=== PATIENT | male | born 1940 | race Caucasian/White ===

== ENCOUNTER → 2019-03-04 09:35 | Outpatient (CLI) | payer MEDICARE, BC, SELFPAY ==
[2018-11-12 09:45] VITALS: BMI 22.7
[2019-03-04 12:59] LABS: PSA,Total- Diagnostic 4.04 ng/mL (0.0-4.0)
== END ==
PROVIDERS: PCP Family Medicine
DX: R97.20 Elevated prostate specific antigen [PSA] (principal)
CPT/HCPCS: 36415; 84153

== ENCOUNTER → 2019-05-07 09:57 | Outpatient (CLI) | payer MEDICARE, BC, SELFPAY ==
[2018-11-12 09:45] VITALS: BMI 22.7
[2019-05-07 12:34] LABS: Hematocrit 51.1 % (40-54); Hemoglobin 17.1 g/dL (13.0-16.5); Mean Corp Hgb Conc 33.5 g/dL (32-36); Mean Corpuscular Hgb 32.6 pg (27.0-32.0); Mean Corpuscular Volume 97.3 fL (80-94); Mean Platelet Vol. 10.7 fl (6.2-12.0); Platelet Count 172 K/mm3 (150-450); RBC Distribution Width CV 12.4 % (11.6-14.6); RBC Distribution Width SD 44.3 fl (35.1-43.9); Red Blood Count 5.25 M/mm3 (4.6-6.2); White Blood Count 6.4 K/mm3 (4.4-11.0)
[2019-05-07 12:49] LABS: ALB/GLOB Ratio 1.2 RATIO (0.9-2.4); AST(SGOT) 16 U/L (15-37); Alanine Aminotransfer ALT/SGPT 25 U/L (16-61); Albumin, Serum 3.9 g/dL (3.2-5.0); Alkaline Phosphatase 69 U/L (45-117); Anion Gap 5 (5-15); BUN 18 mg/dL (7-18); BUN/Creat Ratio 19.6 RATIO (10-20); Chloride 105 mmol/L (98-107); Cholesterol 132 mg/dL (200); Creatinine, Serum 0.92 mg/dL (0.70-1.30); EST Glomerular Filtration Rate 85 mL/min (>60); Est Glom Filt Rate - Afr Amer 103 mL/min (>60); Globulin 3.2 g/dL (2.2-4.2); Glucose 103 mg/dL (74-106); High Density Lipoprotein 56 mg/dL; Potassium 4.6 mmol/L (3.5-5.1); Protein, Total 7.1 g/dL (6.4-8.2); Sodium Level 139 mmol/L (136-145); Thyroid Stim Hormone (TSH) 1.25 uIU/mL (0.358-3.74); Triglycerides 90 mg/dL; Very Low Density Lipoprotein 18 mg/dL (5-40)
== END ==
PROVIDERS: PCP Family Medicine; Visit Provider Nurse Practitioner Family
DX: E78.5 Hyperlipidemia, unspecified (principal); I25.10 Atherosclerotic heart disease of native coronary artery without angina pectoris
CPT/HCPCS: 36415; 80053; 80061; 84443; 85027

== ENCOUNTER → 2019-05-25 10:40 | Outpatient (CLI) | payer MEDICARE, BC, SELFPAY ==
[2019-05-13 09:57] VITALS: BMI 24.9
--- NOTE | 2019-05-25 10:50 | US_ITS ---
STUDY: RENAL ULTRASOUND - COMPLETE REASON FOR EXAM: Male, 79 years old. Urinary frequency TECHNIQUE: Ultrasound evaluation of the kidneys was performed with real-time and static ash-scale imaging. COMPARISON: None. FINDINGS: Aorta: Visualized portions of abdominal aorta are normal in diameter. IVC: Visualized portions appear patent. Right kidney: Measures 10.4 cm. Normal contour. Renal cortical thickness appears normal. There are 2 simple cysts identified measuring 3.0 and 1.5 cm respectively. No masses, stones, or hydronephrosis identified. Left kidney: Measures 10.7 cm. Normal contour. Renal cortical thickness appears normal. A 1.7 cm simple cyst is identified. No masses, stones, or hydronephrosis identified. Bladder: Partially decompressed and not well evaluated. The prostate is enlarged. US/Kidney and Bladder IMPRESSION: Bilateral renal cysts as above. No evidence for obstructive uropathy or other acute process. Significantly enlarged prostate. Consider follow-up PSA and physical exam as clinically indicated. Decompressed bladder is poorly evaluated. Electronically Signed: Maurice Hartmann, at 12:36 EST Tel , Service support ,
== END ==
PROVIDERS: Family Provider Family Medicine; PCP Family Medicine; Referring Provider Family Medicine; Visit Provider Family Medicine
DX: N40.0 Benign prostatic hyperplasia without lower urinary tract symptoms (principal)
CPT/HCPCS: 76770

== ENCOUNTER → 2019-06-02 09:27 | Outpatient (CLI) | payer MEDICARE, BC, SELFPAY ==
[2019-05-13 09:57] VITALS: BMI 24.9
--- NOTE | 2019-06-02 09:28 | US_ITS ---
PROCEDURES: TRANSRECTAL ULTRASOUND GUIDED - PROSTATE REASON FOR EXAM: Male, 79 years old. Elevated PSA levels. TECHNIQUE: Ultrasound evaluation of the prostate was performed with real-time and static barreto-scale imaging. BIOPSY: A needle core biopsy was perform. A consent form was signed, PT-PTT levels checked and a time-out was called. The patient is currently off any anticoagulant therapy. Cleansing enema: Yes COMPARISON: None. FINDINGS: PSA: 4.04 Prostate Volume: 52.7 cm3 There is a 1.3 cm x 1.2 cm by 1.5 cm complex hypoechoic nodule in the right transitional zone. There is also evidence of a 1.6 x 1.5 cm x 1.9 cm slightly echogenic nodule in the left transitional zone. The seminal vesicles appear normal without evidence of nodules or lesions. US/Prostate IMPRESSION: Nodules seen in the transitional zones of both the right and left-sided prostate. Electronically Signed: Umer De Jesus, at 10:40 EST , Service support ,
== END ==
PROVIDERS: Family Provider Family Medicine; PCP Family Medicine; Referring Provider Internal Medicine Critical Care Medicine; Visit Provider Internal Medicine Critical Care Medicine
DX: R35.0 Frequency of micturition (principal)
CPT/HCPCS: 76872

== ENCOUNTER → 2020-03-10 11:01 | Outpatient (CLI) | payer MEDICARE, BC, SELFPAY ==
[2019-11-24 13:44] VITALS: BMI 24.9
[2020-03-10 12:19] LABS: Hematocrit 47.1 % (40-54); Hemoglobin 16.1 g/dL (13.0-16.5); Mean Corp Hgb Conc 34.2 g/dL (32-36); Mean Corpuscular Hgb 32.5 pg (27.0-32.0); Mean Corpuscular Volume 95.2 fL (80-94); Mean Platelet Vol. 9.8 fl (6.2-12.0); Platelet Count 213 K/mm3 (150-450); RBC Distribution Width CV 11.9 % (11.6-14.6); RBC Distribution Width SD 41.3 fl (35.1-43.9); Red Blood Count 4.95 M/mm3 (4.6-6.2); White Blood Count 6.1 K/mm3 (4.4-11.0)
[2020-03-10 12:22] LABS: ALB/GLOB Ratio 1.2 RATIO (0.9-2.4); AST(SGOT) 19 U/L (15-37); Alanine Aminotransfer ALT/SGPT 33 U/L (16-61); Alkaline Phosphatase 73 U/L (45-117); Anion Gap 6 (5-15); BUN 15 mg/dL (7-18); BUN/Creat Ratio 16.7 RATIO (10-20); Chloride 104 mmol/L (98-107); Cholesterol 136 mg/dL (200); EST Glomerular Filtration Rate 87 mL/min (>60); Est Glom Filt Rate - Afr Amer 105 mL/min (>60); Globulin 3.3 g/dL (2.2-4.2); Glucose 98 mg/dL (74-106); High Density Lipoprotein 46 mg/dL; Potassium 4.1 mmol/L (3.5-5.1); Protein, Total 7.3 g/dL (6.4-8.2); Sodium Level 140 mmol/L (136-145); Triglycerides 145 mg/dL; Very Low Density Lipoprotein 29 mg/dL (5-40)
[2020-03-10 13:04] LABS: PSA,Total - Annual Screen 5.04 ng/mL (0.00-4.00)
== END ==
PROVIDERS: PCP Family Medicine; Visit Provider Family Medicine
DX: I25.10 Atherosclerotic heart disease of native coronary artery without angina pectoris (principal); R41.3 Other amnesia; Z87.898 Personal history of other specified conditions; E78.5 Hyperlipidemia, unspecified; Z12.5 Encounter for screening for malignant neoplasm of prostate
CPT/HCPCS: 36415; 80053; 80061; 84153; 85027; G0103

== ENCOUNTER → 2020-03-16 12:27 | Outpatient (CLI) | payer MEDICARE, BC, SELFPAY ==
[2020-03-16 11:42] VITALS: BMI 24.9
--- NOTE | 2020-03-16 12:28 | EKG12_ITS ---
Test Reason : ROUTINE Blood Pressure : / mmHG Vent. Rate : 079 BPM Atrial Rate : 079 BPM P-R Int : 176 ms QRS Dur : 088 ms QT Int : 398 ms P-R-T Axes : 054 023 050 degrees QTc Int : 456 ms Sinus rhythm with marked sinus arrhythmia Otherwise normal ECG Confirmed by ANNIE DUTTON, GALLITO ([id number]), medical transcription editor NICKO RIOS ([id number]) on 03/23/2020 8:34:59 AM Referred By: River Moreno Confirmed By:DANO VALENCIA MD
== END ==
PROVIDERS: PCP Family Medicine; Referring Provider Family Medicine; Visit Provider Family Medicine
DX: I48.91 Unspecified atrial fibrillation (principal)
CPT/HCPCS: 93005

== ENCOUNTER → 2021-01-04 07:58 | Outpatient (CLI) | payer MEDICARE, BC, SELFPAY ==
[2021-01-03 11:20] VITALS: BMI 25.2
[2021-01-04 12:47] LABS: Thyroid Stim Hormone (TSH) 1.09 uIU/mL (0.358-3.74)
== END ==
PROVIDERS: PCP Family Medicine; Referring Provider Family Medicine; Visit Provider Family Medicine
DX: E78.5 Hyperlipidemia, unspecified (principal); N52.9 Male erectile dysfunction, unspecified
CPT/HCPCS: 36415; 84403; 84443

== ENCOUNTER → 2021-02-09 15:36 | Outpatient (CLI) | payer MEDICARE, BC, SELFPAY ==
--- NOTE | 2021-02-09 15:39 | RAD_ITS ---
STUDY: X-RAY CHEST REASON FOR EXAM: Male, 80 years old. Cough TECHNIQUE: Frontal and lateral views COMPARISON: None FINDINGS: Stable sternotomy wires. The lungs are clear and expanded. There is no demonstrated pleural abnormality. Normal size heart. Normal mediastinum and evelin. Normal visualized pulmonary arteries. Normal visualized aortic arch and descending thoracic aorta. There is an old compression of a lower thoracic/upper lumbar vertebral segment with vertebroplasty. Normal visualized ribs, clavicles, and shoulders. There is no demonstrated abnormality of the visualized soft tissue structures of the upper abdomen. RAD/Chest PA and Lateral IMPRESSION: No acute pulmonary pathology of the chest. Electronically Signed: Adan Price DO at 16:08 EDT Tel [phone], Service support ,
== END ==
PROVIDERS: PCP Family Medicine; Referring Provider Nurse Practitioner Family; Visit Provider Nurse Practitioner Family
DX: R05 Cough (principal)
CPT/HCPCS: 71046

== ENCOUNTER → 2021-05-09 11:17 | Outpatient (CLI) | payer MEDICARE, BC, SELFPAY ==
[2021-05-09 12:34] LABS: Absolute Lymphocyte Count 0.74 X10^3/uL (0.83-4.51); Absolute Neutrophil Count 3.9 X10^3/uL (2.0-7.7); Basophil# 0.06 X10^3/uL; Eosinophil# 0.53 X10^3/uL; Eosinophils% 9.1 % (0-5); Hemoglobin 16.2 g/dL (13.0-16.5); Lymphocyte # 0.74 X10^3/ul (0.83-4.51); Lymphocyte % 12.7 % (19-41); Mean Corp Hgb Conc 34.5 g/dL (32-36); Mean Corpuscular Hgb 33.4 pg (27.0-32.0); Mean Corpuscular Volume 96.9 fL (80-94); Mean Platelet Vol. 10.1 fl (6.2-12.0); Monocyte# 0.54 X10^3/uL; Monocyte% 9.3 % (0-10); NRBC Flagged by Analyzer 0 % (0-5); Neutrophil # 3.92 X10^3/uL (2.7-7.7); Neutrophil % 67.4 % (47-70); Platelet Count 190 K/mm3 (150-450); RBC Distribution Width CV 11.9 % (11.6-14.6); RBC Distribution Width SD 42.9 fl (35.1-43.9); Red Blood Count 4.85 M/mm3 (4.6-6.2); White Blood Count 5.8 K/mm3 (4.4-11.0)
[2021-05-09 12:50] LABS: ALB/GLOB Ratio 1.1 RATIO (0.9-2.4); AST(SGOT) 20 U/L (15-37); Alanine Aminotransfer ALT/SGPT 29 U/L (16-61); Albumin, Serum 3.8 g/dL (3.2-5.0); Alkaline Phosphatase 67 U/L (45-117); Anion Gap 4 (5-15); BUN 25 mg/dL (7-18); BUN/Creat Ratio 26.8 RATIO (10-20); Calcium,Total 9.3 mg/dL (8.5-10.1); Chloride 107 mmol/L (98-107); Cholesterol 112 mg/dL (200); Creatinine, Serum 0.93 mg/dL (0.70-1.30); EST Glomerular Filtration Rate 83 mL/min (>60); Est Glom Filt Rate - Afr Amer 100 mL/min (>60); Globulin 3.4 g/dL (2.2-4.2); Glucose 123 mg/dL (74-106); High Density Lipoprotein 47 mg/dL; Potassium 4.1 mmol/L (3.5-5.1); Protein, Total 7.2 g/dL (6.4-8.2); Sodium Level 139 mmol/L (136-145); Triglycerides 110 mg/dL; Very Low Density Lipoprotein 22 mg/dL (5-40)
== END ==
PROVIDERS: PCP Family Medicine; Referring Provider Family Medicine; Visit Provider Family Medicine
DX: I51.9 Heart disease, unspecified (principal); E78.5 Hyperlipidemia, unspecified; J30.2 Other seasonal allergic rhinitis
CPT/HCPCS: 36415; 80053; 80061; 85025

== ENCOUNTER → 2021-05-29 13:37 | Outpatient (CLI) | payer MEDICARE, BC, SELFPAY | PROVIDERS: PCP Family Medicine; Referring Provider Physician Assistant Surgical; Visit Provider Physician Assistant Surgical | DX: Z11.52 Encounter for screening for COVID-19 (principal) | CPT/HCPCS: 87635; U0005; U0003 ==

== ENCOUNTER 2021-07-18 11:27 | Outpatient (CLI) | payer MEDICARE, BC, SELFPAY ==
--- NOTE | 2021-07-18 11:31 | RAD_ITS ---
EXAM: XR CHEST, 2 VIEWS : 1940 CLINICAL INDICATION: cough TECHNIQUE: Frontal and lateral views of the chest. This report was created using [employer] report generation technology. COMPARISON: 02/09/2021 FINDINGS: LUNGS AND PLEURAL SPACES: Unremarkable. No consolidation or edema. No pneumothorax. No effusion. HEART: Unremarkable. Cardiac silhouette not enlarged. MEDIASTINUM: Central airways and mediastinal contour are unremarkable. BONES/JOINTS: Unremarkable. SOFT TISSUES: Unremarkable. RAD/Chest PA and Lateral IMPRESSION: No radiographic evidence of acute cardiopulmonary disease. at 1733 Reported and signed by: Gab Chaudhari MD Electronically Signed: Gab Chaudhari MD at 17:32 EST ,
== END 2021-07-18 23:59 | disposition short-term general hospital (02) ==
LOC: RAD 11:30
PROVIDERS: PCP Family Medicine; Referring Provider Family Medicine; Visit Provider Family Medicine
DX: J40 Bronchitis, not specified as acute or chronic (principal)
CPT/HCPCS: 71046

== ENCOUNTER 2021-09-17 14:28 | Outpatient (CLI) | payer MEDICARE, BC, SELFPAY ==
--- NOTE | 2021-09-17 14:31 | CT_ITS ---
STUDY: CT MAXILLOFACIAL SINUSES REASON FOR EXAM: Male, 81 years old. Sinusitis RADIATION DOSAGE (If Supplied By Facility): CTDIvol = ( 33.06 ) mGy, DLP = ( 800.79 ) mGycm TECHNIQUE: The patient was scanned in a multi detector CT scanner. High resolution axial imaging was performed without the administration of intravenous contrast material. Sagittal and coronal images were reconstructed. Individualized dose optimization techniques were used for this CT. COMPARISON: None. FINDINGS: FRONTAL SINUSES: Normal aeration, without mucosal inflammatory disease. ETHMOIDAL SINUSES: Normal aeration, without mucosal inflammatory disease. MAXILLARY SINUSES: Normal aeration, without mucosal inflammatory disease. SPHENOIDAL SINUSES: Small mucous retention cyst of the right sphenoid sinus. Otherwise normal aeration bilaterally, without mucosal inflammatory disease. MASTOID AIR CELLS: Normal bilaterally. INNER EAR AND OSSICLES: Normal bilaterally. There is patency of the bilateral maxillary infundibuli with normal uncinate processes, ethmoid bullae, and hiatus semilunaris. Normal bilateral middle turbinates. Normal bilateral inferior turbinates. Normal midline nasal septum. There is patency of the bilateral nasal airways. The visualized osseous structures are normal. The visualized bilateral orbital contents are normal. CT/Sinus/Facial Bone IMPRESSION: 1. Small mucous retention cyst of the right sphenoid sinus. The remaining sinuses are clear. Electronically Signed: Ruben Barton MD at 10:39 EDT ,
== END 2021-09-17 23:59 | disposition home or self-care (01) ==
LOC: CT 14:29
PROVIDERS: PCP Family Medicine; Referring Provider Otolaryngology; Visit Provider Otolaryngology
DX: J32.8 Other chronic sinusitis (principal)
CPT/HCPCS: 70486

== ENCOUNTER → 2022-01-22 | Outpatient (CLI) | payer MEDICARE, BC, SELFPAY ==
[2022-01-22 15:18] LABS: Absolute Lymphocyte Count 1.03 X10^3/uL (0.83-4.51); Absolute Neutrophil Count 4.7 X10^3/uL (2.0-7.7); Basophil# 0.07 X10^3/uL; Eosinophil# 0.62 X10^3/uL; Eosinophils% 8.5 % (0-5); Hematocrit 46.7 % (40-54); Hemoglobin 16.4 g/dL (13.0-16.5); Lymphocyte # 1.03 X10^3/ul (0.83-4.51); Lymphocyte % 14.1 % (19-41); Mean Corp Hgb Conc 35.1 g/dL (32-36); Mean Corpuscular Hgb 34.2 pg (27.0-32.0); Mean Corpuscular Volume 97.5 fL (80-94); Mean Platelet Vol. 9.9 fl (6.2-12.0); Monocyte# 0.88 X10^3/uL; NRBC Flagged by Analyzer 0 % (0-5); Neutrophil # 4.68 X10^3/uL (2.7-7.7); Platelet Count 180 K/mm3 (150-450); RBC Distribution Width CV 12.1 % (11.6-14.6); RBC Distribution Width SD 43.8 fl (35.1-43.9); Red Blood Count 4.79 M/mm3 (4.6-6.2); White Blood Count 7.3 K/mm3 (4.4-11.0)
[2022-01-22 15:52] LABS: Anion Gap 2 (5-15); BUN 22 mg/dL (7-18); BUN/Creat Ratio 21.8 RATIO (10-20); Calcium,Total 9.1 mg/dL (8.5-10.1); Chloride 106 mmol/L (98-107); Creatinine, Serum 1.01 mg/dL (0.70-1.30); EST Glomerular Filtration Rate 75 mL/min (>60); Est Glom Filt Rate - Afr Amer 91 mL/min (>60); Glucose 98 mg/dL (74-106); Potassium 4.6 mmol/L (3.5-5.1); Sodium Level 138 mmol/L (136-145); Thyroid Stim Hormone (TSH) 1.01 uIU/mL (0.358-3.74)
== END | disposition home or self-care (01) ==
LOC: BIMLAB 13:28
PROVIDERS: PCP Family Medicine; Visit Provider Nurse Practitioner Family
DX: R53.83 Other fatigue (principal); J30.2 Other seasonal allergic rhinitis; R41.3 Other amnesia
CPT/HCPCS: 36415; 80048; 84443; 85025

== ENCOUNTER → 2022-03-25 | Outpatient (CLI) | payer MEDICARE, BC, SELFPAY ==
--- NOTE | 2022-03-25 12:57 | ECHOD_ITS ---
Reason For Study: Dyspnea/SOB Procedure This was a 2D Doppler, Color Flow transthoracic echocardiogram. Exam performed in department. Left Ventricle Normal LV size. Left ventricular systolic function is normal. The estimated ejection fraction is 60 %. Stage 1 diastolic dysfunction. No regional wall motion abnormalities noted. Right Ventricle Normal RV size. Normal systolic function. Atria Normal left atrium. Normal right atrium. Mitral Valve There is mild mitral annular calcification. Tricuspid Valve Normal tricuspid valve. Aortic Valve Trisinus/trileaflet aortic valve. Mild focal aortic valve calcification. Pulmonic Valve Normal pulmonic valve. Great Vessels Normal aortic root. The pulmonary artery is normal size. Normal inferior vena cava. Pericardium/Pleural No pericardial effusion. MMode/2D Measurements & Calculations LVIDd: 4.4 cm IVSd: 0.95 cm Ao root diam: 3.4 cm LVIDs: 2.9 cm LVPWd: 1.2 cm LA dimension: 4.4 cm RVDd: 3.4 cm FS: 33.9 % LAV(MOD-bp): 30.9 ml LA A4 area: 15.1 cm2 RA A4 area: 13.0 cm2 LAV(MOD-bp) Indexed: 16.7 ml/m2 LAV(MOD-sp2): 27.7 ml LAV(MOD-sp4): 33.7 ml Time Measurements MV dec time: 0.31 sec Doppler Measurements & Calculations MV E max john paul: 54.2 cm/sec Lat Peak E' John Paul: 8.9 cm/sec Med Peak E' John Paul: 6.5 cm/sec MV A max john paul: 94.9 cm/sec E/E' lat: 6.1 E/E' med: 8.4 MV E/A: 0.57 MV V2 max: 111.6 cm/sec MV P1/2t max john paul: 54.8 cm/sec Ao V2 max: 176.8 cm/sec MV max P.0 mmHg MV P1/2t: 167.4 msec Ao max P.5 mmHg MV V2 mean: 43.5 cm/sec MV dec slope: 96.0 cm/sec2 MV mean P.97 mmHg MVA(P1/2t): 1.3 cm2 MV V2 VTI: 30.2 cm LV V1 max: 75.6 cm/sec PA V2 max: 115.6 cm/sec PI end-d john paul: 119.4 cm/sec LV V1 max P.3 mmHg ECHO/Echo Complete Interpretation Summary Normal LV size. Left ventricular systolic function is normal. The estimated ejection fraction is 60 %. Stage 1 diastolic dysfunction. There is mild mitral annular calcification. Ordering Physician: River Moreno Referring Physician: River Moreno Performed By: Jonas Krueger RCS
== END | disposition home or self-care (01) ==
LOC: CVS 12:57
PROVIDERS: PCP Family Medicine; Referring Provider Family Medicine; Visit Provider Family Medicine
DX: I25.810 Atherosclerosis of coronary artery bypass graft(s) without angina pectoris (principal)
CPT/HCPCS: 93306

== ENCOUNTER 2022-07-20 20:53 | Emergency (ER) | payer MEDICARE, BC, SELFPAY ==
[2022-07-20 20:55] VITALS: BP 153/97; PULSE 101; RESP 18; TEMP 36.2; O2SAT 92; BMI 21.2
--- NOTE | 2022-07-20 21:06 | EKG12_ITS ---
Test Reason : CP Blood Pressure : / mmHG Vent. Rate : 089 BPM Atrial Rate : 089 BPM P-R Int : 180 ms QRS Dur : 090 ms QT Int : 330 ms P-R-T Axes : 041 -29 044 degrees QTc Int : 401 ms Normal sinus rhythm Possible Left atrial enlargement Borderline ECG When compared with ECG of 16-MAR-2020 12:37, QRS axis Shifted left QT has shortened Confirmed by ANNIE DUTTON, GALLITO ([id number]), supervising editor news reel SHERLEY AHUMADA ([id number]) on 07/29/2022 12:57:07 PM Referred By: A[place]IN Confirmed By:DANO VALENCIA MD
--- NOTE | 2022-07-20 21:09 | ED.VIS.BACK ---
HPI History of Present Illness Chief Complaint: Back Narrative Narrative: 82-year-old male here for back pain, chest pain, dental pain. Notes a fall out of bed either Friday or Friday night. This is approximately 5 to 6 days prior to arrival. The patient states he has been having intermittent right-sided chest pain and back pain. Notes diffuse weakness all over. Patient has history of dementia per family provide a lot of history otherwise. They state he just moved into a new memory care unit. States since he got a smaller bed he may have fallen earlier in the week. They deny any personal family history of connective tissue disorder such as [place]-Danlos or Marfan syndrome. Denies focal weakness, lateralizing weakness. Patient's baseline mental status is alert and oriented x2. He denies any vomiting. Denies any diarrhea. Denies any recent surgery, travel, unilateral leg swelling, he denies any history of PE or DVT. [facility] Medical History Arthritis Cataracts, both eyes Chronic bronchitis Heart disease Seasonal allergies Home Medications aspirin 81 mg tablet,delayed release 81 mg PO QDAY 01/06/18 [History Last Taken Unknown] fexofenadine 60 mg-pseudoephedrine ER 120 mg tablet,ext.release,12 hr (Mona-D 12 Hour) 1 tab PO Q12H PRN allergies 11/24/19 [History Last Taken Unknown] omeprazole 40 mg capsule,delayed release 40 mg PO QDAY #90 caps 01/05/21 [Rx Last Taken Unknown] rosuvastatin 20 mg tablet (Crestor) 20 mg PO QDAY #90 tabs 03/29/21 [Rx Last Taken Unknown] montelukast 10 mg tablet (Singulair) 10 mg PO DAILY #90 tabs 08/13/21 [Rx Last Taken Unknown] acetaminophen 325 mg capsule (Tylenol) 325 mg PO Q6H PRN pain #120 caps 07/20/22 [Rx Last Taken Unknown] dextromethorphan-guaifenesin 30 mg-600 mg tablet extended [id number] hr (Mucinex DM) 1 tab PO Q12H 07/20/22 [History Last Taken Unknown] famciclovir 500 mg tablet 500 mg PO BID 07/20/22 [History Last Taken Unknown] ibuprofen 200 mg tablet 200 mg PO Q6H PRN pain 14 days #56 tabs 07/20/22 [Rx Last Taken Unknown] Allergy/AdvReac Type Severity Reaction Status Date / Time No Known Allergies Allergy Verified 06/18/22 12:56 Family History Mother Arthritis Father Arthritis Heart disease Kidney disease Parkinson disease Daughter Heart disease Brother Heart disease Surgical History history of triple bypass surgery Social History Smoking Status: Never smoker alcohol intake: never substance use type: does not use what type of physical activity do you participate in: walking and bicycling ROS ROS ED ROS Narrative Constitutional: Denies fever HEENT: Denies sore throat Neck: Denies neck pain Cardiovascular: Endorses chest pain Respiratory: Denies shortness of breath GI: Denies nausea vomiting or abdominal pain : Denies changes in urinary habits Musculoskeletal: Endorses back pain Neurologic: Denies numbness weakness or loss of sensation Skin denies rash EXAM Physical Exam Narrative Exam Narrative: Nursing triage notes reviewed, Vital signs reviewed Primary Survey Airway: Intact Breathing: Bilateral breath sounds Circulation: Palpable bilateral femorals, Palpable bilateral radial, Palpable bilateral DP and Palpable bilateral PT Disability / Spine precautions GCS Score: Eye Openin Verbal Response: 5 Motor Response: 6 Secondary Survey Constitutional: Please see MDM Head: Atraumatic, Midface stable, NO jaw malocclusion, No Cephalohematoma, and No Lacerations noted Eye: Pupils equal round and reactive to light, Extraocular muscles intact and No periorbital ecchymosis or stepoff, no evidence of entrapment ENT: Oropharynx clear, no lacerations, no hemotympanum, no raccoon eyes or núñez sign Cervical spine / Neck: No cervical spine bony tenderness, crepitance, or stepoff deformity Trachea midline Lungs: Clear to auscultation, No asymmetric rise and No crepitus, no flail chest Cardiac: Regular rate and rhythm and No murmurs Abdomen: Soft, Nontender and No rebound Pelvis: Pelvis stable to compression : No evidence of genital injury Back: No midline bony tenderness to thoracic/lumbar/sacral spines Neuro: Alert and oriented x3, neuro exam at baseline, cranial nerves II through XII are intact. No pain with extraocular muscle movement. There is negative test of skew. Normal speech. 5 of 5 strength in upper and lower extremities in flexion extension. Intact sensation to light touch in upper and lower extremity dermatomes. No truncal or extremity ataxia. No dysdiadochokinesia. Normal gait. 2+ reflexes. No meningeal signs. Negative Babinski. NIH of 0 Extremities: NO gross Deformities Psych: Normal affect Nursing triage notes reviewed, Vital signs reviewed Const Vital Signs: 07/20/22 20:55 07/20/22 20:55 Temperature 97.1 F L 97.1 F L Temperature Source Temporal Temporal Pulse Rate 101 H 101 H Respiratory Rate 18 18 Blood Pressure 153/97 H 153/97 H Blood Pressure Mean 115 115 Pulse Ox 92 92 Oxygen Delivery Method Room Air Room Air MDM MDM MDM Narrative Medical decision making narrative: Chief Complaint: Chest pain, back pain, dental pain External records reviewed: Echocardiogram from March 2022 shows an ejection fraction of 60%, stage I diastolic dysfunction I considered: ACS, PE, pneumonia, pneumothorax, cervical spine, thoracic spine, lumbar spine fracture dislocation. I also considered musculoskeletal etiology, space-occupying lesion of the spine, aortic pathology. EKG with no evidence of STEMI. Troponin negative. Low gestalt for PE, low risk score. No evidence of bony abnormality to the spine, denies, Lumbar spine or acute intracranial pathology. No pulsatile abdominal masses, pulse deficits suggest aortic pathology. No obvious emergent life-threatening etiology identified. UA without infection. No PNA on CXR. No leukocytosis to suggest infection. IMaging negative for acute traumatic injuries. Factors affecting care: Care complicated by history of hyperlipidemia, CAD status post CABG, atherosclerosis, chronic bronchitis Social determinants of health: Elderly, memory care patient Shared decision making: I will have a discussion with the patient and or visitors regarding risk/benefits of further testing or admission. They will be made aware of of the risk/benefits inherent in this decision they will be given the opportunity to voice understanding. Consults: none Lab Data Attestation: I reviewed the patient's lab results. Lab results narrative: CBC without evidence of leukocytosis, tachycardia anemia or thrombocytopenia BMP without evidence of significant electrolyte abnormalities, anion gap to suggest endorgan hypoperfusion, TOAN Troponin negative for evidence of myocardial schema UA without evidence of urinary tract infection Labs: Laboratory Results - last 24 hr 07/20/22 07/20/22 07/20/22 21:45 21:45 22:15 WBC 9.6 RBC 4.87 Hgb 16.2 Hct 47.6 MCV 97.7 H MCH 33.3 H MCHC 34.0 RDW Std Deviation 42.5 RDW Coeff of Solitario 11.8 Plt Count 213 MPV 9.9 Immature Gran % (Auto) 0.800 Neut % (Auto) 74.8 H Lymph % (Auto) 6.9 L [place] % (Auto) 14.6 H Eos % (Auto) 2.4 Baso % (Auto) 0.5 Absolute Neuts (auto) 7.2 Absolute Lymphs (auto) 0.66 L Nucleated RBC % 0 Sodium 138 Potassium 4.2 Chloride 105 Carbon Dioxide 25.0 Anion Gap 8 BUN 19 H Creatinine 0.88 Estim Creat Clear Calc 59.13 Est GFR (MDRD) Af Amer 108 Est GFR (MDRD) Non-Af 89 BUN/Creatinine Ratio 21.7 H Glucose 116 H Calcium 9.0 Troponin I High Sens 6 Urine Color Yellow Urine Clarity Clear Urine pH 6.0 Ur Specific Weir 1.015 Urine Protein 15 H Urine Glucose (UA) Normal Urine Ketones 5 H Urine Occult Blood 25 H Urine Nitrite Negative Urine Bilirubin Negative Urine Urobilinogen 1 H Ur Leukocyte Esterase 25 H Urine RBC 0 SEEN Urine WBC 0 SEEN Ur Squamous Epith Cells 0 SEEN Urine Bacteria 0 SEEN Urine Mucus 0 SEEN Radiography Diagnostic Testing: Clinical Impression(s) from Imaging Studies Brain CT 07/20/22 21:36 IMPRESSION: Atrophy. No evidence of acute hemorrhage infarct or edema. Electronically Signed: Dinorah Reynolds MD at 22:32 EST Reading Location ID and State: [facility] / [place] Tel , Service support , Cervical Spine CT 07/20/22 21:36 IMPRESSION: Degenerative change of the cervical spine no visualized acute fracture. Electronically Signed: Dinorah Reynolds MD at 22:46 EST , Lumbar Spine CT 07/20/22 21:36 IMPRESSION: Degenerative change, no visualized fracture. Prior laminectomy L5-S1. Prostate enlargement measuring up to 4.2 x 6.4 cm. Distended bladder Diverticulosis no visualized diverticulitis. Stones in the left kidney no hydronephrosis. As seen on that the thoracic spine CT there are bilateral benign-appearing renal cysts. Electronically Signed: Dinorah Reynolds MD at 22:54 EST , Thoracic Spine CT 07/20/22 21:36 IMPRESSION: Degenerative change at the cervical and thoracic spine without visualized acute loss of height or alignment. Prior Kyphoplasty compression injury at L1. Incidental visualization of dense calcification of the coronary arteries. Especially the left anterior descending. Electronically Signed: Dinorah Reynolds MD at 22:50 EST , Chest X-Ray 07/20/22 22:05 IMPRESSION: Status post sternotomy. No demonstrated acute cardiopulmonary process. The lung bases are mostly obscured. Electronically Signed: Dinorah Reynolds MD at 22:33 EST , Treatment and Re-Evaluation Narrative: Trauma exam without new traumatic injuries patient is appropriate discharge back to memory unit. Discharge Plan Triage Chief Complaint: Back ED Provider: Hiren Shelton Dx/Rx/DC Orders Clinical Impression: Back pain, Chest pain, Dementia Instructions: ED Chest Pain, Uncertain Cause Prescriptions: New acetaminophen [Tylenol] 325 mg capsule 325 mg PO Q6H PRN (Reason: pain) Qty: 120 0RF ibuprofen 200 mg tablet 200 mg PO Q6H PRN (Reason: pain) 14 Days Qty: 56 0RF No Action aspirin 81 mg tablet,delayed release (DR/EC) 81 mg PO QDAY fexofenadine-pseudoephedrine [Mona-D 12 Hour] 60-120 mg tablet extended release 12 hr 1 tab PO Q12H PRN (Reason: allergies) famciclovir 500 mg tablet 500 mg PO BID Mucinex DM 30-600 mg Tablet Extended Release 12 Hr 1 tab PO Q12H omeprazole 40 mg capsule,delayed release(DR/EC) 40 mg PO QDAY Qty: 90 3RF rosuvastatin [Crestor] 20 mg tablet 20 mg PO QDAY Qty: 90 3RF montelukast [Singulair] 10 mg tablet 10 mg PO DAILY Qty: 90 2RF Primary Care Provider: Bertha Arndt Referrals: River Moreno DO [Med Staff - Retarder Operator] - Disposition Disposition: Home, Self Care
--- NOTE | 2022-07-20 21:36 | CT_ITS ---
STUDY: CT CERVICAL SPINE WITHOUT CONTRAST REASON FOR EXAM: Male, 82 years old. Fall, neck pain RADIATION DOSAGE (If Supplied By Facility): CTDIvol = ( 23.49 ) mGy, DLP = ( 520.73 ) mGycm TECHNIQUE: High resolution transaxial imaging was performed without contrast material. Sagittal and coronal images were reconstructed. Individualized dose optimization techniques were used for this CT. COMPARISON: None FINDINGS: Normal craniovertebral junction. There are degenerative changes of the anterior atlantoaxial articulation. Normal odontoid process. Normal cervical lordosis. Normal vertebral bodies and posterior osseous elements. C2-3: Normal endplates. Normal disc height and morphology. Normal central canal and intervertebral neuroforamina. C3-4: There is facet arthropathy. There is mild neural foramina narrowing or significant central stenosis. There is dense calcification of the bilateral carotid bulbs. C4-5: There is disc space narrowing facet arthropathy mild neural foramina narrowing no significant central stenosis. C5-6: There is disc space narrowing facet arthropathy minimal neural foramina narrowing no significant central stenosis. C6-7: There is disc space narrowing. There is mild neural foramina narrowing no significant central stenosis. C7-T1: Normal endplates. Normal disc height and morphology. Normal central canal and intervertebral neuroforamina. Normal visualized soft tissue structures. CT/Spine Cervical without Contras IMPRESSION: Degenerative change of the cervical spine no visualized acute fracture. Electronically Signed: Dinorah Reynolds MD at 22:46 EST Reading Location ID and State: [facility] / [place] Tel , Service support ,
--- NOTE | 2022-07-20 21:36 | CT_ITS ---
STUDY: CT THORACIC SPINE WITHOUT CONTRAST REASON FOR EXAM: Male, 82 years old. Fall, back pain RADIATION DOSAGE (If Supplied By Facility): CTDIvol = ( 32.57 ) mGy, DLP = ( 1548.64 ) mGycm TECHNIQUE: The patient was scanned in a multi detector CT scanner. High resolution imaging was performed. Images were obtained from C7 to L1. Sagittal and coronal images were reconstructed. Individualized dose optimization techniques were used for this CT. COMPARISON: None. FINDINGS: There is mild multilevel endplate spondylosis of the cervical spine. Multilevel facet arthropathy within the cervical spine. There is visualize calcification of the carotid arteries. Normal kyphosis of the thoracic spine. There is no substantial scoliosis. There is mild multilevel endplate spondylosis of the thoracic spine. There is multilevel mild disc space narrowing. There is no apparent acute loss of height or alignment. There is a visualized compression injury at the level of L1 with kyphoplasty material. There are punctate stones within the left kidney without visualized hydronephrosis. There is a partially visualized this right kidney measuring 2.9 x 2.5 cm. There is an exophytic cyst left kidney measuring 2.3 x 1.5 cm. T9 there is slight loss of height which appears to be associated with a Schmorl''s node or chronic findings. There is visualized mild cardiomegaly. There is dense calcification in the left anterior descending coronary artery. CT/Spine Thoracic without Contras IMPRESSION: Degenerative change at the cervical and thoracic spine without visualized acute loss of height or alignment. Prior Kyphoplasty compression injury at L1. Incidental visualization of dense calcification of the coronary arteries. Especially the left anterior descending. Electronically Signed: Dinorah Reynolds MD at 22:50 EST ,
--- NOTE | 2022-07-20 21:36 | CT_ITS ---
STUDY: CT LUMBAR SPINE WITHOUT CONTRAST REASON FOR EXAM: Male, 82 years old. Fall, back pain RADIATION DOSAGE (If Supplied By Facility): CTDIvol = ( 17.83 ) mGy, DLP = ( 602.86 ) mGycm TECHNIQUE: The patient was scanned in a multi detector CT scanner. High resolution transaxial imaging was performed. Images were obtained from to . Sagittal and coronal images were reconstructed. Individualized dose optimization techniques were used for this CT. COMPARISON: None FINDINGS: Normal lumbar lordosis. There is no substantial scoliosis. Chronic appearing 50% loss of height at the level of L1 with kyphoplasty material. L1-2: Normal endplates. Normal disc height and morphology. Normal bilateral facet joints. Normal central canal and bilateral lateral recesses. Normal bilateral intervertebral neural foramina. L2-3: There is facet arthropathy with minimal right neural foramina narrowing no significant central stenosis L3-4: There is facet arthropathy with mild neural foramina narrowing no significant central stenosis. L4-5: There is a broad disc bulge mild neural foramina narrowing mild central stenosis facet arthropathy. L5-S1: There is a broad left lateral disc bulge with moderate left neural foramina narrowing no significant central stenosis. There has been a laminectomy. The prostate is enlarged. The bladder is distended. There is diverticulosis without diverticulitis. There is partial visualization of cysts seen in the bilateral kidneys also described on the dedicated thoracic spine performed the same day. There is a small cluster of stones within the left kidney measuring 4.3 and 2.[address]/Spine Lumbar without Contrast IMPRESSION: Degenerative change, no visualized fracture. Prior laminectomy L5-S1. Prostate enlargement measuring up to 4.2 x 6.4 cm. Distended bladder Diverticulosis no visualized diverticulitis. Stones in the left kidney no hydronephrosis. As seen on that the thoracic spine CT there are bilateral benign-appearing renal cysts. Electronically Signed: Dinorah Reynolds MD at 22:54 EST ,
--- NOTE | 2022-07-20 21:36 | CT_ITS ---
STUDY: CT BRAIN WITHOUT CONTRAST REASON FOR EXAM: Male, 82 years old. Fall, dementia RADIATION DOSAGE (If Supplied By Facility): CTDIvol = ( 44.99 ) mGy, DLP = ( 846.73 ) mGycm TECHNIQUE: Transaxial CT imaging of the brain was performed without administration of intravenous contrast material. Individualized dose optimization techniques were used for this CT. COMPARISON: No relevant priors. FINDINGS: Normal soft tissue structures. Normal calvarium. There is calcification of the right greater than left vertebral arteries. There is calcification of the cavernous carotid arteries. There is moderate cerebral atrophy with widening of the extra-axial spaces and ventricular dilatation. There are areas of decreased attenuation within the white matter tracts of the supratentorial brain, consistent with microvascular disease changes. Normal basal ganglia and thalami. Normal brainstem. There is mild cerebellar atrophy. There is no intracranial hemorrhage. There are no findings of an acute ischemic infarction. Small mucosal retention cyst within the right side sphenoid. CT/Brain/Head without Contrast IMPRESSION: Atrophy. No evidence of acute hemorrhage infarct or edema. Electronically Signed: Dinorah Reynolds MD at 22:32 EST Reading Location ID and State: [facility] / [place] Tel , Service support ,
[2022-07-20 22:03] LABS: Absolute Lymphocyte Count 0.66 X10^3/uL (0.83-4.51); Absolute Neutrophil Count 7.2 X10^3/uL (2.0-7.7); Basophil# 0.05 X10^3/uL; Basophil% 0.5 % (0-1); Eosinophil# 0.23 X10^3/uL; Eosinophils% 2.4 % (0-5); Hematocrit 47.6 % (40-54); Hemoglobin 16.2 g/dL (13.0-16.5); Lymphocyte # 0.66 X10^3/ul (0.83-4.51); Lymphocyte % 6.9 % (19-41); Mean Corpuscular Hgb 33.3 pg (27.0-32.0); Mean Corpuscular Volume 97.7 fL (80-94); Mean Platelet Vol. 9.9 fl (6.2-12.0); Monocyte% 14.6 % (0-10); NRBC Flagged by Analyzer 0 % (0-5); Neutrophil # 7.17 X10^3/uL (2.7-7.7); Neutrophil % 74.8 % (47-70); Platelet Count 213 K/mm3 (150-450); RBC Distribution Width CV 11.8 % (11.6-14.6); RBC Distribution Width SD 42.5 fl (35.1-43.9); Red Blood Count 4.87 M/mm3 (4.6-6.2); White Blood Count 9.6 K/mm3 (4.4-11.0)
--- NOTE | 2022-07-20 22:05 | RAD_ITS ---
STUDY: X-RAY CHEST REASON FOR EXAM: Male, 82 years old. Chest pain TECHNIQUE: Single AP portable view of the chest. COMPARISON: January 15, 2022 chest x-ray FINDINGS: The lungs are hypoinflated compared to prior study. There is no demonstrated pleural abnormality. Sternal cerclage wires are present from a prior sternotomy. Normal mediastinum and evelin. Normal visualized pulmonary arteries. Normal visualized aortic arch and descending thoracic aorta. Normal visualized thoracic spine. Normal visualized ribs, clavicles, and shoulders. There is no demonstrated abnormality of the visualized soft tissue structures of the upper abdomen. RAD/Chest 1 View (Portable) IMPRESSION: Status post sternotomy. No demonstrated acute cardiopulmonary process. The lung bases are mostly obscured. Electronically Signed: Dinorah Reynolds MD at 22:33 [facility] ,
[2022-07-20 22:20] LABS: Anion Gap 8 (5-15); BUN 19 mg/dL (7-18); BUN/Creat Ratio 21.7 RATIO (10-20); Chloride 105 mmol/L (98-107); Creatinine, Serum 0.88 mg/dL (0.70-1.30); EST Glomerular Filtration Rate 89 mL/min (>60); Est Glom Filt Rate - Afr Amer 108 mL/min (>60); Estimated Creatinine Clearance 59.13 ml/min; Glucose 116 mg/dL (74-106); Potassium 4.2 mmol/L (3.5-5.1); Sodium Level 138 mmol/L (136-145); Troponin-I HS (w/2H Reflex) 6 pg/mL (3.0-78.0)
[2022-07-20 22:24] LABS: Bacteria 0 SEEN /hpf (None Seen); Mucous, Urine 0 SEEN /hpf (<or=2+); Red Blood Cells-Urine 0 SEEN /hpf (0-5); Squamous Epithelial Cells - UA 0 SEEN /hpf (0-5); White Blood Cells 0 SEEN /hpf (0-5)
[2022-07-20 22:25] LABS: Color, Urine Yellow (Yellow); Glucose, Dipstick Normal (Normal); Ketone-Dipstick 5 mg/dl (Negative); Leukocyte Esterase-Dipstick 25 /ul (Negative); Nitrite-Dipstick Negative (Negative); Occult Blood-Urine 25 /ul (Negative); Protein-Dipstick 15 mg/dl (Negative); Specific Gravity, Urine 1.015 (1.002-1.030); Urine Bilirubin Dipstick Negative (Negative); Urine Clarity Clear (Clear); Urine Urobilinogen 1 mg/dl (Normal)
[2022-07-20 23:00] VITALS: BP 135/83; PULSE 78; RESP 20; O2SAT 98
[2022-07-20 23:52] LABS: Reflex Troponin-HS? (from REC) Y
== END 2022-07-20 23:45 | disposition home or self-care (01) ==
PROVIDERS: Emergency Provider Emergency Medicine; PCP Family Medicine; Visit Provider Emergency Medicine
DX: M54.9 Dorsalgia, unspecified (principal); F03.90 Unspecified dementia, unspecified severity, without behavioral disturbance, psychotic disturbance, mood disturbance, and anxiety; J42 Unspecified chronic bronchitis; K08.89 Other specified disorders of teeth and supporting structures; E78.5 Hyperlipidemia, unspecified; I25.10 Atherosclerotic heart disease of native coronary artery without angina pectoris; Z95.1 Presence of aortocoronary bypass graft; R07.9 Chest pain, unspecified
CPT/HCPCS: 70450; 71045; 72125; 72128; 72131; 80048; 81001; 84484; 85025; 93005; 99284; A4216

== ENCOUNTER → 2022-07-25 | Outpatient (REF) | payer MEDICARE, BC, SELFPAY ==
[2022-07-25 10:00] LABS: AST(SGOT) 51 U/L (15-37); Alanine Aminotransfer ALT/SGPT 46 U/L (16-61); Cholesterol 108 mg/dL (200); High Density Lipoprotein 48 mg/dL; Triglycerides 65 mg/dL; Very Low Density Lipoprotein 13 mg/dL (5-40)
== END ==
LOC: OLS.BROOKB 06:20
PROVIDERS: PCP Family Medicine; Visit Provider Family Medicine
DX: I25.10 Atherosclerotic heart disease of native coronary artery without angina pectoris (principal)
CPT/HCPCS: 36415; 80061; 84450; 84460

== ENCOUNTER → 2022-09-05 | Outpatient (REF) | payer MEDICARE, BC, SELFPAY ==
[2022-09-05 08:32] LABS: Hematocrit 44.3 % (40-54); Hemoglobin 14.6 g/dL (13.0-16.5); Mean Corpuscular Hgb 33.2 pg (27.0-32.0); Mean Corpuscular Volume 100.7 fL (80-94); Mean Platelet Vol. 9.9 fl (6.2-12.0); Platelet Count 193 K/mm3 (150-450); RBC Distribution Width SD 48.1 fl (35.1-43.9); White Blood Count 5.4 K/mm3 (4.4-11.0)
[2022-09-05 08:52] LABS: Vitamin B12 276 pg/mL (211-911)
[2022-09-05 09:08] LABS: AST(SGOT) 23 U/L (15-37); Alanine Aminotransfer ALT/SGPT 36 U/L (16-61); Albumin, Serum 3.3 g/dL (3.2-5.0); Alkaline Phosphatase 78 U/L (45-117); Anion Gap 8 (5-15); BUN 26 mg/dL (7-18); Calcium,Total 9.1 mg/dL (8.5-10.1); Chloride 105 mmol/L (98-107); Cholesterol 113 mg/dL (200); Creatinine, Serum 1.04 mg/dL (0.70-1.30); EST Glomerular Filtration Rate 73 mL/min (>60); Est Glom Filt Rate - Afr Amer 88 mL/min (>60); Globulin 3.2 g/dL (2.2-4.2); Glucose 100 mg/dL (74-106); High Density Lipoprotein 43 mg/dL; Potassium 4.4 mmol/L (3.5-5.1); Protein, Total 6.5 g/dL (6.4-8.2); Sodium Level 139 mmol/L (136-145); Thyroid Stim Hormone (TSH) 1.28 uIU/mL (0.358-3.74); Triglycerides 155 mg/dL; Very Low Density Lipoprotein 31 mg/dL (5-40)
== END ==
LOC: OLS.DANBUR 05:00
PROVIDERS: PCP Family Medicine; Visit Provider Family Medicine
DX: I25.10 Atherosclerotic heart disease of native coronary artery without angina pectoris (principal); E55.9 Vitamin D deficiency, unspecified; G30.9 Alzheimer's disease, unspecified
CPT/HCPCS: 36415; 80053; 80061; 82306; 82607; 82746; 84443; 85027

== ENCOUNTER → 2023-02-27 | Outpatient (REF) | payer MEDICARE, BC, SELFPAY ==
[2023-02-27 09:29] LABS: Cholesterol 117 mg/dL (200); High Density Lipoprotein 48 mg/dL; Triglycerides 97 mg/dL; Very Low Density Lipoprotein 19 mg/dL (5-40)
== END ==
LOC: OLS.DANBUR 04:00
PROVIDERS: PCP Family Medicine
DX: I25.10 Atherosclerotic heart disease of native coronary artery without angina pectoris (principal)
CPT/HCPCS: 36415; 80061

== ENCOUNTER → 2023-04-11 | Outpatient (REF) | payer MEDICARE, BC, SELFPAY ==
[2023-04-11 08:45] LABS: Cholesterol 121 mg/dL (200); High Density Lipoprotein 48 mg/dL; Triglycerides 84 mg/dL; Very Low Density Lipoprotein 17 mg/dL (5-40)
== END ==
LOC: OLS.DANBUR 05:00
PROVIDERS: PCP Family Medicine
DX: G30.9 Alzheimer's disease, unspecified (principal); Z79.899 Other long term (current) drug therapy
CPT/HCPCS: 36415; 80061

== ENCOUNTER 2023-04-27 18:16 | Emergency (ER) | payer MEDICARE, BC, SELFPAY ==
[2023-04-27 18:17] VITALS: BP 119/76; PULSE 72; RESP 18; TEMP 35.9; O2SAT 96; BMI 25.2
--- NOTE | 2023-04-27 18:29 | EKG12_ITS ---
Test Reason : DYSRHYTHMIA Blood Pressure : / mmHG Vent. Rate : 049 BPM Atrial Rate : 049 BPM P-R Int : 200 ms QRS Dur : 086 ms QT Int : 476 ms P-R-T Axes : 042 000 054 degrees QTc Int : 429 ms Sinus bradycardia Otherwise normal ECG Confirmed by ANNIE DUTTON, GALLITO ([id number]), field map editor KIERSTEN ACEVES ([id number]) on 05/05/2023 8:43:10 AM Referred By: Confirmed By:DANO VALENCIA MD
--- NOTE | 2023-04-27 18:30 | EDS_ITS ---
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 Patient family states that started around 3 PM today. Patient states the pain is much worse with walking, palpation. He denies any nausea or vomiting. Patient denies any chest pain or shortness of breath. Patient denies any fever or chills. Denies any history of abdominal surgeries. PFSH <KARSON Gordon - Last Filed: 04/27/23 21:12> [facility] Medical History Arthritis Cataracts, both eyes Chronic bronchitis Heart disease Seasonal allergies Home Medications aspirin 81 mg tablet,delayed release 81 mg PO QDAY 01/06/18 [History Last Taken Unknown] omeprazole 40 mg capsule,delayed release 40 mg PO QDAY #90 caps 01/05/21 [Rx Last Taken Unknown] rosuvastatin 20 mg tablet (Crestor) 20 mg PO QDAY #90 tabs 03/29/21 [Rx Last Taken Unknown] acetaminophen 325 mg capsule (Tylenol) 325 mg PO Q6H PRN pain #120 caps 07/20/22 [Rx Last Taken Unknown] dextromethorphan-guaifenesin 30 mg-600 mg tablet extended [id number] hr (Mucinex DM) 1 tab PO Q12H 07/20/22 [History Last Taken Unknown] famciclovir 500 mg tablet 500 mg PO BID 07/20/22 [History Last Taken Unknown] celecoxib 200 mg capsule 200 mg PO Q24H 04/27/23 [History Last Taken Unknown] cholecalciferol (vitamin D3) 125 mcg (5,000 unit) tablet (Vitamin D3) 125 mcg PO DAILY 04/27/23 [History Last Taken Unknown] escitalopram oxalate 5 mg tablet (Lexapro) 5 mg PO DAILY 04/27/23 [History Last Taken Unknown] fexofenadine 180 mg tablet (Mona Allergy) 180 mg PO DAILY 04/27/23 [History Last Taken Unknown] hydroxyzine pamoate 25 mg capsule 25 mg PO Q8H PRN anxiety 04/27/23 [History Last Taken Unknown] ibuprofen 200 mg tablet 200 mg PO Q4H PRN pain 04/27/23 [History Last Taken Unknown] quetiapine 50 mg tablet 50 mg PO QHS 04/27/23 [History Last Taken Unknown] Allergy/AdvReac Type Severity Reaction Status Date / Time No Known Allergies Allergy Verified 04/27/23 18:17 Family History Mother Arthritis Father Arthritis Heart disease Kidney disease Parkinson disease Daughter Heart disease Brother Heart disease Surgical History history of triple bypass surgery Social History Smoking Status: Never smoker alcohol intake: never substance use type: does not use what type of physical activity do you participate in: walking and bicycling ROS <KARSON Gordon - Last Filed: 04/27/23 21:12> ROS ED ROS Narrative Constitutional: Negative for fever, chills, weight loss, weakness Eyes: Negative for vision loss, vision change, double vision ENT: Negative for any sore throat, ear pain, congestion Cardiovascular: Negative for any chest pain, tightness, palpitations Respiratory: Negative for any cough, sputum production, hemoptysis, dyspnea, dyspnea on exertion, orthopnea Gastrointestinal: Negative for any nausea, vomiting, diarrhea, constipation, blood in stool, blood in vomit. Positive for upper abdominal pain, negative for any peritoneal signs. Active bowel sounds. : Negative for any urinary frequency, dysuria, retention, blood in urine Muscle skeletal: Negative for any myalgias, arthralgias, neck pain, back pain Neurological: Negative for any headache, syncope, numbness or tingling, dizziness Skin: Negative for any rashes, lumps, itching, abrasions, lacerations Psychiatric: Negative for any depression, anxiety, stress, suicidal ideation, homicidal ideation Hematologic: Negative for any easy bruising, excessive bruising, easy bleeding Allergies: Negative for any eczema, hives, rash EXAM <KARSON Gordon - Last Filed: 04/27/23 21:12> Physical Exam Narrative Exam Narrative: Vital signs reviewed. HEET: Head normocephalic atraumatic, TMs clear bilaterally. Posterior pharynx is clear, moist mucous membranes. Nares clear bilaterally. Neck: Supple with no lymphadenopathy or tenderness. No signs of meningismus. Cardiac: Regular rate and rhythm no murmurs gallops or rubs, equal peripheral pulses bilaterally. Respiratory: Lungs clear to auscultation bilaterally. No chest tenderness. Abdomen: Soft, nondistended. No abdominal bruit or pulsatile masses. No hepatosplenomegaly. Positive for tenderness to the upper abdomen Extremities: No peripheral edema, no signs of gross trauma or deformity. Active full range of motion of all extremities. Neuro: Cranial nerves II through XII intact, no focal neurological deficits. Skin: Clean dry and intact with no rash, purpura, petechiae, vesicles or pustules. Backs/flank: No CVA tenderness, no midline spinal tenderness, no deformity. Psych: Normal mood and affect. No SI, HI or acute psychosis. Const Vital Signs: 04/27/23 18:17 04/27/23 20:29 Temperature 96.6 F L Temperature Source Temporal Pulse Rate 72 60 Respiratory Rate 18 19 H Blood Pressure 119/76 126/57 H Blood Pressure Mean 90 80 Pulse Ox 96 97 Oxygen Delivery Method Room Air <Dr. Emelina Justice DO - Last Filed: 04/30/23 08:40> Physical Exam Const Vital Signs: 04/27/23 18:17 04/27/23 20:29 Temperature 96.6 F L Temperature Source Temporal Pulse Rate 72 60 Respiratory Rate 18 19 H Blood Pressure 119/76 126/57 H Blood Pressure Mean 90 80 Pulse Ox 96 97 Oxygen Delivery Method Room Air [facility] <KARSON Gordon - Last Filed: 04/27/23 21:12> [facility] Lab Data Labs: Laboratory Results - last 24 hr 04/27/23 04/27/23 04/27/23 18:45 18:48 19:45 WBC 8.4 RBC 4.65 Hgb 15.7 Hct 47.0 MCV 101.1 H MCH 33.8 H MCHC 33.4 RDW Std Deviation 44.3 H RDW Coeff of Solitario 11.9 Plt Count 168 MPV 9.6 Immature Gran % (Auto) 0.600 Neut % (Auto) 70.3 H Lymph % (Auto) 14.4 L [place] % (Auto) 8.9 Eos % (Auto) 5.1 H Baso % (Auto) 0.7 Absolute Neuts (auto) 5.9 Absolute Lymphs (auto) 1.21 Nucleated RBC % 0 Sodium 140 Potassium 3.9 Chloride 103 Carbon Dioxide 29.0 Anion Gap 8 BUN 21 H Creatinine 1.09 Estim Creat Clear Calc 51.42 Est GFR (MDRD) Af Amer 83 Est GFR (MDRD) Non-Af 69 BUN/Creatinine Ratio 19.3 Glucose 143 H Lactic Acid 2.1 H* Calcium 9.7 Total Bilirubin 0.90 AST 17 ALT 29 Alkaline Phosphatase 65 Troponin I High Sens 5 Total Protein 7.3 Albumin 4.0 Globulin 3.3 Albumin/Globulin Ratio 1.2 Lipase 70 Urine Color Yellow Urine Clarity Sl. Cloudy Urine pH 7.0 Ur Specific [place] 1.010 Urine Protein 15 H Urine Glucose (UA) Normal Urine Ketones 5 H Urine Occult Blood Negative Urine Nitrite Negative Urine Bilirubin Negative Urine Urobilinogen Normal Ur Leukocyte Esterase 25 H Urine RBC 0 SEEN Urine WBC 0-5 SEEN Ur Squamous Epith Cells 0-5 SEEN Urine Bacteria 0 SEEN Urine Mucus 0 SEEN Radiography Diagnostic Testing: Clinical Impression(s) from Imaging Studies Chest/Abdomen/Pelvis CTA 04/27/23 18:53 IMPRESSION: Normal contrast-enhanced CTA of the chest. Normal contrast-enhanced CTA of the abdomen and pelvis. No active pulmonary disease. Cardiomegaly. 8 mm stone within the bladder near the left ureterovesical junction with mild dilatation of the distal left ureter. Sigmoid diverticulosis without diverticulitis. Electronically Signed: Prem Moreland MD at 20:31 EST , EKG Sinus bradycardia: Attestation: I personally reviewed and interpreted this EKG as follows: Interpretation: Sinus Rhythm Comments: Sinus rhythm with a rate of 49 bpm, PA interval 200 ms, QRS duration 86 ms, no acute ST elevation, no acute infarct noted. Treatment and Re-Evaluation :: Patient is in no obvious distress, patient presents to the emergency department with complaints of upper abdominal pain that started around 3 PM today. Patient does have history of dementia, has difficulty answering specific questions. Per the family, they state that he usually does not complain of pain. Patient's pain is in the right and left upper quadrant. Differential diagnosis has not limited to but possible choledocholithiasis, pancreatitis, gallstone, abdominal aneurysm, GERD. Patient will receive basic laboratory values including liver function test. Patient received a CT scan of the abdomen pelvis with IV contrast. Patient was given IV fluids, Zofran, as well as IV morphine for pain. Nursing staff did come to talk to me, stating that the pain is experiencing now severe sharp pain to his chest, going through to his back into his abdomen. Secondary to this finding, patient was given 4 mg of IV morphine. He also will receive a CTA of the chest abdomen and pelvis this is concerning for a aortic dissection. Patient laboratory values were showed a CBC that was unremarkable, chemistries were unremarkable, lactic acid was slightly elevated 2.[address] scan of the chest abdomen pelvis showed an 8 mm stone within the bladder near the left UVJ with mild dilatation of the distal left ureter. Sigmoid diverticulosis without diverticulitis. On reevaluation, the patient was feeling much better. Patient will be observed in the emergency department for 1 hour, if the patient remains pain-free, patient be able to discharge home. He will follow-up outpatient. At this time, there is no evidence of obstructing uropathy at this time, it seems that it may have passed. Patient is pain-free. There is no evidence of any infected stone, UTI. I spoke with the patient's , daughter, they are agreement. Patient stable for discharge <Dr. Emelina Justice, DO - Last Filed: 04/30/23 08:40> [facility] Lab Data Labs: Laboratory Results - last 24 hr 04/27/23 04/27/23 04/27/23 18:45 18:48 19:45 WBC 8.4 RBC 4.65 Hgb 15.7 Hct 47.0 MCV 101.1 H MCH 33.8 H MCHC 33.4 RDW Std Deviation 44.3 H RDW Coeff of Solitario 11.9 Plt Count 168 MPV 9.6 Immature Gran % (Auto) 0.600 Neut % (Auto) 70.3 H Lymph % (Auto) 14.4 L [place] % (Auto) 8.9 Eos % (Auto) 5.1 H Baso % (Auto) 0.7 Absolute Neuts (auto) 5.9 Absolute Lymphs (auto) 1.21 Nucleated RBC % 0 Sodium 140 Potassium 3.9 Chloride 103 Carbon Dioxide 29.0 Anion Gap 8 BUN 21 H Creatinine 1.09 Estim Creat Clear Calc 51.42 Est GFR (MDRD) Af Amer 83 Est GFR (MDRD) Non-Af 69 BUN/Creatinine Ratio 19.3 Glucose 143 H Lactic Acid 2.1 H* Calcium 9.7 Total Bilirubin 0.90 AST 17 ALT 29 Alkaline Phosphatase 65 Troponin I High Sens 5 Total Protein 7.3 Albumin 4.0 Globulin 3.3 Albumin/Globulin Ratio 1.2 Lipase 70 Urine Color Yellow Urine Clarity Sl. Cloudy Urine pH 7.0 Ur Specific [place] 1.010 Urine Protein 15 H Urine Glucose (UA) Normal Urine Ketones 5 H Urine Occult Blood Negative Urine Nitrite Negative Urine Bilirubin Negative Urine Urobilinogen Normal Ur Leukocyte Esterase 25 H Urine RBC 0 SEEN Urine WBC 0-5 SEEN Ur Squamous Epith Cells 0-5 SEEN Urine Bacteria 0 SEEN Urine Mucus 0 SEEN Radiography Diagnostic Testing: Clinical Impression(s) from Imaging Studies Chest/Abdomen/Pelvis CTA 04/27/23 18:53 IMPRESSION: Normal contrast-enhanced CTA of the chest. Normal contrast-enhanced CTA of the abdomen and pelvis. No active pulmonary disease. Cardiomegaly. 8 mm stone within the bladder near the left ureterovesical junction with mild dilatation of the distal left ureter. Sigmoid diverticulosis without diverticulitis. Electronically Signed: Prem Moreland MD at 20:31 EST , Treatment and Re-Evaluation :: Patient is in no obvious distress, patient presents to the emergency department with complaints of upper abdominal pain that started around 3 PM today. Patient does have history of dementia, has difficulty answering specific questions. Per the family, they state that he usually does not complain of pain. Patient's pain is in the right and left upper quadrant. Differential diagnosis has not li mited to but possible choledocholithiasis, pancreatitis, gallstone, abdominal aneurysm, GERD. Patient will receive basic laboratory values including liver function test. Patient received a CT scan of the abdomen pelvis with IV contrast. Patient was given IV fluids, Zofran, as well as IV morphine for pain. Nursing staff did come to talk to me, stating that the pain is experiencing now severe sharp pain to his chest, going through to his back into his abdomen. Secondary to this finding, patient was given 4 mg of IV morphine. He also will receive a CTA of the chest abdomen and pelvis this is concerning for a aortic dissection. Patient laboratory values were showed a CBC that was unremarkable, chemistries were unremarkable, lactic acid was slightly elevated 2.[address] scan of the chest abdomen pelvis showed an 8 mm stone within the bladder near the left UVJ with mild dilatation of the distal left ureter. Sigmoid diverticulosis without diverticulitis. On reevaluation, the patient was feeling much better. Patient will be observed in the emergency department for 1 hour, if the patient remains pain-free, patient be able to discharge home. He will follow-up outpatient. At this time, there is no evidence of obstructing uropathy at this time, it seems that it may have passed. Patient is pain-free. There is no evidence of any infected stone, UTI. I spoke with the patient's , daughter, they are agreement. Patient stable for discharge I have personally performed a face to face assessment of the patient and have reviewed the JULIETA Note. I performed a substantive portion of the visit including all aspects of the following. My carrera findings include: History is is 89-year-old male presenting initially with abdominal and back pain. History is somewhat limited because he has pretty severe dementia and lives in a memory care unit. Vital signs are normal however he intermittently has severe pain while in the ER and at one point states is now rating to his chest. Concern is that he could be having an acute dissection as physical exam is relatively benign. Differential also includes acute pancreatitis and renal colic. He is given 2 mg IV morphine initially and then 4 mg because of the severe episode of pain. Work-up laboratory otero is relatively unremarkable. Does have some mild hematuria with no signs of secondary infection. No leukocytosis. High-sensitivity troponin is normal at 5. EKG does not show any acute ischemic changes. CT shows an 8 mm stone just past the left UVJ within the bladder and mild dilation of the distal left ureter. I suspect he passed the stone. He is currently asymptomatic. Given his normal kidney function is given a dose of Toradol. Is monitored for additional hour to ensure he has no further colic. I suspect the stone has passed fully into the bladder and he does not need further inpatient pain control. Is given outpatient urology follow-up. Family agreeable this plan of care. Patient discharged home in stable condition. Other additions or changes: [None] Discharge Plan Triage Chief Complaint: Abd Pain ED Midlevel Provider: Jg Brennan ED Provider: Emelina Justice Dx/Rx/DC Orders Clinical Impression: Kidney stone Instructions: ED Kidney Stone w/ Colic Prescriptions: No Action aspirin 81 mg tablet,delayed release (DR/EC) 81 mg PO QDAY famciclovir 500 mg tablet 500 mg PO BID Mucinex DM 30-600 mg Tablet Extended Release 12 Hr 1 tab PO Q12H acetaminophen [Tylenol] 325 mg capsule 325 mg PO Q6H PRN (Reason: pain) Qty: 120 0RF celecoxib 200 mg capsule 200 mg PO Q24H fexofenadine [Mona Allergy] 180 mg tablet 180 mg PO DAILY escitalopram oxalate [Lexapro] 5 mg tablet 5 mg PO DAILY quetiapine 50 mg tablet 50 mg PO QHS hydroxyzine pamoate 25 mg capsule 25 mg PO Q8H PRN (Reason: anxiety) cholecalciferol (vitamin D3) [Vitamin D3] 125 mcg (5,000 unit) tablet 125 mcg PO DAILY ibuprofen 200 mg tablet 200 mg PO Q4H PRN (Reason: pain) omeprazole 40 mg capsule,delayed release(DR/EC) 40 mg PO QDAY Qty: 90 3RF rosuvastatin [Crestor] 20 mg tablet 20 mg PO QDAY Qty: 90 3RF Primary Care Provider: Bertha Arndt Referrals: Bertha Arndt MD [Primary Care Provider] - Hector Rose MD [Med Staff - Active Staff] - Activity Restrictions/Additional Instructions: You had a kidney stone 8 mm on the left side that passed into the bladder. Please follow-up with urology. Return for any worsening pain, fever chills nausea or vomiting. Disposition Disposition: Home, Self Care Discharge Date/Time: 04/27/23 22:01
[2023-04-27] MEDS: Ondansetron 4 MG/2 ML Vial IV (18:46)
[2023-04-27] MEDS: Morphine 2 MG/ML Syringe IV (18:46)
[2023-04-27] MEDS: 0.9% Normal Saline (1000mL) 1,000 ML 1000 ML IV (18:48)
[2023-04-27 18:53] LABS: Absolute Lymphocyte Count 1.21 X10^3/uL (0.83-4.51); Absolute Neutrophil Count 5.9 X10^3/uL (2.0-7.7); Basophil# 0.06 X10^3/uL; Basophil% 0.7 % (0-1); Eosinophil# 0.43 X10^3/uL; Eosinophils% 5.1 % (0-5); Hemoglobin 15.7 g/dL (13.0-16.5); Lymphocyte # 1.21 X10^3/ul (0.83-4.51); Lymphocyte % 14.4 % (19-41); Mean Corp Hgb Conc 33.4 g/dL (32-36); Mean Corpuscular Hgb 33.8 pg (27.0-32.0); Mean Corpuscular Volume 101.1 fL (80-94); Mean Platelet Vol. 9.6 fl (6.2-12.0); Monocyte# 0.75 X10^3/uL; Monocyte% 8.9 % (0-10); NRBC Flagged by Analyzer 0 % (0-5); Neutrophil # 5.91 X10^3/uL (2.7-7.7); Neutrophil % 70.3 % (47-70); Platelet Count 168 K/mm3 (150-450); RBC Distribution Width CV 11.9 % (11.6-14.6); RBC Distribution Width SD 44.3 fl (35.1-43.9); Red Blood Count 4.65 M/mm3 (4.6-6.2); White Blood Count 8.4 K/mm3 (4.4-11.0)
--- NOTE | 2023-04-27 18:53 | CT_ITS ---
INDICATION: Abdomen pain EXAMINATION: CTA CHEST, ABDOMEN AND PELVIS WITH CONTRAST - TECHNIQUE: A CTA of the chest, abdomen, and pelvis is obtained with sagittal and coronal reconstructed MIP views. Three-dimensional surface rendered sequence of the thoracic and abdominal aorta was obtained. A radiation dose optimization technique was used for this scan. mL of [id number]. Oral contrast: None. COMPARISON: None. FINDINGS: CT CHEST: THORACIC AORTA: No atheromatous disease, no aneurysmal changes or dissection. Bovine arch. ABDOMINAL AORTA: No aneurysm or dissection. No significant atheromatous disease. The iliac arteries are unremarkable. Status post median sternotomy. LUNGS: The lungs are well-expanded without acute or chronic changes. No effusions or pneumothorax. MEDIASTINUM: The thyroid gland is normal. No mediastinal or hilar adenopathy. HEART: Cardiomegaly.. No pericardial effusion. Calcified plaque in the coronary arteries. CT ABDOMEN AND PELVIS: LIVER: The liver enhances homogeneously. No masses identified. GALLBLADDER: The CBD is normal. Tiny stones in the fundus the gallbladder.. SPLEEN: Normal. PANCREAS: No masses or inflammation. ADRENAL GLANDS: Normal. KIDNEYS AND URETERS: The kidneys both enhance appropriately. There are normal size and shape. No hydronephrosis or nephrolithiasis. 3 cm exophytic cyst in the upper pole of the right kidney. 2 cm exophytic cyst of the midsection left kidney. STOMACH: Normal. SMALL BOWEL: No abnormal distention of the small bowel. MESENTERY: No mesenteric inflammation. No ascites. COLON: Multiple diverticula throughout the sigmoid colon consistent diverticulosis. No wall thickening or stranding of surrounding fat to suggest diverticulitis. The colon otherwise is normal. There is a large fatty ileocecal valve. APPENDIX: The appendix is not visualized. IVC: Normal. RETROPERITONEUM: No retroperitoneal lymphadenopathy. PELVIC STRUCTURES: 8 mm stone near the left ureterovesical junction with mild dilatation of the distal left ureter. Enlarged prostate with a calcification likely consistent with benign prostatic hyperplasia. SOFT TISSUES ABDOMEN: The anterior abdominal wall is normal. SOFT TISSUE CHEST: The extrathoracic soft tissues are normal. BONES: Chronic compression fracture of L1 treated with vertebroplasty. CT/CTA Chst, Abd, Pel W and/or WO IMPRESSION: Normal contrast-enhanced CTA of the chest. Normal contrast-enhanced CTA of the abdomen and pelvis. No active pulmonary disease. Cardiomegaly. 8 mm stone within the bladder near the left ureterovesical junction with mild dilatation of the distal left ureter. Sigmoid diverticulosis without diverticulitis. Electronically Signed: Prem Moreland MD at 20:31 EST ,
--- NOTE | 2023-04-27 19:01 | ED.RN ---
PER DR. DONOHUE VERBAL ORDER, DO NOT WAIT FOR IMG LABS. PT NEEDS CHEST CTA STAT. THIS RN CALLED CT TO LET THEM KNOW.
[2023-04-27] MEDS: Morphine 4 MG/ML Syringe IV (19:04)
[2023-04-27 19:27] LABS: ALB/GLOB Ratio 1.2 RATIO (0.9-2.4); AST(SGOT) 17 U/L (15-37); Alanine Aminotransfer ALT/SGPT 29 U/L (16-61); Alkaline Phosphatase 65 U/L (45-117); Anion Gap 8 (5-15); BUN 21 mg/dL (7-18); BUN/Creat Ratio 19.3 RATIO (10-20); Calcium,Total 9.7 mg/dL (8.5-10.1); Chloride 103 mmol/L (98-107); Creatinine, Serum 1.09 mg/dL (0.70-1.30); EST Glomerular Filtration Rate 69 mL/min (>60); Est Glom Filt Rate - Afr Amer 83 mL/min (>60); Estimated Creatinine Clearance 51.42 ml/min; Globulin 3.3 g/dL (2.2-4.2); Glucose 143 mg/dL (74-106); Lipase 70 U/L (13-75); Potassium 3.9 mmol/L (3.5-5.1); Protein, Total 7.3 g/dL (6.4-8.2); Sodium Level 140 mmol/L (136-145)
[2023-04-27 19:29] LABS: Troponin-I HS 5 pg/mL (3.0-78.0)
[2023-04-27 19:51] LABS: Bacteria 0 SEEN /hpf (None Seen); Mucous, Urine 0 SEEN /hpf (<or=2+); Red Blood Cells-Urine 0 SEEN /hpf (0-5)
[2023-04-27 20:02] LABS: Color, Urine Yellow (Yellow); Glucose, Dipstick Normal (Normal); Ketone-Dipstick 5 mg/dl (Negative); Leukocyte Esterase-Dipstick 25 /ul (Negative); Nitrite-Dipstick Negative (Negative); Occult Blood-Urine Negative /ul (Negative); Protein-Dipstick 15 mg/dl (Negative); Urine Bilirubin Dipstick Negative (Negative); Urine Clarity Sl. Cloudy (Clear); Urine Urobilinogen Normal (Normal)
[2023-04-27 20:08] LABS: Squamous Epithelial Cells - UA 0-5 SEEN /hpf (0-5); White Blood Cells 0-5 SEEN /hpf (0-5)
[2023-04-27 20:29] VITALS: BP 126/57; PULSE 60; RESP 19; O2SAT 97
[2023-04-27] MEDS: Ketorolac 15 MG/ML Vial IM (21:00)
[2023-04-27 22:00] VITALS: BP 124/61
== END 2023-04-27 22:01 | disposition home or self-care (01) ==
PROVIDERS: Nurse Practitioner; Emergency Provider Emergency Medicine; PCP Family Medicine; Visit Provider Emergency Medicine
DX: N20.0 Calculus of kidney (principal); E78.5 Hyperlipidemia, unspecified; Z79.899 Other long term (current) drug therapy
CPT/HCPCS: 71275; 74174; 80053; 81001; 83605; 83690; 84484; 85025; 93005; 96361; 96372; 96374; 96375; 96376; 99284; J7030; Q9967; A4216; J2405

== ENCOUNTER 2023-05-28 06:58 | Observation (INO) | payer MEDICARE, BC, SELFPAY ==
[2023-05-28] VITALS (16 sets, daily range): BP systolic 104–152; BP diastolic 70–98; PULSE 60–105; RESP 15–18; TEMP 36.2–37.3; O2SAT 92–98; BMI 24.9; BMI 26.1
--- NOTE | 2023-05-28 07:10 | CT_ITS ---
STUDY: CT ABDOMEN AND PELVIS WITHOUT CONTRAST REASON FOR EXAM: Male, 83 years old. Flank pain RADIATION DOSAGE (If Supplied By Facility): CTDIvol = ( 9.10 ) mGy, DLP = ( 473.56 ) mGycm TECHNIQUE: Transaxial images were obtained from the dome of the diaphragm to the symphysis pubis without oral contrast, and without intravenous contrast. Sagittal and coronal images were reconstructed. Individualized dose optimization techniques were used for this CT. COMPARISON: 04/27/2023 FINDINGS: The visualized lung bases are unremarkable aside from underlying emphysema. 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 The gallbladder has changed slightly in appearance since a previous study is now slightly more distended with wall thickening and pericholecystic fluid which suggests cholecystitis. There are stable gallstones but there is no biliary dilatation either within the liver or in the common bile duct. Findings are equivocal for cholecystitis, consider surgical consultation and correlation with lab results and physical exam. Normal spleen. Normal pancreas. Normal bilateral adrenal glands. No obstructive uropathy, or suspicious solid renal lesion, there are stable simple bilateral renal cysts. Normal visualized stomach. Normal small intestine. Retained stool throughout the majority of the colon with scattered diverticula but no CT evidence of acute diverticulitis. There is non-visualization of the appendix. Normal abdominal aorta. Normal inferior vena cava. Normal retroperitoneum. Normal urinary bladder. Stable enlargement of the prostate. Normal abdominal wall. There are diffuse degenerative changes of the visualized lumbar spine, and pelvis. Stable compression fracture at L1 which has undergone vertebral plasty. CT/Abdomen/Pelvis without Cont IMPRESSION: No obstructive uropathy, or suspicious solid renal lesion. There are stable nonobstructing stones in stable cysts, no specific follow-up needed. The gallbladder is slightly more distended on current exam than when compared to the previous study of April. Additionally, there is wall thickening and pericholecystic fluid with stable gallstones. No biliary dilatation is noted. Findings nonetheless suggests cholecystitis and surgical consultation is recommended along with correlation with lab results and physical exam Scattered colonic diverticula, no CT evidence of acute diverticulitis Electronically Signed: Jae Phillips MD at 8:37 EST ,
--- NOTE | 2023-05-28 07:11 | EX.ED.DYSGE1 ---
HPI History of Present Illness Chief Complaint: Flank Pain Informant: patient and spouse/S.O. Narrative Narrative: 83-year-old male presenting to the emergency department with abdominal pain. Patient was seen in the emergency room approximately 4 weeks ago and diagnosed with a distal 8 mm ureteral stone which he passed. states that he has been fine until last evening when he began to complain of a mid to right abdominal pain. Is been intermittent in nature. Nothing seems to make it better or worse. In between episodes of pain he states he does not have any symptoms. He denies any nausea vomiting, urinary symptoms, or change in stool. No reported fevers. No new medications since last ED visit. Patient denies any prior abdominal surgeries. No history of colitis or diverticulitis. [facility] Medical History Arthritis Cataracts, both eyes Chronic bronchitis Heart disease Memory deficit Seasonal allergies Home Medications aspirin 81 mg tablet,delayed release 81 mg PO QDAY 01/06/18 [History Last Taken Unknown] omeprazole 40 mg capsule,delayed release 40 mg PO QDAY #90 caps 01/05/21 [Rx Last Taken Unknown] rosuvastatin 20 mg tablet (Crestor) 20 mg PO QDAY #90 tabs 03/29/21 [Rx Last Taken Unknown] acetaminophen 325 mg capsule (Tylenol) 325 mg PO Q6H PRN pain #120 caps 07/20/22 [Rx Last Taken Unknown] dextromethorphan-guaifenesin 30 mg-600 mg tablet extended [id number] hr (Mucinex DM) 1 tab PO Q12H 07/20/22 [History Last Taken Unknown] famciclovir 500 mg tablet 500 mg PO BID 07/20/22 [History Last Taken Unknown] celecoxib 200 mg capsule 200 mg PO Q24H 04/27/23 [History Last Taken Unknown] cholecalciferol (vitamin D3) 125 mcg (5,000 unit) tablet (Vitamin D3) 125 mcg PO DAILY 04/27/23 [History Last Taken Unknown] escitalopram oxalate 5 mg tablet (Lexapro) 5 mg PO DAILY 04/27/23 [History Last Taken Unknown] fexofenadine 180 mg tablet (Mona Allergy) 180 mg PO DAILY 04/27/23 [History Last Taken Unknown] hydroxyzine pamoate 25 mg capsule 25 mg PO Q8H PRN anxiety 04/27/23 [History Last Taken Unknown] ibuprofen 200 mg tablet 200 mg PO Q4H PRN pain 04/27/23 [History Last Taken Unknown] quetiapine 50 mg tablet 50 mg PO QHS 04/27/23 [History Last Taken Unknown] Allergy/AdvReac Type Severity Reaction Status Date / Time No Known Allergies Allergy Verified 05/28/23 06:59 Family History Mother Arthritis Father Arthritis Heart disease Kidney disease Parkinson disease Daughter Heart disease Brother Heart disease Surgical History history of triple bypass surgery Social History Smoking Status: Never smoker alcohol intake: never substance use type: does not use what type of physical activity do you participate in: walking and bicycling ROS ROS ED Constitutional Constitutional ED: Denies chills, fever(s) or weight loss Eyes Eyes: Denies change in vision or diplopia ENT ENT ED: Denies ear pain, rhinorrhea or sore throat Cardiovascular Cardiovascular: Denies chest pain, orthopnea, palpitations or racing heartbeat Respiratory/Chest Respiratory/Chest: Denies cough, dyspnea or orthopnea Gastrointestinal Gastrointestinal: Reports abdominal pain; Denies diarrhea, nausea or vomiting Genitourinary Genitourinary ED: Denies dysuria, hematuria or urinary frequency Musculoskeletal Musculoskeletal: Denies arthralgias or myalgias Integumentary Denies abscess or rash Neurologic Neurologic: Denies headache(s) or weakness Psychiatric Psychiatric: Denies anxiety, depression, suicidal ideation or suicidal thoughts Endocrine Endocrinology: Denies polydipsia, polyphagia or polyuria Allergic/Immunologic Allergic/Immunologic ED: Denies mouth swelling, tongue swelling or urticaria EXAM Physical Exam Const Vital Signs: 05/28/23 06:59 05/28/23 09:00 Temperature 97.1 F L Temperature Source Temporal Pulse Rate 99 Respiratory Rate 15 Blood Pressure 117/90 H 123/76 H Blood Pressure Mean 99 91 Pulse Ox 95 Positive well nourished and well developed General Appearance ED: well developed HEENT Reports normocephalic, head/scalp atraumatic and moist mucous membranes Eyes PERRL and EOMs intact bilaterally Neck no lymphadenopathy, supple and no JVD Resp normal respiratory effort and clear to auscultation bilaterally Cardio regular rate, regular rhythm and no murmurs GI Inspection: Negative for abdominal distention Auscultation: normoactive bowel sounds Palpation: soft and tender RLQ and periumbilical Back/Spine no CVA tenderness and normal ROM Extremity normal to inspection General Extremety ED: Negative for edema General Extremity: Negative for edema Neuro oriented x3 and CN's II-XII intact bilaterally Sensorium / Orientation: alert Motor Exam: strength 5/5 throughout Psych mental status grossly normal Mood & Affect: Negative for depressed or tearful Skin no rashes or lesions noted and no wounds MDM MDM MDM Narrative Medical decision making narrative: White count elevated at 13.3. Direct bilirubin elevated 2.3 and direct bilirubin 0.25. Transaminases and alk phos normal. Lipase normal. Urinalysis shows no overt infection. CT of the abdomen pelvis demonstrates a distended gallbladder with possible wall thickening and pericholecystic fluid. A formal gallbladder ultrasound was ordered.This was a positive Mckinley's with cholelithiasis. No obvious pericholecystic fluid was seen on the ultrasound. Patient was discussed with on-call surgeon Dr. Mcbride. Patient received a dose of Zosyn and plan will be admission. Patient does not wish any pain medication at the current time stating that he is not in pain unless he pushes on his abdomen History & Record Review Discussion w/independent historian: Patient and Family Additional record(s) reviewed:: Prior inpatient record, Prior outpatient record, Prior ED visit and Prior labs Lab Data Attestation: I reviewed the patient's lab results. Labs: Laboratory Results - last 24 hr 05/28/23 05/28/23 07:22 09:37 WBC 13.3 H RBC 4.44 L Hgb 15.1 Hct 44.8 MCV 100.9 H MCH 34.0 H MCHC 33.7 RDW Std Deviation 45.5 H RDW Coeff of Solitario 12.1 Plt Count 151 MPV 10.4 Immature Gran % (Auto) 1.000 H Neut % (Auto) 79.1 H Lymph % (Auto) 4.7 L [place] % (Auto) 11.0 H Eos % (Auto) 3.8 Baso % (Auto) 0.4 Absolute Neuts (auto) 10.6 H Absolute Lymphs (auto) 0.63 L Nucleated RBC % 0 Sodium 133 L Potassium 4.8 Chloride 107 Carbon Dioxide 23.0 Anion Gap 3 L BUN 22 H Creatinine 0.96 Estim Creat Clear Calc 59.33 Est GFR (MDRD) Af Amer 96 Est GFR (MDRD) Non-Af 79 BUN/Creatinine Ratio 22.8 H Glucose 118 H Calcium 8.8 Total Bilirubin 2.30 H Direct Bilirubin 0.25 AST 31 ALT 25 Alkaline Phosphatase 54 Total Protein 6.9 Albumin 3.3 Globulin 3.6 Albumin/Globulin Ratio 0.9 Lipase 32 Urine Color Yellow Urine Clarity Sl. Cloudy Urine pH 6.5 Ur Specific [place] 1.010 Urine Protein Negative Urine Glucose (UA) Normal Urine Ketones Negative Urine Occult Blood Negative Urine Nitrite Negative Urine Bilirubin Negative Urine Urobilinogen 1 H Ur Leukocyte Esterase 25 H Urine RBC 0 SEEN Urine WBC 0-5 SEEN Ur Squamous Epith Cells 0-5 SEEN Urine Bacteria 0 SEEN Urine Mucus 0 SEEN Radiography Diagnostic Testing: Clinical Impression(s) from Imaging Studies Abdomen/Pelvis CT 05/28/23 07:10 IMPRESSION: No obstructive uropathy, or suspicious solid renal lesion. There are stable nonobstructing stones in stable cysts, no specific follow-up needed. The gallbladder is slightly more distended on current exam than when compared to the previous study of April. Additionally, there is wall thickening and pericholecystic fluid with stable gallstones. No biliary dilatation is noted. Findings nonetheless suggests cholecystitis and surgical consultation is recommended along with correlation with lab results and physical exam Scattered colonic diverticula, no CT evidence of acute diverticulitis Electronically Signed: Jae Phillips MD at 8:37 EST Reading Location ID and State: [facility] / [place] , Service support , Gallbladder Ultrasound 05/28/23 07:42 IMPRESSION: The gallbladder is distended with multiple gallstones and echogenic sludge and a positive Mckinley sign. However, there is only borderline gallbladder wall thickening, no pericholecystic fluid, and no biliary dilatation is noted. Findings are suggestive of acute cholecystitis, especially with similar findings noted on the CT scan from earlier today. Surgical consultation recommended Simple right renal cysts, no specific follow-up needed Electronically Signed: Jae Phillips MD at 9:30 EST , EKG Initial EKG: Attestation: I personally reviewed and interpreted this EKG as follows: Comments: Normal sinus rhythm with a ventricular rate of 73 bpm. Management Discussion w/another healthcare provider: Oceanographic Meteorologist (Surgeon) Discharge Plan Dx/Rx/DC Orders Clinical Impression: Abdominal pain, acute, Acute cholecystitis Disposition Disposition: Acute Care Hospital [facility]
[2023-05-28 07:35] LABS: Absolute Lymphocyte Count 0.63 X10^3/uL (0.83-4.51); Absolute Neutrophil Count 10.6 X10^3/uL (2.0-7.7); Basophil# 0.05 X10^3/uL; Basophil% 0.4 % (0-1); Eosinophil# 0.51 X10^3/uL; Eosinophils% 3.8 % (0-5); Hematocrit 44.8 % (40-54); Hemoglobin 15.1 g/dL (13.0-16.5); Lymphocyte # 0.63 X10^3/ul (0.83-4.51); Lymphocyte % 4.7 % (19-41); Mean Corp Hgb Conc 33.7 g/dL (32-36); Mean Corpuscular Volume 100.9 fL (80-94); Mean Platelet Vol. 10.4 fl (6.2-12.0); Monocyte# 1.47 X10^3/uL; NRBC Flagged by Analyzer 0 % (0-5); Neutrophil # 10.55 X10^3/uL (2.7-7.7); Neutrophil % 79.1 % (47-70); Platelet Count 151 K/mm3 (150-450); RBC Distribution Width CV 12.1 % (11.6-14.6); RBC Distribution Width SD 45.5 fl (35.1-43.9); Red Blood Count 4.44 M/mm3 (4.6-6.2); White Blood Count 13.3 K/mm3 (4.4-11.0)
--- NOTE | 2023-05-28 07:42 | US_ITS ---
STUDY: ABDOMINAL ULTRASOUND - RIGHT UPPER QUADRANT REASON FOR VISIT: Male, 83 years old right upper quadrant pain TECHNIQUE: Ultrasound evaluation of the right upper quadrant was performed with real-time and static barreto-scale imaging. TECHNICAL QUALITY: Limited. Examination limited by bowel gas. COMPARISON: CT from earlier today FINDINGS: Liver: The liver measures 15.2 cm. There is normal echogenicity of the liver. The bile ducts are within normal limits. There is hepatic color flow. The direction of portal flow is hepatopetal. There is no demonstrated mass lesion. Gallbladder: Distended gallbladder. The gallbladder wall measures 2.7-3.2 mm. There is a positive sonographic Mckinley''s sign. There is no pericholecystic fluid. There are multiple echogenic structures within the gallbladder, consistent with multiple gallstones, and echogenic sludge. Common Bile Duct (C.B.D.): The common bile duct measures 3.4 mm. Pancreas: Normal size of the head, body and tail of the pancreas. There is normal echogenicity of the pancreas. There is no demonstrated pancreatic mass or cyst. Right Kidney: Normal size of the right kidney. The right kidney measures 10.6 x 5.8 x 6.5 cm. Normal renal cortex. The right cortex measures 2.0 cm. There are simple cysts, largest measures 3.7 cm. There is no right hydronephrosis. US/Gallbladder IMPRESSION: The gallbladder is distended with multiple gallstones and echogenic sludge and a positive Mckinley sign. However, there is only borderline gallbladder wall thickening, no pericholecystic fluid, and no biliary dilatation is noted. Findings are suggestive of acute cholecystitis, especially with similar findings noted on the CT scan from earlier today. Surgical consultation recommended Simple right renal cysts, no specific follow-up needed Electronically Signed: Jae Phillips MD at 9:30 EST ,
[2023-05-28 07:53] LABS: ALB/GLOB Ratio 0.9 RATIO (0.9-2.4); AST(SGOT) 31 U/L (15-37); Alanine Aminotransfer ALT/SGPT 25 U/L (16-61); Albumin, Serum 3.3 g/dL (3.2-5.0); Alkaline Phosphatase 54 U/L (45-117); Anion Gap 3 (5-15); BUN 22 mg/dL (7-18); BUN/Creat Ratio 22.8 RATIO (10-20); Calcium,Total 8.8 mg/dL (8.5-10.1); Chloride 107 mmol/L (98-107); Creatinine, Serum 0.96 mg/dL (0.70-1.30); EST Glomerular Filtration Rate 79 mL/min (>60); Est Glom Filt Rate - Afr Amer 96 mL/min (>60); Estimated Creatinine Clearance 59.33 ml/min; Globulin 3.6 g/dL (2.2-4.2); Glucose 118 mg/dL (74-106); Potassium 4.8 mmol/L (3.5-5.1); Protein, Total 6.9 g/dL (6.4-8.2); Sodium Level 133 mmol/L (136-145)
[2023-05-28 08:10] LABS: Bilirubin, Direct 0.25 mg/dL (0.00-0.30); Lipase 32 U/L (13-75)
[2023-05-28 09:45] LABS: Bacteria 0 SEEN /hpf (None Seen); Mucous, Urine 0 SEEN /hpf (<or=2+); Red Blood Cells-Urine 0 SEEN /hpf (0-5)
[2023-05-28 09:50] LABS: Color, Urine Yellow (Yellow); Glucose, Dipstick Normal (Normal); Ketone-Dipstick Negative (Negative); Leukocyte Esterase-Dipstick 25 /ul (Negative); Nitrite-Dipstick Negative (Negative); Occult Blood-Urine Negative /ul (Negative); Protein-Dipstick Negative (Negative); Urine Bilirubin Dipstick Negative (Negative); Urine Clarity Sl. Cloudy (Clear); Urine Urobilinogen 1 mg/dl (Normal); Urine pH 6.5 (5.0 - 8.0)
[2023-05-28 09:59] LABS: Squamous Epithelial Cells - UA 0-5 SEEN /hpf (0-5); White Blood Cells 0-5 SEEN /hpf (0-5)
[2023-05-28] MEDS: Piperacil/Tazobactam 4.5 GM in 0.9% Normal Saline (100mL MB+) 100 ML IV (10:25)
--- NOTE | 2023-05-28 10:42 | HP.PCM_ITS ---
HPI - General General Date of Admission: 05/28/23 Date of Service: 05/28/23 Chief Complaint: RUQ abdominal pain HPI Narrative JANE VELASCO, is a 83 M who presents with a 1 month history of abdominal pain. Patient resides at [facility] for history of dementia for 1 year. Patient's and daughter are present in the room and provide majority of the history. Patient notes he likes to take walks and is very active at [place]. He notes in the evenings is when he does most of his walking. He states after his walks he would noticed pain in the right upper quadrant. Patient was in the ED at [facility] on 04/27/23 for a renal stone which was passed in the ED. Patient's notes that the patient's abdominal pain has become worse over the last 3 days. Patient is unsure if it relates to food. Per family, the [place] [facility] did not mention that patient is having pain after eating. Patient notes he has had a lack of appetite within the last 3 days. Patient denies any nausea, vomiting. 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 He was following with a resource program teacher at [place]. He has since been discharged and told he no longer needed to follow-up and that he can just follow-up with his primary care unless cardiac intervention is needed. Patient denies previous myocardial infarction, stroke and blood clots. He is on a daily aspirin. He denies pulmonary medical history. He denies previous abdominal surgeries. CT scan of the abdomen/pelvis demonstrated slightly distended gallbladder with pericholecystic fluid and wall thickening. Stable gallstones. RUQ u/s demonstrated: The gallbladder is distended with multiple gallstones and echogenic sludge and a positive Mckinley sign. However, there is only borderline gallbladder wall thickening, no pericholecystic fluid, and no biliary dilatation is noted. Findings are suggestive of acute cholecystitis, especially with similar findings noted on the CT scan from earlier today. Surgical consultation recommended. Patient's lab work demonstrated WBC 13.3. Liver enzymes were noted for a total bilirubin of 2.30. Remaining liver enzymes are within normal range. [facility] Medical History Arthritis Cataracts, both eyes Chronic bronchitis Heart disease Memory deficit Seasonal allergies Home Medications aspirin 81 mg tablet,delayed release 81 mg PO QDAY 01/06/18 [History Last Taken Unknown] omeprazole 40 mg capsule,delayed release 40 mg PO QDAY #90 caps 01/05/21 [Rx Last Taken Unknown] rosuvastatin 20 mg tablet (Crestor) 20 mg PO QDAY #90 tabs 03/29/21 [Rx Last Taken Unknown] acetaminophen 325 mg capsule (Tylenol) 325 mg PO Q6H PRN pain #120 caps 07/20/22 [Rx Last Taken Unknown] dextromethorphan-guaifenesin 30 mg-600 mg tablet extended [id number] hr (Mucinex DM) 1 tab PO Q12H 07/20/22 [History Last Taken Unknown] famciclovir 500 mg tablet 500 mg PO BID 07/20/22 [History Last Taken Unknown] celecoxib 200 mg capsule 200 mg PO Q24H 04/27/23 [History Last Taken Unknown] cholecalciferol (vitamin D3) 125 mcg (5,000 unit) tablet (Vitamin D3) 125 mcg PO DAILY 04/27/23 [History Last Taken Unknown] escitalopram oxalate 5 mg tablet (Lexapro) 5 mg PO DAILY 04/27/23 [History Last Taken Unknown] fexofenadine 180 mg tablet (Mona Allergy) 180 mg PO DAILY 04/27/23 [History Last Taken Unknown] hydroxyzine pamoate 25 mg capsule 25 mg PO Q8H PRN anxiety 04/27/23 [History Last Taken Unknown] ibuprofen 200 mg tablet 200 mg PO Q4H PRN pain 04/27/23 [History Last Taken Unknown] quetiapine 50 mg tablet 50 mg PO QHS 04/27/23 [History Last Taken Unknown] Allergy/AdvReac Type Severity Reaction Status Date / Time No Known Allergies Allergy Verified 05/28/23 06:59 Family History Mother Arthritis Father Arthritis Heart disease Kidney disease Parkinson disease Daughter Heart disease Brother Heart disease Surgical History history of triple bypass surgery Social History Smoking Status: Never smoker alcohol intake: never substance use type: does not use what type of physical activity do you participate in: walking and bicycling ROS Constitutional Constitutional: Reports systems reviewed and no addt'l complaints, except as documented Eyes Eyes: Reports systems reviewed and no addt'l complaints, except as documented ENT HEENT: Reports systems reviewed and no addt'l complaints, except as documented Cardiovascular Cardiovascular: Reports systems reviewed and no addt'l complaints, except as documented Respiratory/Chest Respiratory/Chest: Reports systems reviewed and no addt'l complaints, except as documented Gastrointestinal Gastrointestinal: Reports systems reviewed and no addt'l complaints, except as documented Genitourinary Genitourinary: Reports systems reviewed and no addt'l complaints, except as documented Musculoskeletal Musculoskeletal: Reports systems reviewed and no addt'l complaints, except as documented Integumentary Integumentary: Reports systems reviewed and no addt'l complaints, except as documented Neurologic Neurologic: Reports systems reviewed and no addt'l complaints, except as documented Psychiatric Psychiatric: Reports systems reviewed and no addt'l complaints, except as documented Endocrine Endocrinology: Reports systems reviewed and no addt'l complaints, except as documented Hematologic/Lymphatic Hematologic/Lymphatic: Reports systems reviewed and no addt'l complaints, except as documented Allergic/Immunologic Allergic/Immunologic: Reports systems reviewed and no addt'l complaints, except as documented Vital Signs Vital Signs Vital Signs: 05/28/23 06:59 05/28/23 09:00 Temperature 97.1 F L Temperature Source Temporal Pulse Rate 99 Respiratory Rate 15 Blood Pressure 117/90 H 123/76 H Blood Pressure Mean 99 91 Pulse Ox 95 Weight Weight: 168 lb 10.458 oz Body Mass Index (BMI) 24.9 Physical Exam Const alert, oriented x3 and no apparent distress Constitutional Narrative: Pleasantly confused. Is able to answer questions appropriately, however some questions he looks to his for answers. HEENT normocephalic and head/scalp atraumatic Eyes PERRL and EOMs intact bilaterally Neck full ROM Lymph Lymphatic: no lymphadenopathy noted Chest inspection of chest normal Resp normal respiratory effort and clear to auscultation bilaterally Cardio regular rate and regular rhythm GI GI Narrative: Abdomen- soft, non-distended. Pain note with palpation of the RUQ. Positive Mckinley's sign. Positive bowel sounds. no CVA tenderness Back/Spine no CVA tenderness Extremity normal to inspection Skin no rashes or lesions noted Neuro no focal motor deficits and no sensory deficits noted Psych mental status grossly normal, cooperative and activity/motor behavior normal Thought Process: loose associations Results Lab / Micro Data 05/28/23 07:22 05/28/23 07:22 Labs: Laboratory Results - last 24 hr 05/28/23 07:22: WBC 13.3 H, RBC 4.44 L, Hgb 15.1, Hct 44.8, MCV 100.9 H, MCH 34.0 H, MCHC 33.7, RDW Std Deviation 45.5 H, RDW Coeff of Solitario 12.1, Plt Count 151, MPV 10.4, Immature Gran % (Auto) 1.000 H, Neut % (Auto) 79.1 H, Lymph % (Auto) 4.7 L, [place] % (Auto) 11.0 H, Eos % (Auto) 3.8, Baso % (Auto) 0.4, Absolute Neuts (auto) 10.6 H, Absolute Lymphs (auto) 0.63 L, Nucleated RBC % 0, Sodium 133 L, Potassium 4.8, Chloride 107, Carbon Dioxide 23.0, Anion Gap 3 L, BUN 22 H, Creatinine 0.96, Estim Creat Clear Calc 59.33, Est GFR (MDRD) Af Amer 96, Est GFR (MDRD) Non-Af 79, BUN/Creatinine Ratio 22.8 H, Glucose 118 H, Calcium 8.8, Total Bilirubin 2.30 H, Direct Bilirubin 0.25, AST 31, ALT 25, Alkaline Phosphatase 54, Total Protein 6.9, Albumin 3.3, Globulin 3.6, Albumin/Globulin Ratio 0.9, Lipase 32 05/28/23 09:37: Urine Color Yellow, Urine Clarity Sl. Cloudy, Urine pH 6.5, Ur Specific [place] 1.010, Urine Protein Negative, Urine Glucose (UA) Normal, Urine Ketones Negative, Urine Occult Blood Negative, Urine Nitrite Negative, Urine Bilirubin Negative, Urine Urobilinogen 1 H, Ur Leukocyte Esterase 25 H, Urine RBC 0 SEEN, Urine WBC 0-5 SEEN, Ur Squamous Epith Cells 0-5 SEEN, Urine Bacteria 0 SEEN, Urine Mucus 0 SEEN Imagaing Radiology Impression Abdomen/Pelvis CT 05/28/23 07:10 IMPRESSION: No obstructive uropathy, or suspicious solid renal lesion. There are stable nonobstructing stones in stable cysts, no specific follow-up needed. The gallbladder is slightly more distended on current exam than when compared to the previous study of April. Additionally, there is wall thickening and pericholecystic fluid with stable gallstones. No biliary dilatation is noted. Findings nonetheless suggests cholecystitis and surgical consultation is recommended along with correlation with lab results and physical exam Scattered colonic diverticula, no CT evidence of acute diverticulitis Electronically Signed: Jae Phillips MD at 8:37 EST , Gallbladder Ultrasound 05/28/23 07:42 IMPRESSION: The gallbladder is distended with multiple gallstones and echogenic sludge and a positive Mckinley sign. However, there is only borderline gallbladder wall thickening, no pericholecystic fluid, and no biliary dilatation is noted. Findings are suggestive of acute cholecystitis, especially with similar findings noted on the CT scan from earlier today. Surgical consultation recommended Simple right renal cysts, no specific follow-up needed Electronically Signed: Jae Phillips MD at 9:30 EST , Assessment & Plan Assessment/Plan (1) Acute cholecystitis: PLAN: I am seeing this patient in consultation in conjunction with Dr. Mcbride. Dr. Mcbride will evaluate this patient independently. I have reviewed and discussed patient care and treatment plan with her. Patient has had a 1 month history of abdominal pain, which has become worse over the last 3 days. RUQ u/s along with patient's examination is demonstrating acute cholecystitis. Plan will be for patient to be admitted to a med/surg floor with IV hydration, IV antibiotics and NPO. Dr. Mcbride will plan to perform a laparoscopic cholecystectomy with intraoperative cholangiogram today. Procedure details, risks and benefits have been explained including but not limited to risk of bleeding, risk of injury to the common bile duct which would require transfer. Patient and his family have had the opportunity to ask and have questions answered. Patient verbally understands and agrees with the plan. Patient's last dose of aspirin was yesterday. Thank you for allowing us to participate in this patient's care. Charges/Coding Visit Charges OBSV E&M: 82509 Observ/hosp same date L2
[2023-05-28] MEDS: HYDROmorphone 0.5 MG/0.5 ML SYRINGE IV (11:56)
[2023-05-28] MEDS: Ondansetron 4 MG/2 ML Vial IV (11:56)
--- NOTE | 2023-05-28 13:35 | GALL_PTH ---
PATIENT: JANE VELASCO LOC: MS3 U#:[id number] AGE/SX: 83/M ROOM: [facility]312 RE05/28/[address]: Dr. Christen Mcbride MD : 1940 BED: 1 DIS: 05/29/2023 SPEC #: [id number] RECD: 05/28/23 18:23 STATUS: MARGARITA BACON #: [id number] TYRESE: 05/28/23 13:[address]: Christen Mcbride DEPT: SURGICAL PATHOLOGY RECD BY: Jennifer Romeo ENTERED: 05/29/23 09:11 SP TYPE: JOSUE TIRADO DR: Dr. Bertha Arndt MD Tissues: Gallbladder, NOS Procedures: Surgery Specimen Level III HEADER OPERATION: Laparoscopic cholecystectomy with IOC PRE-OP DIAGNOSIS: Acute cholecystitis TISSUE SUBMITTED: Gallbladder MICROSCOPIC DIAGNOSIS Gallbladder, cholecystectomy: Acute cholecystitis with denudation of mucosa and cholelithiasis. AM:adán 05/30/2023 MICROSCOPIC DESCRIPTION Slides are reviewed. GROSS DESCRIPTION Received is one container labeled with the patient's name and designated gallbladder. The specimen consists of a gallbladder measuring 11.0 cm in length and 5.0 cm in diameter. The serosal surface is focally covered with barreto, purulent exudate. The external surface is pink-mitchell, smooth and glistening for the most part. Focally it is granular, hemorrhagic and contains cautery artifact. The gallbladder contains greenish-yellow focally hemorrhagic bile and multiple brownish-black stones measuring in aggregate 3.5 x 2.5 x 0.5 cm and 0.2 to 0.5 cm in greatest dimension. The mucosa is bile-stained and without any mass lesions. The gallbladder wall measures up to 0.6 cm in thickness. Pharmacist Technician sections from the gallbladder and the cystic duct are submitted in one cassette. / SJ:adán 05/29/2023 TC:2 CPT: 13391
--- NOTE | 2023-05-28 14:02 | CM.ED ---
Social Work SW introduced self and role to patient and family present in the room. Pt's , Sandra, reports patient has been residing at [facility]. confirms the plan is to return to [place] at discharge. SW reviewed advance directives. Pt's reports she is the HCPOA. SW requested documents to be brought in when she is able to be placed in patient's record. reports she can when able but they are at her home in [place]. SW provided emotional support. Pt currently being transported to surgery. Angie Tanner IRRIGATION PUMP INSTALLER, LAYOUT INSPECTOR
[2023-05-28] MEDS: Lactated Ringers 1,000 ML 15 ML IV (14:31)
--- NOTE | 2023-05-28 16:15 | RAD_ITS ---
INDICATION: PAIN EXAMINATION/TECHNIQUE: 1 limited spot intraoperative film is presented for evaluation. 2 cine clips. Total Fluoroscopic Time: 32.6 seconds AND number of Fluoroscopic Images: 3 OR Radiation dosage index: 0.79557 mGym2 COMPARISON: No relevant prior comparison study available FINDINGS: No filling defects are identified. There is no biliary ductal dilatation. There is free passage into the duodenum. RAD/Cholangiogram/ O R,Initial IMPRESSION: Negative intraoperative cholangiogram. Electronically Signed: Wilmar Stearns MD at 18:10 EST ,
[2023-05-28] MEDS: Bupivacaine Mpf 0.5% 30 ML VIAL (17:04)
--- NOTE | 2023-05-28 17:13 | OP.PCM_ITS ---
Report of Operation Date of Procedure: 05/28/23 Pre-Operative Diagnosis: Acute cholecystitis Post-Operative Diagnosis: Same Surgery/Procedure Performed:: Laparoscopic cholecystectomy with cholangiograms Surgeon: Christen Mcbride Anesthesiologist: Paul Ram Special Medications: Zosyn 3.375 g IV every 8 hours for acute cholecystitis Specimen's removed: Gallbladder Estimated Blood Loss (mL): 20 cc Description of Procedure: Indications: this is a 83 year-old male who developed abdominal pain/nausea/vomiting and on workup was found to have cholelithiasis, with a normal common bile duct. Laparoscopic cholecystectomy was elected. Description procedure: The patient was placed on operating table in supine position. A timeout was completed verifying correct patient, procedure, site, position and special equipment prior to beginning procedure. General Anesthesia was induced. The abdomen was prepped and draped in usual sterile fashion. An incision was made in the natural skin line above the umbilicus. The fascia was elevated and incised. The peritoneum was elevated and incised. Entry into the peritoneum was confirmed visually and no bowel was noted in the vicinity of the incision. Morales trocar was placed. The abdomen was insufflated with carbon dioxide to a pressure of 12-15 mmHg. Patient tolerated insufflation well. The laparoscope was then inserted and abdomen inspected. No injuries from initial trocar placement were noted. Additional trochars were then inserted in the following locations 5 mm trocar in the epigastrium and 2 more 5 mm trochars along the right costal margin. The abdomen was inspected no abnormalities were found. The table is placed in reverse Trendelenburg position with the right side up. Gallbladder was noted to be inflamed/distended and tense decompression aspiration needle was used. The dome of the gallbladder was grasped with atraumatic grasper passed through the lateral port and retracted over the dome of the liver. Infundibulum was then grasped with atraumatic grasper through the midclavicular port and retracted to the right lower quadrant. This maneuver exposed Calot's triangle. The peritoneum overlying the gallbladder infundibulum was then incised and cystic duct and artery identified and circumferentially dissected. Flores catheter was used for cholangiograms. The cholangiogram showed good filling of the common bile duct into the duodenum with no filling defects, and starting filling of the right and left bile ducts but contrast did empty quickly into the small bowel. The cystic duct and artery were then doubly clipped and divided close to the gallbladder. The gallbladder then dissected from its peritoneal attachments by elec trocautery. Hemostasis was checked and the gallbladder and contained stones were removed using the endoscopic retrieval bag through the umbilical port. The gallbladder is passed off table as specimen. The gallbladder fossa was irrigated with saline and hemostasis obtained. There is no evidence of bleeding from the gallbladder fossa or cystic artery leakage of bile from the cystic duct stump. Secondary trochars removed under direct vision. No bleeding was noted the trocar sites. The laparoscope was withdrawn and umbilical trocar removed. The abdomen was allowed to collapse. The fascia of the 12 mm trocar was closed with a [id number] 0 Vicryl suture. The skin was closed with sutures of 4-0 Monocryl and Steri-Strips. The patient was extubated. The patient tolerated procedure well and was taken to the postanesthesia care unit in stable condition. Complications none
[2023-05-28] MEDS: 0.9% Normal Saline (1000mL) 1,000 ML 100 ML IV (21:06)
[2023-05-28] MEDS: Piperacil/Tazobactam 3.375 GM in 0.9% Normal Saline (50mL MB+) 50 ML IV (21:48)
[2023-05-28] MEDS: oxyCODONE 5 MG Tablet PO (21:48)
[2023-05-28] MEDS: Acetaminophen 325 MG Tablet 650 MG PO (21:49)
[2023-05-28] MEDS: QUEtiapine 25 MG Tablet 50 MG PO (21:49)
[2023-05-28] MEDS: Atorvastatin Calcium 40 MG Tablet PO (21:49)
[2023-05-28] MEDS: Acyclovir 800 MG Tablet PO (23:40)
[2023-05-29 00:55] VITALS: BP 132/55; PULSE 65; RESP 18; TEMP 37.1; O2SAT 94
[2023-05-29 05:47] VITALS: BP 144/73; PULSE 62; RESP 18; TEMP 36.7; O2SAT 96
[2023-05-29] MEDS: Piperacil/Tazobactam 3.375 GM in 0.9% Normal Saline (50mL MB+) 50 ML IV ×2 (05:54→13:53)
[2023-05-29] MEDS: Acyclovir 800 MG Tablet PO ×2 (05:54→11:33)
[2023-05-29] MEDS: 0.9% Normal Saline (1000mL) 1,000 ML 100 ML IV (06:09)
[2023-05-29] MEDS: Acetaminophen 325 MG Tablet 650 MG PO ×2 (06:10→12:24)
[2023-05-29] MEDS: oxyCODONE 5 MG Tablet PO (06:10)
[2023-05-29 08:03] LABS: Absolute Lymphocyte Count 0.76 X10^3/uL (0.83-4.51); Absolute Neutrophil Count 7.7 X10^3/uL (2.0-7.7); Basophil# 0.03 X10^3/uL; Basophil% 0.3 % (0-1); Eosinophil# 0.28 X10^3/uL; Eosinophils% 2.8 % (0-5); Hematocrit 40.1 % (40-54); Hemoglobin 13.3 g/dL (13.0-16.5); Lymphocyte # 0.76 X10^3/ul (0.83-4.51); Lymphocyte % 7.6 % (19-41); Mean Corp Hgb Conc 33.2 g/dL (32-36); Mean Corpuscular Hgb 33.9 pg (27.0-32.0); Mean Corpuscular Volume 102.3 fL (80-94); Mean Platelet Vol. 9.8 fl (6.2-12.0); Monocyte# 1.11 X10^3/uL; Monocyte% 11.2 % (0-10); NRBC Flagged by Analyzer 0 % (0-5); Neutrophil # 7.73 X10^3/uL (2.7-7.7); Neutrophil % 77.7 % (47-70); Platelet Count 110 K/mm3 (150-450); RBC Distribution Width CV 12.1 % (11.6-14.6); RBC Distribution Width SD 45.6 fl (35.1-43.9); Red Blood Count 3.92 M/mm3 (4.6-6.2)
--- NOTE | 2023-05-29 08:32 | PCM.PN.SRG ---
Subjective Subjective Patient is evaluated resting comfortably in bed. Patient dneies nausea, vomiting, fever. He notes his RQU pain has improved. He states it is not completely gone. Patient was lethargic this morning. he was answering questions appropriately however would not open his eyes. Objective Data Objective Data Vital Signs: Vital Signs Temp Pulse Resp BP Pulse Ox O2 Del Method O2 Flow Rate 98.1 F 62 18 144/73 H 96 Room Air 2 05/29/23 05:47 05/29/23 05:47 05/29/23 05:47 05/29/23 05:47 05/29/23 05:47 05/29/23 05:47 05/28/23 19:30 Oxygen Flow Rate (L/min) 2 Oxygen Delivery Method Room Air Weight: 176 lb 5.917 oz Body Mass Index (BMI) 26.1 Intake & Output: Intake and Output for Last 24 Hours 05/27/23 05/28/23 05/29/23 23:59 23:59 23:59 Intake Total 204.75 / 204.75 955 / 955 Balance 204.75 / 204.75 955 / 955 Lab / Micro Data 05/29/23 07:30 05/28/23 07:22 Labs: Laboratory Results - last 24 hr 05/28/23 09:37: Urine Color Yellow, Urine Clarity Sl. Cloudy, Urine pH 6.5, Ur Specific [place] 1.010, Urine Protein Negative, Urine Glucose (UA) Normal, Urine Ketones Negative, Urine Occult Blood Negative, Urine Nitrite Negative, Urine Bilirubin Negative, Urine Urobilinogen 1 H, Ur Leukocyte Esterase 25 H, Urine RBC 0 SEEN, Urine WBC 0-5 SEEN, Ur Squamous Epith Cells 0-5 SEEN, Urine Bacteria 0 SEEN, Urine Mucus 0 SEEN 05/29/23 07:30: WBC 10.0, RBC 3.92 L, Hgb 13.3, Hct 40.1, MCV 102.3 H, MCH 33.9 H, MCHC 33.2, RDW Std Deviation 45.6 H, RDW Coeff of Solitario 12.1, Plt Count 110 L, MPV 9.8, Immature Gran % (Auto) 0.400, Neut % (Auto) 77.7 H, Lymph % (Auto) 7.6 L, Sublette % (Auto) 11.2 H, Eos % (Auto) 2.8, Baso % (Auto) 0.3, Absolute Neuts (auto) 7.7, Absolute Lymphs (auto) 0.76 L, Nucleated RBC % 0 Radiography Diagnostic Testing: Radiology Impression Abdomen/Pelvis CT 05/28/23 07:10 IMPRESSION: No obstructive uropathy, or suspicious solid renal lesion. There are stable nonobstructing stones in stable cysts, no specific follow-up needed. The gallbladder is slightly more distended on current exam than when compared to the previous study of April. Additionally, there is wall thickening and pericholecystic fluid with stable gallstones. No biliary dilatation is noted. Findings nonetheless suggests cholecystitis and surgical consultation is recommended along with correlation with lab results and physical exam Scattered colonic diverticula, no CT evidence of acute diverticulitis Electronically Signed: Jae Phillips MD at 8:37 EST , Gallbladder Ultrasound 05/28/23 07:42 IMPRESSION: The gallbladder is distended with multiple gallstones and echogenic sludge and a positive Mckinley sign. However, there is only borderline gallbladder wall thickening, no pericholecystic fluid, and no biliary dilatation is noted. Findings are suggestive of acute cholecystitis, especially with similar findings noted on the CT scan from earlier today. Surgical consultation recommended Simple right renal cysts, no specific follow-up needed Electronically Signed: Jae Phillips MD at 9:30 EST , Cholangiogram 05/28/23 16:15 IMPRESSION: Negative intraoperative cholangiogram. Electronically Signed: Wilmar Stearns MD at 18:10 EST , Physical Exam GI GI Narrative: Abdomen- soft, slight tenderness at the incision sites in the RUQ. Incisions c/d/i. No active oozing or bleeding noted. Bowel sounds present. Assessment & Plan Assessment/Plan (1) Acute cholecystitis: PLAN: I am following this patient in conjunction with Dr. Mcbride. I have discussed my findings and treatment plan with her. Patient lethargic this morning possibly due to oxycodone provided for pain. I will not be discharging patient to [facility] with oxycodone. I am recommending that they alternate between Tylenol and ibuprofen for pain as needed. I have communicated these instructions in the discharge instructions. I will contact nursing around lunch time to obtain a progress report prior to placing a discharge order. Charges/Coding Visit Charges Inpatient E&M: 09888 Subs Hosp L1 (post-op; no charge)
[2023-05-29 08:35] VITALS: BP 100/55; PULSE 56; RESP 16; TEMP 36.5; O2SAT 97
[2023-05-29 08:49] LABS: ALB/GLOB Ratio 0.8 RATIO (0.9-2.4); AST(SGOT) 19 U/L (15-37); Alanine Aminotransfer ALT/SGPT 27 U/L (16-61); Albumin, Serum 2.5 g/dL (3.2-5.0); Alkaline Phosphatase 50 U/L (45-117); Anion Gap 4 (5-15); BUN 17 mg/dL (7-18); BUN/Creat Ratio 19.3 RATIO (10-20); Calcium,Total 8.1 mg/dL (8.5-10.1); Chloride 109 mmol/L (98-107); Creatinine, Serum 0.88 mg/dL (0.70-1.30); EST Glomerular Filtration Rate 88 mL/min (>60); Est Glom Filt Rate - Afr Amer 107 mL/min (>60); Estimated Creatinine Clearance 62.61 ml/min; Globulin 3.3 g/dL (2.2-4.2); Glucose 99 mg/dL (74-106); Protein, Total 5.8 g/dL (6.4-8.2); Sodium Level 137 mmol/L (136-145)
[2023-05-29] MEDS: Pantoprazole Sodium 40 MG Tablet PO (10:07)
--- NOTE | 2023-05-29 11:18 | CASEMGMT ---
Social Work Pt is admitted from [facility] memory care unit. VM left at [facility] to confirm pt is able to return when medically ready. Per ED SW, pt's plans for pt to return to [place]. Plan: Return to [facility] Memory Unit. JESUS Hernadez
--- NOTE | 2023-05-29 11:55 | PCM.DC ---
Discharge Instructions Diet Discharge Diet: Light diet - advance as tolerated Activity Discharge Activity: May Shower Lifting Restrictions: No lifting greater than 10 pounds for 2 weeks Dressing / Incision Call your doctor if your incision/area has: Continuous Slow Oozing, Sudden Increased Bleeding, Increased Pain/ Swelling, Increased Redness, Foul Smelling Discharge and Swelling at the incision site Call your doctor if you observe: Fever of 101 or Higher Remove Dressing in: 2 days Cleanse incision/area with: Soap & Water Additional Dressing/Incision Instructions:: Remove steri-strips in 1 week from surgery Follow Up Care Please Follow Up With: Christen Mcbride MD When: Please call to schedule an appointment to follow-up in 2 weeks from surgery Test Results: Test results from this visit will be discussed in further detail at your follow-up appointment, if applicable. Discharge Plan Admission Admit Date/Time: 05/28/23 15:22 Primary Reason for Your Visit: Acute cholecystitis Attending Provider: Christen Mcbride Primary Care Provider: Bertha Arndt Instructions Additional Instructions / Restrictions: Cholecystectomy Diet ? Start light with soups and soft bland foods. You may advance diet as tolerated. Activity ? I encourage walking. You may go up steps, one at a time. ? Do not swim or use hot tubs for 2 weeks. ? For comfort, you may use warm compresses or ice as needed for 15-20 minutes at a time. Lifting ? You may lift up to 10 pounds for the first 2 weeks. You may advance to 20 pounds for the next 2 weeks. Dressings/Incision ? You may shower OVER your plastic dressings ? Do NOT tub bathe for 1 week ? Leave plastic dressings on for 3 days. ? When plastic dressings are removed, you will find steri strips. It is okay to continue showering with them in place, pat them dry. ? You may remove steri-strips after 1 week. We recommend getting them soaking wet for easier removal. Medications ? Anesthesia used during surgery and pain medications may cause constipation. I recommend initiating on the day of surgery a fiber supplement like, Metamucil, Citrucel, FiberCon, Benefiber, or a generic form of these medications. 1 heaping tablespoon in water daily. You may continue to utilize any bowel regimen or oral laxatives that you routinely take. ? As long as you are not intolerant to Tylenol, acetaminophen, ibuprofen, Motrin, Advil, Aleve, or similar medications, I would recommend transitioning to these [id number] medicines as soon as possible instead of continued use of narcotic pain medication. Follow up ? You should call [facility] soon after surgery, at [phone] option 1 to make a follow up appointment for 14 days after your surgery. Discharge Orders/Prescriptions Prescriptions: Continued aspirin 81 mg tablet,delayed release (DR/EC) 81 mg PO QDAY famciclovir 500 mg tablet 500 mg PO BID Mucinex DM 30-600 mg Tablet Extended Release 12 Hr 1 tab PO Q12H acetaminophen [Tylenol] 325 mg capsule 325 mg PO Q6H PRN (Reason: pain) Qty: 120 0RF celecoxib 200 mg capsule 200 mg PO Q24H fexofenadine [Mona Allergy] 180 mg tablet 180 mg PO DAILY escitalopram oxalate [Lexapro] 5 mg tablet 5 mg PO DAILY quetiapine 50 mg tablet 50 mg PO QHS hydroxyzine pamoate 25 mg capsule 25 mg PO Q8H PRN (Reason: anxiety) cholecalciferol (vitamin D3) [Vitamin D3] 125 mcg (5,000 unit) tablet 125 mcg PO DAILY ibuprofen 200 mg tablet 200 mg PO Q4H PRN (Reason: pain) omeprazole 40 mg capsule,delayed release(DR/EC) 40 mg PO QDAY Qty: 90 3RF rosuvastatin [Crestor] 20 mg tablet 20 mg PO QDAY Qty: 90 3RF Referrals / Follow Up: Bertha Arndt MD [Primary Care Provider] - Christen Mcbride MD [Med Staff - Active Staff] - (Follow-up in [address] Mcbride. Please call our office to schedule.) Disposition Disposition (needs filled in before D/C Order can be placed): Long-Term Facility
[2023-05-29 12:00] VITALS: BP 104/57; PULSE 54; RESP 16; TEMP 37; O2SAT 96
--- NOTE | 2023-05-29 12:22 | CASEMGMT ---
Spoke with patients , Sandra, to complete OGLESBY form. OGLESBY form explained to Sandra who voiced understanding and signed form. Original form placed in pt?s chart and copy placed in patients room. Tiny Ortega, Discharge Planning Asst
--- NOTE | 2023-05-29 13:28 | CASEMGMT ---
Social Work RALPH spoke with Zohra from [facility] and they are able to accept pt back today. Physician updated and pt is ready for discharge. RALPH spoke with pt's and updated on discharge. Pt's plans to transport pt back to [facility] and will be here at 4pm. Nursing and [facility] updated. DC orders faxed to [facility]. Disposition: [facility] Memory Unit JESUS Hernadez
--- NOTE | 2023-05-29 14:48 | PHA.DC_ITS ---
Pharmacy [place] Med Reconciliation Pharmacy Service has performed discharge medication reconciliation for this patient upon transfer to [facility]. The patient's discharge medication list was reviewed for discrepancies and discrepancies were resolved. Medications at Discharge Home Medications aspirin 81 mg tablet,delayed release 81 mg PO QDAY 01/06/18 omeprazole 40 mg capsule,delayed release 40 mg PO QDAY #90 caps 01/05/21 rosuvastatin 20 mg tablet (Crestor) 20 mg PO QDAY #90 tabs 03/29/21 acetaminophen 325 mg capsule (Tylenol) 325 mg PO Q6H PRN pain #120 caps 07/20/22 dextromethorphan-guaifenesin 30 mg-600 mg tablet extended hr (Mucinex DM) 1 tab PO Q12H 07/20/22 famciclovir 500 mg tablet 500 mg PO BID 07/20/22 celecoxib 200 mg capsule 200 mg PO Q24H 04/27/23 cholecalciferol (vitamin D3) 125 mcg (5,000 unit) tablet (Vitamin D3) 125 mcg PO DAILY 04/27/23 escitalopram oxalate 5 mg tablet (Lexapro) 5 mg PO DAILY 04/27/23 fexofenadine 180 mg tablet (Mona Allergy) 180 mg PO DAILY 04/27/23 hydroxyzine pamoate 25 mg capsule 25 mg PO Q8H PRN anxiety 04/27/23 ibuprofen 200 mg tablet 200 mg PO Q4H PRN pain 04/27/23 quetiapine 50 mg tablet 50 mg PO QHS 04/27/23
[2023-05-29 15:00] VITALS: BP 104/63; PULSE 58; RESP 16; TEMP 37.2; O2SAT 94
== END 2023-05-29 16:30 | disposition home or self-care (01) ==
LOC: ED 11:11 → SDC 13:51 → ACINP 15:22 → MS3 18:27
PROVIDERS: Physician Assistant; Admitting Provider Surgery; Emergency Provider Emergency Medicine; PCP Family Medicine; Referring Provider Surgery; Visit Provider Surgery
PROC: (CPT 47610; principal; 2023-05-28 13:15)
DX: K80.00 Calculus of gallbladder with acute cholecystitis without obstruction (principal); J42 Unspecified chronic bronchitis; Z79.82 Long term (current) use of aspirin; Z79.899 Other long term (current) drug therapy; E78.5 Hyperlipidemia, unspecified; N40.0 Benign prostatic hyperplasia without lower urinary tract symptoms; M19.90 Unspecified osteoarthritis, unspecified site; I25.10 Atherosclerotic heart disease of native coronary artery without angina pectoris
CPT/HCPCS: 47563; 00790; 36415; 74176; 74300; 76000; 76705; 80053; 81001; 82248; 83690; 85025; 88304; 93005; 96361; 96365; 96366; 96375; 96376; 99221; 99284; J7030; J7120; A4216; G0378; J2405

== ENCOUNTER 2024-12-12 13:03 | Emergency (ER) | payer MEDICARE, BC, SELFPAY ==
[2024-12-12 13:04] VITALS: BP 104/65; PULSE 94; RESP 16; TEMP 36.6; O2SAT 97
--- NOTE | 2024-12-12 13:31 | ED.VIS.FALL ---
HPI HPI - Fall History of Present Illness Chief Complaint: Fall PFSH PFSH Medical History (Updated 12/12/24 @ 15:[address] Hiren Shelton, DO) Cholecystectomy planned Memory deficit Cataracts, both eyes Chronic bronchitis Heart disease Arthritis Seasonal allergies Home Medications ?Medication ?Instructions ?Recorded ?Last Taken ?Type aspirin 81 mg tablet,delayed 81 mg PO QDAY 01/06/18 05/27/23 History release omeprazole 40 mg capsule,delayed 40 mg PO QDAY #90 caps 01/05/21 05/27/23 Rx release rosuvastatin 20 mg tablet (Crestor) 20 mg PO QDAY #90 tabs 03/29/21 05/27/23 Rx acetaminophen 325 mg capsule 325 mg PO Q6H PRN pain #120 caps 07/20/22 Unknown Rx (Tylenol) dextromethorphan-guaifenesin 30 1 tab PO Q12H 07/20/22 Unknown History mg-600 mg tablet extended [id number] hr (Mucinex DM) famciclovir 500 mg tablet 500 mg PO BID 07/20/22 Unknown History celecoxib 200 mg capsule 200 mg PO Q24H 04/27/23 05/27/23 History cholecalciferol (vitamin D3) 125 125 mcg PO DAILY 04/27/23 Unknown History mcg (5,000 unit) tablet (Vitamin D3) fexofenadine 180 mg tablet 180 mg PO DAILY 04/27/23 05/27/23 History (Mona Allergy) hydroxyzine pamoate 25 mg capsule 25 mg PO Q8H PRN anxiety 04/27/23 05/28/23 06:20 History ibuprofen 200 mg tablet 200 mg PO Q4H PRN pain 04/27/23 Unknown History quetiapine 50 mg tablet 50 mg PO QHS 04/27/23 05/27/23 History escitalopram oxalate 10 mg tablet 10 mg PO DAILY 12/12/24 Unknown History loperamide 2 mg tablet 2 mg PO Q6H PRN loose stool 12/12/24 Unknown History (Anti-Diarrheal (loperamide)) magnesium hydroxide 400 mg/5 mL 30 ml PO DAILY PRN constipation 12/12/24 Unknown History oral suspension (Milk of Magnesia) oxycodone 5 mg tablet 5 mg PO Q6H PRN pain 3 days #12 12/12/24 Unknown Rx tabs quetiapine 25 mg tablet 25 mg PO QHS 12/12/24 Unknown History Allergy/AdvReac Type Severity Reaction Status Date / Time No Known Allergies Allergy Verified 12/12/24 13:04 Family History Mother Arthritis Father Arthritis Heart disease Kidney disease Parkinson disease Daughter Heart disease Brother Heart disease Surgical History history of triple bypass surgery Social History Smoking Status: Never smoker alcohol intake: never substance use type: does not use what type of physical activity do you participate in: walking and bicycling EXAM Physical Exam Const Vital Signs: 12/12/24 13:04 12/12/24 13:35 12/12/24 15:00 Temperature 97.8 F 98.2 F Temperature Source Oral Pulse Rate 94 55 L Respiratory Rate 16 12 Blood Pressure 104/65 111/50 L Blood Pressure Mean 78 70 Pulse Ox 97 96 Oxygen Delivery Method Room Air Room Air MDM MDM MDM Narrative Medical decision making narrative: HISTORY OF PRESENT ILLNESS: Chief complaint: Fall 84-year-old male history of memory loss, CAD, large prostate, hyperlipidemia from skilled nursing presents with an unwitnessed fall. Patient is unclear what happened. Denies syncope. Patient notes right posterior rib pain. Denies headache or head trauma. Denies extremity injury, chest pain, shortness of breath or pain in the hips. REVIEW OF SYSTEMS: Pertinent positives: Unwitnessed fall Pertinent negatives: Chest pain, shortness of breath, headache PHYSICAL EXAM: Nursing triage notes reviewed, Vital signs reviewed Primary Survey Airway: Intact Breathing: Bilateral breath sounds Circulation: Palpable bilateral femorals, Palpable bilateral radial, Palpable bilateral DP and Palpable bilateral PT Disability / Spine precautions GCS Score: Eye Openin Verbal Response: 5 Motor Response: 6 Secondary Survey Constitutional: Please see MDM Head: Atraumatic, Midface stable, NO jaw malocclusion, No Cephalohematoma, and No Lacerations noted Eye: Pupils equal round and reactive to light, Extraocular muscles intact and No periorbital ecchymosis or stepoff, no evidence of entrapment ENT: Oropharynx clear, no lacerations, no hemotympanum, no raccoon eyes or núñez sign Cervical spine / Neck: No cervical spine bony tenderness, crepitance, or stepoff deformity Trachea midline Lungs: TTP over right rib margin.. Clear to auscultation, No asymmetric rise and No crepitus, no flail chest Cardiac: Regular rate and rhythm and No murmurs Abdomen: Soft, Nontender and No rebound Pelvis: Pelvis stable to compression : No evidence of genital injury Back: No midline bony tenderness to thoracic/lumbar/sacral spines Neuro: At baseline, intact strength and sensation in bilateral upper and lower extremities. 2+ patellar reflexes bilaterally. Extremities: NO gross Deformities Psych: Normal affect Nursing triage notes reviewed, Vital signs reviewed MEDICAL DECISION MAKING: Chief Complaint: please see HPI External records reviewed: No anticoagulation note Factors affecting care: CAD, dementia Social determinants of health: skilled nursing patient History obtained from others: Consults: none MDM Narrative: Patient was initially hemodynamically stable, afebrile and nontoxic-appearing. Exam with TTP over right posterior rib margin. I considered the following differential diagnosis: Rib fracture, rib contusion, pneumothorax Patient examined no obvious traumatic injury to the head, extremities, abdomen or pelvis. As such I not obtain images. I obtained CT scan of the chest to further determine if the patient was suffering from a life-threatening etiology. ALL IMAGES (IF OBTAINED) HAVE BEEN PERSONALLY REVIEWED AND INTERPRETED BY MYSELF. CT scan of the chest without contrast showed a 10th rib fracture. No pneumothorax. The patient and/or family, caregivers express understanding. The patient and/or family, caregivers agrees with the plan. Shared decision making: I will have a discussion with the patient and or visitors regarding risk/benefits of further testing or admission. They will be made aware of of the risk/benefits inherent in this decision they will be given the opportunity to voice understanding. Total critical care time today provided was at least 0 minutes. This excludes separately billable procedures. Critical care time (if documented) is secondary to the patient having high probability of clinically significant/life threatening deterioration in the patient's condition which required my urgent intervention. Impression: 1. Acute rib pain 2. Acute rib fracture Dispo: Discharge home This note was generated with [employer] dictation software. It may contain incorrect words, spelling, and punctuation that were not noted in review of the chart prior to signing. Radiography Diagnostic Testing: Clinical Impression(s) from Imaging Studies Chest CT 12/12/24 13:44 IMPRESSION: Acute fracture deformity of the posterior right 10th rib. Additional chronic findings as described. Reading Location: [facility] Discharge Plan Triage Chief Complaint: Fall ED Provider: Hiren Shelton Dx/Rx/DC Orders Clinical Impression: Contusion of rib Instructions: ED Rib Fracture Prescriptions: New oxycodone 5 mg tablet 5 mg PO Q6H PRN (Reason: pain) 3 Days Qty: 12 0RF No Action aspirin 81 mg tablet,delayed release (DR/EC) 81 mg PO QDAY famciclovir 500 mg tablet 500 mg PO BID Mucinex DM 30-600 mg Tablet Extended Release 12 Hr 1 tab PO Q12H acetaminophen [Tylenol] 325 mg capsule 325 mg PO Q6H PRN (Reason: pain) Qty: 120 0RF celecoxib 200 mg capsule 200 mg PO Q24H fexofenadine [Mona Allergy] 180 mg tablet 180 mg PO DAILY quetiapine 50 mg tablet 50 mg PO QHS hydroxyzine pamoate 25 mg capsule 25 mg PO Q8H PRN (Reason: anxiety) cholecalciferol (vitamin D3) [Vitamin D3] 125 mcg (5,000 unit) tablet 125 mcg PO DAILY ibuprofen 200 mg tablet 200 mg PO Q4H PRN (Reason: pain) quetiapine 25 mg tablet 25 mg PO QHS escitalopram oxalate 10 mg tablet 10 mg PO DAILY loperamide [Anti-Diarrheal (loperamide)] 2 mg tablet 2 mg PO Q6H PRN (Reason: loose stool) magnesium hydroxide [Milk of Magnesia] 400 mg/5 mL suspension 30 ml PO DAILY PRN (Reason: constipation) omeprazole 40 mg capsule,delayed release(DR/EC) 40 mg PO QDAY Qty: 90 3RF rosuvastatin [Crestor] 20 mg tablet 20 mg PO QDAY Qty: 90 3RF Primary Care Provider: River Moreno Referrals: Bertha Arndt MD [Med Staff - Transport Medic] - Activity Restrictions/Additional Instructions: Thank you for trusting us with your care today! Your CT scan showed one fractured/broken rib. Please take Tylenol (2 pills, 650 mg), ibuprofen (2 pills, 400 mg) every 6 hours as needed for pain and fever control. Please return to the emergency department if your symptoms change or worsen. Please follow with your primary care physician for further outpatient evaluation and management. Print Language: Niuean Disposition Disposition: Home, Self Care
--- NOTE | 2024-12-12 13:44 | CT_ITS ---
PROCEDURE: CHEST WITHOUT CONTRAST 12/12/2024 REASON FOR EXAM: RIGHT POSTERIOR RIB PAIN TECHNIQUE: Chest CT without contrast. Coronal and Sagittal reconstruction series were provided. One or more dose reduction techniques were used (e.g., Automated exposure control, adjustment of the mA and/or kV according to patient size, use of iterative reconstruction technique. RADIATION DOSE SUMMARY: DLP: 750 mGycm COMPARISON: CTA chest abdomen pelvis 04/27/2023. FINDINGS: Hardware: Sternotomy wires and mediastinal clips. Lymph nodes: No axillary, mediastinal or hilar lymphadenopathy. Heart and Vasculature: The heart is normal in size without pericardial effusion. Prior CABG. Calcifications/prior replacement of the aortic valve. The great vessels are normal in caliber. Lungs and Airways: Visualization of the lung parenchyma is slightly limited by motion artifact. The central airways are patent. Bibasilar atelectasis/scarring. No large pulmonary mass. No pleural effusion or pneumothorax. Upper Abdomen: Prior cholecystectomy. Nonobstructing bilateral renal calculi. Bilateral renal cysts and additional hypodensities. Bones: Acute fracture deformity of the posterior right 10th rib. Prior L1 vertebral body cement augmentation. The sternal wires are intact. CT/Chest without Contrast IMPRESSION: Acute fracture deformity of the posterior right 10th rib. Additional chronic f indings as described. Reading Location: [id number]
[2024-12-12 13:47] VITALS: BMI 28.0
--- OUTSIDE RECORDS SUMMARY | 2024-12-12 13:59 | XMS RPT_ITS | CCD ---
Author Organization [facility] Care Team Providers Care Roll Weigher Name Role Phone KELY MANCILLA DO Primary Care Physician Dr. Kely Mancilla Primary Care Provider [phone] Dr. Kely Mancilla Referring Provider Dillan BAILEY, KARSON [place] Attending Provider [phone] Dr. Kely Mancilla Attending Provider Dr. Reynaldo Alan Attending Provider [phone] Kely Mancilla Primary Care Provider [phone] Dr. Reynaldo Alan Attending Provider Dr. Kely Mancilla Attending Provider Dr. Kely Mancilla Referring Provider Dr. Kely Mancilla Primary Care Provider [phone] Dr. Kely Mancilla Primary Care Provider [phone] Dr. Kely Mancilla Attending Provider Dr. Kely Mancilla Referring Provider Dr. Bertha Arndt Primary Care Provider Dr. Sha Jacome Referring Provider Dr. Sha Jacome Emergency Provider Smitha BONILLA PAManuela De La Cruz Attending Provider Dr. Christen Mcbride Admit Provider Dr. Christen Mcbride Referring Provider Dr. Christen Mcbride Other Provider Kely Mancilla Primary Care Unavailable Kely Mancilla Attending Unavailable Kely Mancilla Referring Unavailable Jolliff, Bertha S Primary Care Unavailable Jaquan Hampton Attending Unavailable Jolliff, Bertha S Primary Care Unavailable Mastriano OLSRoel Attending Unavailab le Mastriano OLS, Roel Referring Unavailab le Jolliff, Bertha S Primary Care Unavailable Mastriano ALEXY, Roel Attending Unavailab Emelina Romero Attending Unavailable Jolliff, Bertha S Primary Care Unavailable Jolliff, Bertha S Primary Care Unavailable Hiren Shelton Attending Unavailable Robotham, Christen Attending Unavailable Robotham, Christen Referring Unavailable Jolliff, Bertha S Primary Care Unavailable Robotham, Christen Admitting Unavailable Jolliff, Bertha S Primary Care Unavailable Jolliff OLS, Bertha S Attending Unavailable Robotham, Christen Attending Unavailable Jolliff, Bertha S Primary Care Unavailable Sha Jacome Referring Unavailable Robotham, Christen Referring Unavailable Jolliff, Bertha S Primary Care Unavailable Dorothy Guevara Attending Unavailable Robotham, Christen Admitting Unavailable Robotham, Christen Consulting Unavailable KELY MANCILLA DO Primary Care Physician KELY MANCILLA DO Primary Care Unavailable LELIA DUKE PA-C Attending Unavail able Medications Current Medications Medication Drug Class(es) Dates Sig (Normalized) Sig (Original) acetaminophen 325 mg oral capsule (7 sources) Start: 07-20-2022 take 1 capsule by mouth every six hours Acetaminophen (Tylenol) 325 mg capsule Active 325 MG PO EVERY 6 HOURS 120 July 20, 2022 12:00am acetaminophen 500 mg / diphenhydrAMINE hydrochloride 25 mg oral tablet (1 source) Histamine-1 Receptor Antagonist Start: 09-07-2020 take 1 tablet by mouth once daily at bedtime as needed for pain Tylenol PM Extra Strength oral tablet Dose = 1 tab(s), Oral, qHS, PRN as needed for pain, # 10 tab(s), 0 Refill(s) Start Date: 09/07/20 Status: Ordered Mona-D 12 Hour 60 mg-120 mg oral tablet, extended release (1 source) Start: 01-27-2016 take 1 tablet by mouth once daily Mona-D 12 Hour 60 mg-120 mg oral tablet, extended release Dose = 0.5 tab(s), Oral, qDay Start Date: 01/27/16 Status: Ordered aspirin 81 mg delayed release oral tablet (11 sources) Platelet Aggregation Inhibitor, Nonsteroidal Anti-inflammatory Drug Start: 01-27-2016 take 81 mg by mouth once daily Aspirin Active 81 MG PO daily January 05, 2018 11:00pm Start: 01-27-2016 aspirin 81 mg oral delayed release tablet Dose : 81 mg = 1 tab(s), Oral, Daily, 0 Refill(s) Start Date: 01/27/16 Status: Ordered atorvastatin 20 mg oral tablet (2 sources) HMG-CoA Reductase Inhibitor Start: 01-27-2016 atorvastatin 20 mg oral tablet Dose : 20 mg = 1 tab(s), Oral, Daily Start Date: 01/27/16 Status: Ordered celecoxib 200 mg oral capsule (20 sources) Nonsteroidal Anti-inflammatory Drug Start: 04-27-2023 take 200 mg by mouth every twenty-four hours Celecoxib Active 200 MG PO Q24H April 26, 2023 11:00pm Start: 09-02-2019 take 1 mg by mouth twice daily CeleBREX 200 mg oral capsule mg = cap(s), Oral, BID, 0 Refill(s) Start Date: 09/02/19 Status: Ordered Start: 01-06-2018 End: 09-19-2021 take 1 capsule by mouth once daily Celecoxib (Celebrex) 200 mg capsule Discontinued 200 MG PO daily January 01, 2021 12:04pm September 19, 2021 7:35am cholecalciferol 0.125 mg oral tablet (3 sources) Vitamin D Start: 04-27-2023 take 1 tablet by mouth once daily Cholecalciferol (Vitamin D3) (Vitamin D3) 125 mcg (5,000 unit) tablet Active 125 MCG PO DAILY April 26, 2023 11:00pm 12 hr dextromethorphan hydrobromide 30 mg / guaiFENesin 600 mg extended release oral tablet (7 sources) Uncompetitive C-nbkahq-U-asparta te Receptor Antagonist, Sigma-1 Agonist Start: 07-20-2022 take 1 tablet by mouth every twelve hours Dextromethorphan-Gua ifenesin (Mucinex Dm) 30-600 mg Tablet Extended Release 12 Hr Active 1 TABLET PO Q12H July 20, 2022 12:00am dextromethorphan hydrobromide 3 mg/ml / promethazine hydrochloride 1.25 mg/ml oral solution (10 sources) Phenothiazine, Uncompetitive F-owjhfp-O-asparta te Receptor Antagonist, Sigma-1 Agonist Start: 03-13-2022 take 1 mL by mouth every six hours Promethazine-Dm Active 5 ML PO EVERY 6 HOURS 118 March 13, 2022 1:28pm Start: 05-30-2021 End: 09-04-2021 take 1 mL by mouth every six hours Promethazine-Dm Discontinued 5 ML PO EVERY 6 HOURS 118 May 30, 2021 12:00am September 04, 2021 10:00am escitalopram 5 mg oral tablet (3 sources) Serotonin Reuptake Inhibitor Start: 04-27-2023 take 1 tablet by mouth once daily Escitalopram Oxalate (Lexapro) 5 mg tablet Active 5 MG PO DAILY April 26, 2023 11:00pm famciclovir 500 mg oral tablet (20 sources) Herpes Simplex Virus Nucleoside Analog DNA Polymerase Inhibitor Start: 07-20-2022 take 500 mg by mouth twice daily Famciclovir Active 500 MG PO TWICE A DAY July 20, 2022 12:00am Start: 10-17-2021 End: 07-08-2022 take 500 mg by mouth twice daily Famciclovir Discontinued 500 MG PO TWICE A DAY 90 May 15, 2022 9:58am July 08, 2022 11:29am Start: 05-13-2019 End: 09-21-2020 take 500 mg by mouth twice daily Famciclovir Discontinued 500 MG PO TWICE A DAY 90 March 16, 2020 10:38am September 21, 2020 1:06pm fexofenadine hydrochloride 180 mg oral tablet (3 sources) Histamine-1 Receptor Antagonist Start: 04-27-2023 take 1 tablet by mouth once daily Fexofenadine (Mona Allergy) 180 mg tablet Active 180 MG PO DAILY April 26, 2023 11:00pm hydrOXYzine pamoate 25 mg oral capsule (3 sources) Antihistamine Start: 04-27-2023 take 25 mg by mouth every eight hours Hydroxyzine Pamoate Active 25 MG PO Q8H April 26, 2023 11:00pm ibuprofen 200 mg oral tablet (10 sources) Nonsteroidal Anti-inflammatory Drug Start: 04-27-2023 take 200 mg by mouth every four hours Ibuprofen Active 200 MG PO Q4H April 26, 2023 11:00pm Start: 07-20-2022 End: 04-27-2023 take 200 mg by mouth every six hours Ibuprofen Discontinued 200 MG PO EVERY 6 HOURS 56 July 20, 2022 12:00am April 27, 2023 9:53pm metoprolol tartrate 25 mg oral tablet (13 sources) beta-Adrenergic Juany Start: 05-09-2021 take 25 mg by mouth once daily Metoprolol Tartrate Active 25 MG PO DAILY May 09, 2021 1:00am Start: 09-07-2020 take 1 tablet by herlinda th every hour as needed Metoprolol Tartrate 25 mg oral tablet See Instructions, 1 tab(s) Oral PRN for increased HR, 0 Refill(s) Start Date: 09/07/20 Status: Ordered Start: 03-16-2020 End: 09-21-2020 take 25 mg by mouth once daily Metoprolol Tartrate Dis continued 25 MG PO DAILY March 15, 2020 11:00pm September 21, 2020 1:06pm montelukast 10 mg oral tablet (20 sources) Leukotriene Receptor Antagonist Start: 01-03-2021 End: 04-27-2023 Singulair 10 mg oral tablet Dose : 10 mg = 1 tab(s), Oral, qDay, 0 Refill(s) Start Date: 03/15/21 Status: Ordered omeprazole 40 mg delayed release oral capsule (20 sources) Proton Pump Inhibitor Start: 01-27-2016 End: 01-05-2021 omeprazole 40 mg oral delayed release capsule (NF) Dose : 40 mg = 1 cap(s), Oral, qDay Start Date: 01/27/16 Status: Ordered QUEtiapine 50 mg oral tablet (3 sources) Atypical Antipsychotic Start: 04-27-2023 take 50 mg by mouth at bedtime Quetiapine Active 50 MG PO AT BEDTIME April 26, 2023 11:00pm Tylenol PM Extra Strength oral tablet (1 source) Start: 09-07-2020 take 1 tablet by mouth once daily at bedtime as needed for pain Tylenol PM Extra Strength oral tablet Dose = 1 tab(s), Oral, qHS, PRN as needed for pain, # 10 tab(s), 0 Refill(s) Start Date: 09/07/20 Status: Ordered zolpidem tartrate 5 mg oral tablet (20 sources) gamma-Aminobutyric Acid-ergic Agonist Start: 03-13-2022 take 1 tablet by mouth at bedtime Zolpidem (Ambien) 5 mg tablet Active 5 MG PO AT BEDTIME March 13, 2022 12:00am Start: 01-27-2016 End: 03-13-2022 zolpidem 10 mg oral tablet D ose : 10 mg = 1 tab(s), Oral, qHS Start Date: 01/27/16 Status: Ordered Completed/Discontinued Medications Medication Drug Class(es) Dates Sig (Normalized) Sig (Original) azithromycin 250 mg oral tablet (20 sources) Macrolide Antimicrobial Start: 03-13-2022 End: 06-18-2022 Azithromycin (Zithromax) 250 mg tablet Discontinued 0 PO .COMPLEX March 13, 2022 12:28pm June 18, 2022 12:56pm For 250 mg dose pack: take 500 mg today (day 1), then 250 mg for 4 days (days 2-5) PO Start: 05-30-2021 End: 06-20-2021 Azithromycin (Zithromax) 250 mg tablet Discontinued 0 PO .COMPLEX May 30, 2021 12:00am June 20, 2021 2:14pm For 250 mg dose pack: take 500 mg today (day 1), then 250 mg for 4 days (days 2-5) PO benzonatate 100 mg oral capsule (9 sources) Non-narcotic Antitussive Start: 02-09-2021 End: 09-04-2021 take 1 capsule by mouth three times daily Benzonatate (Tessalon Perles) 100 mg capsule Discontinued 100 MG PO THREE TIMES A DAY February 08, 2021 11:00pm September 04, 2021 9:59am cyclobenzaprine hydrochloride 10 mg oral tablet (18 sources) Muscle Relaxant Start: 09-21-2020 End: 01-03-2021 take 10 mg by mouth three times daily Cyclobenzaprine Discontinued 10 MG PO THREE TIMES A DAY October 17, 2020 9:26am January 03, 2021 10:21am diazePAM 2 mg oral tablet (9 sources) Benzodiazepine Start: 11-12-2018 End: 09-21-2020 take 2 mg by mouth twice daily Diazepam Discontinued 2 MG PO TWICE A DAY November 11, 2018 11:00pm September 21, 2020 1:06pm 24 hr dilTIAZem hydrochloride 180 mg extended release oral capsule (18 sources) Calcium Channel Juany Start: 01-06-2018 End: 05-13-2019 take 180 mg by mouth once daily Diltiazem Hcl Discontinued 180 MG PO daily November 12, 2018 9:13am May 13, 2019 9:59am doxycycline monohydrate 100 mg oral capsule (20 sources) Tetracycline-class Drug Start: 01-09-2021 End: 05-09-2021 take 100 mg by mouth twice daily Doxycycline Monohydrate Discontinued 100 MG PO TWICE A DAY 180 January 08, 2021 11:00pm May 09, 2021 10:57am Start: 11-24-2019 End: 01-09-2021 take 200 mg by mouth once daily Doxycycline Hyclate Discontinued 200 MG PO DAILY January 03, 2021 10:30am January 09, 2021 7:31am 12 hr fexofenadine hydrochloride 60 mg / pseudoephedrine hydrochloride 120 mg extended release oral tablet (10 sources) alpha-Adrenergic Agonist, Histamine-1 Receptor Antagonist Start: 11-24-2019 End: 04-27-2023 take 1 tablet by mouth every twelve hours, then take 1 tablet by mouth every twelve hours Fexofenadine-Pseudoephedrine (Mona-D 12 Hour) 60-120 mg tablet extended release 12 hr Discontinued 1 TABLET PO Q12H November 23, 2019 11:00pm April 27, 2023 9:47pm Start: 01-27-2016 take 1 tablet by herlinda th once daily Mona-D 12 Hour 60 mg-120 mg oral tablet, extended release Dose = 0.5 tab(s), Oral, qDay Start Date: 01/27/16 Status: Ordered hydrocortisone 25 mg/ml topical cream (9 sources) Corticosteroid Start: 01-06-2018 End: 09-12-2020 Hydrocortisone (Proctosol Hc) 2.5 % cream with perineal applicator Discontinued 1 APPLIC RC 1 to 2 times per day January 05, 2018 11:00pm September 12, 2020 9:59am levocetirizine dihydrochloride 5 mg oral tablet (9 sources) Histamine-1 Receptor Antagonist Start: 03-22-2021 End: 09-04-2021 take 1 tablet by mouth once daily Levocetirizine (Xyzal) 5 mg tablet Discontinued 5 MG PO DAILY March 21, 2021 11:00pm September 04, 2021 9:59am minocycline 100 mg oral capsule (20 sources) Tetracycline-class Drug Start: 01-06-2018 End: 11-24-2019 take 100 mg by mouth twice daily Minocycline Discontinued 100 MG PO TWICE A DAY May 13, 2019 10:31am November 24, 2019 9:24am rosuvastatin calcium 20 mg oral tablet (20 sources) HMG-CoA Reductase Inhibitor Start: 01-06-2018 End: 03-29-2021 take 1 tablet by mouth once daily Rosuvastatin (Crestor) 20 mg tablet Discontinued 20 MG PO daily January 05, 2021 11:09am March 29, 2021 8:41am sildenafil 50 mg oral tablet (11 sources) Phosphodiesterase 5 Inhibitor Start: 02-14-2021 End: 02-14-2021 Sildenafil Discontinued 50 MG PO DAILY February 13, 2021 11:00pm February 14, 2021 12:18pm administer 30 minutes to 4 hours before activity tadalafil 20 mg oral tablet (18 sources) Phosphodiesterase 5 Inhibitor Start: 11-24-2019 End: 02-14-2021 take 1 tablet by mouth every twenty-four hours Tadalafil (Cialis) 20 mg tablet Discontinued 20 MG PO DAILY March 16, 2020 10:58am February 14, 2021 12:16pm administer approximately 30min before sexual activity; do not use more than 1 dose per 24hrs tamsulosin hydrochloride 0.4 mg oral capsule (9 sources) alpha-Adrenergic Juany Start: 05-13-2019 End: 11-24-2019 take 0.4 mg by mouth once daily Tamsulosin Discontinued 0.4 MG PO DAILY May 13, 2019 12:00am November 24, 2019 9:25am traZODone hydrochloride 50 mg oral tablet (9 sources) Serotonin Reuptake Inhibitor Start: 01-22-2022 End: 03-13-2022 take 25 mg by mouth at bedtime Trazodone Discontinued 25 MG PO AT BEDTIME January 21, 2022 11:00pm March 13, 2022 12:15pm triamcinolone acetonide 0.055 mg/actuat metered dose nasal spray (9 sources) Corticosteroid Start: 05-13-2019 End: 11-24-2019 Triamcinolone Acetonide (Nasacort) 55 mcg aerosol,spray Discontinued 1 SPRAY INTRANASAL DAILY May 13, 2019 12:00am November 24, 2019 9:26am Problems Active Problems Problem Classification Problem Date Documented Date Episodic/Chronic Abdominal pain (5 sources) Acute abdominal pain; Translations: [Unspecified abdominal pain] Onset: 06-05-2023 05-28-2023 Episodic Biliary tract disease (5 sources) Acute cholecystitis; Translations: [Acute cholecystitis] Onset: 06-05-2023 05-28-2023 Episodic Calculus of urinary tract (4 sources) Kidney stone; Translations: [Calculus of kidney] Onset: 04-30-2023 04-27-2023 Episodic Cardiac dysrhythmias (2 sources) Atrial tachycardia 12-09-2019 Chronic Cataract (9 sources) Bilateral cataracts; Translations: [Unspecified cataract] 01-06-2018 Chronic Chronic obstructive pulmonary disease and bronchiectasis (13 sources) Chronic bronchitis; Translations: [Unspecified chronic bronchitis] Chronic Chronic obstructive pulmonary disease and bronchiectasis (9 sources) Bronchitis; Translations: [Bronchitis, not specified as acute or chronic] 05-30-2021 Episodic Coronary atherosclerosis and other heart disease (16 sources) Coronary arteriosclerosis in [place] artery; Translations: [Coronary atherosclerosis] Onset: 03-14-2023 09-02-2019 Chronic Comment on above: COELHO to LCx, MICHAEL to LAD, SVG graft to PDA in 2004 Stress test in February 2019 normal with normal EF s/p CABGX3 in 2004 Delirium, dementia, and amnestic and other cognitive disorders (8 sources) Dementia; Translations: [Unspecified dementia without behavioral disturbance] Onset: 04-14-2023 07-20-2022 Chronic Disorders of lipid metabolism (11 sources) Hypercholesterolemia; Translations: [Hyperlipidemia] 08-31-2019 Chronic Esophageal disorders (2 sources) Gastroesophageal reflux disease 01-27-2016 Chronic Essential hypertension (2 sources) Benign essential hypertension 08-31-2019 Chronic Hyperplasia of prostate (9 sources) Large prostate ; Translations: [Benign prostatic hyperplasia without lower urinary tract symptoms] 11-12-2018 Chronic Malaise and fatigue (3 sources) Other fatigue; Translations: [Other malaise and fatigue] Episodic Miscellaneous mental health disorders (10 sources) Chronic insomnia; Translations: [Psychophysiologic insomnia] 06-18-2022 Chronic Nonspecific chest pain (7 sources) Chest pain; Translations: [Chest pain, unspecified] 07-20-2022 Episodic Osteoarthritis (9 sources) Arthritis; Translations: [Unspecified osteoarthritis, unspecified site] 01-06-2018 Chronic Other and ill-defined heart disease (18 sources) Heart disease; Translations: [Heart disease, unspecified] 01-06-2018 Chronic Other and ill-defined heart disease (1 source) Heart disease, unspecified; Translations: [Heart disease, unspecified] Chronic Other male genital disorders (9 sources) Male erectile dysfunction, unspecified; Translations: [Erectile dysfunction] 01-03-2021 Chronic Other skin disorders (9 sources) Folliculitis; Translations: [Follicular disorder, unspecified] 11-12-2018 Episodic Other upper respiratory disease (9 sources) Seasonal allergy; Translations: [Other seasonal allergic rhinitis] 01-06-2018 Chronic Other upper respiratory disease (9 sources) Allergic rhinitis; Translations: [Allergic rhinitis, unspecified] 03-22-2021 Chronic Other upper respiratory disease (1 source) Other seasonal allergic rhinitis; Translations: [Allergic rhinitis, cause unspecified] Chronic Residual codes; unclassified (2 sources) Hypersomnia, unspecified; Translations: [Hypersomnia, unspecified] Chronic Residual codes; unclassified (9 sources) Amnesia; Translations: [Other amnesia] 11-12-2018 Episodic Residual codes; unclassified (2 sources) Insomnia, unspecified; Translations: [Insomnia, unspecified] Episodic Residual codes; unclassified (4 sources) Other amnesia; Translations: [Memory loss] Episodic Sprains and strains (9 sources) Lower back injury; Translations: [Strain of muscle, fascia and tendon of lower back, initial encounter] 09-21-2020 Episodic Past or Other Problems Problem Classification Problem Date Documented Da te Episodic/Chronic Spondylosis; intervertebral disc disorders; other back problems (8 sources) Backache; Translations: [Dorsalgia, unspecified] Onset: 07-31-2022 07-20-2022 Episodic Unclassified (9 sources) history of triple bypass surgery 01-21-2022 Results Test Name Value Interpretation Reference Range Facility .Auto Diffon 10-19-2023 Basophil, Absolute 0.1 10 3/mcL Normal 0.0-0.3 [facility] ([place]) Comment on above: Performed By: #### T ROPHS, CMP, GFR, ADIFF, LIP, ANEU, PBNP, MDW, CBC #### [address] [address] Basophils/100 WBC (Bld) 1.0 % Normal 0.0-2.5 A [facility] ([place]) Comment on above: Performed By: #### T ROPHS, CMP, GFR, ADIFF, LIP, ANEU, PBNP, MDW, CBC #### [address] [address] Eosinophil, Absolute 0.8 10 3/mcL High 0.0-0.7 [facility] ([place]) Comment on above: Performed By: #### T ROPHS, CMP, GFR, ADIFF, LIP, ANEU, PBNP, MDW, CBC #### [address] [address] Eosinophils/100 WBC (Bld) 10.9 % High 0.0-6.0 [facility] ([place]) Comment on above: Performed By: #### T ROPHS, CMP, GFR, ADIFF, LIP, ANEU, PBNP, MDW, CBC #### [address] [address] Lymphocyte, Absolute 1.1 10 3/mcL Normal 0.9-4.3 [facility] ([place]) Comment on above: Performed By: #### T ROPHS, CMP, GFR, ADIFF, LIP, ANEU, PBNP, MDW, CBC #### [address] [address] Lymphocytes/100 WBC (Bld) 15.5 % Low 20.0-40.0 [facility] ([place]) Comment on above: Performed By: #### T ROPHS, CMP, GFR, ADIFF, LIP, ANEU, PBNP, MDW, CBC #### [address] [address] Monocyte, Absolute 0.7 10 3/mcL Normal 0.1-1.4 [facility] ([place]) Comment on above: Performed By: #### T ROPHS, CMP, GFR, ADIFF, LIP, ANEU, PBNP, MDW, CBC #### [address] [address] Monocytes/100 WBC (Bld) 10.5 % Normal 2.0-13.0 A [facility] ([place]) Comment on above: Performed By: #### T ROPHS, CMP, GFR, ADIFF, LIP, ANEU, PBNP, MDW, CBC #### [address] [address] Neutrophils/100 WBC (Bld) 62.1 % Normal 50.0-75.0 [facility] ([place]) Comment on above: Performed By: #### T ROPHS, CMP, GFR, ADIFF, LIP, ANEU, PBNP, MDW, CBC #### [address] [address] .GFRon 10-19-2023 GFR Non- >60 Normal [facility] ([place]) Comment on above: Result Comment: GFR Population mean for , Non- Americans Ages 20-29 = 116 mL/min/1.73 sq.m. Ages 30-39 = 107 mL/min/1.73 sq.m. Ages 40-49 = 99 mL/min/1.73 sq.m. Ages 50-59 = 93 mL/min/1.73 sq.m. Ages 60-69 = 85 mL/min/1.73 sq.m. Ages 70+ = 75 mL/min/1.73 sq.m. Chronic Kidney Disease: Less than 60 mL/min/1.73 square meters End Stage Renal Disease: Less than 15 mL/min/1.73 square meters Performed By: #### T ROPHS, CMP, GFR, ADIFF, LIP, ANEU, PBNP, MDW, CBC #### [address] [address] GFR >60 Normal [facility] ([place]) Comment on above: Result Comment: GFR Population mean for , Non- Americans Ages 20-29 = 116 mL/min/1.73 sq.m. Ages 30-39 = 107 mL/min/1.73 sq.m. Ages 40-49 = 99 mL/min/1.73 sq.m. Ages 50-59 = 93 mL/min/1.73 sq.m. Ages 60-69 = 85 mL/min/1.73 sq.m. Ages 70+ = 75 mL/min/1.73 sq.m. Chronic Kidney Disease: Less than 60 mL/min/1.73 square meters End Stage Renal Disease: Less than 15 mL/min/1.73 square meters Performed By: #### T MACI, CMP, GFR, ADIFF, LIP, ANEU, PBNP, MDW, CBC #### [place] [address] .MDWon 10-19-2023 Monocyte Distribution Width 17.01 Normal 0.00-20.00 [facility] ([place]) Comment on above: Result Comment: For ED adult patients suspected of sepsis, MDW<=20.0 does not rule out sepsis or risk of sepsis Performed By: #### T MACI, CMP, GFR, ADIFF, LIP, ANEU, PBNP, MDW, CBC #### [place] [address] .NEUABSon 10-19-2023 Neutrophil, Absolute 4.4 10 3/mcL Normal 2.3-8.1 [facility] ([place]) Comment on above: Performed By: #### T MACI, CMP, GFR, ADIFF, LIP, ANEU, PBNP, MDW, CBC #### [place] [address] CBCon 10-19-2023 Erythrocyte distribution width (RBC) [Ratio] 12.8 % Normal 11.5-15.5 [facility] ([place]) Comment on above: Performed By: #### T MACI, CMP, GFR, ADIFF, LIP, ANEU, PBNP, MDW, CBC #### [place] [address] Hematocrit (Bld) [Volume fraction] 44.9 % Normal 40.0-52.0 [facility] ([place]) Comment on above: Performed By: #### T MACI, CMP, GFR, ADIFF, LIP, ANEU, PBNP, MDW, CBC #### [place] [address] Hgb 15.5 G/dL Normal 13.0-17.5 [facility] ([place]) Comment on above: Performed By: #### T MACI, CMP, GFR, ADIFF, LIP, ANEU, PBNP, MDW, CBC #### [address] [address] MCH (RBC) [Entitic mass] 34.4 pg High 27.0-33.0 [facility] ([place]) Comment on above: Performed By: #### T MACI, CMP, GFR, ADIFF, LIP, ANEU, PBNP, MDW, CBC #### [address] [address] MCHC 34.5 G/dL Normal 32.0-36.0 [facility] ([place]) Comment on above: Performed By: #### T MACI, CMP, GFR, ADIFF, LIP, ANEU, PBNP, MDW, CBC #### [place] [id number] MCV (RBC) [Entitic vol] 99.8 fL Normal 81.0-100.0 A [facility] ([place]) Comment on above: Performed By: #### T MACI, CMP, GFR, ADIFF, LIP, ANEU, PBNP, MDW, CBC #### [place] [address] Platelet 155 10 3/mcL Normal 150-450 [facility] ([place]) Comment on above: Performed By: #### T MACI, CMP, GFR, ADIFF, LIP, ANEU, PBNP, MDW, CBC #### [address] [address] Platelet mean volume (Bld) [Entitic vol] 8.1 fL Normal 6.4-10.5 [facility] ([place]) Comment on above: Performed By: #### T MACI, CMP, GFR, ADIFF, LIP, ANEU, PBNP, MDW, CBC #### [place] [id number] RBC 4.51 10 6/mcL Normal 4.50-6.00 [facility] ([place]) Comment on above: Performed By: #### T ROPHS, CMP, GFR, ADIFF, LIP, ANEU, PBNP, MDW, CBC #### [address] [address] WBC 7.1 10 3/mcL Normal 4.5-10.8 [facility] ([place]) Comment on above: Performed By: #### T ROPHS, CMP, GFR, ADIFF, LIP, ANEU, PBNP, MDW, CBC #### [address] [address] CMPon 10-19-2023 Albumin Level 3.9 G/dL Normal 3.2-4.8 [facility] ([place]) Comment on above: Performed By: #### T ROPHS, CMP, GFR, ADIFF, LIP, ANEU, PBNP, MDW, CBC #### [place] [address] Albumin/Globulin [Mass ratio] 1.4 {ratio} Normal 0.9-1.6 [facility] ([place]) Comment on above: Performed By: #### T ROPHS, CMP, GFR, ADIFF, LIP, ANEU, PBNP, MDW, CBC #### [address] [address] ALP [Catalytic activity/Vol] 66 U/L Normal 38-126 [facility] ([place]) Comment on above: Performed By: #### T ROPHS, CMP, GFR, ADIFF, LIP, ANEU, PBNP, MDW, CBC #### [address] [address] ALT [Catalytic activity/Vol] 34 U/L Normal 12-55 [facility] ([place]) Comment on above: Performed By: #### T ROPHS, CMP, GFR, ADIFF, LIP, ANEU, PBNP, MDW, CBC #### [address] [address] AST [Catalytic activity/Vol] 32 U/L Normal 8-34 [facility] ([place]) Comment on above: Performed By: #### T ROPHS, CMP, GFR, ADIFF, LIP, ANEU, PBNP, MDW, CBC #### [address] [address] Bili Total 0.80 mg/dL Normal 0.20-1.20 [facility] ([place]) Comment on above: Result Comment: Use of this assay is not recommended for patients undergoing treatment with eltrombopag due to the potential for falsely elevated results. Performed By: #### T ROPHS, CMP, GFR, ADIFF, LIP, ANEU, PBNP, MDW, CBC #### [address] [address] BUN/Creatinine Ratio 23.0 ratio High 10.0-22.0 [facility] ([place]) Comment on above: Performed By: #### T ROPWANDER, CMP, GFR, ADIFF, LIP, ANEU, PBNP, MDW, CBC #### [address] [address] Calcium [Mass/Vol] 9.7 mg/dL Normal 8.7-10.4 [facility] ([place]) Comment on above: Performed By: #### T ROPHS, CMP, GFR, ADIFF, LIP, ANEU, PBNP, MDW, CBC #### [address] [address] Chloride [Moles/Vol] 108 mmol/L Normal 98-110 [facility] ([place]) Comment on above: Performed By: #### T ROPHS, CMP, GFR, ADIFF, LIP, ANEU, PBNP, MDW, CBC #### [address] [address] CO2 [Moles/Vol] 26 mmol/L Normal 22-32 [facility] ([place]) Comment on above: Performed By: #### T ROPHS, CMP, GFR, ADIFF, LIP, ANEU, PBNP, MDW, CBC #### [address] [address] Creatinine [Mass/Vol] 1.00 mg/dL Normal 0.60-1.40 [facility] ([place]) Comment on above: Performed By: #### T ROPHS, CMP, GFR, ADIFF, LIP, ANEU, PBNP, MDW, CBC #### [address] [address] Electrolyte Balance 6.0 mEq/L Normal 4.0-15.0 [facility] ([place]) Comment on above: Performed By: #### T MACI, CMP, GFR, ADIFF, LIP, ANEU, PBNP, MDW, CBC #### [address] [address] Globulin 2.8 G/dL Normal 1.5-3.8 [facility] ([place]) Comment on above: Performed By: #### T MACI, CMP, GFR, ADIFF, LIP, ANEU, PBNP, MDW, CBC #### [address] [address] Glucose [Mass/Vol] 102 mg/dL Normal 82-115 [facility] ([place]) Comment on above: Performed By: #### T MACI, CMP, GFR, ADIFF, LIP, ANEU, PBNP, MDW, CBC #### [address] [address] Potassium [Moles/Vol] 4.3 mmol/L Normal 3.5-5.0 [facility] ([place]) Comment on above: Performed By: #### T MACI, CMP, GFR, ADIFF, LIP, ANEU, PBNP, MDW, CBC #### [address] [address] Sodium [Moles/Vol] 140 mmol/L Normal 136-145 [facility] ([place]) Comment on above: Performed By: #### T MACI, CMP, GFR, ADIFF, LIP, ANEU, PBNP, MDW, CBC #### [address] [address] Total Protein 6.7 G/dL Normal 5.7-8.2 [facility] ([place]) Comment on above: Result Comment: No te - New Reference Range in effect 20 Performed By: #### T MACI, CMP, GFR, ADIFF, LIP, ANEU, PBNP, MDW, CBC #### [address] [address] Urea nitrogen [Mass/Vol] 23.0 mg/dL High 8.0-22.0 [facility] ([place]) Comment on above: Performed By: #### T ROPHS, CMP, GFR, ADIFF, LIP, ANEU, PBNP, MDW, CBC #### [place] [id number] [place] [address] LABORATORYOrdered By: SYSTEM SYSTEM on 10-19-2023 Albumin BCP dye [Mass/Vol] 3.9 G/dL Normal 3.2 - 4.8 G/dL ADM SS Albumin/Globulin [Mass ratio] 1.4 {ratio} Normal 0.9 - 1.6 ratio AH ADM SS ALP [Catalytic activity/Vol] 66 U/L Normal 38 - 126 U/L AH ADM SS ALT No additional P-5'-P [Catalytic activity/Vol] 34 U/L Normal 12 - 55 U/L AH ADM SS AST [Catalytic activity/Vol] 32 U/L Normal 8 - 34 U/L AH ADM SS Basophils (Bld) [#/Vol] 0.1 103/mcL Normal 0.0 - 0.3 10^3/mcL Workflow SS Basophils/100 WBC (Bld) 1.0 % Normal 0.0 - 2.5 % Workflow SS Bilirubin [Mass/Vol] 0.80 mg/dL Normal 0.20 - 1.20 mg/dL ADM SS Comment on above: Interpretive Data: U se of this assay is not recommended for patients undergoing treatment with eltrombopag due to the potential for falsely elevated results. Calcium [Mass/Vol] 9.7 mg/dL Normal 8.7 - 10. 4 mg/dL AH ADM SS Chloride [Moles/Vol] 108 mmol/L Normal 98 - 11 0 mEq/L AH ADM SS CO2 [Moles/Vol] 26 mmol/L Normal 22 - 32 mEq/L AH ADM SS Creatinine [Mass/Vol] 1.00 mg/dL Normal 0.60 - 1.40 mg/dL AH ADM SS Electrolyte Balance 6.0 mEq/L Normal 4.0 - 15 .0 mEq/L AH ADM SS Eosinophils (Bld) [#/Vol] 0.8 103/mcL High 0.0 - 0.7 10^3/mcL AH Workflow SS Eosinophils/100 WBC (Bld) 10.9 % High 0.0 - 6.0 % Workflow SS Erythrocyte distribution width (RBC) [Ratio] 12.8 % Normal 11.5 - 15.5 % Workflow SS GFR/1.73 sq M.predicted among blacks MDRD (S/P/Bld) [Vol rate/Area] ml/min/1.73sqm Invalid Interpretation Code [facility] Comment on above: Interpretive Data: GFR Population mean for , Non- Americans Ages 20-29 = 116 mL/min/1.73 sq.m. Ages 30-39 = 107 mL/min/1.73 sq.m. Ages 40-49 = 99 mL/min/1.73 sq.m. Ages 50-59 = 93 mL/min/1.73 sq.m. Ages 60-69 = 85 mL/min/1.73 sq.m. Ages 70+ = 75 mL/min/1.73 sq.m. Chronic Kidney Disease: Less than 60 mL/min/1.73 square meters End Stage Renal Disease: Less than 15 mL/min/1.73 square meters GFR/1.73 sq M.predicted among non-blacks MDRD (S/P/Bld) [Vol rate/Area] ml/min/1.73sqm Invalid Interpretation Code [facility] Comment on above: Interpretive Data: GFR Population mean for , Non- Americans Ages 20-29 = 116 mL/min/1.73 sq.m. Ages 30-39 = 107 mL/min/1.73 sq.m. Ages 40-49 = 99 mL/min/1.73 sq.m. Ages 50-59 = 93 mL/min/1.73 sq.m. Ages 60-69 = 85 mL/min/1.73 sq.m. Ages 70+ = 75 mL/min/1.73 sq.m. Chronic Kidney Disease: Less than 60 mL/min/1.73 square meters End Stage Renal Disease: Less than 15 mL/min/1.73 square meters Globulin 2.8 G/dL Normal 1.5 - 3.8 G/dL ADM Glucose [Mass/Vol] 102 mg/dL Normal 82 - 115 mg/dL ADM Hematocrit (Bld) [Volume fraction] 44.9 % Normal 40.0 - 52.0 % Workflow Hemoglobin (Bld) [Mass/Vol] 15.5 G/dL Normal 13.0 - 17.5 G/dL AH Workflow SS Lipase [Catalytic activity/Vol] 50 U/L Normal 12 - 53 U/L AH ADM SS Comment on above: Interpretive Data: * *Note - New Reference Range in effect 20 Lymphocytes (Bld) [#/Vol] 1.1 103/mcL Normal 0.9 - 4.3 10^3/mcL AH Workflow SS Lymphocytes/100 WBC (Bld) 15.5 % Low 20.0 - 40.0 % AH Workflow SS MCH (RBC) [Entitic mass] 34.4 pg High 27.0 - 33.0 pg AH Workflow SS MCHC 34.5 G/dL Normal 32.0 - 36.0 G/dL AH Workflow SS MCV (RBC) [Entitic vol] 99.8 fL Normal 81.0 - 100.0 fL AH Workflow SS Monocyte distribution width Auto (Bld) [Entitic vol] 17.01 1 Normal 0.00 - 20.00 AH Workflow SS Comment on above: Result Comment: For ED adult patients suspected of sepsis, MDW<=20.0 does not rule out sepsis or risk of sepsis Monocytes (Bld) [#/Vol] 0.7 103/mcL Normal 0.1 - 1.4 10^3/mcL AH Workflow SS Monocytes/100 WBC (Bld) 10.5 % Normal 2.0 - 13.0 % AH Workflow SS Neutrophils (Bld) [#/Vol] 4.4 103/mcL Normal 2.3 - 8.1 10^3/mcL AH Workflow SS Neutrophils/100 WBC (Bld) 62.1 % Normal 50.0 - 75.0 % AH Workflow SS Platelet mean volume (Bld) [Entitic vol] 8.1 fL Normal 6.4 - 10.5 fL AH Workflow SS Platelets (Bld) [#/Vol] 155 103/mcL Normal 150 - 450 10^3/mcL AH Workflow SS Potassium [Moles/Vol] 4.3 mmol/L Normal 3.5 - 5.0 mEq/L ADM SS Protein [Mass/Vol] 6.7 G/dL Normal 5.7 - 8.2 G/dL ADM SS Comment on above: Interpretive Data: * *Note - New Reference Range in effect 20 RBC (Bld) [#/Vol] 4.51 106/mcL Normal 4.50 - 6.0 0 10^6/mcL AH Workflow SS Sodium [Moles/Vol] 140 mmol/L Normal 136 - 145 mEq/L AH ADM SS Troponin I.cardiac DL <= 0.01 ng/mL [Mass/Vol] 3 ng/L Normal 0 - 54 ng/L ADM SS Comment on above: Interpretive Data: High Sensitive Troponin I Reference Ranges: Female: 0-34 ng/L Male: 0-54 ng/L Testing performed on [employer] analyzer using direct chemiluminescent technology. Urea nitrogen [Mass/Vol] 23.0 mg/dL High 8.0 - 22.0 mg/dL ADM SS Urea nitrogen/Creatinine [Mass ratio] 23.0 ratio High 10.0 - 22.0 ratio AH ADM SS WBC (Bld) [#/Vol] 7.1 103/mcL Normal 4.5 - 10.8 10^3/mcL Workflow SS LABORATORYOrdered By: Iman Bowman on 10-19-2023 Natriuretic peptide.B prohormone N-Terminal IA [Mass/Vol] 98 pg/mL Normal 0 - 1800 pg/mL ADM SS LIPon 10-19-2023 Lipase Level 50 U/L Normal 12-53 [facility] ([place]) Comment on above: Result Comment: No te - New Reference Range in effect 20 Performed By: #### T MACI, CMP, GFR, ADIFF, LIP, ANEU, PBNP, MDW, CBC #### [address] [address] PBNPon 10-19-2023 Natriuretic peptide B (Bld) [Mass/Vol] 98 pg/mL Normal 0-1800 [facility] ([place]) Comment on above: Performed By: #### T MACI, CMP, GFR, ADIFF, LIP, ANEU, PBNP, MDW, CBC #### [address] [address] TROPHSon 10-19-2023 High Sensitivity Troponin I 3 ng/L Normal 0-54 [facility] ([place]) Comment on above: Result Comment: High Sensitive Troponin I Reference Ranges: Female: 0-34 ng/L Male: 0-54 ng/L Testing performed on [employer] IM analyzer using direct chemiluminescent technology. Performed By: #### T ROPHS, CMP, GFR, ADIFF, LIP, ANEU, PBNP, MDW, CBC #### [place] [id number] XR CHEST 1 VIEWon 10-19-2023 XR CHEST 1 VIEW ORIGINAL EXAMINATION: ONE XRAY VIEW OF THE CHEST 10/19/2023 3:12 pm COMPARISON: None. HISTORY: ORDERING SYSTEM PROVIDED HISTORY: Reason for Exam: chest pain FINDINGS: The cardiomediastinal silhouette demonstrates a normal appearance status post prior CABG. No consolidative opacity is identified. There is no pleural effusion or pneumothorax. No free air seen beneath the level of the diaphragm. The bony thorax appears acutely intact. IMPRESSION: No evidence of an acute process. Interpreted by: Christopher Geller MD Preliminary Report By: Christopher Geller MD Electronically signed By Christopher Geller MD Dictated Date: 10/19/2023 3:15:59 PM Prelim Date: 10/19/2023 3:16:19 PM Sign Date: 10/19/2023 3:16:19 PM Ordering Provider: LELIA DUKE [facility] ([place]) Absolute lymphocyte countOrd ered By: Dorothy Bone on 05-29-2023 Lymphocytes Auto (Unsp spec) [#/Vol] 0.76 10*3/uL 0.83-4.51 [facility] Basophil percentageOrdered B y: Dorothy Bone on 05-29-2023 Basophils/100 WBC (Bld) 0.3 % 0-1 [facility] Bilirubin [Mass/Vol] 1.70 mg/dL 0.20-1.00 [facility] Comment on above: For patients on eltr ombopag therapy, use of Dimension [place] TBIL is not recommended. Chloride [Moles/Vol] 109 mmol/L 98-107 [facility] Eosinophils/100 WBC (Bld) 2.8 % 0-5 [facility] Glucose [Mass/Vol] 99 mg/dL 74-106 [facility] Neutrophils (Bld) [#/Vol] 7.7 10*3/uL 2.0-7.7 [facility] Neutrophils/100 WBC (Bld) 77.7 % 47-70 [facility] Potassium [Moles/Vol] 4.0 mmol/L 3.5-5.1 [facility] Protein [Mass/Vol] 5.8 g/dL 6.4-8.2 [facility] Sodium [Moles/Vol] 137 mmol/L 136-145 [facility] WBC (Bld) [#/Vol] 10.0 10*3/uL 4.4-11.0 [facility] Blood erythrocytes count (nu mber/volume)Ordered By: Dorothy Bone on 05-29-2023 RBC (Bld) [#/Vol] 3.92 10*6/uL 4.6-6.2 [facility] Blood hemoglobin measurement (mass/volume)Ordered By: Dorothy Bone on 05-29-2023 Hemoglobin (Bld) [Mass/Vol] 13.3 g/dL 13.0-16.5 [facility] Blood lymphocytes/100 leukoc ytesOrdered By: Dorothy Bone on 05-29-2023 Lymphocytes/100 WBC (Bld) 7.6 % 19-41 [facility] Blood monocytes/100 leukocyt esOrdered By: Dorothy Bone on 05-29-2023 Monocytes/100 WBC (Bld) 11.2 % 0-10 [facility] Blood platelet mean volumeOr dered By: Dorothy Bone on 05-29-2023 Platelet mean volume (Bld) [Entitic vol] 9.8 fL 6.2-12.0 [facility] CBC W/Diff, Automatedon Absolute Lymph 0.76 X10 3/uL Low 0.83-4.51 [facility] Comment on above: Performed By: #### L 100.0100, L500.4050 #### [facility] [address] [place], [address] Absolute Neut 7.7 X10 3/uL Normal 2.0-7.7 [facility] Comment on above: Performed By: #### L 100.0100, L500.4050 #### [facility] [address] [place], [address] Basophils/100 WBC (Bld) 0.3 % Normal 0-1 [facility] Comment on above: Performed By: #### L 100.0100, L500.4050 #### [facility] [address] [place], [address] Eosinophils/100 WBC (Bld) 2.8 % Normal 0-5 [facility] Comment on above: Performed By: #### L 100.0100, L500.4050 #### [facility] [address] [place], [address] Erythrocyte distribution width (RBC) [Ratio] 12.1 % Normal 11.6-14.6 [facility] Comment on above: Performed By: #### L 100.0100, L500.4050 #### [facility] [address] [place], [address] Hematocrit (Bld) [Volume fraction] 40.1 % Normal 40-54 [facility] Comment on above: Performed By: #### L 100.0100, L500.4050 #### [facility] [address] [place], [address] Hemoglobin (Bld) [Mass/Vol] 13.3 g/dL Normal 13.0-16.5 [facility] Comment on above: Performed By: #### L 100.0100, L500.4050 #### [facility] [address] [place], [address] IG% 0.400 Normal 0.0-0.9 [facility] Comment on above: Result Comment: IG% - Immature Granulocytes (promyelocytes, myelocytes and metamyelocytes) > 1% indicates that a LEFT SHIFT is Present. Performed By: #### L 100.0100, L500.4050 #### [facility] [address] [place], [address] Lymphocytes/100 WBC (Bld) 7.6 % Low 19-41 [facility] Comment on above: Performed By: #### L 100.0100, L500.4050 #### [facility] [address] [place], [address] MCH (RBC) [Entitic mass] 33.9 pg High 27.0-32.0 [facility] Comment on above: Performed By: #### L 100.0100, L500.4050 #### [facility] [address] [place], [address] MCHC (RBC) [Mass/Vol] 33.2 g/dL Normal 32-36 [facility] Comment on above: Performed By: #### L 100.0100, L500.4050 #### [facility] [address] [place], [address] MCV (RBC) [Entitic vol] 102.3 fL High 80-94 [facility] Comment on above: Performed By: #### L 100.0100, L500.4050 #### [facility] [address] [place], [address] Monocytes/100 WBC (Bld) 11.2 % High 0-10 [facility] Comment on above: Performed By: #### L 100.0100, L500.4050 #### [facility] [address] [place], [address] Neutrophils/100 WBC (Bld) 77.7 % High 47-70 [facility] Comment on above: Performed By: #### L 100.0100, L500.4050 #### [facility] [address] [place], [address] Nucleated RBC (Bld) [#/Vol] 0 10*3/uL Normal 0-5 [facility] Comment on above: Performed By: #### L 100.0100, L500.4050 #### [facility] [address] [place], [address] Platelet mean volume (Bld) [Entitic vol] 9.8 fL Normal 6.2-12.0 [facility] Comment on above: Performed By: #### L 100.0100, L500.4050 #### [facility] [address] [place], [address] Platelets (Bld) [#/Vol] 110 10*3/uL Low 150-450 [facility] Comment on above: Performed By: #### L 100.0100, L500.4050 #### [facility] [address] [place], [address] RBC (Bld) [#/Vol] 3.92 10*6/uL Low 4.6-6.2 [facility] Comment on above: Performed By: #### L 100.0100, L500.4050 #### [facility] [address] [place], [address] RDW SD 45.6 fl High 35.1-43.9 [facility] Comment on above: Performed By: #### L 100.0100, L500.4050 #### [facility] [address] [place], [address] WBC (Bld) [#/Vol] 10.0 10*3/uL Normal 4.4-11.0 [facility] Comment on above: Performed By: #### L 100.0100, L500.4050 #### [facility] [address] [place], [address] Comprehensive Metabolic Prof [facility] 05-29-2023 Albumin [Mass/Vol] 2.5 g/dL Low 3.2-5.0 [facility] Comment on above: Performed By: #### L 100.0100, L500.4050 #### [facility] [address] [place], [address] Albumin/Globulin [Mass ratio] 0.8 {ratio} Low 0.9-2.4 [facility] Comment on above: Performed By: #### L 100.0100, L500.4050 #### [facility] [address] [place], [address] ALK P 50 U/L Normal 45-117 [facility] Comment on above: Performed By: #### L 100.0100, L500.4050 #### [facility] [address] [place], [address] ALT [Catalytic activity/Vol] 27 U/L Normal 16-61 [facility] Comment on above: Performed By: #### L 100.0100, L500.4050 #### [facility] [address] [place], [address] AST [Catalytic activity/Vol] 19 U/L Normal 15-37 [facility] Comment on above: Performed By: #### L 100.0100, L500.4050 #### [facility] [address] [place], [address] Bilirubin [Mass/Vol] 1.70 mg/dL High 0.20-1.00 [facility] Comment on above: Result Comment: For patients on eltrombopag therapy, use of Dimension [place] TBIL is not recommended. Performed By: #### L 100.0100, L500.4050 #### [facility] [address] [place], [address] BUN/CRE 19.3 RATIO Normal 10-20 [facility] Comment on above: Performed By: #### L 100.0100, L500.4050 #### [facility] [address] [place], [address] CA,Total 8.1 mg/dL Low 8.5-10.1 [facility] Comment on above: Performed By: #### L 100.0100, L500.4050 #### [facility] [address] [place], [address] Chloride [Moles/Vol] 109 mmol/L High 98-107 [facility] Comment on above: Performed By: #### L 100.0100, L500.4050 #### [facility] [address] [place], [address] CO2 [Moles/Vol] 24.0 mmol/L Normal 21.0-32.0 [facility] Comment on above: Performed By: #### L 100.0100, L500.4050 #### [facility] [address] [place], [address] Creatinine [Mass/Vol] 0.88 mg/dL Normal 0.70-1.30 [facility] Comment on above: Result Comment: The validity of the calculated GFR GFRAA in patients over 70 years has not been determined. Clinical correlation is essential. Performed By: #### L 100.0100, L500.4050 #### [facility] [address] [place], [address] ECRCL 62.61 ml/min Normal [facility] Comment on above: Performed By: #### L 100.0100, L500.4050 #### [facility] [address] [place], [address] EST GFR - AA 107 mL/min Normal >60 [facility] Comment on above: Result Comment: Afri can Prydeinig GFR Calc Performed By: #### L 100.0100, L500.4050 #### [facility] [address] [place], [address] GAP 4 Low 5-15 [facility] Comment on above: Performed By: #### L 100.0100, L500.4050 #### [facility] [address] [place], [address] GFR/1.73 sq M.predicted among non-blacks MDRD (S/P/Bld) [Vol rate/Area] 88 mL/min/{1.73_m2} Normal >60 [facility] Comment on above: Result Comment: Non- GFR Calc Performed By: #### L 100.0100, L500.4050 #### [facility] [address] [place], [address] Globulin (S) [Mass/Vol] 3.3 g/dL Normal 2.2-4.2 [facility] Comment on above: Performed By: #### L 100.0100, L500.4050 #### [facility] [address] [place], [address] Glucose [Mass/Vol] 99 mg/dL Normal 74-106 [facility] Comment on above: Performed By: #### L 100.0100, L500.4050 #### [facility] [address] [place], [address] Potassium [Moles/Vol] 4.0 mmol/L Normal 3.5-5.1 [facility] Comment on above: Performed By: #### L 100.0100, L500.4050 #### [facility] [address] [place], [address] Sodium [Moles/Vol] 137 mmol/L Normal 136-145 [facility] Comment on above: Performed By: #### L 100.0100, L500.4050 #### [facility] [address] [place], [address] T PROT 5.8 g/dL Low 6.4-8.2 [facility] Comment on above: Performed By: #### L 100.0100, L500.4050 #### [facility] [address] [place], [address] Urea nitrogen [Mass/Vol] 17 mg/dL Normal 7-18 [facility] Comment on above: Performed By: #### L 100.0100, L500.4050 #### [facility] [address] [place], [address] Determination of erythrocyte mean corpuscular volume (MCV)Ordered By: Dorothy Bone on 05-29-2023 MCV (RBC) [Entitic vol] 102.3 fL 80-94 [facility] Discharge Instructionon Discharge Instruction [facility] Medical Records Department [address] [place] [address] Instructions for Home/Discharge Instructions 05/29/23 1155 MR#: [id number] Acct: [id number] Name: JANE VALENTINO Rep #: [id number] : 1940 83 From: Dorothy BONILLA PA-C PCP: Dr. Bertha Arndt MD Status:ADM THEO Discharge Instructions Diet Discharge Diet: Light diet - advance as tolerated Activity Discharge Activity: May Shower Lifting Restrictions: No lifting greater than 10 pounds for 2 weeks Dressing / Incision Call your doctor if your incision/area has: Continuous Slow Oozing, Sudden Increased Bleeding, Increased Pain/ Swelling, Increased Redness, Foul Smelling Discharge and Swelling at the incision site Call your doctor if you observe: Fever of 101 or Higher Remove Dressing in: 2 days Cleanse incision/area with: Soap Water Additional Dressing/Incision Instructions:: Remove steri-strips in 1 week from surgery Follow Up Care Please Follow Up With: Christen Mcbride MD When: Please call to schedule an appointment to follow-up in 2 weeks from surgery Test Results: Test results from this visit will be discussed in further detail at your follow-up appointment, if applicable. Discharge Plan Admission Admit Date/Time: 05/28/23 15:22 Primary Reason for Your Visit: Acute cholecystitis Attending Provider: Christen Mcbride Primary Care Provider: Bertha Arndt Instructions Additional Instructions / Restrictions: Cholecystectomy Diet ??? Start light with soups and soft bland foods. You may advance diet as tolerated. Activity ??? I encourage walking. You may go up steps, one at a time. ??? Do not swim or use hot tubs for 2 weeks. ??? For comfort, you may use warm compresses or ice as needed for 15-20 minutes at a time. Lifting ??? You may lift up to 10 pounds for the first 2 weeks. You may advance to 20 pounds for the next 2 weeks. Dressings/Incision ??? You may shower OVER your plastic dressings ??? Do NOT tub bathe for 1 week ??? Leave plastic dressings on for 3 days. ??? When plastic dressings are removed, you will find steri strips. It is okay to continue showering with them in place, pat them dry. ??? You may remove steri-strips after 1 week. We recommend getting them soaking wet for easier removal. Medications ??? Anesthesia used during surgery and pain medications may cause constipation. I recommend initiating on the day of surgery a fiber supplement like, Metamucil, Citrucel, FiberCon, Benefiber, or a generic form of these medications. 1 heaping tablespoon in water daily. You may continue to utilize any bowel regimen or oral laxatives that you routinely take. ??? As long as you are not intolerant to Tylenol, acetaminophen, ibuprofen, Motrin, Advil, Aleve, or similar medications, I would recommend transitioning to these [id number] medicines as soon as possible instead of continued use of narcotic pain medication. Follow up ??? You should call [facility] soon after surgery, at [phone] option 1 to make a follow up appointment for 14 days after your surgery. Discharge Orders/Prescriptions Prescriptions: Continued aspirin 81 mg tablet,delayed release (DR/EC) 81 mg PO QDAY famciclovir 500 mg tablet 500 mg PO BID Mucinex DM 30-600 mg Tablet Extended Release 12 Hr 1 tab PO Q12H acetaminophen [Tylenol] 325 mg capsule 325 mg PO Q6H PRN (Reason: pain) Qty: 120 0RF celecoxib 200 mg capsule 200 mg PO Q24H fexofenadine [Mona Allergy] 180 mg tablet 180 mg PO DAILY escitalopram oxalate [Lexapro] 5 mg tablet 5 mg PO DAILY quetiapine 50 mg tablet 50 mg PO QHS hydroxyzine pamoate 25 mg capsule 25 mg PO Q8H PRN (Reason: anxiety) cholecalciferol (vitamin D3) [Vitamin D3] 125 mcg (5,000 unit) tablet 125 mcg PO DAILY ibuprofen 200 mg tablet 200 mg PO Q4H PRN (Reason: pain) omeprazole 40 mg capsule,delayed release(DR/EC) 40 mg PO QDAY Qty: 90 3RF rosuvastatin [Crestor] 20 mg tablet 20 mg PO QDAY Qty: 90 3RF Referrals / Follow Up: Bertha Arndt MD [Primary Care Provider] - Christen Mcbride MD [Med Staff - Active Staff] - (Follow-up in [address] Mcbride. Please call our office to schedule.) Disposition Disposition (needs filled in before D/C Order can be placed): [facility] 05/29/23 1157 Dorothy BONILLA PAJemC CC: Dr. Bertha Arndt MD Signed Normal [facility] Hematocrit Auto (Bld) [Volum e fraction]Ordered By: Dorothy Bone on 05-29-2023 Hematocrit (Bld) [Volume fraction] 40.1 % 40-54 [facility] - Chemistry and C hemistry - challengeOrdered By: Dorothy Bone on 05-29-2023 ALP [Catalytic activity/Vol] 50 U/L 45-117 [facility] ALT [Catalytic activity/Vol] 27 U/L 16-61 [facility] CO2 [Moles/Vol] 24.0 mmol/L 21.0-32.0 [facility] Globulin (S) [Mass/Vol] 3.3 g/dL 2.2-4.2 [facility] Urea nitrogen/Creatinine [Mass ratio] 19.3 mg/mg 10-20 [facility] - Hematology and Cell countsOrdered By: Dorothy Bone on 05-29-2023 Erythrocyte distribution width (RBC) [Entitic vol] 45.6 fL 35.1-43.9 [facility] Erythrocyte distribution width (RBC) [Ratio] 12.1 % 11.6-14.6 [facility] Immature granulocytes/100 WBC (Bld) 0.400 % 0.0-0.9 [facility] Comment on above: IG% - Immature Granu locytes (promyelocytes, myelocytes and metamyelocytes) > 1% indicates that a LEFT SHIFT is Present. MCH (RBC) [Entitic mass] 33.9 pg 27.0-32.0 [facility] Nucleated RBC/100 WBC (Bld) [Ratio] 0 % 0-5 [facility] MCHC Auto (RBC) [Mass/Vol]Or dered By: Dorothy Bone on 05-29-2023 MCHC (RBC) [Mass/Vol] 33.2 g/dL 32-36 [facility] No Panel InformationOrdered By: Dorothy Bone on 05-29-2023 Estimated Creatinine Clearance Calc 62.61 ml/min [facility] Estimated GFR (MDRD) Amer 107 mL/min >60 [facility] Comment on above: GFR Calc Estimated GFR (MDRD) Non-Af Amer 88 mL/min >60 [facility] Comment on above: Non- GFR Calc Platelets bldOrdered By: Angela Bone on 05-29-2023 Platelets (Bld) [#/Vol] 110 10*3/uL 150-450 [facility] Serum or plasma albumin barbara urement (mass/volume)Ordered By: Dorothy Bone on 05-29-2023 Albumin [Mass/Vol] 2.5 g/dL 3.2-5.0 [facility] Serum or plasma albumin/glob ulin mass ratioOrdered By: Dorothy Bone on 05-29-2023 Albumin/Globulin [Mass ratio] 0.8 {ratio} 0.9-2.4 [facility] Serum or plasma calcium barbara urement (mass/volume)Ordered By: Dorothy Bone on 05-29-2023 Calcium [Mass/Vol] 8.1 mg/dL 8.5-10.1 [facility] Serum or plasma creatinine m easurement (mass/volume)Ordered By: Dorothy Bone on 05-29-2023 Creatinine [Mass/Vol] 0.88 mg/dL 0.70-1.30 [facility] Comment on above: The validity of the calculated GFR & GFRAA in patients over 70 years has not been determined. Clinical correlation is essential. Serum or plasma urea nitroge n measurement (mass/volume)Ordered By: Dorothy Bone on 05-29-2023 Urea nitrogen [Mass/Vol] 17 mg/dL 7-18 [facility] Thin prep Papanicolaou smear with manual screeningOrdered By: Dorothy Bone on 05-29-2023 Thin prep Papanicolaou smear with manual screening 19 U/L 15-37 [facility] Thin prep Papanicolaou smear with manual screening 4 5-15 [facility] Abdomen/Pelvis without Conto n 05-28-2023 Abdomen/Pelvis without Cont [facility] Imaging Services [address] [place] [address] Abdomen/Pelvis without Cont MR#: [id number] Acct: [id number] Name: JANE VALENTINO Rep #: [id number] : 1940 M 83 From: Prashanth Phillips MD PCP: Dr. Bertha Arndt MD Status: REG ER Study: Abdomen/Pelvis without Cont Date of Exam: 12/13 Exam# [id number] Ordering Dr: Sha Jacome DO [id number] STUDY: CT ABDOMEN AND PELVIS WITHOUT CONTRAST REASON FOR EXAM: Male, 83 years old. Flank pain RADIATION DOSAGE (If Supplied By Facility): CTDIvol = ( 9.10 ) mGy, DLP = ( 473.56 ) mGycm TECHNIQUE: Transaxial images were obtained from the dome of the diaphragm to the symphysis pubis without oral contrast, and without intravenous contrast. Sagittal and coronal images were reconstructed. Individualized dose optimization techniques were used for this CT. COMPARISON: 04/27/2023 FINDINGS: The visualized lung bases are unremarkable aside from underlying emphysema. 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 The gallbladder has changed slightly in appearance since a previous study is now slightly more distended with wall thickening and pericholecystic fluid which suggests cholecystitis. There are stable gallstones but there is no biliary dilatation either within the liver or in the common bile duct. Findings are equivocal for cholecystitis, consider surgical consultation and correlation with lab results and physical exam. Normal spleen. Normal pancreas. Normal bilateral adrenal glands. No obstructive uropathy, or suspicious solid renal lesion, there are stable simple bilateral renal cysts. Normal visualized stomach. Normal small intestine. Retained stool throughout the majority of the colon with scattered diverticula but no CT evidence of acute diverticulitis. There is non-visualization of the appendix. Normal abdominal aorta. Normal inferior vena cava. Normal retroperitoneum. Normal urinary bladder. Stable enlargement of the prostate. Normal abdominal wall. There are diffuse degenerative changes of the visualized lumbar spine, and pelvis. Stable compression fracture at L1 which has undergone vertebral plasty. CT/Abdomen/Pelvis without Cont IMPRESSION: No obstructive uropathy, or suspicious solid renal lesion. There are stable nonobstructing stones in stable cysts, no specific follow-up needed. The gallbladder is slightly more distended on current exam than when compared to the previous study of April. Additionally, there is wall thickening and pericholecystic fluid with stable gallstones. No biliary dilatation is noted. Findings nonetheless suggests cholecystitis and surgical consultation is recommended along with correlation with lab results and physical exam Scattered colonic diverticula, no CT evidence of acute diverticulitis Electronically Signed: Jae Phillips MD at 8:37 EST , CC: Dr. Bertha Arndt MD; Dr. Sha Jacome DO Graduate Teacher Education: Signed Normal [facility] Absolute lymphocyte countOrd ered By: Sha Jacome on 05-28-2023 Lymphocytes Auto (Unsp spec) [#/Vol] 0.63 10*3/uL 0.83-4.51 [facility] Basophil percentageOrdered B y: Sha Jacome on 05-28-2023 Basophil percentage 0-5 SEEN /hpf 0-5 [facility] Basophils/100 WBC (Bld) 0.4 % 0-1 [facility] Bilirubin [Mass/Vol] 2.30 mg/dL 0.20-1.00 [facility] Comment on above: For patients on eltr ombopag therapy, use of Dimension [place] TBIL is not recommended. Chloride [Moles/Vol] 107 mmol/L 98-107 [facility] Eosinophils/100 WBC (Bld) 3.8 % 0-5 [facility] Glucose [Mass/Vol] 118 mg/dL 74-106 [facility] Comment on above: Fasting Glucose resu lt from 100 to 125 mg/dL suggests IMPAIRED HOMEOSTASIS per A.D.A. criteria. Neutrophils (Bld) [#/Vol] 10.6 10*3/uL 2.0-7.7 [facility] Neutrophils/100 WBC (Bld) 79.1 % 47-70 [facility] Potassium [Moles/Vol] 4.8 mmol/L 3.5-5.1 [facility] Comment on above: Moderate Hemolysis, Result may be falsely increased. Protein [Mass/Vol] 6.9 g/dL 6.4-8.2 [facility] Sodium [Moles/Vol] 133 mmol/L 136-145 [facility] WBC (Bld) [#/Vol] 13.3 10*3/uL 4.4-11.0 [facility] Bilirubin Test strip Ql (U)O rdered By: Sha Jacome on 05-28-2023 Bilirubin Ql (U) Negative Negative [facility] Bilirubin, Directon 05-28-20 Bilirubin.direct [Mass/Vol] 0.25 mg/dL Normal 0.00-0.30 [facility] Comment on above: Performed By: #### L 501.4700, L501.2450 ####[facility] [id number] [place], [address] Blood erythrocytes count (nu mber/volume)Ordered By: Sha Jacome on 05-28-2023 RBC (Bld) [#/Vol] 4.44 10*6/uL 4.6-6.2 [facility] Blood hemoglobin measurement (mass/volume)Ordered By: Sha Jacome on 05-28-2023 Hemoglobin (Bld) [Mass/Vol] 15.1 g/dL 13.0-16.5 [facility] Blood lymphocytes/100 leukoc ytesOrdered By: Sha Jacome on 05-28-2023 Lymphocytes/100 WBC (Bld) 4.7 % 19-41 [facility] Blood monocytes/100 leukocyt esOrdered By: Sha Jacome on 05-28-2023 Monocytes/100 WBC (Bld) 11.0 % 0-10 [facility] Blood platelet mean volumeOr dered By: Sha Jacome on 05-28-2023 Platelet mean volume (Bld) [Entitic vol] 10.4 fL 6.2-12.0 [facility] CBC W/Diff, Automatedon 12-0 Absolute Lymph 0.63 X10 3/uL Low 0.83-4.51 [facility] Comment on above: Performed By: #### L 100.0100, L500.4050 #### [facility] [address] [place], [address] Absolute Neut 10.6 X10 3/uL High 2.0-7.7 [facility] Comment on above: Performed By: #### L 100.0100, L500.4050 #### [facility] [address] [place], [address] Basophils/100 WBC (Bld) 0.4 % Normal 0-1 [facility] Comment on above: Performed By: #### L 100.0100, L500.4050 #### [facility] [address] [place], [address] Eosinophils/100 WBC (Bld) 3.8 % Normal 0-5 [facility] Comment on above: Performed By: #### L 100.0100, L500.4050 #### [facility] [address] [place], [address] Erythrocyte distribution width (RBC) [Ratio] 12.1 % Normal 11.6-14.6 [facility] Comment on above: Performed By: #### L 100.0100, L500.4050 #### [facility] [address] [place], [address] Hematocrit (Bld) [Volume fraction] 44.8 % Normal 40-54 [facility] Comment on above: Performed By: #### L 100.0100, L500.4050 #### [facility] [address] [place], [address] Hemoglobin (Bld) [Mass/Vol] 15.1 g/dL Normal 13.0-16.5 [facility] Comment on above: Performed By: #### L 100.0100, L500.4050 #### [facility] [address] [place], [address] IG% 1.000 High 0.0-0.9 [facility] Comment on above: Result Comment: IG% - Immature Granulocytes (promyelocytes, myelocytes and metamyelocytes) > 1% indicates that a LEFT SHIFT is Present. Performed By: #### L 100.0100, L500.4050 #### [facility] [address] [place], [address] Lymphocytes/100 WBC (Bld) 4.7 % Low 19-41 [facility] Comment on above: Performed By: #### L 100.0100, L500.4050 #### [facility] [address] [place], [address] MCH (RBC) [Entitic mass] 34.0 pg High 27.0-32.0 [facility] Comment on above: Performed By: #### L 100.0100, L500.4050 #### [facility] [address] [place], [address] MCHC (RBC) [Mass/Vol] 33.7 g/dL Normal 32-36 [facility] Comment on above: Performed By: #### L 100.0100, L500.4050 #### [facility] [address] [place], [address] MCV (RBC) [Entitic vol] 100.9 fL High 80-94 [facility] Comment on above: Performed By: #### L 100.0100, L500.4050 #### [facility] [address] [place], [address] Monocytes/100 WBC (Bld) 11.0 % High 0-10 [facility] Comment on above: Performed By: #### L 100.0100, L500.4050 #### [facility] [address] [place], [address] Neutrophils/100 WBC (Bld) 79.1 % High 47-70 [facility] Comment on above: Performed By: #### L 100.0100, L500.4050 #### [facility] [address] [place], [address] Nucleated RBC (Bld) [#/Vol] 0 10*3/uL Normal 0-5 [facility] Comment on above: Performed By: #### L 100.0100, L500.4050 #### [facility] [address] [place], [address] Platelet mean volume (Bld) [Entitic vol] 10.4 fL Normal 6.2-12.0 [facility] Comment on above: Performed By: #### L 100.0100, L500.4050 #### [facility] [address] [place], [address] Platelets (Bld) [#/Vol] 151 10*3/uL Normal 150-450 [facility] Comment on above: Performed By: #### L 100.0100, L500.4050 #### [facility] [address] [place], [address] RBC (Bld) [#/Vol] 4.44 10*6/uL Low 4.6-6.2 [facility] Comment on above: Performed By: #### L 100.0100, L500.4050 #### [facility] [address] [place], [address] RDW SD 45.5 fl High 35.1-43.9 [facility] Comment on above: Performed By: #### L 100.0100, L500.4050 #### [facility] [address] [place], [address] WBC (Bld) [#/Vol] 13.3 10*3/uL High 4.4-11.0 [facility] Comment on above: Performed By: #### L 100.0100, L500.4050 #### [facility] [address] [place], [address] Cholangiogram/ O R,Initialon 05-28-2023 Cholangiogram/ O R,Initial [facility] Imaging Services [address] [place] [address] Cholangiogram/ O R,Initial MR#: [id number] Acct: [id number] Name: JANE VALENTINO Rep #: [id number] : 1940 M 83 From: Wilmar leonard MD PCP: Dr. Bertha Arndt MD Status: ADM THEO Study: Cholangiogram/ O R,Initial Date of Exam: 05/28 Exam# [id number] Ordering Dr: Sha Jacome DO [id number] INDICATION: PAIN EXAMINATION/TECHNIQU E: 1 limited spot intraoperative film is presented for evaluation. 2 cine clips. Total Fluoroscopic Time: 32.6 seconds AND number of Fluoroscopic Images: 3 OR Radiation dosage index: 0.01093 mGym2 COMPARISON: No relevant prior comparison study available ____ FINDINGS: No filling defects are identified. There is no biliary ductal dilatation. There is free passage into the duodenum. RAD/Cholangiogram/ O R,Initial IMPRESSION: Negative intraoperative cholangiogram. Electronically Signed: Wilmar Stearns MD at 18:10 EST , CC: Dr. Bertha Arndt MD; Dr. Sha Jacome DO Graduate Teacher Education: Signed Normal [facility] Comprehensive Metabolic Prof ilon 05-28-2023 Albumin [Mass/Vol] 3.3 g/dL Normal 3.2-5.0 [facility] Comment on above: Performed By: #### L 100.0100, L500.4050 #### [facility] [address] [place], [address] Albumin/Globulin [Mass ratio] 0.9 {ratio} Normal 0.9-2.4 [facility] Comment on above: Performed By: #### L 100.0100, L500.4050 #### [facility] [address] [place], [address] ALK P 54 U/L Normal 45-117 [facility] Comment on above: Performed By: #### L 100.0100, L500.4050 #### [facility] [address] [place], [address] ALT [Catalytic activity/Vol] 25 U/L Normal 16-61 [facility] Comment on above: Performed By: #### L 100.0100, L500.4050 #### [facility] [address] [place], [address] AST [Catalytic activity/Vol] 31 U/L Normal 15-37 [facility] Comment on above: Result Comment: Mode rate Hemolysis, Result may be falsely increased. Performed By: #### L 100.0100, L500.4050 #### [facility] [address] [place], [address] Bilirubin [Mass/Vol] 2.30 mg/dL High 0.20-1.00 [facility] Comment on above: Result Comment: For patients on eltrombopag therapy, use of Dimension [place] TBIL is not recommended. Performed By: #### L 100.0100, L500.4050 #### [facility] [address] [place], [address] BUN/CRE 22.8 RATIO High 10-20 [facility] Comment on above: Performed By: #### L 100.0100, L500.4050 #### [facility] [address] [place], [address] CA,Total 8.8 mg/dL Normal 8.5-10.1 [facility] Comment on above: Performed By: #### L 100.0100, L500.4050 #### [facility] [address] [place], [address] Chloride [Moles/Vol] 107 mmol/L Normal 98-107 [facility] Comment on above: Performed By: #### L 100.0100, L500.4050 #### [facility] [address] [place], [address] CO2 [Moles/Vol] 23.0 mmol/L Normal 21.0-32.0 [facility] Comment on above: Performed By: #### L 100.0100, L500.4050 #### [facility] [address] [place], [address] Creatinine [Mass/Vol] 0.96 mg/dL Normal 0.70-1.30 [facility] Comment on above: Result Comment: The validity of the calculated GFR GFRAA in patients over 70 years has not been determined. Clinical correlation is essential. Performed By: #### L 100.0100, L500.4050 #### [facility] [address] [place], [address] ECRCL 59.33 ml/min Normal [facility] Comment on above: Performed By: #### L 100.0100, L500.4050 #### [facility] [address] [place], [address] EST GFR - AA 96 mL/min Normal >60 [facility] Comment on above: Result Comment: Afri can Prydeinig GFR Calc Performed By: #### L 100.0100, L500.4050 #### [facility] [address] [place], [address] GAP 3 Low 5-15 [facility] Comment on above: Performed By: #### L 100.0100, L500.4050 #### [facility] [address] [place], [address] GFR/1.73 sq M.predicted among non-blacks MDRD (S/P/Bld) [Vol rate/Area] 79 mL/min/{1.73_m2} Normal >60 [facility] Comment on above: Result Comment: Non- GFR Calc Performed By: #### L 100.0100, L500.4050 #### [facility] [address] [place], [address] Globulin (S) [Mass/Vol] 3.6 g/dL Normal 2.2-4.2 [facility] Comment on above: Performed By: #### L 100.0100, L500.4050 #### [facility] [address] [place], [address] Glucose [Mass/Vol] 118 mg/dL High 74-106 [facility] Comment on above: Result Comment: Fast ing Glucose result from 100 to 125 mg/dL suggests IMPAIRED HOMEOSTASIS per A.D.A. criteria. Performed By: #### L 100.0100, L500.4050 #### [facility] [address] [place], [address] Potassium [Moles/Vol] 4.8 mmol/L Normal 3.5-5.1 [facility] Comment on above: Result Comment: Mode rate Hemolysis, Result may be falsely increased. Performed By: #### L 100.0100, L500.4050 #### [facility] [address] [place], [address] Sodium [Moles/Vol] 133 mmol/L Low 136-145 [facility] Comment on above: Performed By: #### L 100.0100, L500.4050 #### [facility] [address] [place], [address] T PROT 6.9 g/dL Normal 6.4-8.2 [facility] Comment on above: Performed By: #### L 100.0100, L500.4050 #### [facility] [address] [place], [address] Urea nitrogen [Mass/Vol] 22 mg/dL High 7-18 [facility] Comment on above: Performed By: #### L 100.0100, L500.4050 #### [facility] [address] [place], [address] Determination of erythrocyte mean corpuscular volume (MCV)Ordered By: Sha Jacome on 05-28-2023 MCV (RBC) [Entitic vol] 100.9 fL 80-94 [facility] Direct bilirubinOrdered By: Sha Jacome on 05-28-2023 Bilirubin.direct [Mass/Vol] 0.25 mg/dL 0.00-0.30 [facility] Emergency Department Summary on 05-28-2023 Emergency Department Summary [facility] Medical Records Department [address] [place] [address] Emergency Department Summary 05/28/23 MR#: [id number] Acct: [id number] Name: JANE VALENTINO Rep #: [id number] : 1940 83 From: Sha Jacome DO PCP: Dr. Bertha Arndt MD Status:ADM THEO Location: [address] History of Present Illness Chief Complaint: Flank Pain Informant: patient and spouse/S.O. Narrative Narrative: 83-year-old male presenting to the emergency department with abdominal pain. Patient was seen in the emergency room approximately 4 weeks ago and diagnosed with a distal 8 mm ureteral stone which he passed. states that he has been fine until last evening when he began to complain of a mid to right abdominal pain. Is been intermittent in nature. Nothing seems to make it better or worse. In between episodes of pain he states he does not have any symptoms. He denies any nausea vomiting, urinary symptoms, or change in stool. No reported fevers. No new medications since last ED visit. Patient denies any prior abdominal surgeries. No history of colitis or diverticulitis. [facility] Medical History Arthritis Cataracts, both eyes Chronic bronchitis Heart disease Memory deficit Seasonal allergies Home Medications aspirin 81 mg tablet,delayed release 81 mg PO QDAY 01/06/18 [History Last Taken Unknown] omeprazole 40 mg capsule,delayed release 40 mg PO QDAY #90 caps 01/05/21 [Rx Last Taken Unknown] rosuvastatin 20 mg tablet (Crestor) 20 mg PO QDAY #90 tabs 03/29/21 [Rx Last Taken Unknown] acetaminophen 325 mg capsule (Tylenol) 325 mg PO Q6H PRN pain #120 caps 07/20/22 [Rx Last Taken Unknown] dextromethorphan-gua ifenesin 30 mg-600 mg tablet extended [id number] hr (Mucinex DM) 1 tab PO Q12H 07/20/22 [History Last Taken Unknown] famciclovir 500 mg tablet 500 mg PO BID 07/20/22 [History Last Taken Unknown] celecoxib 200 mg capsule 200 mg PO Q24H 04/27/23 [History Last Taken Unknown] cholecalciferol (vitamin D3) 125 mcg (5,000 unit) tablet (Vitamin D3) 125 mcg PO DAILY 04/27/23 [History Last Taken Unknown] escitalopram oxalate 5 mg tablet (Lexapro) 5 mg PO DAILY 04/27/23 [History Last Taken Unknown] fexofenadine 180 mg tablet (Mona Allergy) 180 mg PO DAILY 04/27/23 [History Last Taken Unknown] hydroxyzine pamoate 25 mg capsule 25 mg PO Q8H PRN anxiety 04/27/23 [History Last Taken Unknown] ibuprofen 200 mg tablet 200 mg PO Q4H PRN pain 04/27/23 [History Last Taken Unknown] quetiapine 50 mg tablet 50 mg PO QHS 04/27/23 [History Last Taken Unknown] Allergy/AdvReac Type Severity Reaction Status Date / Time No Known Allergies Allergy Verified 05/28/23 06:59 Family History Mother Arthritis Father Arthritis Heart disease Kidney disease Parkinson disease Daughter Heart disease Brother Heart disease Surgical History history of triple bypass surgery Social History Smoking Status: Never smoker alcohol intake: never substance use type: does not use what type of physical activity do you participate in: walking and bicycling ROS ROS ED Constitutional Constitutional ED: Denies chills, fever(s) or weight loss Eyes Eyes: Denies change in vision or diplopia ENT ENT ED: Denies ear pain, rhinorrhea or sore throat Cardiovascular Cardiovascular: Denies chest pain, orthopnea, palpitations or racing heartbeat Respiratory/Chest Respiratory/Chest: Denies cough, dyspnea or orthopnea Gastrointestinal Gastrointestinal: Reports abdominal pain; Denies diarrhea, nausea or vomiting Genitourinary Genitourinary ED: Denies dysuria, hematuria or urinary frequency Musculoskeletal Musculoskeletal: Denies arthralgias or myalgias Integumentary Denies abscess or rash Neurologic Neurologic: Denies headache(s) or weakness Psychiatric Psychiatric: Denies anxiety, depression, suicidal ideation or suicidal thoughts Endocrine Endocrinology: Denies polydipsia, polyphagia or polyuria Allergic/Immunologic Allergic/Immunologic ED: Denies mouth swelling, tongue swelling or urticaria EXAM Physical Exam Const Vital Signs: 05/28/23 06:59 05/28/23 09:00 Temperature 97.1 F L Temperature Source Temporal Pulse Rate 99 Respiratory Rate 15 Blood Pressure 117/90 H 123/76 H Blood Pressure Mean 99 91 Pulse Ox 95 Positive well nourished and well developed General Appearance ED: well developed HEENT Reports normocephalic, head/scalp atraumatic and moist mucous membranes Eyes PERRL and EOMs intact bilaterally Neck no lymphadenopathy, supple and no JVD Resp normal respiratory effort and clear to auscultation bilaterally Cardio (more content not included)... Normal [facility] Gallbladderon 05-28-2023 Gallbladder [facility] Imaging Services [address] [place] [address] Gallbladder MR#: [id number] Acct: [id number] Name: JANE VALENTINO Rep #: [id number] : 1940 M 83 From: Prashanth Phillips MD PCP: Dr. Bertha Arndt MD Status: REG ER Study: Gallbladder Date of Exam: 05/28/23 Exam# [id number] Ordering Dr: Sha Jacome DO [id number] STUDY: ABDOMINAL ULTRASOUND - RIGHT UPPER QUADRANT REASON FOR VISIT: Male, 83 years old right upper quadrant pain TECHNIQUE: Ultrasound evaluation of the right upper quadrant was performed with real-time and static barreto-scale imaging. TECHNICAL QUALITY: Limited. Examination limited by bowel gas. COMPARISON: CT from earlier today FINDINGS: Liver: The liver measures 15.2 cm. There is normal echogenicity of the liver. The bile ducts are within normal limits. There is hepatic color flow. The direction of portal flow is hepatopetal. There is no demonstrated mass lesion. Gallbladder: Distended gallbladder. The gallbladder wall measures 2.7-3.2 mm. There is a positive sonographic Mckinley''s sign. There is no pericholecystic fluid. There are multiple echogenic structures within the gallbladder, consistent with multiple gallstones, and echogenic sludge. Common Bile Duct (C.B.D.): The common bile duct measures 3.4 mm. Pancreas: Normal size of the head, body and tail of the pancreas. There is normal echogenicity of the pancreas. There is no demonstrated pancreatic mass or cyst. Right Kidney: Normal size of the right kidney. The right kidney measures 10.6 x 5.8 x 6.5 cm. Normal renal cortex. The right cortex measures 2.0 cm. There are simple cysts, largest measures 3.7 cm. There is no right hydronephrosis. US/Gallbladder IMPRESSION: The gallbladder is distended with multiple gallstones and echogenic sludge and a positive Mckinley sign. However, there is only borderline gallbladder wall thickening, no pericholecystic fluid, and no biliary dilatation is noted. Findings are suggestive of acute cholecystitis, especially with similar findings noted on the CT scan from earlier today. Surgical consultation recommended Simple right renal cysts, no specific follow-up needed Electronically Signed: Jae Phillips MD at 9:30 EST , CC: Dr. Bertha Arndt MD; Dr. Sha Jacome, Graduate Teacher Education: Signed Normal [facility] Hematocrit Auto (Bld) [Volum e fraction]Ordered By: Sha Jacome on 05-28-2023 Hematocrit (Bld) [Volume fraction] 44.8 % 40-54 [facility] Ketones Test strip Ql (U)Ord ered By: Sha Jacome on 05-28-2023 Ketones Ql (U) Negative Negative [facility] Laboratory - Chemistry and C hemistry - challengeOrdered By: Sha Jacome on 05-28-2023 ALP [Catalytic activity/Vol] 54 U/L 45-117 [facility] ALT [Catalytic activity/Vol] 25 U/L 16-61 [facility] CO2 [Moles/Vol] 23.0 mmol/L 21.0-32.0 [facility] Globulin (S) [Mass/Vol] 3.6 g/dL 2.2-4.2 [facility] Lipase [Catalytic activity/Vol] 32 U/L 13-75 [facility] Comment on above: Please note:LIPASE r evised reference range effective 22. New Lipase methodology. Expected to produce lower values than the previous assay method. NEW Reference Range: 13 - 75 U/L Urea nitrogen/Creatinine [Mass ratio] 22.8 mg/mg 10-20 [facility] Laboratory - Hematology and Cell countsOrdered By: Sha Jacome on 05-28-2023 Erythrocyte distribution width (RBC) [Entitic vol] 45.5 fL 35.1-43.9 [facility] Erythrocyte distribution width (RBC) [Ratio] 12.1 % 11.6-14.6 [facility] Immature granulocytes/100 WBC (Bld) 1.000 % 0.0-0.9 [facility] Comment on above: IG% - Immature Granu locytes (promyelocytes, myelocytes and metamyelocytes) > 1% indicates that a LEFT SHIFT is Present. MCH (RBC) [Entitic mass] 34.0 pg 27.0-32.0 [facility] Nucleated RBC/100 WBC (Bld) [Ratio] 0 % 0-5 [facility] Lipaseon 05-28-2023 Lipase [Catalytic activity/Vol] 32 U/L Normal 13-75 [facility] Comment on above: Result Comment: Libby carpio note: LIPASE revised reference range effective 22. New Lipase methodology. Expected to produce lower values than the previous assay method. NEW Reference Range: 13 - 75 U/L Performed By: #### L 501.4700, L501.2450 ####[facility] [address] [place], [place], [address] MCHC Auto (RBC) [Mass/Vol]Or dered By: Sha Jacome on 05-28-2023 MCHC (RBC) [Mass/Vol] 33.7 g/dL 32-36 [facility] Mucus LM Ql (Urine sed)Order ed By: Sha Jacome on 05-28-2023 Mucus Ql (Urine sed) 0 SEEN /hpf [facility] Nitrite Test strip Ql (U)Ord ered By: Sha Jacome on 05-28-2023 Nitrite Ql (U) Negative Negative [facility] No Panel InformationOrdered By: Sha Jacome on 05-28-2023 Estimated Creatinine Clearance Calc 59.33 ml/min [facility] Estimated GFR (MDRD) Amer 96 mL/min >60 [facility] Comment on above: GFR Calc Estimated GFR (MDRD) Non-Af Amer 79 mL/min >60 [facility] Comment on above: Non- GFR Calc Operative Reporton 3 Operative Report [facility] Medical Records Department [address] [place] [address] Operative Report 05/28/23 1713 MR#: [id number] Acct: [id number] Name: JANE VALENTINO Rep #: [id number] : 1940 83 From: Christen Mcbride MD PCP: Dr. Bertha Arndt MD Status:ADM THEO Location: [place] [address] Report of Operation Date of Procedure: 05/28/23 Pre-Operative Diagnosis: Acute cholecystitis Post-Operative Diagnosis: Same Surgery/Procedure Performed:: Laparoscopic cholecystectomy with cholangiograms Surgeon: Christen Mcbride Anesthesiologist: Paul Ram Special Medications: Zosyn 3.375 g IV every 8 hours for acute cholecystitis Specimen's removed: Gallbladder Estimated Blood Loss (mL): 20 cc Description of Procedure: Indications: this is a 83 year-old male who developed abdominal pain/nausea/vomiting and on workup was found to have cholelithiasis, with a normal common bile duct. Laparoscopic cholecystectomy was elected. Description procedure: The patient was placed on operating table in supine position. A timeout was completed verifying correct patient, procedure, site, position and special equipment prior to beginning procedure. General Anesthesia was induced. The abdomen was prepped and draped in usual sterile fashion. An incision was made in the natural skin line above the umbilicus. The fascia was elevated and incised. The peritoneum was elevated and incised. Entry into the peritoneum was confirmed visually and no bowel was noted in the vicinity of the incision. Morales trocar was placed. The abdomen was insufflated with carbon dioxide to a pressure of 12-15 mmHg. Patient tolerated insufflation well. The laparoscope was then inserted and abdomen inspected. No injuries from initial trocar placement were noted. Additional trochars were then inserted in the following locations 5 mm trocar in the epigastrium and 2 more 5 mm trochars along the right costal margin. The abdomen was inspected no abnormalities were found. The table is placed in reverse Trendelenburg position with the right side up. Gallbladder was noted to be inflamed/distended and tense decompression aspiration needle was used. The dome of the gallbladder was grasped with atraumatic grasper passed through the lateral port and retracted over the dome of the liver. Infundibulum was then grasped with atraumatic grasper through the midclavicular port and retracted to the right lower quadrant. This maneuver exposed Calot's triangle. The peritoneum overlying the gallbladder infundibulum was then incised and cystic duct and artery identified and circumferentially dissected. Flores catheter was used for cholangiograms. The cholangiogram showed good filling of the common bile duct into the duodenum with no filling defects, and starting filling of the right and left bile ducts but contrast did empty quickly into the small bowel. The cystic duct and artery were then doubly clipped and divided close to the gallbladder. The gallbladder then dissected from its peritoneal attachments by electrocautery. Hemostasis was checked and the gallbladder and contained stones were removed using the endoscopic retrieval bag through the umbilical port. The gallbladder is passed off table as specimen. The gallbladder fossa was irrigated with saline and hemostasis obtained. There is no evidence of bleeding from the gallbladder fossa or cystic artery leakage of bile from the cystic duct stump. Secondary trochars removed under direct vision. No bleeding was noted the trocar sites. The laparoscope was withdrawn and umbilical trocar removed. The abdomen was allowed to collapse. The fascia of the 12 mm trocar was closed with a [id number] 0 Vicryl suture. The skin was closed with sutures of 4-0 Monocryl and Steri-Strips. The patient was extubated. The patient tolerated procedure well and was taken to the postanesthesia care unit in stable condition. Complications none 05/29/23 1257 Cosigner Signature (if applicable): CC: Dr. Bertha Arndt MD; Dr. Christen Mcbride MD Signed Normal [facility] Platelets bldOrdered By: Leodan Jacome on 05-28-2023 Platelets (Bld) [#/Vol] 151 10*3/uL 150-450 [facility] Protein Test strip Ql (U)Ord ered By: Sha Jacome on 05-28-2023 Protein Ql (U) Negative Negative [facility] Serum or plasma albumin barbara urement (mass/volume)Ordered By: Sha Jacome on 05-28-2023 Albumin [Mass/Vol] 3.3 g/dL 3.2-5.0 [facility] Serum or plasma albumin/glob ulin mass ratioOrdered By: Sha Jacome on 05-28-2023 Albumin/Globulin [Mass ratio] 0.9 {ratio} 0.9-2.4 [facility] Serum or plasma calcium barbara urement (mass/volume)Ordered By: Sha Jacome on 05-28-2023 Calcium [Mass/Vol] 8.8 mg/dL 8.5-10.1 [facility] Serum or plasma creatinine m easurement (mass/volume)Ordered By: Sha Jacome on 05-28-2023 Creatinine [Mass/Vol] 0.96 mg/dL 0.70-1.30 [facility] Comment on above: The validity of the calculated GFR & GFRAA in patients over 70 years has not been determined. Clinical correlation is essential. Serum or plasma urea nitroge n measurement (mass/volume)Ordered By: Sha Jacome on 05-28-2023 Urea nitrogen [Mass/Vol] 22 mg/dL 7-18 [facility] Squamous epithelial cells de tection in urine sediment by light microscopyOrdered By: Sha Jacome on 05-28-2023 Epithelial cells.squamous LM Ql (Urine sed) 0-5 SEEN /hpf 0-5 [facility] Surgery Specimen Level IIIon 05-28-2023 Surgery Specimen Level III Patient Age/Sex Location Account Attending Physician JANE VALENTINO 83/M MS3 [id number] Dr. Christen Mcbride MD Specimen: [id number] Received: 05/28/23 Status: MARGARITA Dumont Num: [id number] Spec Type: GALLBLADDJuan Cordoba Dr: Dr. Christen Mcbride MD HEADER OPERATION: Laparoscopic cholecystectomy with IOC PRE-OP DIAGNOSIS: Acute cholecystitis TISSUE SUBMITTED: Gallbladder MICROSCOPIC DIAGNOSIS Gallbladder, cholecystectomy: Acute cholecystitis with denudation of mucosa and cholelithiasis. AM:adán 05/30/2023 MICROSCOPIC DESCRIPTION Slides are reviewed. GROSS DESCRIPTION Received is one container labeled with the patient's name and designated gallbladder. The specimen consists of a gallbladder measuring 11.0 cm in length and 5.0 cm in diameter. The serosal surface is focally covered with barreto, purulent exudate. The external surface is pink-mitchell, smooth and glistening for the most part. Focally it is granular, hemorrhagic and contains cautery artifact. The gallbladder contains greenish-yellow focally hemorrhagic bile and multiple brownish-black stones measuring in aggregate 3.5 x 2.5 x 0.5 cm and 0.2 to 0.5 cm in greatest dimension. The mucosa is bile-stained and without any mass lesions. The gallbladder wall measures up to 0.6 cm in thickness. Desktop Publisher sections from the gallbladder and the cystic duct are submitted in one cassette. / SJ:adán 05/29/2023 TC:2 CPT: 50475 Patient Age/Sex Location Account Attending Physician JANE VALENTINO 83/M MS3 [id number] Dr. Christen Mcbride MD Signed (signature on file) Dr. Naseem Negron, 05/30/23 1220 Normal [facility] Comment on above: Performed By: #### L 400.0001 #### [facility] [address] [place], [place], [id number] Thin prep Papanicolaou smear with manual screeningOrdered By: Sha Jacome on 05-28-2023 Thin prep Papanicolaou smear with manual screening 31 U/L 15-37 [facility] Comment on above: Moderate Hemolysis, Result may be falsely increased. Thin prep Papanicolaou smear with manual screening 3 5-15 [facility] Urinalysis, Completeon 05-28 EPI,SQUAMOUS 0-5 SEEN Normal 0-5 [facility] Comment on above: Order Comment: CLEAN CATCH Performed By: #### L 400.0001 #### [facility] [address] [place], [address] WBC 0-5 SEEN Normal 0-5 [facility] Comment on above: Order Comment: CLEAN CATCH Performed By: #### L 400.0001 #### [facility] [address] [place], [place], [id number] BACTERIA 0 SEEN Normal None Seen [facility] Comment on above: Order Comment: CLEAN CATCH Performed By: #### L 400.0001 #### [facility] [address] [place], [place], [id number] Mucus Ql (Urine sed) 0 SEEN Normal [facility] Comment on above: Order Comment: CLEAN CATCH Performed By: #### L 400.0001 #### [facility] [address] [place], [place], [id number] RBC 0 SEEN Normal 0-5 [facility] Comment on above: Order Comment: CLEAN CATCH Performed By: #### L 400.0001 #### [facility] [address] [place], [place], [id number] Urine blood detectionOrdered By: Sha Jacome on 05-28-2023 RBC Ql (U) Negative Negative [facility] RBC Ql (U) 0 SEEN /hpf 0-5 [facility] Urine clarityOrdered By: Leodan Jacome on 05-28-2023 Clarity (U) Sl. Cloudy Clear [facility] Urine color determinationOrd ered By: Sha Jacome on 05-28-2023 Color (U) Yellow Yellow [facility] Urine glucose detectionOrder ed By: Sha Jacome on 05-28-2023 Glucose Ql (U) Normal mg/dl Normal [facility] Urine leukocyte esterase det ection by dipstickOrdered By: Sha Jacome on 05-28-2023 Leukocyte esterase Test strip Ql (U) 25 /ul Negative [facility] Urine pHOrdered By: Sha velasco on 05-28-2023 pH (U) 6.5 [pH] 5.0 - 8.0 [facility] Urine sediment bacteria coun t by microscopy (number/high power field)Ordered By: Sha Jacome on 05-28-2023 Bacteria LM.HPF (Urine sed) [#/Area] 0 /[HPF] None Seen [facility] Urine specific gravity measu rementOrdered By: Sha Jacome on 05-28-2023 Specific gravity (U) [Rel density] 1.010 1.002-1.030 [facility] Urobilinogen Auto test strip Ql (U)Ordered By: Sha Jacome on 05-28-2023 Urobilinogen Ql (U) 1 mg/dl Normal [facility] 12 Lead EKGon 04-27-2023 12 Lead EKG [facility] Cardiovascular Services [address] [place] [address] 12 Lead EKG 04/27/23 1836 MR#: [id number] Acct: [id number] Name: JANE VALENTINO Rep #: [id number] : 1940 82 From: Dominique Mehta MD Attending Dr: Dr. Emelina Justice DO Status: DEP ER Ordering Dr: Jg Brennan SOLAR TECHNICIAN-C Date: 04/27/23 Location: ED Sex: M C Admitted: Test Reason : DYSRHYTHMIA Blood Pressure : / mmHG Vent. Rate : 049 BPM Atrial Rate : 049 BPM P-R Int : 200 ms QRS Dur : 086 ms QT Int : 476 ms P-R-T Axes : 042 000 054 degrees QTc Int : 429 ms Sinus bradycardia Otherwise normal ECG Confirmed by ANNIE DUTTON, GALLITO ([id number]), newspaper managing editor KIERSTEN ACEVES ([id number]) on 05/05/2023 8:43:10 AM Referred By: Confirmed By:DANO MEHTA MD 05/05/23 0843 Date Dominique Mehta MD CC: KARSON Brennan; Dr. Bertha Arndt MD; Dr. Emelina Justice, Signed Normal [facility] Absolute lymphocyte countOrd ered By: Jg Brennan on 04-27-2023 Lymphocytes Auto (Unsp spec) [#/Vol] 1.21 10*3/uL 0.83-4.51 [facility] Basophil percentageOrdered B y: Jg Brennan on 04-27-2023 Basophil percentage 0-5 SEEN /hpf 0-5 [facility] Basophils/100 WBC (Bld) 0.7 % 0-1 [facility] Bilirubin [Mass/Vol] 0.90 mg/dL 0.20-1.00 [facility] Comment on above: For patients on eltr ombopag therapy, use of Dimension [place] TBIL is not recommended. Chloride [Moles/Vol] 103 mmol/L 98-107 [facility] Eosinophils/100 WBC (Bld) 5.1 % 0-5 [facility] Glucose [Mass/Vol] 143 mg/dL 74-106 [facility] Comment on above: Fasting Glucose resu lt greater than or equal to 126 mg/dL suggests DIABETES MELLITUS per A.D.A. criteria. Lactate [Moles/Vol] 2.1 mmol/L 0.4-2.0 [facility] Comment on above: Critical Result(s) C alled at: 19:30:18 04/27/2023 by: CRISSY DONOVAN to LESA JHAVERI RN ERResults read back by same. Neutrophils (Bld) [#/Vol] 5.9 10*3/uL 2.0-7.7 [facility] Neutrophils/100 WBC (Bld) 70.3 % 47-70 [facility] Potassium [Moles/Vol] 3.9 mmol/L 3.5-5.1 [facility] Protein [Mass/Vol] 7.3 g/dL 6.4-8.2 [facility] Sodium [Moles/Vol] 140 mmol/L 136-145 [facility] WBC (Bld) [#/Vol] 8.4 10*3/uL 4.4-11.0 [facility] Bilirubin Test strip Ql (U)O rdered By: Jg Brennan on 04-27-2023 Bilirubin Ql (U) Negative Negative [facility] Blood erythrocytes count (nu mber/volume)Ordered By: Jg Brennan on 04-27-2023 RBC (Bld) [#/Vol] 4.65 10*6/uL 4.6-6.2 [facility] Blood hemoglobin measurement (mass/volume)Ordered By: Jg Brennan on 04-27-2023 Hemoglobin (Bld) [Mass/Vol] 15.7 g/dL 13.0-16.5 [facility] Blood lymphocytes/100 leukoc ytesOrdered By: Jg Brennan on 04-27-2023 Lymphocytes/100 WBC (Bld) 14.4 % 19-41 [facility] Blood monocytes/100 leukocyt esOrdered By: Jg Brennan on 04-27-2023 Monocytes/100 WBC (Bld) 8.9 % 0-10 [facility] Blood platelet mean volumeOr dered By: Jg Brennan on 04-27-2023 Platelet mean volume (Bld) [Entitic vol] 9.6 fL 6.2-12.0 [facility] CBC W/Diff, Automatedon Absolute Lymph 1.21 X10 3/uL Normal 0.83-4.51 [facility] Comment on above: Performed By: #### L 503.6005, L501.2450, L500.4050, L100.0100 ####[facility] [address] [place], [address] Absolute Neut 5.9 X10 3/uL Normal 2.0-7.7 [facility] Comment on above: Performed By: #### L 503.6005, L501.2450, L500.4050, L100.0100 ####[facility] [address] [place], [address] Basophils/100 WBC (Bld) 0.7 % Normal 0-1 [facility] Comment on above: Performed By: #### L 503.6005, L501.2450, L500.4050, L100.0100 ####[facility] [address] [place], [address] Eosinophils/100 WBC (Bld) 5.1 % High 0-5 [facility] Comment on above: Performed By: #### L 503.6005, L501.2450, L500.4050, L100.0100 ####[facility] [address] [place], [address] Erythrocyte distribution width (RBC) [Ratio] 11.9 % Normal 11.6-14.6 [facility] Comment on above: Performed By: #### L 503.6005, L501.2450, L500.4050, L100.0100 ####[facility] [address] [place], [address] Hematocrit (Bld) [Volume fraction] 47.0 % Normal 40-54 [facility] Comment on above: Performed By: #### L 503.6005, L501.2450, L500.4050, L100.0100 ####[facility] [address] [place], [address] Hemoglobin (Bld) [Mass/Vol] 15.7 g/dL Normal 13.0-16.5 [facility] Comment on above: Performed By: #### L 503.6005, L501.2450, L500.4050, L100.0100 ####[facility] [address] [place], [address] IG% 0.600 Normal 0.0-0.9 [facility] Comment on above: Result Comment: IG% - Immature Granulocytes (promyelocytes, myelocytes and metamyelocytes) > 1% indicates that a LEFT SHIFT is Present. Performed By: #### L 503.6005, L501.2450, L500.4050, L100.0100 ####[facility] [address] [place], [address] Lymphocytes/100 WBC (Bld) 14.4 % Low 19-41 [facility] Comment on above: Performed By: #### L 503.6005, L501.2450, L500.4050, L100.0100 ####[facility] [address] [place], [address] MCH (RBC) [Entitic mass] 33.8 pg High 27.0-32.0 [facility] Comment on above: Performed By: #### L 503.6005, L501.2450, L500.4050, L100.0100 ####[facility] [address] [place], [address] MCHC (RBC) [Mass/Vol] 33.4 g/dL Normal 32-36 [facility] Comment on above: Performed By: #### L 503.6005, L501.2450, L500.4050, L100.0100 ####[facility] [address] [place], [address] MCV (RBC) [Entitic vol] 101.1 fL High 80-94 [facility] Comment on above: Performed By: #### L 503.6005, L501.2450, L500.4050, L100.0100 ####[facility] [address] [place], [address] Monocytes/100 WBC (Bld) 8.9 % Normal 0-10 [facility] Comment on above: Performed By: #### L 503.6005, L501.2450, L500.4050, L100.0100 ####[facility] [address] [place], [address] Neutrophils/100 WBC (Bld) 70.3 % High 47-70 [facility] Comment on above: Performed By: #### L 503.6005, L501.2450, L500.4050, L100.0100 ####[facility] [address] [place], [address] Nucleated RBC (Bld) [#/Vol] 0 10*3/uL Normal 0-5 [facility] Comment on above: Performed By: #### L 503.6005, L501.2450, L500.4050, L100.0100 ####[facility] [address] [place], [address] Platelet mean volume (Bld) [Entitic vol] 9.6 fL Normal 6.2-12.0 [facility] Comment on above: Performed By: #### L 503.6005, L501.2450, L500.4050, L100.0100 ####[facility] [address] [place], [address] Platelets (Bld) [#/Vol] 168 10*3/uL Normal 150-450 [facility] Comment on above: Performed By: #### L 503.6005, L501.2450, L500.4050, L100.0100 ####[facility] [address] [place], [address] RBC (Bld) [#/Vol] 4.65 10*6/uL Normal 4.6-6.2 [facility] Comment on above: Performed By: #### L 503.6005, L501.2450, L500.4050, L100.0100 ####[facility] [address] [place], [address] RDW SD 44.3 fl High 35.1-43.9 [facility] Comment on above: Performed By: #### L 503.6005, L501.2450, L500.4050, L100.0100 ####[facility] [address] [place], [address] WBC (Bld) [#/Vol] 8.4 10*3/uL Normal 4.4-11.0 [facility] Comment on above: Performed By: #### L 503.6005, L501.2450, L500.4050, L100.0100 ####[facility] [address] [place], [address] CTA Chst, Abd, Pel W and/or WOon 04-27-2023 CTA Chst, Abd, Pel W and/or WO [facility] Imaging Services [address] [place] [address] CTA Chst, Abd, Pel W and/or WO MR#: [id number] Acct: [id number] Name: JANE VALENTINO Rep #: [id number] : 1940 M 82 From: Prem Moreland MD PCP: Dr. Bertha Arndt MD Status: REG ER Study: CTA Chst, Abd, Pel W and/or WO Date of Exam: 06/27/22 Exam# [id number] Ordering Dr: Jg Brennan SOLAR TECHNICIAN-C [id number] INDICATION: Abdomen pain EXAMINATION: CTA CHEST, ABDOMEN AND PELVIS WITH CONTRAST - TECHNIQUE: A CTA of the chest, abdomen, and pelvis is obtained with sagittal and coronal reconstructed MIP views. Three-dimensional surface rendered sequence of the thoracic and abdominal aorta was obtained. A radiation dose optimization technique was used for this scan. mL of Isovue-370. Oral contrast: None. COMPARISON: None. ____ FINDINGS: CT CHEST: THORACIC AORTA: No atheromatous disease, no aneurysmal changes or dissection. Bovine arch. ABDOMINAL AORTA: No aneurysm or dissection. No significant atheromatous disease. The iliac arteries are unremarkable. Status post median sternotomy. LUNGS: The lungs are well-expanded without acute or chronic changes. No effusions or pneumothorax. MEDIASTINUM: The thyroid gland is normal. No mediastinal or hilar adenopathy. HEART: Cardiomegaly.. No pericardial effusion. Calcified plaque in the coronary arteries. CT ABDOMEN AND PELVIS: LIVER: The liver enhances homogeneously. No masses identified. GALLBLADDER: The CBD is normal. Tiny stones in the fundus the gallbladder.. SPLEEN: Normal. PANCREAS: No masses or inflammation. ADRENAL GLANDS: Normal. KIDNEYS AND URETERS: The kidneys both enhance appropriately. There are normal size and shape. No hydronephrosis or nephrolithiasis. 3 cm exophytic cyst in the upper pole of the right kidney. 2 cm exophytic cyst of the midsection left kidney. STOMACH: Normal. SMALL BOWEL: No abnormal distention of the small bowel. MESENTERY: No mesenteric inflammation. No ascites. COLON: Multiple diverticula throughout the sigmoid colon consistent diverticulosis. No wall thickening or stranding of surrounding fat to suggest diverticulitis. The colon otherwise is normal. There is a large fatty ileocecal valve. APPENDIX: The appendix is not visualized. IVC: Normal. RETROPERITONEUM: No retroperitoneal lymphadenopathy. PELVIC STRUCTURES: 8 mm stone near the left ureterovesical junction with mild dilatation of the distal left ureter. Enlarged prostate with a calcification likely consistent with benign prostatic hyperplasia. SOFT TISSUES ABDOMEN: The anterior abdominal wall is normal. SOFT TISSUE CHEST: The extrathoracic soft tissues are normal. BONES: Chronic compression fracture of L1 treated with vertebroplasty. CT/CTA Chst, Abd, Pel W and/or WO IMPRESSION: Normal contrast-enhanced CTA of the chest. Normal contrast-enhanced CTA of the abdomen and pelvis. No active pulmonary disease. Cardiomegaly. 8 mm stone within the bladder near the left ureterovesical junction with mild dilatation of the distal left ureter. Sigmoid diverticulosis without diverticulitis. Electronically Signed: Prem Moreland MD at 20:31 EST , CC: KARSON Brennan; Dr. Bertha Arndt MD Graduate Teacher Education: Signed Normal [facility] Comprehensive Metabolic Prof ilon 04-27-2023 Albumin [Mass/Vol] 4.0 g/dL Normal 3.2-5.0 [facility] Comment on above: Performed By: #### L 503.6005, L501.2450, L500.4050, L100.0100 ####[facility] [address] [place], [address] Albumin/Globulin [Mass ratio] 1.2 {ratio} Normal 0.9-2.4 [facility] Comment on above: Performed By: #### L 503.6005, L501.2450, L500.4050, L100.0100 ####[facility] [address] [place], [address] ALK P 65 U/L Normal 45-117 [facility] Comment on above: Performed By: #### L 503.6005, L501.2450, L500.4050, L100.0100 ####[facility] [address] [place], [address] ALT [Catalytic activity/Vol] 29 U/L Normal 16-61 [facility] Comment on above: Performed By: #### L 503.6005, L501.2450, L500.4050, L100.0100 ####[facility] [address] [place], [address] AST [Catalytic activity/Vol] 17 U/L Normal 15-37 [facility] Comment on above: Performed By: #### L 503.6005, L501.2450, L500.4050, L100.0100 ####[facility] [address] [place], [address] Bilirubin [Mass/Vol] 0.90 mg/dL Normal 0.20-1.00 [facility] Comment on above: Result Comment: For patients on eltrombopag therapy, use of Dimension [place] TBIL is not recommended. Performed By: #### L 503.6005, L501.2450, L500.4050, L100.0100 ####[facility] [address] [place], [address] BUN/CRE 19.3 RATIO Normal 10-20 [facility] Comment on above: Performed By: #### L 503.6005, L501.2450, L500.4050, L100.0100 ####[facility] [address] [place], [address] CA,Total 9.7 mg/dL Normal 8.5-10.1 [facility] Comment on above: Performed By: #### L 503.6005, L501.2450, L500.4050, L100.0100 ####[facility] [address] [place], [address] Chloride [Moles/Vol] 103 mmol/L Normal 98-107 [facility] Comment on above: Performed By: #### L 503.6005, L501.2450, L500.4050, L100.0100 ####[facility] [address] [place], [address] CO2 [Moles/Vol] 29.0 mmol/L Normal 21.0-32.0 [facility] Comment on above: Performed By: #### L 503.6005, L501.2450, L500.4050, L100.0100 ####[facility] [address] [place], [address] Creatinine [Mass/Vol] 1.09 mg/dL Normal 0.70-1.30 [facility] Comment on above: Result Comment: The validity of the calculated GFR GFRAA in patients over 70 years has not been determined. Clinical correlation is essential. Performed By: #### L 503.6005, L501.2450, L500.4050, L100.0100 ####[facility] [address] [place], [address] ECRCL 51.42 ml/min Normal [facility] Comment on above: Performed By: #### L 503.6005, L501.2450, L500.4050, L100.0100 ####[facility] [address] [place], [address] EST GFR - AA 83 mL/min Normal >60 [facility] Comment on above: Result Comment: Afri can Prydeinig GFR Calc Performed By: #### L 503.6005, L501.2450, L500.4050, L100.0100 ####[facility] [address] [place], [address] GAP 8 Normal 5-15 [facility] Comment on above: Performed By: #### L 503.6005, L501.2450, L500.4050, L100.0100 ####[facility] [address] [place], [address] GFR/1.73 sq M.predicted among non-blacks MDRD (S/P/Bld) [Vol rate/Area] 69 mL/min/{1.73_m2} Normal >60 [facility] Comment on above: Result Comment: Non- GFR Calc Performed By: #### L 503.6005, L501.2450, L500.4050, L100.0100 ####[facility] [address] [place], [address] Globulin (S) [Mass/Vol] 3.3 g/dL Normal 2.2-4.2 [facility] Comment on above: Performed By: #### L 503.6005, L501.2450, L500.4050, L100.0100 ####[facility] [address] [place], [address] Glucose [Mass/Vol] 143 mg/dL High 74-106 [facility] Comment on above: Result Comment: Fast ing Glucose result greater than or equal to 126 mg/dL suggests DIABETES MELLITUS per A.D.A. criteria. Performed By: #### L 503.6005, L501.2450, L500.4050, L100.0100 ####[facility] [address] [place], [address] Potassium [Moles/Vol] 3.9 mmol/L Normal 3.5-5.1 [facility] Comment on above: Performed By: #### L 503.6005, L501.2450, L500.4050, L100.0100 ####[facility] [address] [place], [address] Sodium [Moles/Vol] 140 mmol/L Normal 136-145 [facility] Comment on above: Performed By: #### L 503.6005, L501.2450, L500.4050, L100.0100 ####[facility] [address] [place], [address] T PROT 7.3 g/dL Normal 6.4-8.2 [facility] Comment on above: Performed By: #### L 503.6005, L501.2450, L500.4050, L100.0100 ####[facility] [address] [place], [address] Urea nitrogen [Mass/Vol] 21 mg/dL High 7-18 [facility] Comment on above: Performed By: #### L 503.6005, L501.2450, L500.4050, L100.0100 ####[facility] [address] [place], [address] Determination of erythrocyte mean corpuscular volume (MCV)Ordered By: Jg Brennan on 04-27-2023 MCV (RBC) [Entitic vol] 101.1 fL 80-94 [facility] Emergency Department Summary on 04-27-2023 Emergency Department Summary [facility] Medical Records Department [address] [place] [address] Emergency Department Summary 04/27/23 MR#: [id number] Acct: [id number] Name: JANE VALENTINO Rep #: [id number] : 1940 82 From: Jg Brennan SOLAR TECHNICIANJemC PCP: Dr. 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 Patient family states that started around 3 PM today. Patient states the pain is much worse with walking, palpation. He denies any nausea or vomiting. Patient denies any chest pain or shortness of breath. Patient denies any fever or chills. Denies any history of abdominal surgeries. [facility] Medical History Arthritis Cataracts, both eyes Chronic bronchitis Heart disease Seasonal allergies Home Medications aspirin 81 mg tablet,delayed release 81 mg PO QDAY 01/06/18 [History Last Taken Unknown] omeprazole 40 mg capsule,delayed release 40 mg PO QDAY #90 caps 01/05/21 [Rx Last Taken Unknown] rosuvastatin 20 mg tablet (Crestor) 20 mg PO QDAY #90 tabs 03/29/21 [Rx Last Taken Unknown] acetaminophen 325 mg capsule (Tylenol) 325 mg PO Q6H PRN pain #120 caps 07/20/22 [Rx Last Taken Unknown] dextromethorphan-gua ifenesin 30 mg-600 mg tablet extended [id number] hr (Mucinex DM) 1 tab PO Q12H 07/20/22 [History Last Taken Unknown] famciclovir 500 mg tablet 500 mg PO BID 07/20/22 [History Last Taken Unknown] celecoxib 200 mg capsule 200 mg PO Q24H 04/27/23 [History Last Taken Unknown] cholecalciferol (vitamin D3) 125 mcg (5,000 unit) tablet (Vitamin D3) 125 mcg PO DAILY 04/27/23 [History Last Taken Unknown] escitalopram oxalate 5 mg tablet (Lexapro) 5 mg PO DAILY 04/27/23 [History Last Taken Unknown] fexofenadine 180 mg tablet (Mona Allergy) 180 mg PO DAILY 04/27/23 [History Last Taken Unknown] hydroxyzine pamoate 25 mg capsule 25 mg PO Q8H PRN anxiety 04/27/23 [History Last Taken Unknown] ibuprofen 200 mg tablet 200 mg PO Q4H PRN pain 04/27/23 [History Last Taken Unknown] quetiapine 50 mg tablet 50 mg PO QHS 04/27/23 [History Last Taken Unknown] Allergy/AdvReac Type Severity Reaction Status Date / Time No Known Allergies Allergy Verified 04/27/23 18:17 Family History Mother Arthritis Father Arthritis Heart disease Kidney disease Parkinson disease Daughter Heart disease Brother Heart disease Surgical History history of triple bypass surgery Social History Smoking Status: Never smoker alcohol intake: never substance use type: does not use what type of physical activity do you participate in: walking and bicycling ROS ROS ED ROS Narrative Constitutional: Negative for fever, chills, weight loss, weakness Eyes: Negative for vision loss, vision change, double vision ENT: Negative for any sore throat, ear pain, congestion Cardiovascular: Negative for any chest pain, tightness, palpitations Respiratory: Negative for any cough, sputum production, hemoptysis, dyspnea, dyspnea on exertion, orthopnea Gastrointestinal: Negative for any nausea, vomiting, diarrhea, constipation, blood in stool, blood in vomit. Positive for upper abdominal pain, negative for any peritoneal signs. Active bowel sounds. : Negative for any urinary frequency, dysuria, retention, blood in urine Muscle skeletal: Negative for any myalgias, arthralgias, neck pain, back pain Neurological: Negative for any headache, syncope, numbness or tingling, dizziness Skin: Negative for any rashes, lumps, itching, abrasions, lacerations Psychiatric: Negative for any depression, anxiety, stress, suicidal ideation, homicidal ideation Hematologic: Negative for any easy bruising, excessive bruising, easy bleeding Allergies: Negative for any eczema, hives, rash EXAM Physical Exam Narrative Exam Narrative: Vital signs reviewed. HEET: Head normocephalic atraumatic, TMs clear bilaterally. Posterior pharynx is clear, moist mucous membranes. Nares clear bilaterally. Neck: Supple with no lymphadenopathy or tenderness. No signs of meningismus. Cardiac: Regular rate and rhythm no murmurs gallops or rubs, equal peripheral pulses bilaterally. Respiratory: Lungs clear to auscultation bilaterally. No chest tenderness. Abdomen: Soft, nondistended. No abdominal bruit or pulsatile masses. No hepatosplenomegaly. Positive for tenderness to the upper abdomen Extremities: No peripheral edema, no signs of gross trauma or deformity. Active full range of motion of all (more content not included)... Normal [facility] Hematocrit Auto (Bld) [Volum e fraction]Ordered By: Jg Brennan on 04-27-2023 Hematocrit (Bld) [Volume fraction] 47.0 % 40-54 [facility] Ketones Test strip Ql (U)Ord ered By: Jg Brennan on 04-27-2023 Ketones Ql (U) 5 mg/dl Negative [facility] L501.4020on 04-27-2023 TROPONIN-I HS 5 pg/mL Normal 3.0-78.0 [facility] Comment on above: Order Comment: 'TROP ' Serial specimen #1, #2 or #3: 1 Result Comment: Libby carpio Note: New Test Units and Gender Specific Reference Ranges. For more information see Policy Stat Procedure [place] High Sensitivity Troponin (TNIH) and attachments. Performed By: #### L 501.4020 #### [facility] [address] [place], [address] Laboratory - Chemistry and C hemistry - challengeOrdered By: Jg Brennan on 04-27-2023 ALP [Catalytic activity/Vol] 65 U/L 45-117 [facility] ALT [Catalytic activity/Vol] 29 U/L 16-61 [facility] CO2 [Moles/Vol] 29.0 mmol/L 21.0-32.0 [facility] Globulin (S) [Mass/Vol] 3.3 g/dL 2.2-4.2 [facility] Lipase [Catalytic activity/Vol] 70 U/L 13-75 [facility] Comment on above: Please note:LIPASE r evised reference range effective 22. New Lipase methodology. Expected to produce lower values than the previous assay method. NEW Reference Range: 13 - 75 U/L Urea nitrogen/Creatinine [Mass ratio] 19.3 mg/mg 10-20 [facility] - Hematology and Cell countsOrdered By: Jg Brennan on 04-27-2023 Erythrocyte distribution width (RBC) [Entitic vol] 44.3 fL 35.1-43.9 [facility] Erythrocyte distribution width (RBC) [Ratio] 11.9 % 11.6-14.6 [facility] Immature granulocytes/100 WBC (Bld) 0.600 % 0.0-0.9 [facility] Comment on above: IG% - Immature Granu locytes (promyelocytes, myelocytes and metamyelocytes) > 1% indicates that a LEFT SHIFT is Present. MCH (RBC) [Entitic mass] 33.8 pg 27.0-32.0 [facility] Nucleated RBC/100 WBC (Bld) [Ratio] 0 % 0-5 [facility] Lactic Acidon 04-27-2023 Lactate [Moles/Vol] 2.1 mmol/L Invalid Interpretation Code 0.4-1.9 [facility] Comment on above: Order Comment: PT DI SCHARGEDY Result Comment: PT D ISCHARGED Critical Result(s) Called at: 19:30:18 04/27/2023 by: CRISSY DONOVAN to LESA JHAVERI RN ERResults read back by same. Performed By: #### L 503.6005, L501.2450, L500.4050, L100.0100 ####[facility] [address] [place], [address] Lipaseon 04-27-2023 Lipase [Catalytic activity/Vol] 70 U/L Normal 13-75 [facility] Comment on above: Result Comment: Libby carpio note: LIPASE revised reference range effective 22. New Lipase methodology. Expected to produce lower values than the previous assay method. NEW Reference Range: 13 - 75 U/L Performed By: #### L 503.6005, L501.2450, L500.4050, L100.0100 ####[facility] [address] [place], [address] MCHC Auto (RBC) [Mass/Vol]Or dered By: Jg Brennan on 04-27-2023 MCHC (RBC) [Mass/Vol] 33.4 g/dL 32-36 [facility] Mucus LM Ql (Urine sed)Order ed By: Jg Brennan on 04-27-2023 Mucus Ql (Urine sed) 0 SEEN /hpf [facility] Nitrite Test strip Ql (U)Ord ered By: Jg Brennan on 04-27-2023 Nitrite Ql (U) Negative Negative [facility] No Panel InformationOrdered By: Jg Brennan on 04-27-2023 Troponin I High Sensitivity 5 pg/mL 3.0-78.0 [facility] Comment on above: Please Note: New [place] t Units and Gender Specific Reference Ranges. For more information see Policy Stat Procedure [place] High Sensitivity Troponin (TNIH) and attachments. Estimated Creatinine Clearance Calc 51.42 ml/min [facility] Estimated GFR (MDRD) Amer 83 mL/min >60 [facility] Comment on above: GFR Calc Estimated GFR (MDRD) Non-Af Amer 69 mL/min >60 [facility] Comment on above: Non- GFR Calc Platelets bldOrdered By: Radha Brennan on 04-27-2023 Platelets (Bld) [#/Vol] 168 10*3/uL 150-450 [facility] Protein Test strip Ql (U)Ord ered By: Jg Brennan on 04-27-2023 Protein Ql (U) 15 mg/dl Negative [facility] Serum or plasma albumin barbara urement (mass/volume)Ordered By: Jg Brennan on 04-27-2023 Albumin [Mass/Vol] 4.0 g/dL 3.2-5.0 [facility] Serum or plasma albumin/glob ulin mass ratioOrdered By: Jg Brennan on 04-27-2023 Albumin/Globulin [Mass ratio] 1.2 {ratio} 0.9-2.4 [facility] Serum or plasma calcium barbara urement (mass/volume)Ordered By: Jg Brennan on 04-27-2023 Calcium [Mass/Vol] 9.7 mg/dL 8.5-10.1 [facility] Serum or plasma creatinine m easurement (mass/volume)Ordered By: Jg Brennan on 04-27-2023 Creatinine [Mass/Vol] 1.09 mg/dL 0.70-1.30 [facility] Comment on above: The validity of the calculated GFR & GFRAA in patients over 70 years has not been determined. Clinical correlation is essential. Serum or plasma urea nitroge n measurement (mass/volume)Ordered By: Jg Brennan on 04-27-2023 Urea nitrogen [Mass/Vol] 21 mg/dL 7-18 [facility] Squamous epithelial cells de tection in urine sediment by light microscopyOrdered By: Jg Brennan on 04-27-2023 Epithelial cells.squamous LM Ql (Urine sed) 0-5 SEEN /hpf 0-5 [facility] Thin prep Papanicolaou smear with manual screeningOrdered By: Jg Brennan on 04-27-2023 Thin prep Papanicolaou smear with manual screening 17 U/L 15-37 [facility] Thin prep Papanicolaou smear with manual screening 8 5-15 [facility] Urinalysis, Completeon 04-27 EPI,SQUAMOUS 0-5 SEEN Normal 0-5 [facility] Comment on above: Order Comment: HYUN CTOR TO SPECIFY Performed By: #### L 400.0001 #### [facility] [address] [place], [address] WBC 0-5 SEEN Normal 0-5 [facility] Comment on above: Order Comment: HYUN CTOR TO SPECIFY Performed By: #### L 400.0001 #### [facility] [address] [place], [address] BACTERIA 0 SEEN Normal None Seen [facility] Comment on above: Order Comment: HYUN CTOR TO SPECIFY Performed By: #### L 400.0001 #### [facility] [address] [place], [address] Mucus Ql (Urine sed) 0 SEEN Normal [facility] Comment on above: Order Comment: HYUN CTOR TO SPECIFY Performed By: #### L 400.0001 #### [facility] [address] [place], [address] RBC 0 SEEN Normal 0-5 [facility] Comment on above: Order Comment: HYUN CTOR TO SPECIFY Performed By: #### L 400.0001 #### [facility] [address] [place], [address] Urine blood detectionOrdered By: Jg Brennan on 04-27-2023 RBC Ql (U) Negative Negative [facility] RBC Ql (U) 0 SEEN /hpf 0-5 [facility] Urine clarityOrdered By: Radha Brennan on 04-27-2023 Clarity (U) Sl. Cloudy Clear [facility] Urine color determinationOrd ered By: Jg Brennan on 04-27-2023 Color (U) Yellow Yellow [facility] Urine glucose detectionOrder ed By: Jg Brennan on 04-27-2023 Glucose Ql (U) Normal mg/dl Normal [facility] Urine leukocyte esterase det ection by dipstickOrdered By: Jg Brennan on 04-27-2023 Leukocyte esterase Test strip Ql (U) 25 /ul Negative [facility] Urine pHOrdered By: Jg dia on 04-27-2023 pH (U) 7.0 [pH] 5.0 - 8.0 [facility] Urine sediment bacteria coun t by microscopy (number/high power field)Ordered By: Jg Brennan on 04-27-2023 Bacteria LM.HPF (Urine sed) [#/Area] 0 /[HPF] None Seen [facility] Urine specific gravity measu rementOrdered By: Jg Brennan on 04-27-2023 Specific gravity (U) [Rel density] 1.010 1.002-1.030 [facility] Urobilinogen Auto test strip Ql (U)Ordered By: Jg Brennan on 04-27-2023 Urobilinogen Ql (U) Normal mg/dl Normal [facility] Basophil percentageOrdered B y: Roel Chiu on 04-11-2023 Cholesterol [Mass/Vol] 121 mg/dL <200 [facility] Comment on above: <200 mg/dL Desirable 200-240 mg/dL Borderline >240 mg/dL High Risk Triglyceride [Mass/Vol] 84 mg/dL <199 [facility] Comment on above: The drugs N-Acetylcy steine and Metamizole may falsely depress this assay.Serum Triglycerides Reference Interval Normal <150 mg/dL Borderline high 150 - 199 mg/dL High 200 - 499 mg/dL Very High > or = 500 mg/dL Serum or plasma cholesterol in HDL measurement (mass/volume)Ordered By: Roel Chiu on 04-11-2023 Cholesterol in HDL [Mass/Vol] 48 mg/dL >40 [facility] Comment on above: The drugs N-Acetylcy steine and Metamizole may falsely depress this assay. Reference Range HDL <40 mg/dL Low HDL Cholesterol HDL >or= 60 mg/dL High HDL Cholesterol Serum or plasma cholesterol in VLDL measurement (mass/volume)Ordered By: Roel Chiu on 04-11-2023 Cholesterol in VLDL [Mass/Vol] 17 mg/dL 5-40 [facility] Serum or plasma low density lipoprotein (LDL) cholesterol measurement (mass/volume)Ordered By: Roel Chiu on 10-20-2023 Cholesterol in LDL [Mass/Vol] 56 mg/dL 0-130 [facility] Basophil percentageOrdered B y: Roel Chiu on 02-27-2023 Cholesterol [Mass/Vol] 117 mg/dL <200 [facility] Comment on above: <200 mg/dL Desirable 200-240 mg/dL Borderline >240 mg/dL High Risk Triglyceride [Mass/Vol] 97 mg/dL <199 [facility] Comment on above: The drugs N-Acetylcy steine and Metamizole may falsely depress this assay.Serum Triglycerides Reference Interval Normal <150 mg/dL Borderline high 150 - 199 mg/dL High 200 - 499 mg/dL Very High > or = 500 mg/dL Serum or plasma cholesterol in HDL measurement (mass/volume)Ordered By: Roel Chiu on 02-27-2023 Cholesterol in HDL [Mass/Vol] 48 mg/dL >40 [facility] Comment on above: The drugs N-Acetylcy steine and Metamizole may falsely depress this assay. Reference Range HDL <40 mg/dL Low HDL Cholesterol HDL >or= 60 mg/dL High HDL Cholesterol Serum or plasma cholesterol in VLDL measurement (mass/volume)Ordered By: Roel Chiu on 02-27-2023 Cholesterol in VLDL [Mass/Vol] 19 mg/dL 5-40 [facility] Serum or plasma low density lipoprotein (LDL) cholesterol measurement (mass/volume)Ordered By: Roel Chiu on 02-27-2023 Cholesterol in LDL [Mass/Vol] 50 mg/dL 0-130 [facility] Basophil percentageOrdered B y: Jaquan Hampton on 09-05-2022 Bilirubin [Mass/Vol] 0.50 mg/dL 0.20-1.00 [facility] Comment on above: For patients on eltr ombopag therapy, use of Dimension [place] TBIL is not recommended. Chloride [Moles/Vol] 105 mmol/L 98-107 [facility] Cholesterol [Mass/Vol] 113 mg/dL <200 [facility] Comment on above: <200 mg/dL Desirable 200-240 mg/dL Borderline >240 mg/dL High Risk Glucose [Mass/Vol] 100 mg/dL 74-106 [facility] Comment on above: Fasting Glucose resu lt from 100 to 125 mg/dL suggests IMPAIRED HOMEOSTASIS per A.D.A. criteria. Potassium [Moles/Vol] 4.4 mmol/L 3.5-5.1 [facility] Protein [Mass/Vol] 6.5 g/dL 6.4-8.2 [facility] Sodium [Moles/Vol] 139 mmol/L 136-145 [facility] Triglyceride [Mass/Vol] 155 mg/dL <199 [facility] Comment on above: The drugs N-Acetylcy steine and Metamizole may falsely depress this assay.Serum Triglycerides Reference Interval Normal <150 mg/dL Borderline high 150 - 199 mg/dL High 200 - 499 mg/dL Very High > or = 500 mg/dL WBC (Bld) [#/Vol] 5.4 10*3/uL 4.4-11.0 [facility] Blood erythrocytes count (nu mber/volume)Ordered By: Jaquan Hampton on 09-05-2022 RBC (Bld) [#/Vol] 4.40 10*6/uL 4.6-6.2 [facility] Blood hemoglobin measurement (mass/volume)Ordered By: Jaquan Hamtpon on 09-05-2022 Hemoglobin (Bld) [Mass/Vol] 14.6 g/dL 13.0-16.5 [facility] Blood platelet mean volumeOr dered By: Jaquan Hampton on 09-05-2022 Platelet mean volume (Bld) [Entitic vol] 9.9 fL 6.2-12.0 [facility] Determination of erythrocyte mean corpuscular volume (MCV)Ordered By: Jaquan Hampton on 09-05-2022 MCV (RBC) [Entitic vol] 100.7 fL 80-94 [facility] Hematocrit Auto (Bld) [Volum e fraction]Ordered By: Jaquan Hampton on 09-05-2022 Hematocrit (Bld) [Volume fraction] 44.3 % 40-54 [facility] Laboratory - Chemistry and C hemistry - challengeOrdered By: Jaquan Hampton on 09-05-2022 ALP [Catalytic activity/Vol] 78 U/L 45-117 [facility] ALT [Catalytic activity/Vol] 36 U/L 16-61 [facility] CO2 [Moles/Vol] 26.0 mmol/L 21.0-32.0 [facility] Cobalamin (Vitamin B12) [Mass/Vol] 276 pg/mL 211-911 [facility] Globulin (S) [Mass/Vol] 3.2 g/dL 2.2-4.2 [facility] Urea nitrogen/Creatinine [Mass ratio] 25.0 mg/mg 10-20 [facility] - Hematology and Cell countsOrdered By: Jaquan Hampton on 09-05-2022 Erythrocyte distribution width (RBC) [Entitic vol] 48.1 fL 35.1-43.9 [facility] Erythrocyte distribution width (RBC) [Ratio] 13.0 % 11.6-14.6 [facility] MCH (RBC) [Entitic mass] 33.2 pg 27.0-32.0 [facility] MCHC Auto (RBC) [Mass/Vol]Or dered By: Jaquan Hampton on 09-05-2022 MCHC (RBC) [Mass/Vol] 33.0 g/dL 32-36 [facility] No Panel InformationOrdered By: Jaquan Hampton on 09-05-2022 Estimated GFR (MDRD) Amer 88 mL/min >60 [facility] Comment on above: GFR Calc Estimated GFR (MDRD) Non-Af Amer 73 mL/min >60 [facility] Comment on above: Non- GFR Calc Thyroid Stimulating Hormone (TSH) 1.28 uIU/mL 0.358-3.74 [facility] Vitamin D 25-Hydroxy 53.0 ng/mL [facility] Comment on above: Vitamin D 25(OH) Sta tus Range Deficiency <20 ng/mL (50nmol/L) Insufficiency 20 - 30 ng/mL (50 - 75 nmol/L) Sufficiency 30 - 100 ng/mL (75 - 250 nmol/L) Toxicity >100 ng/mL (>250 nmol/L) Platelets bldOrdered By: Chun Hampton on 09-05-2022 Platelets (Bld) [#/Vol] 193 10*3/uL 150-450 [facility] Serum or plasma albumin barbara urement (mass/volume)Ordered By: Jaquan Hampton on 09-05-2022 Albumin [Mass/Vol] 3.3 g/dL 3.2-5.0 [facility] Serum or plasma albumin/glob ulin mass ratioOrdered By: Jaquan Hampton on 09-05-2022 Albumin/Globulin [Mass ratio] 1.0 {ratio} 0.9-2.4 [facility] Serum or plasma calcium barbara urement (mass/volume)Ordered By: Jaquan Hampton on 09-05-2022 Calcium [Mass/Vol] 9.1 mg/dL 8.5-10.1 [facility] Serum or plasma cholesterol in HDL measurement (mass/volume)Ordered By: Jaquan Hampton on 09-05-2022 Cholesterol in HDL [Mass/Vol] 43 mg/dL >40 [facility] Comment on above: The drugs N-Acetylcy steine and Metamizole may falsely depress this assay. Reference Range HDL <40 mg/dL Low HDL Cholesterol HDL >or= 60 mg/dL High HDL Cholesterol Serum or plasma cholesterol in VLDL measurement (mass/volume)Ordered By: Jaquan Hampton on 09-05-2022 Cholesterol in VLDL [Mass/Vol] 31 mg/dL 5-40 [facility] Serum or plasma creatinine m easurement (mass/volume)Ordered By: Jaquan Hampton on 09-05-2022 Creatinine [Mass/Vol] 1.04 mg/dL 0.70-1.30 [facility] Comment on above: The validity of the calculated GFR & GFRAA in patients over 70 years has not been determined. Clinical correlation is essential. Serum or plasma folate measu rement (mass/volume)Ordered By: Jaquan Hampton on 09-05-2022 Folate [Mass/Vol] 5.60 ng/mL 3.1-55.4 [facility] Comment on above: Slight Hemolysis, Re sult may be falsely increased. Serum or plasma low density lipoprotein (LDL) cholesterol measurement (mass/volume)Ordered By: Jaquan Hampton on 09-05-2022 Cholesterol in LDL [Mass/Vol] 39 mg/dL 0-130 [facility] Serum or plasma urea nitroge n measurement (mass/volume)Ordered By: Jaquan Hampton on 09-05-2022 Urea nitrogen [Mass/Vol] 26 mg/dL 7-18 [facility] Thin prep Papanicolaou smear with manual screeningOrdered By: Jaquan Hampton on 09-05-2022 Thin prep Papanicolaou smear with manual screening 23 U/L [facility] Thin prep Papanicolaou smear with manual screening 8 5-15 [facility] Basophil percentageOrdered B y: Bertha Arndt on 07-25-2022 Cholesterol [Mass/Vol] 108 mg/dL <200 [facility] Comment on above: <200 mg/dL Desirable 200-240 mg/dL Borderline >240 mg/dL High Risk Triglyceride [Mass/Vol] 65 mg/dL <199 [facility] Comment on above: The drugs N-Acetylcy steine and Metamizole may falsely depress this assay.Serum Triglycerides Reference Interval Normal <150 mg/dL Borderline high 150 - 199 mg/dL High 200 - 499 mg/dL Very High > or = 500 mg/dL Laboratory - Chemistry and C hemistry - challengeOrdered By: Bertha Arndt on 07-25-2022 ALT [Catalytic activity/Vol] 46 U/L 16-61 [facility] Serum or plasma cholesterol in HDL measurement (mass/volume)Ordered By: Bertha Arndt on 07-25-2022 Cholesterol in HDL [Mass/Vol] 48 mg/dL >40 [facility] Comment on above: The drugs N-Acetylcy steine and Metamizole may falsely depress this assay. Reference Range HDL <40 mg/dL Low HDL Cholesterol HDL >or= 60 mg/dL High HDL Cholesterol Serum or plasma cholesterol in VLDL measurement (mass/volume)Ordered By: Bertha Arndt on 07-25-2022 Cholesterol in VLDL [Mass/Vol] 13 mg/dL 5-40 [facility] Serum or plasma low density lipoprotein (LDL) cholesterol measurement (mass/volume)Ordered By: Bertha Arndt on 07-25-2022 Cholesterol in LDL [Mass/Vol] 47 mg/dL 0-130 [facility] Thin prep Papanicolaou smear with manual screeningOrdered By: Bertha Arndt on 07-25-2022 Thin prep Papanicolaou smear with manual screening 51 U/L [facility] Basic Metabolic Profile (BMP )on 07-21-2022 BUN/CRE 21.7 RATIO High 10-20 [facility] Comment on above: Order Comment: 1Y Performed By: #### L 500.2500, L100.0100, L501.5425 ####[facility] [address] [place], [address] CA,Total 9.0 mg/dL Normal 8.5-10.1 [facility] Comment on above: Order Comment: 1Y Performed By: #### L 500.2500, L100.0100, L501.5425 ####[facility] [address] [place], [address] Chloride [Moles/Vol] 105 mmol/L Normal 98-107 [facility] Comment on above: Order Comment: 1Y Performed By: #### L 500.2500, L100.0100, L501.5425 ####[facility] [address] [place], [address] CO2 [Moles/Vol] 25.0 mmol/L Normal 21.0-32.0 [facility] Comment on above: Order Comment: 1Y Performed By: #### L 500.2500, L100.0100, L501.5425 ####[facility] [address] [place], [address] Creatinine [Mass/Vol] 0.88 mg/dL Normal 0.70-1.30 [facility] Comment on above: Order Comment: 1Y Result Comment: The validity of the calculated GFR GFRAA in patients over 70 years has not been determined. Clinical correlation is essential. Performed By: #### L 500.2500, L100.0100, L501.5425 ####[facility] [address] [place], [address] ECRCL 59.13 ml/min Normal [facility] Comment on above: Order Comment: 1Y Performed By: #### L 500.2500, L100.0100, L501.5425 ####[facility] [address] [place], [address] EST GFR - AA 108 mL/min Normal >60 [facility] Comment on above: Order Comment: 1Y Result Comment: Afri can Prydeinig GFR Calc Performed By: #### L 500.2500, L100.0100, L501.5425 ####[facility] [address] [place], [address] GAP 8 Normal 5-15 [facility] Comment on above: Order Comment: 1Y Performed By: #### L 500.2500, L100.0100, L501.5425 ####[facility] [address] [place], [address] GFR/1.73 sq M.predicted among non-blacks MDRD (S/P/Bld) [Vol rate/Area] 89 mL/min/{1.73_m2} Normal >60 [facility] Comment on above: Order Comment: 1Y Result Comment: Non- GFR Calc Performed By: #### L 500.2500, L100.0100, L501.5425 ####[facility] [address] [place], [address] Glucose [Mass/Vol] 116 mg/dL High 74-106 [facility] Comment on above: Order Comment: 1Y Result Comment: Fast ing Glucose result from 100 to 125 mg/dL suggests IMPAIRED HOMEOSTASIS per A.D.A. criteria. Performed By: #### L 500.2500, L100.0100, L501.5425 ####[facility] [address] [place], [address] Potassium [Moles/Vol] 4.2 mmol/L Normal 3.5-5.1 [facility] Comment on above: Order Comment: 1Y Performed By: #### L 500.2500, L100.0100, L501.5425 ####[facility] [address] [place], [address] Sodium [Moles/Vol] 138 mmol/L Normal 136-145 [facility] Comment on above: Order Comment: 1Y Performed By: #### L 500.2500, L100.0100, L501.5425 ####[facility] [address] [place], [address] Urea nitrogen [Mass/Vol] 19 mg/dL High 7-18 [facility] Comment on above: Order Comment: 1Y Performed By: #### L 500.2500, L100.0100, L501.5425 ####[facility] [address] [place], [address] CBC W/Diff, Automatedon 06-24 Absolute Lymph 0.66 X10 3/uL Low 0.83-4.51 [facility] Comment on above: Performed By: #### L 500.2500, L100.0100, L501.5425 #### [facility] [address] [place], [address] Absolute Neut 7.2 X10 3/uL Normal 2.0-7.7 [facility] Comment on above: Performed By: #### L 500.2500, L100.0100, L501.5425 #### [facility] [address] [place], [address] Basophils/100 WBC (Bld) 0.5 % Normal 0-1 [facility] Comment on above: Performed By: #### L 500.2500, L100.0100, L501.5425 #### [facility] [address] [place], [address] Eosinophils/100 WBC (Bld) 2.4 % Normal 0-5 [facility] Comment on above: Performed By: #### L 500.2500, L100.0100, L501.5425 #### [facility] [address] [place], [address] Erythrocyte distribution width (RBC) [Ratio] 11.8 % Normal 11.6-14.6 [facility] Comment on above: Performed By: #### L 500.2500, L100.0100, L501.5425 #### [facility] [address] [place], [address] Hematocrit (Bld) [Volume fraction] 47.6 % Normal 40-54 [facility] Comment on above: Performed By: #### L 500.2500, L100.0100, L501.5425 #### [facility] [address] [place], [address] Hemoglobin (Bld) [Mass/Vol] 16.2 g/dL Normal 13.0-16.5 [facility] Comment on above: Performed By: #### L 500.2500, L100.0100, L501.5425 #### [facility] [address] [place], [address] IG% 0.800 Normal 0.0-0.9 [facility] Comment on above: Result Comment: IG% - Immature Granulocytes (promyelocytes, myelocytes and metamyelocytes) > 1% indicates that a LEFT SHIFT is Present. Performed By: #### L 500.2500, L100.0100, L501.5425 #### [facility] [address] [place], [address] Lymphocytes/100 WBC (Bld) 6.9 % Low 19-41 [facility] Comment on above: Performed By: #### L 500.2500, L100.0100, L501.5425 #### [facility] [address] [place], [address] MCH (RBC) [Entitic mass] 33.3 pg High 27.0-32.0 [facility] Comment on above: Performed By: #### L 500.2500, L100.0100, L501.5425 #### [facility] [address] [place], [address] MCHC (RBC) [Mass/Vol] 34.0 g/dL Normal 32-36 [facility] Comment on above: Performed By: #### L 500.2500, L100.0100, L501.5425 #### [facility] [address] [place], [address] MCV (RBC) [Entitic vol] 97.7 fL High 80-94 [facility] Comment on above: Performed By: #### L 500.2500, L100.0100, L501.5425 #### [facility] [address] [place], [address] Monocytes/100 WBC (Bld) 14.6 % High 0-10 [facility] Comment on above: Performed By: #### L 500.2500, L100.0100, L501.5425 #### [facility] [address] [place], [address] Neutrophils/100 WBC (Bld) 74.8 % High 47-70 [facility] Comment on above: Performed By: #### L 500.2500, L100.0100, L501.5425 #### [facility] [address] [place], [address] Nucleated RBC (Bld) [#/Vol] 0 10*3/uL Normal 0-5 [facility] Comment on above: Performed By: #### L 500.2500, L100.0100, L501.5425 #### [facility] [address] [place], [address] Platelet mean volume (Bld) [Entitic vol] 9.9 fL Normal 6.2-12.0 [facility] Comment on above: Performed By: #### L 500.2500, L100.0100, L501.5425 #### [facility] [address] [place], [address] Platelets (Bld) [#/Vol] 213 10*3/uL Normal 150-450 [facility] Comment on above: Performed By: #### L 500.2500, L100.0100, L501.5425 #### [facility] [address] [place], [address] RBC (Bld) [#/Vol] 4.87 10*6/uL Normal 4.6-6.2 [facility] Comment on above: Performed By: #### L 500.2500, L100.0100, L501.5425 #### [facility] [address] [place], [address] RDW SD 42.5 fl Normal 35.1-43.9 [facility] Comment on above: Performed By: #### L 500.2500, L100.0100, L501.5425 #### [facility] [address] [place], [address] WBC (Bld) [#/Vol] 9.6 10*3/uL Normal 4.4-11.0 [facility] Comment on above: Performed By: #### L 500.2500, L100.0100, L501.5425 #### [facility] [address] [place], [address] Chest 1 View (Portable)on Chest 1 View (Portable) [facility] Imaging Services [address] [place] [address] Chest 1 View (Portable) MR#: [id number] Acct: [id number] Name: JANE VALENTINO Rep #: [id number] : 1940 M 82 From: Dinorah Reynolds MD PCP: Dr. Bertha Arndt MD Status: REG ER Study: Chest 1 View (Portable) Date of Exam: 07/20/22 Exam# [id number] Ordering Dr: Hiren Shelton DO STUDY: X-RAY CHEST REASON FOR EXAM: Male, 82 years old. Chest pain TECHNIQUE: Single AP portable view of the chest. COMPARISON: January 15, 2022 chest x-ray FINDINGS: The lungs are hypoinflated compared to prior study. There is no demonstrated pleural abnormality. Sternal cerclage wires are present from a prior sternotomy. Normal mediastinum and evelin. Normal visualized pulmonary arteries. Normal visualized aortic arch and descending thoracic aorta. Normal visualized thoracic spine. Normal visualized ribs, clavicles, and shoulders. There is no demonstrated abnormality of the visualized soft tissue structures of the upper abdomen. RAD/Chest 1 View (Portable) IMPRESSION: Status post sternotomy. No demonstrated acute cardiopulmonary process. The lung bases are mostly obscured. Electronically Signed: Dinorah Reynolds MD at 22:33 EST Reading Location ID and State: Critical access hospital / [place] Tel , Service support , CC: Dr. Bertha Arndt MD; Dr. Hiren Shelton DO Graduate Teacher Education: Signed Normal [facility] L501.5425on 07-21-2022 TROPONIN-I HS 6 pg/mL Normal 3.0-78.0 [facility] Comment on above: Order Comment: 1Y Result Comment: Plea se Note: New Test Units and Gender Specific Reference Ranges. For more information see Policy Stat Procedure [place] High Sensitivity Troponin (TNIH) and attachments. Performed By: #### L 500.2500, L100.0100, L501.5425 ####[facility] [address] [place], [place], [address] Urinalysis, Completeon 07-21 BACTERIA 0 SEEN Normal None Seen [facility] Comment on above: Order Comment: COLLE CTOR TO SPECIFY Performed By: #### L 400.0001 #### [facility] [address] [place], [place], [address] EPI,SQUAMOUS 0 SEEN Normal 0-5 [facility] Comment on above: Order Comment: COLLE CTOR TO SPECIFY Performed By: #### L 400.0001 #### [facility] [address] [place], [address] Mucus Ql (Urine sed) 0 SEEN Normal [facility] Comment on above: Order Comment: COLLE CTOR TO SPECIFY Performed By: #### L 400.0001 #### [facility] [address] [place], [address] RBC 0 SEEN Normal 0-5 [facility] Comment on above: Order Comment: COLLE CTOR TO SPECIFY Performed By: #### L 400.0001 #### [facility] [address] [place], [address] WBC 0 SEEN Normal 0-5 [facility] Comment on above: Order Comment: COLLE CTOR TO SPECIFY Performed By: #### L 400.0001 #### [facility] [address] [place], [address] 12 Lead EKGon 07-20-2022 12 Lead EKG [facility] Cardiovascular Services [address] [facility] [place] [address] 12 Lead EKG 07/20/222105 MR#: [id number] Acct: [id number] Name: JANE VALENTINO Rep #: [id number] : 1940 82 From: Dominique Mehta MD Attending Dr: Status: DEP ER Ordering Dr: Hiren Shelton DO Date: 07/20/22 Location: ED Sex: M C Admitted: Test Reason : CP Blood Pressure : / mmHG Vent. Rate : 089 BPM Atrial Rate : 089 BPM P-R Int : 180 ms QRS Dur : 090 ms QT Int : 330 ms P-R-T Axes : 041 -29 044 degrees QTc Int : 401 ms Normal sinus rhythm Possible Left atrial enlargement Borderline ECG When compared with ECG of 16-MAR-2020 12:37, QRS axis Shifted left QT has shortened Confirmed by ANNIE DUTTON, GALLITO ([id number]), newspaper managing editor DOROTHY AHUMADA ([id number]) on 07/29/2022 12:57:07 PM Referred By: [place] Confirmed By:DANO MEHTA MD 07/29/22 1257 Date Dominique Mehta MD CC: Dr. Bertha Arndt MD; Dr. Hiren Shelton DO Signed Normal [facility] Absolute lymphocyte countOrd ered By: Dr. Shelton on 07-20-2022 Lymphocytes Auto (Unsp spec) [#/Vol] 0.66 10*3/uL 0.83-4.51 [facility] Basophil percentageOrdered B y: Dr. Shelton on 07-20-2022 Basophil percentage 0 SEEN /hpf 0-5 [facility] Basophils/100 WBC (Bld) 0.5 % 0-1 [facility] Chloride [Moles/Vol] 105 mmol/L 98-107 [facility] Eosinophils/100 WBC (Bld) 2.4 % 0-5 [facility] Glucose [Mass/Vol] 116 mg/dL 74-106 [facility] Comment on above: Fasting Glucose resu lt from 100 to 125 mg/dL suggests IMPAIRED HOMEOSTASIS per A.D.A. criteria. Neutrophils (Bld) [#/Vol] 7.2 10*3/uL 2.0-7.7 [facility] Neutrophils/100 WBC (Bld) 74.8 % 47-70 [facility] Potassium [Moles/Vol] 4.2 mmol/L 3.5-5.1 [facility] Sodium [Moles/Vol] 138 mmol/L 136-145 [facility] WBC (Bld) [#/Vol] 9.6 10*3/uL 4.4-11.0 [facility] Bilirubin Test strip Ql (U)O rdered By: Dr. Shelton on 07-20-2022 Bilirubin Ql (U) Negative Negative [facility] Blood erythrocytes count (nu mber/volume)Ordered By: Dr. Shelton on 07-20-2022 RBC (Bld) [#/Vol] 4.87 10*6/uL 4.6-6.2 [facility] Blood hemoglobin measurement (mass/volume)Ordered By: Dr. Shelton on 07-20-2022 Hemoglobin (Bld) [Mass/Vol] 16.2 g/dL 13.0-16.5 [facility] Blood lymphocytes/100 leukoc ytesOrdered By: Dr. Shelton on 07-20-2022 Lymphocytes/100 WBC (Bld) 6.9 % 19-41 [facility] Blood monocytes/100 leukocyt esOrdered By: Dr. Shelton on 07-20-2022 Monocytes/100 WBC (Bld) 14.6 % 0-10 [facility] Blood platelet mean volumeOr dered By: Dr. Shelton on 07-20-2022 Platelet mean volume (Bld) [Entitic vol] 9.9 fL 6.2-12.0 [facility] Brain/Head without Contrasto n 07-20-2022 Brain/Head without Contrast [facility] Imaging Services [address] [place] [address] Brain/Head without Contrast MR#: [id number] Acct: [id number] Name: JANE VALENTINO Rep #: [id number] : 1940 M 82 From: Dinorah Reynolds MD PCP: Dr. Bertha Arndt MD Status: [facility] Study: Brain/Head without Contrast Date of Exam: 06/24 02/12 Exam# [id number] Ordering Dr: Hiren Shelton DO STUDY: CT BRAIN WITHOUT CONTRAST REASON FOR EXAM: Male, 82 years old. Fall, dementia RADIATION DOSAGE (If Supplied By Facility): CTDIvol = ( 44.99 ) mGy, DLP = ( 846.73 ) mGycm TECHNIQUE: Transaxial CT imaging of the brain was performed without administration of intravenous contrast material. Individualized dose optimization techniques were used for this CT. COMPARISON: No relevant priors. FINDINGS: Normal soft tissue structures. Normal calvarium. There is calcification of the right greater than left vertebral arteries. There is calcification of the cavernous carotid arteries. There is moderate cerebral atrophy with widening of the extra-axial spaces and ventricular dilatation. There are areas of decreased attenuation within the white matter tracts of the supratentorial brain, consistent with microvascular disease changes. Normal basal ganglia and thalami. Normal brainstem. There is mild cerebellar atrophy. There is no intracranial hemorrhage. There are no findings of an acute ischemic infarction. Small mucosal retention cyst within the right side sphenoid. CT/Brain/Head without Contrast IMPRESSION: Atrophy. No evidence of acute hemorrhage infarct or edema. Electronically Signed: Dinorah Reynolds MD at 22:32 EST Reading Location ID and State: Critical access hospital / [place] Tel , Service support , CC: Dr. Bertha Arndt MD; Dr. Hiren Shelton DO Graduate Teacher Education: Signed Normal [facility] Determination of erythrocyte mean corpuscular volume (MCV)Ordered By: Dr. Shelton on 07-20-2022 MCV (RBC) [Entitic vol] 97.7 fL 80-94 [facility] Emergency Department Summary on 07-20-2022 Emergency Department Summary [facility] Medical Records Department [address] [place] [id number] Emergency Department Summary 07/20/22 MR#: [id number] Acct: [id number] Name: JANE VALENTINO Rep #: [id number] : 1940 82 From: Hiren Shelton DO PCP: Dr. Bertha Arndt MD Status:REG ER Location: ED HPI History of Present Illness Chief Complaint: Back Narrative Narrative: 82-year-old male here for back pain, chest pain, dental pain. Notes a fall out of bed either Friday or Friday night. This is approximately 5 to 6 days prior to arrival. The patient states he has been having intermittent right-sided chest pain and back pain. Notes diffuse weakness all over. Patient has history of dementia per family provide a lot of history otherwise. They state he just moved into a new memory care unit. States since he got a smaller bed he may have fallen earlier in the week. They deny any personal family history of connective tissue disorder such as [place]-Danlos or Marfan syndrome. Denies focal weakness, lateralizing weakness. Patient's baseline mental status is alert and oriented x2. He denies any vomiting. Denies any diarrhea. Denies any recent surgery, travel, unilateral leg swelling, he denies any history of PE or DVT. [facility] Medical History Arthritis Cataracts, both eyes Chronic bronchitis Heart disease Seasonal allergies Home Medications aspirin 81 mg tablet,delayed release 81 mg PO QDAY 01/06/18 [History Last Taken Unknown] fexofenadine 60 mg-pseudoephedrine ER 120 mg tablet,ext.release,1 2 hr (Mona-D 12 Hour) 1 tab PO Q12H PRN allergies 11/24/19 [History Last Taken Unknown] omeprazole 40 mg capsule,delayed release 40 mg PO QDAY #90 caps 01/05/21 [Rx Last Taken Unknown] rosuvastatin 20 mg tablet (Crestor) 20 mg PO QDAY #90 tabs 03/29/21 [Rx Last Taken Unknown] montelukast 10 mg tablet (Singulair) 10 mg PO DAILY #90 tabs 08/13/21 [Rx Last Taken Unknown] acetaminophen 325 mg capsule (Tylenol) 325 mg PO Q6H PRN pain #120 caps 07/20/22 [Rx Last Taken Unknown] dextromethorphan-gua ifenesin 30 mg-600 mg tablet extended emrmdlv00 hr (Mucinex DM) 1 tab PO Q12H 07/20/22 [History Last Taken Unknown] famciclovir 500 mg tablet 500 mg PO BID 07/20/22 [History Last Taken Unknown] ibuprofen 200 mg tablet 200 mg PO Q6H PRN pain 14 days #56 tabs 07/20/22 [Rx Last Taken Unknown] Allergy/AdvReac Type Severity Reaction Status Date / Time No Known Allergies Allergy Verified 06/18/22 12:56 Family History Mother Arthritis Father Arthritis Heart disease Kidney disease Parkinson disease Daughter Heart disease Brother Heart disease Surgical History history of triple bypass surgery Social History Smoking Status: Never smoker alcohol intake: never substance use type: does not use what type of physical activity do you participate in: walking and bicycling ROS ROS ED ROS Narrative Constitutional: Denies fever HEENT: Denies sore throat Neck: Denies neck pain Cardiovascular: Endorses chest pain Respiratory: Denies shortness of breath GI: Denies nausea vomiting or abdominal pain : Denies changes in urinary habits Musculoskeletal: Endorses back pain Neurologic: Denies numbness weakness or loss of sensation Skin denies rash EXAM Physical Exam Narrative Exam Narrative: Nursing triage notes reviewed, Vital signs reviewed Primary Survey Airway: Intact Breathing: Bilateral breath sounds Circulation: Palpable bilateral femorals, Palpable bilateral radial, Palpable bilateral DP and Palpable bilateral PT Disability / Spine precautions GCS Score: Eye Openin Verbal Response: 5 Motor Response: 6 Secondary Survey Constitutional: Please see MDM Head: Atraumatic, Midface stable, NO jaw malocclusion, No Cephalohematoma, and No Lacerations noted Eye: Pupils equal round and reactive to light, Extraocular muscles intact and No periorbital ecchymosis or stepoff, no evidence of entrapment ENT: Oropharynx clear, no lacerations, no hemotympanum, no raccoon eyes or núñez sign Cervical spine / Neck: No cervical spine bony tenderness, crepitance, or stepoff deformity Trachea midline Lungs: Clear to auscultation, No asymmetric rise and No crepitus, no flail chest Cardiac: Regular rate and rhythm and No murmurs Abdomen: Soft, Nontender and No rebound Pelvis: Pelvis stable to compression : No evidence of genital injury Back: No midline bony tenderness to thoracic/lumbar/sacr al spines Neuro: Alert and oriented x3, neuro exam at baseline, cranial nerves II through XII are intact. No pain with extraocular muscle movement. There is negative test of skew. Normal s (more content not included)... Normal [facility] Hematocrit Auto (Bld) [Volum e fraction]Ordered By: Dr. Shelton on 07-20-2022 Hematocrit (Bld) [Volume fraction] 47.6 % 40-54 [facility] Ketones Test strip Ql (U)Ord ered By: Dr. Shelton on 07-20-2022 Ketones Ql (U) 5 mg/dl Negative [facility] Laboratory - Chemistry and C hemistry - challengeOrdered By: Dr. Shelton on 07-20-2022 CO2 [Moles/Vol] 25.0 mmol/L 21.0-32.0 [facility] Urea nitrogen/Creatinine [Mass ratio] 21.7 mg/mg 10-20 [facility] - Hematology and Cell countsOrdered By: Dr. Shelton on 07-20-2022 Erythrocyte distribution width (RBC) [Entitic vol] 42.5 fL 35.1-43.9 [facility] Erythrocyte distribution width (RBC) [Ratio] 11.8 % 11.6-14.6 [facility] Immature granulocytes/100 WBC (Bld) 0.800 % 0.0-0.9 [facility] Comment on above: IG% - Immature Granu locytes (promyelocytes, myelocytes and metamyelocytes) > 1% indicates that a LEFT SHIFT is Present. MCH (RBC) [Entitic mass] 33.3 pg 27.0-32.0 [facility] Nucleated RBC/100 WBC (Bld) [Ratio] 0 % 0-5 [facility] MCHC Auto (RBC) [Mass/Vol]Or dered By: Dr. Shelton on 07-20-2022 MCHC (RBC) [Mass/Vol] 34.0 g/dL 32-36 [facility] Mucus LM Ql (Urine sed)Order ed By: Dr. Shelton on 07-20-2022 Mucus Ql (Urine sed) 0 SEEN /hpf [facility] Nitrite Test strip Ql (U)Ord ered By: Dr. Shelton on 07-20-2022 Nitrite Ql (U) Negative Negative [facility] No Panel InformationOrdered By: Dr. Shelton on 07-20-2022 Estimated Creatinine Clearance Calc 59.13 ml/min [facility] Estimated GFR (MDRD) Amer 108 mL/min >60 [facility] Comment on above: GFR Calc Estimated GFR (MDRD) Non-Af Amer 89 mL/min >60 [facility] Comment on above: Non- GFR Calc Troponin I High Sensitivity 6 pg/mL 3.0-78.0 [facility] Comment on above: Please Note: New [place] t Units and Gender Specific Reference Ranges. For more information see Policy Stat Procedure [place] High Sensitivity Troponin (TNIH) and attachments. Platelets bldOrdered By: Dr. Shelton on 07-20-2022 Platelets (Bld) [#/Vol] 213 10*3/uL 150-450 [facility] Protein Test strip Ql (U)Ord ered By: Dr. Shelton on 07-20-2022 Protein Ql (U) 15 mg/dl Negative [facility] Serum or plasma calcium barbara urement (mass/volume)Ordered By: Dr. Shelton on 07-20-2022 Calcium [Mass/Vol] 9.0 mg/dL 8.5-10.1 [facility] Serum or plasma creatinine m easurement (mass/volume)Ordered By: Dr. Shelton on 07-20-2022 Creatinine [Mass/Vol] 0.88 mg/dL 0.70-1.30 [facility] Comment on above: The validity of the calculated GFR & GFRAA in patients over 70 years has not been determined. Clinical correlation is essential. Serum or plasma urea nitroge n measurement (mass/volume)Ordered By: Dr. Shelton on 07-20-2022 Urea nitrogen [Mass/Vol] 19 mg/dL 7-18 [facility] Spine Cervical without Contr ason 07-20-2022 Spine Cervical without Contras [facility] Imaging Services [address] [place] [address] Spine Cervical without Contras MR#: [id number] Acct: [id number] Name: JANE VALENTINO Rep #: [id number] : 1940 M 82 From: Dinorah Reynolds MD PCP: Dr. Bertha Arndt MD Status: REG ER Study: Spine Cervical without Contras Date of Exam: 0 07/20/22 Exam# [id number] Ordering Dr: Hiren Shelton DO STUDY: CT CERVICAL SPINE WITHOUT CONTRAST REASON FOR EXAM: Male, 82 years old. Fall, neck pain RADIATION DOSAGE (If Supplied By Facility): CTDIvol = ( 23.49 ) mGy, DLP = ( 520.73 ) mGycm TECHNIQUE: High resolution transaxial imaging was performed without contrast material. Sagittal and coronal images were reconstructed. Individualized dose optimization techniques were used for this CT. COMPARISON: None FINDINGS: Normal craniovertebral junction. There are degenerative changes of the anterior atlantoaxial articulation. Normal odontoid process. Normal cervical lordosis. Normal vertebral bodies and posterior osseous elements. C2-3: Normal endplates. Normal disc height and morphology. Normal central canal and intervertebral neuroforamina. C3-4: There is facet arthropathy. There is mild neural foramina narrowing or significant central stenosis. There is dense calcification of the bilateral carotid bulbs. C4-5: There is disc space narrowing facet arthropathy mild neural foramina narrowing no significant central stenosis. C5-6: There is disc space narrowing facet arthropathy minimal neural foramina narrowing no significant central stenosis. C6-7: There is disc space narrowing. There is mild neural foramina narrowing no significant central stenosis. C7-T1: Normal endplates. Normal disc height and morphology. Normal central canal and intervertebral neuroforamina. Normal visualized soft tissue structures. CT/Spine Cervical without Contras IMPRESSION: Degenerative change of the cervical spine no visualized acute fracture. Electronically Signed: Dinorah Reynolds MD at 22:46 EST Reading Location ID and State: Critical access hospital / [place] Tel , Service support , CC: Dr. Bertha Arndt MD; Dr. Hiren Shelton DO Graduate Teacher Education: Signed Normal [facility] Spine Lumbar without Contras ton 07-20-2022 Spine Lumbar without Contrast [facility] Imaging Services [address] [place] [address] Spine Lumbar without Contrast MR#: [id number] Acct: [id number] Name: JANE VALENTINO Rep #: [id number] : 1940 M 82 From: Dinorah Reynolds MD PCP: Dr. Bertha Arndt MD Status: REG ER Study: Spine Lumbar without Contrast Date of Exam: Exam# [id number] Ordering Dr: Hiren Shelton DO STUDY: CT LUMBAR SPINE WITHOUT CONTRAST REASON FOR EXAM: Male, 82 years old. Fall, back pain RADIATION DOSAGE (If Supplied By Facility): CTDIvol = ( 17.83 ) mGy, DLP = ( 602.86 ) mGycm TECHNIQUE: The patient was scanned in a multi detector CT scanner. High resolution transaxial imaging was performed. Images were obtained from to . Sagittal and coronal images were reconstructed. Individualized dose optimization techniques were used for this CT. COMPARISON: None FINDINGS: Normal lumbar lordosis. There is no substantial scoliosis. Chronic appearing 50% loss of height at the level of L1 with kyphoplasty material. L1-2: Normal endplates. Normal disc height and morphology. Normal bilateral facet joints. Normal central canal and bilateral lateral recesses. Normal bilateral intervertebral neural foramina. L2-3: There is facet arthropathy with minimal right neural foramina narrowing no significant central stenosis L3-4: There is facet arthropathy with mild neural foramina narrowing no significant central stenosis. L4-5: There is a broad disc bulge mild neural foramina narrowing mild central stenosis facet arthropathy. L5-S1: There is a broad left lateral disc bulge with moderate left neural foramina narrowing no significant central stenosis. There has been a laminectomy. The prostate is enlarged. The bladder is distended. There is diverticulosis without diverticulitis. There is partial visualization of cysts seen in the bilateral kidneys also described on the dedicated thoracic spine performed the same day. There is a small cluster of stones within the left kidney measuring 4.3 and 2.[address]/Spine Lumbar without Contrast IMPRESSION: Degenerative change, no visualized fracture. Prior laminectomy L5-S1. Prostate enlargement measuring up to 4.2 x 6.4 cm. Distended bladder Diverticulosis no visualized diverticulitis. Stones in the left kidney no hydronephrosis. As seen on that the thoracic spine CT there are bilateral benign-appearing renal cysts. Electronically Signed: Dinorah Reynolds MD at 22:54 EST , CC: Dr. Bertha Arndt MD; Dr. Hiren Shelton DO Graduate Teacher Education: Signed Normal [facility] Spine Thoracic without Contr ason 07-20-2022 Spine Thoracic without Contras [facility] Imaging Services [address] [place] [address] Spine Thoracic without Contras MR#: [id number] Acct: [id number] Name: JANE VALENTINO Rep #: [id number] : 1940 M 82 From: Dinorah Reynolds MD PCP: Dr. Bertha Arndt MD Status: REG ER Study: Spine Thoracic without Contras Date of Exam: 0 07/20/22 Exam# [id number] Ordering Dr: Hiren Shelton DO STUDY: CT THORACIC SPINE WITHOUT CONTRAST REASON FOR EXAM: Male, 82 years old. Fall, back pain RADIATION DOSAGE (If Supplied By Facility): CTDIvol = ( 32.57 ) mGy, DLP = ( 1548.64 ) mGycm TECHNIQUE: The patient was scanned in a multi detector CT scanner. High resolution imaging was performed. Images were obtained from C7 to L1. Sagittal and coronal images were reconstructed. Individualized dose optimization techniques were used for this CT. COMPARISON: None. FINDINGS: There is mild multilevel endplate spondylosis of the cervical spine. Multilevel facet arthropathy within the cervical spine. There is visualize calcification of the carotid arteries. Normal kyphosis of the thoracic spine. There is no substantial scoliosis. There is mild multilevel endplate spondylosis of the thoracic spine. There is multilevel mild disc space narrowing. There is no apparent acute loss of height or alignment. There is a visualized compression injury at the level of L1 with kyphoplasty material. There are punctate stones within the left kidney without visualized hydronephrosis. There is a partially visualized this right kidney measuring 2.9 x 2.5 cm. There is an exophytic cyst left kidney measuring 2.3 x 1.5 cm. T9 there is slight loss of height which appears to be associated with a Schmorl''s node or chronic findings. There is visualized mild cardiomegaly. There is dense calcification in the left anterior descending coronary artery. CT/Spine Thoracic without Contras IMPRESSION: Degenerative change at the cervical and thoracic spine without visualized acute loss of height or alignment. Prior Kyphoplasty compression injury at L1. Incidental visualization of dense calcification of the coronary arteries. Especially the left anterior descending. Electronically Signed: Dinorah Reynolds MD at 22:50 EST Reading Location ID and State: Critical access hospital / [place] Tel , Service support , CC: Dr. Bertha Arndt MD; Dr. Hiren Shelton DO Graduate Teacher Education: Signed Normal [facility] Squamous epithelial cells de tection in urine sediment by light microscopyOrdered By: Dr. Shelton on 07-20-2022 Epithelial cells.squamous LM Ql (Urine sed) 0 SEEN /hpf 0-5 [facility] Thin prep Papanicolaou smear with manual screeningOrdered By: Dr. Shelton on 07-20-2022 Thin prep Papanicolaou smear with manual screening 8 5-15 [facility] Urine blood detectionOrdered By: Dr. Shelton on 07-20-2022 RBC Ql (U) 25 /ul Negative [facility] RBC Ql (U) 0 SEEN /hpf 0-5 [facility] Urine clarityOrdered By: Dr. Shelton on 07-20-2022 Clarity (U) Clear Clear [facility] Urine color determinationOrd ered By: Dr. Shelton on 07-20-2022 Color (U) Yellow Yellow [facility] Urine glucose detectionOrder ed By: Dr. Shelton on 07-20-2022 Glucose Ql (U) Normal mg/dl Normal [facility] Urine leukocyte esterase det ection by dipstickOrdered By: Dr. Shelton on 07-20-2022 Leukocyte esterase Test strip Ql (U) 25 /ul Negative [facility] Urine pHOrdered By: Dr. Cynthia velásquez on 07-20-2022 pH (U) 6.0 [pH] 5.0 - 8.0 [facility] Urine sediment bacteria coun t by microscopy (number/high power field)Ordered By: Dr. Shelton on 07-20-2022 Bacteria LM.HPF (Urine sed) [#/Area] 0 /[HPF] None Seen [facility] Urine specific gravity measu rementOrdered By: Dr. Shelton on 07-20-2022 Specific gravity (U) [Rel density] 1.015 1.002-1.030 [facility] Urobilinogen Auto test strip Ql (U)Ordered By: Dr. Shelton on 07-20-2022 Urobilinogen Ql (U) 1 mg/dl Normal [facility] Internal Medicine Office Vis iton 06-18-2022 Internal Medicine Office Visit [facility] [address] [place] [address] [place] [address] OFFICE VISIT Date of Service: 06/18/22 MR#: [id number] Acct: [id number] Name: JANE VALENTINO Rep #: [id number] : 1940 Provider: Dr. Kely vick, DO Age/Sex: 82/M Location: [facility] Status: Signed Intake Intake Visit Reasons: 3 M FU Chief Complaint: 3 m f/u Is patient in pain?: No Allergies No Known Allergies Allergy (Verified 06/18/22 12:56) Medications aspirin 81 mg tablet,delayed release 81 mg PO QDAY 01/06/18 [History Confirmed 03/13/22] fexofenadine 60 mg-pseudoephedrine ER 120 mg tablet,ext.release,1 2 hr (Mona-D 12 Hour) 1 tab PO Q12H PRN 11/24/19 [History Confirmed 03/13/22] omeprazole 40 mg capsule,delayed release 40 mg PO QDAY #90 caps 01/05/21 [Rx Confirmed 03/13/22] sildenafil 50 mg tablet 50 mg PO DAILY PRN sexual activity #30 tabs 02/14/21 [Rx Confirmed 03/13/22] rosuvastatin 20 mg tablet (Crestor) 20 mg PO QDAY #90 tabs 03/29/21 [Rx Confirmed 03/13/22] metoprolol tartrate 25 mg tablet 25 mg PO DAILY PRN 05/09/21 [History Confirmed 03/13/22] montelukast 10 mg tablet (Singulair) 10 mg PO DAILY #90 tabs 08/13/21 [Rx Confirmed 03/13/22] celecoxib 200 mg capsule (Celebrex) 200 mg PO QDAY #90 caps 09/19/21 [Rx Confirmed 03/13/22] promethazine-DM 6.25 mg-15 mg/5 mL oral syrup 5 ml PO Q6H PRN cough #118 mL 03/13/22 [Rx Confirmed 03/13/22] zolpidem 5 mg tablet (Ambien) 5 mg PO QHS PRN insomnia #30 tabs 03/13/22 [Rx Confirmed 03/13/22] famciclovir 500 mg tablet 500 mg PO BID #90 tabs 05/15/22 [Rx] PFSH Medical History Arthritis Cataracts, both eyes Chronic bronchitis Heart disease Seasonal allergies Surgical History history of triple bypass surgery Family History Mother Arthritis Father Arthritis Heart disease Kidney disease Parkinson disease Daughter Heart disease Brother Heart disease Social History Smoking Status: Never smoker alcohol intake: never substance use type: does not use what type of physical activity do you participate in: walking and bicycling HPI HPI Chief Complaint: 3 m f/u Details: JANE VALENTINO, is a 82 M who presents to the office today for a follow-up on his memory loss problems. In the past we have tried to wean him off the Ambien. He has been rather resistant to weaning off but recently he has been hallucinating when he takes the Ambien. His had him off of the Ambien for 4 days and when he demanded to be put back on it even at half the dose he started hallucinating again. She says his memory problems seem to be unchanged. ROS Const Constitutional: Positive for abnormal sleep pattern; No excessive sweating, fatigue, frequent falls, headache(s), snoring or weakness Eyes Eyes: No blurry vision, change in vision or Light sensitivity ENT ENT: No abnormal hearing, ear or mastoid pain, tinnitus, nasal congestion, nasal discharge, headache(s), neck pain or sore throat Resp Respiratory: No cough, shortness of breath, snoring or wheezing Cardio Cardiology: No chest pain at rest, chest pain with exertion, excessive sweating, shortness of breath, dyspnea on exertion, lightheadedness, orthopnea or palpitations Gastro GI: No abdominal pain, change in bowel habits, constipation, cramping, diarrhea or nausea/dyspepsia Genitourinary Male: No burning urination, painful urination, urinary incontinence or urinary frequency Musc Musculoskeletal: No abnormal gait, joint pain, back pain, limited range of motion, muscle weakness, neck pain or numbness Skin Skin: No dry skin, redness, lesions, itchy eyes, rash or wounds Neuro Neurology: No abnormal gait, abnormal hearing, weakness, frequent falls, headache(s), memory loss or numbness Psych Psychiatric: Positive for abnormal sleep pattern, No memory loss and Positive for hallucinations Endo Endocrine: No cold intolerance, excessive sweating, fatigue, flushing, heat intolerance, increased thirst/drinking or increased hunger Aller/Imm Allergy/Immunologic: No itchy eyes, seasonal allergy symptoms, hives or wheezing Exam Const General: cooperative and healthy appearing Nutritional Appearance: average body habitus [facility] Head: normal to inspection Ears: hearing grossly normal bilaterally Nose: external nose normal Face and sinus: normal facial exam Mouth: oral mucosae normal Teeth and gingiva: dentition normal Other: Neck circumference 44 cm, Mallampati 2 Eyes General: appearance normal, both eyes and all related structures Resp Effort Inspection: normal respiratory effort and cough Quality of cough: dry Auscultation: Bilateral: Clear to Auscultation Cardio Rate: regular rate Rhythm: reg (more content not included)... Normal [facility] Absolute lymphocyte counton 01-22-2022 Lymphocytes Auto (Unsp spec) [#/Vol] 1.03 10*3/uL 0.83-4.51 [facility] Work Phone: Basophil percentageon 2021 Basophils/100 WBC (Bld) 1.0 % 0-1 [facility] Work Phone: Chloride [Moles/Vol] 106 mmol/L 98-107 [facility] Work [facility]: [phone] Eosinophils/100 WBC (Bld) 8.5 % 0-5 [facility] Work Phone: Glucose [Mass/Vol] 98 mg/dL 74-106 [facility] Work Phone: [phone] Neutrophils (Bld) [#/Vol] 4.7 10*3/uL 2.0-7.7 [facility] Work Phone: [phone] Neutrophils/100 WBC (Bld) 64.0 % 47-70 [facility] Work Phone: [phone] Potassium [Moles/Vol] 4.6 mmol/L 3.5-5.1 [facility] Work Phone: [phone] Sodium [Moles/Vol] 138 mmol/L 136-145 [facility] Work Phone: [phone] WBC (Bld) [#/Vol] 7.3 10*3/uL 4.4-11.0 [facility] Work Phone: Blood erythrocytes count (nu mber/volume)on 01-22-2022 RBC (Bld) [#/Vol] 4.79 10*6/uL 4.6-6.2 [facility] Work Phone: [phone] Blood hemoglobin measurement (mass/volume)on 01-22-2022 Hemoglobin (Bld) [Mass/Vol] 16.4 g/dL 13.0-16.5 [facility] Work Phone: [phone] Blood lymphocytes/100 leukoc yteson 01-22-2022 Lymphocytes/100 WBC (Bld) 14.1 % 19-41 [facility] Work Phone: Blood monocytes/100 leukocyt eson 01-22-2022 Monocytes/100 WBC (Bld) 12.0 % 0-10 [facility] Work Phone: Blood platelet mean volumeon 01-22-2022 Platelet mean volume (Bld) [Entitic vol] 9.9 fL 6.2-12.0 [facility] Work Phone: Determination of erythrocyte mean corpuscular volume (MCV)on 01-22-2022 MCV (RBC) [Entitic vol] 97.5 fL 80-94 [facility] Work Phone: Hematocrit Auto (Bld) [Volum e fraction]on 01-22-2022 Hematocrit (Bld) [Volume fraction] 46.7 % 40-54 [facility] Work Phone: Laboratory - Chemistry and C hemistry - challengeon 01-22-2022 CO2 [Moles/Vol] 30.0 mmol/L 21.0-32.0 [facility] Work Phone: Urea nitrogen/Creatinine [Mass ratio] 21.8 mg/mg 10-20 [facility] Work Phone: Laboratory - Hematology and Cell countson 01-22-2022 Erythrocyte distribution width (RBC) [Entitic vol] 43.8 fL 35.1-43.9 [facility] Work Phone: Erythrocyte distribution width (RBC) [Ratio] 12.1 % 11.6-14.6 [facility] Work Phone: Immature granulocytes/100 WBC (Bld) 0.400 % 0.0-0.9 [facility] Work Phone: Comment on above: IG% - Immature Granu locytes (promyelocytes, myelocytes and metamyelocytes) > 1% indicates that a LEFT SHIFT is Present. MCH (RBC) [Entitic mass] 34.2 pg 27.0-32.0 [facility] Work Phone: Nucleated RBC/100 WBC (Bld) [Ratio] 0 % 0-5 [facility] Work Phone: MCHC Auto (RBC) [Mass/Vol]on 01-22-2022 MCHC (RBC) [Mass/Vol] 35.1 g/dL 32-36 [facility] Work Phone: No Panel Informationon 01-22 Estimated GFR (MDRD) Amer 91 mL/min >60 [facility] Work Phone: Comment on above: GFR Calc Estimated GFR (MDRD) Non-Af Amer 75 mL/min >60 [facility] Work Phone: Comment on above: Non- GFR Calc Thyroid Stimulating Hormone (TSH) 1.01 uIU/mL 0.358-3.74 [facility] Work Phone: Platelets bldon 01-22-2022 Platelets (Bld) [#/Vol] 180 10*3/uL 150-450 [facility] Work Phone: Serum or plasma calcium barbara urement (mass/volume)on 01-22-2022 Calcium [Mass/Vol] 9.1 mg/dL 8.5-10.1 [facility] Work Phone: Serum or plasma creatinine m easurement (mass/volume)on 01-22-2022 Creatinine [Mass/Vol] 1.01 mg/dL 0.70-1.30 [facility] Work Phone: Comment on above: The validity of the calculated GFR & GFRAA in patients over 70 years has not been determined. Clinical correlation is essential. Serum or plasma urea nitroge n measurement (mass/volume)on 01-22-2022 Urea nitrogen [Mass/Vol] 22 mg/dL 7-18 [facility] Work Phone: Thin prep Papanicolaou smear with manual screeningon 01-22-2022 Thin prep Papanicolaou smear with manual screening 2 5-15 [facility] Work Phone: CNOVon 09-10-2021 CNOV Office Visit (UROLMD) JANE VALENTINO ([id number]) 1940 M DEF Date Time Provider Department 09/10/21 1:00 PM JEISON RIVERS During your visit today, we recorded the following information about you: Weight Height 72.6 kg 1.702 m Jeison Rivers MD 09/10/2021 1:45 PM Signed [facility] UROLOGY ESTABLISHED PATIENT CLINIC NOTE PATIENT INFO: Jane Valentino PCP: Kely Mancilla DO, UROLOGY DIAGNOSES: 1. 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 Unsure if he is taking Cialis 5mg daily, says is in charge of pills No erections Urine stream stable No gross hematuria Prev Note: Atrophic R testicle, multiple pelvic surgeries, pt cant give specific details Check T labs - Pt request call with results ? Start Cialis 5mg daily, has failed other PDE5s RTO 4-6 weeks to discuss TRT if needed PMHx/PSHx: see above, otherwise unchanged Rx: reviewed and unchanged ROS: see above, otherwise unchanged Labs: Component Latest Ref Rng AND Units 06/25/2021 07/13/2021 Testosterone 240 - 950 ng/dL Unable to assay. No specimen received. 477 Testosterone Free 2.88 - 10.5 ng/dL Unable to assay. No specimen received. 11.0 (H) LH 1.8 - 10.8 mU/mL 8.1 Prolactin 4.0 - 15.2 ng/mL 6.0 TSH 0.270 - 4.200 uU/mL 1.480 Imaging: None MEDICATIONS: Current Outpatient Medications Medication Sig - Tadalafil (CIALIS) 5 mg tablet Take 1 pill daily - zolpidem (AMBIEN) 10 mg - rosuvastatin (CRESTOR) 20 mg tablet - omeprazole (PRILOSEC) 40 mg capsule 40 mg. - montelukast (SINGULAIR) 10 mg tablet 10 mg. - celecoxib (CELEBREX) 200 mg capsule - aspirin, enteric coated (ASPIRIN, ENTERIC COATED) 81 mg EC tablet Take by mouth. No current facility-administere d medications for this visit. PHYSICAL EXAM: Ht 170.2 cm (5' 7) Wt 72.6 kg (160 lb) BMI 25.06 kg/m? Body mass index is 25.06 kg/m?. General: Well masculinized, well nourished male Psych: euthymic, NAD Neuro: AANDOx3 DIAGNOSES: 1. 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, ICD10: N40.1, N13.8 IMPRESSION/PLAN: T labs reviewed - WNL Unsure if he started Cialis 5mg or not New script given Discussed GONZALO, ICI and IPP, pt not interested F/u PRN Jeison Rivers MD Referring Provider: JEISON RIVERS [[id number]] Allergies As of Date: 09/10/2021 (No Known Allergies) Date Reviewed: 09/10/2021 Reviewed by: Onel Singh Ma - Fully Assessed Reason for Visit: Follow Up [171] Cmt: Impotence Primary Visit Diagnosis:Impotence of organic origin [N52.9] Other Visit Diagnosis:BPH with obstruction/lower urinary tract symptoms [N40.1, N13.8] Order(s):Tadalafil (CIALIS) 5 mg tabletTake 1 pill dailyDisp: 90 tabletRfl: 3 Prescriptions as of 09/10/2021 - Tadalafil (CIALIS) 5 mg tablet Take 1 pill daily - zolpidem (AMBIEN) 10 mg - rosuvastatin (CRESTOR) 20 mg tablet - omeprazole (PRILOSEC) 40 mg capsule 40 mg. - montelukast (SINGULAIR) 10 mg tablet 10 mg. - celecoxib (CELEBREX) 200 mg capsule - aspirin, enteric coated (ASPIRIN, ENTERIC COATED) 81 mg EC tablet Take by mouth. Problem List As Of Date: 09/10/2021 (None) Prescriptions ordered this encounter Disp Refills Start End TADALAFIL 5 MG TABLET 90 t* 3 09/10/2021 Class: Print RX Sig: Take 1 pill daily Medications Discontinued During This Encounter Prescriptions - Tadalafil (CIALIS) 5 mg tablet (Discontinued) Take 1 pill daily Encounter Status:Closed by JEISON RIVERS on 09/10/21 [facility] Erin 07-23-2021 CNPN Telephone (UROLMD) JANE VALENTINO ([id number]) 1940 M [facility] Date Time Provider Department 07/23/21 JEISON RIVERS [facility] During your visit today, we recorded the following information about you: Charisma Watts RN 07/23/2021 10:46 AM Signed ----- Message from Jeison Rivers MD sent at 07/22/2021 9:07 AM EST ----- Please let pt know his testosterone is very good. In fact his free T is higher then normal. He does not need to be started on TRT. Thanks Charisma Watts RN 07/23/2021 10:53 AM Signed Patient made aware of message. Aware of plan of care. No other questions. Encounter closed. Will follow up in August for discussion of having he is doing on the Cialis. Allergies As of Date: 07/23/2021 (No Known Allergies) Date Reviewed: 06/25/2021 Reviewed by: Onel Singh Ma - Fully Assessed Reason for Visit: Results [95] Prescriptions as of 07/23/2021 - zolpidem (AMBIEN) 10 mg - rosuvastatin (CRESTOR) 20 mg tablet - omeprazole (PRILOSEC) 40 mg capsule 40 mg. - montelukast (SINGULAIR) 10 mg tablet 10 mg. - celecoxib (CELEBREX) 200 mg capsule - aspirin, enteric coated (ASPIRIN, ENTERIC COATED) 81 mg EC tablet Take by mouth. - Tadalafil (CIALIS) 5 mg tablet Take 1 pill daily Problem List As Of Date: 07/23/2021 (None) Encounter Status:Closed by CHARISMA WATTS RN on 07/23/21 Normal [facility] Testosterone, Tot/Fron 07-13 Testosterone [Mass/Vol] 477 ng/dL Normal 240-950 C [facility] Comment on above: Result Comment: (NOT E) ADDITIONAL INFORMATION Testing performed by Liquid Chromatography-Tandem Mass Spectrometry (LC-MS/MS). This test was developed and its performance characteristics determined by [facility] in a manner consistent with CLIA requirements. This test has not been cleared or approved by the U.S. Food and Drug Administration. Performed By: #### T FTEST #### [facility] [address] [place] [id number] Testosterone, Free 11.0 ng/dL High 2.88-10.[address] [facility] Comment on above: Result Comment: (NOT E) ADDITIONAL INFORMATION Testing performed by [facility]. This test was developed and its performance characteristics determined by [facility] in a manner consistent with CLIA requirements. This test has not been cleared or approved by the U.S. Food and Drug Administration. Performed By: #### T FTEST #### [facility] [address] [place] [address] CNPAmy 07-12-2021 CNPN Telephone (UROLinda) JANE VALENTINO ([id number]) 1940 M [facility] Date Time Provider Department 07/12/21 JEISON RIVERS During your visit today, we recorded the following information about you: Charisma Watts RN 07/12/2021 3:01 PM Signed ----- Message from Jeison Rivers MD sent at 07/12/2021 2:00 PM EST ----- Please let pt know that the lab did not run his testosterone level. He will need to get it repeated.Thanks Charisma Watts RN 07/12/2021 3:11 PM Signed Patient made aware of message. Aware of plan of care. No other questions. Encounter closed. Allergies As of Date: 07/12/2021 (No Known Allergies) Date Reviewed: 06/25/2021 Reviewed by: Onel Singh Ma - Fully Assessed Reason for Visit: Missed lab, aware fo redraw needed [Other] Prescriptions as of 07/12/2021 - zolpidem (AMBIEN) 10 mg - rosuvastatin (CRESTOR) 20 mg tablet - omeprazole (PRILOSEC) 40 mg capsule 40 mg. - montelukast (SINGULAIR) 10 mg tablet 10 mg. - celecoxib (CELEBREX) 200 mg capsule - aspirin, enteric coated (ASPIRIN, ENTERIC COATED) 81 mg EC tablet Take by mouth. - Tadalafil (CIALIS) 5 mg tablet Take 1 pill daily Problem List As Of Date: 07/12/2021 (None) Encounter Status:Closed by CHARISMA WATTS RN on 07/12/21 [facility] CNZachary 06-25-2021 CNOV Office Visit (DOROTEOLMLinda) JANE VALENTINO ([id number]) 1940 M [place] Date Time Provider Department 06/25/21 10:30 AM JEISON RIVERS During your visit today, we recorded the following information about you: Weight Height 74.8 kg 1.702 m Jeison Rivers MD 06/25/2021 11:02 AM Signed [facility] UROLOGY NEW PATIENT CLINIC NOTE PATIENT INFO: Jane Valentino (81 year old) Referred by: SELF 06/25/2021 UROLOGY DIAGNOSES: 1. 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, ICD10: N40.1, N13.8 CHIEF COMPLAINT: ED HPI: 81 year old, male presents for evaluation of ED for 1 year Sudden onset No success with Viagra or Cialis Pt has multiple pelvic surgeries, he is unable to give specific details, very poor historian Family Hx: No malignancy Weak stream SEXUAL SYMPTOMS: Number of Years of Sexual Dysfunction: 1 Progressive Dysfunction: No Decreased Libido: No Quality of Erection: Rigidity: 0 % Ability to Maintain: Decreased Orgasm: Normal Unable to achieve Ejaculation: Normal Absent Nocturnal/A.M. Erections: Decreased Masturbatory Erections: Decreased Penile Curvature: No Curvature/Deviation: No Prior Treatment for Sexual Dysfunction: -oral medications, not satisfied with treatment Symptom Scores: ANGEL Score: 5 (Scores range from 1 to 25) A score of 20 or higher suggest a normal degree of erectile functioning. Low scores (10 or less) suggest moderate to severe ED. PMH: None PSH: See above SH: Social History Tobacco Use - Smoking status: Never Smoker - Smokeless tobacco: Never Used Vaping Use - Vaping Use: Never used Substance Use Topics - Alcohol use: Never - Drug use: Never FH: No family history on file. REVIEW OF SYSTEMS: Review of Systems: Constitutional: No weakness, fever/chills, unexplained weight change Psychiatric: Stable mood Skin: No rashes or lesions HEENT: No blurred vision or double vision. No severe or worsening headaches. Sense of smell intact Neck: No masses or pain Chest: No shortness of breath or cough. No history of recurrent pneumonia, bronchitis, or sinustitis. CVS: No chest pains or palpatations. No history of cardiovascular disease. GI: No nausea, vomiting or abdominal pain Neurologic: No weakness or sensory changes : see above Musculoskeletal: Stable All other systems reviewed and noncontributory Allergy: Patient has no known allergies. MEDICATIONS: Current Outpatient Medications Medication Sig Dispense Refill - zolpidem (AMBIEN) 10 mg - rosuvastatin (CRESTOR) 20 mg tablet - omeprazole (PRILOSEC) 40 mg capsule 40 mg. - montelukast (SINGULAIR) 10 mg tablet 10 mg. - celecoxib (CELEBREX) 200 mg capsule - aspirin, enteric coated (ASPIRIN, ENTERIC COATED) 81 mg EC tablet Take by mouth. - Tadalafil (CIALIS) 5 mg tablet Take 1 pill daily 90 tablet 3 No current facility-administere d medications for this visit. PHYSICAL EXAM: Ht 170.2 cm (5' 7) Wt 74.8 kg (165 lb) BMI 25.84 kg/m? Body mass index is 25.84 kg/m?. General Appearance/ Constitutional: Well developed, well nourished, and in no apparent distress HEENT: Normal Neck: Lymph Nodes: Normal Cardiac: Normal Breast: Not examined Pulmonary: Ascultation: Not examined Effort: Normal GI: Soft, Non-tender, Non-distended and Costovertebral angle tenderness absent Peripheral Vascular: Not examined Extremities: Cyanosis absent, Clubbing absent and Edema absent Skin: Normal Neurologic: Normal, Grossly non-focal, Alert and oriented and Affect appropriate (MALE): Penis: Normal without external lesions Testicles: Abnormal: Atrophic right testicle Scrotum: Normal No results found for: PSA, PSAPER DIAGNOSES: 1. 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, ICD10: N40.1, N13.8 IMPRESSION/PLAN: Atrophic R testicle, multiple pelvic surgeries, pt cant give specific details Check T labs - Pt request call with results Start Cialis 5mg daily, has failed other PDE5s RTO 4-6 weeks to discuss TRT if needed Jeison Rivers MD Referring Provider: SELF [200] Allergies As of Date: 06/25/2021 (No Known Allergies) Date Reviewed: 06/25/2021 Reviewed by: Onel Singh Ma - Fully Assessed Reason for Visit: Erectile Dysfunction [339] Primary Visit Diagnosis:Impotence of organic origin [N52.9] Other Visit Diagnoses:Atrophic testicle [N50.0] BPH with obstruction/lower urinary tract symptoms [N40.1, N13.8] Order(s):UA DIP, URINE (POC) [[id number]] Order #: [id number] #:[id number] LUTEI (more content not included)... Normal [facility] LHon 06-25-2021 LH 8.1 mU/mL Normal 1.8-10.8 [facility] Comment on above: Performed By: #### L H, PROL #### [place] [phone] #### TSH #### [place] [address] Prolactinon 06-25-2021 Prolactin 6.0 ng/mL Normal 4.0-15.2 [facility] Comment on above: Performed By: #### L H, PROL #### [facility] [employer] [facility] [place] [phone] #### TSH #### [facility] [address] [place], [place] [phone] TSHon 06-25-2021 TSH Qn 1.480 m[IU]/L Normal 0.270-4.200 [facility] Comment on above: Performed By: #### L H, PROL #### [place] [phone] #### TSH #### [facility] [address] [place], [place] [id number] Testosterone, Tot/Fron 06-25 Testosterone, Free Unable to assay. No specimen received. Normal [facility] Comment on above: Result Comment: Acco unt Credited Performed By: #### T FTEST #### [facility] [address] [place], [place] [id number] Testosterone, Total Unable to assay. No specimen received. Normal [facility] Comment on above: Result Comment: Acco unt Credited Performed By: #### T FTEST #### [facility] [address] [place], [place] [phone] Vital Signs Date Time Vital Sign Value Performing Clinician Faci lity 10-19-2023 14:52-0400 Body temperature 97.7 [degF] FABRICE FOX MD [facility] 10-19-2023 14:52-0400 Diastolic Blood Pressure Non-Invasive 71 mm[Hg] FABRICE FOX MD [address] [place] [address] 10-19-2023 14:52-0400 Heart rate 54 /min FABRICE FOX MD [address] [place] [address] 10-19-2023 14:52-0400 Respiratory rate 18 /min FABRICE FOX MD [facility] 10-19-2023 14:52-0400 Systolic Blood Pressure Non-Invasive 148 mm[Hg] FABRICE FOX MD [facility] 05-29-2023 15:00-0500 Body temperature 98.9 [degF] Dr. Bertha Arndt Work Phone: [facility] 05-29-2023 15:00-0500 Diastolic blood pressure 63 mm[Hg] Dr. Bertha Arndt Work Phone: [facility] 05-29-2023 15:00-0500 Heart rate 58 /min Dr. Bertha Arndt Work Phone: [facility] 05-29-2023 15:00-0500 Respiratory rate 16 /min Dr. Bertha Arndt Work Phone: [facility] 05-29-2023 15:00-0500 SaO2% (BldA) [Mass fraction] 94 % Dr. Bertha Arndt Work Phone: [facility] 05-29-2023 15:00-0500 Systolic blood pressure 104 mm[Hg] Dr. Bertha Arndt Work Phone: [facility] 05-28-2023 20:42-0500 Body height 175.[address] Bertha Arndt Work Phone: [facility] 05-28-2023 20:42-0500 Body mass index (BMI) [Ratio] 26.1 kg/m2 Dr. Bertha Arndt Work Phone: 1([phone] [address] 05-28-2023 20:42-0500 Body weight [address] Bertha Arndt Work Phone: 6(562)[phone] [address] 05-28-2023 19:30-0500 Inhaled oxygen flow rate 2 L/min Dr. Bertha Arndt Work Phone: [facility] 05-28-2023 12:00-0500 Diastolic blood pressure 77 mm[Hg] Dr. Bertha Arndt Work Phone: 7(660)[phone] [address] 05-28-2023 12:00-0500 Heart rate 66 /min Dr. Bertha Arndt Work Phone: 7(846)[phone] [place] [address] 05-28-2023 12:00-0500 Respiratory rate 18 /min Dr. Bertha Arndt Work Phone: [facility] 05-28-2023 12:00-0500 SaO2% (BldA) [Mass fraction] 98 % Dr. Bertha Arndt Work Phone: [facility] 05-28-2023 12:00-0500 Systolic blood pressure 136 mm[Hg] Dr. Bertha Arndt Work Phone: [facility] 05-28-2023 06:59-0500 Body height 175.[address] Bertha Arndt Work Phone: [facility] 05-28-2023 06:59-0500 Body mass index (BMI) [Ratio] 24.9 kg/m2 Dr. Bertha Arndt Work Phone: [facility] 05-28-2023 06:59-0500 Body temperature 97.1 [degF] Dr. Bertha Arndt Work Phone: [facility] 05-28-2023 06:59-0500 Body weight 76.[address] Bertha Arndt Work Phone: [facility] 04-27-2023 22:00-0500 Diastolic blood pressure 61 mm[Hg] [facility] 04-27-2023 22:00-0500 Systolic blood pressure 124 mm[Hg] [facility] 04-27-2023 20:29-0500 Heart rate 60 /min [facility] 04-27-2023 20:29-0500 Respiratory rate 19 /min [facility] 04-27-2023 20:29-0500 SaO2% (BldA) [Mass fraction] 97 % [facility] 04-27-2023 18:17-0500 Body height 172.72 cm [facility] 04-27-2023 18:17-0500 Body mass index (BMI) [Ratio] 25.2 kg/m2 [facility] 04-27-2023 18:17-0500 Body temperature 96.6 [degF] [facility] 04-27-2023 18:17-0500 Body weight 75.11 kg [facility] 07-20-2022 23:00-0500 Diastolic blood pressure 83 mm[Hg] Dr. Kely Mancilla Work Phone: [facility] 07-20-2022 23:00-0500 Heart rate 78 /min Dr. Kely Mancilla Work Phone: [facility] 07-20-2022 23:00-0500 Respiratory rate 20 /min Dr. Kely Mancilla Work Phone: [facility] 07-20-2022 23:00-0500 SaO2% (BldA) [Mass fraction] 98 % Dr. Kely Mancilla Work Phone: [facility] 07-20-2022 23:00-0500 Systolic blood pressure 135 mm[Hg] Dr. Kely Mancilla Work Phone: [facility] 07-20-2022 20:55-0500 Body height 172.[address] Kely Mancilla Work Phone: [facility] 07-20-2022 20:55-0500 Body mass index (BMI) [Ratio] 21.2 kg/m2 Dr. Kely Mancilla Work Phone: [facility] 07-20-2022 20:55-0500 Body temperature 97.1 [degF] Dr. Kely Mancilla Work Phone: [facility] 07-20-2022 20:55-0500 Body weight 63.[address] Kely Mancilla Work Phone: [facility] 06-18-2022 13:05-0500 Body mass index (BMI) [Ratio] 26.7 kg/m2 Dr. Kely aMncilla Work Phone: [facility] 06-18-2022 13:05-0500 Body temperature 97.9 [degF] Dr. Kely Mancilla Work Phone: [facility] 06-18-2022 13:05-0500 Body weight 77.[address] Kely Mancilla Work Phone: [facility] 06-18-2022 13:05-0500 Diastolic blood pressure 84 mm[Hg] Dr. Kely Mancilla Work Phone: [facility] 06-18-2022 13:05-0500 Heart rate 75 /min Dr. Kely Mancilla Work Phone: [facility] 06-18-2022 13:05-0500 Respiratory rate 16 /min Dr. Kely Mancilla Work Phone: [facility] 06-18-2022 13:05-0500 SaO2% (BldA) [Mass fraction] 100 % Dr. Kely Mancilla Work Phone: [facility] 06-18-2022 13:05-0500 Systolic blood pressure 142 mm[Hg] Dr. Kely Mancilla Work Phone: [facility] 03-13-2022 13:09-0400 Body height 170.[address] Kely Mancilla Work Phone: [facility] Work Phone: 03-13-2022 13:09-0400 Body mass index (BMI) [Ratio] 25.5 kg/m2 Dr. Kely Mancilla Work Phone: [facility] Work Phone: 03-13-2022 13:09-0400 Body temperature 98.1 [degF] Dr. Kely Mancilla Work Phone: [facility] Work Phone: 03-13-2022 13:09-0400 Body weight 73.[address] Kely Mancilla Work Phone: [facility] Work Phone: 03-13-2022 13:09-0400 Diastolic blood pressure 86 mm[Hg] Dr. Kely Mancilla Work Phone: [facility] Work Phone: 03-13-2022 13:09-0400 Heart rate 75 /min Dr. Kely Mancilla Work Phone: [facility] Work Phone: 03-13-2022 13:09-0400 Respiratory rate 14 /min Dr. Kely Mancilla Work Phone: [facility] Work Phone: 03-13-2022 13:09-0400 SaO2% (BldA) [Mass fraction] 99 % Dr. Kely Mancilla Work Phone: [facility] Work Phone: 03-13-2022 13:09-0400 Systolic blood pressure 128 mm[Hg] Dr. Kely Mancilla Work Phone: [facility] Work Phone: Encounters Encounter Date Encounter Type Care Provider Facility Start: 10-19-2023 End: 10-19-2023 Emergency department patient visit KELY MANCILLA DO Facility:A Start: 10-19-2023 End: 10-19-2023 Emergency department patient visit FABRICE FOX MD [facility] Start: 05-29-2023 Non-patient / Non-visit Dr. Merrill Arndt Work Phone: [facility] Start: 05-28-2023 End: 05-29-2023 ambulatory [facility] Facility:[facility] Start: 05-28-2023 End: 05-29-2023 Evaluation and management of inpatient Dr. Bertha Arndt Work Phone: [facility] Work Phone: Start: 05-28-2023 End: 05-29-[address] Bertha Arndt Work Phone: [facility] Work Phone: Start: 05-28-2023 Admission to [facility] surgery [place] Dr. Bertha Arndt Work Phone: [facility] Start: 05-28-[address] Bertha vernon Work Phone: [facility] Work Phone: Start: 05-28-2023 ambulatory [facility] Facilit y:[facility] Start: 05-28-2023 Non-patient / Non-visit Dr. Merrill Arndt Work Phone: [facility] Start: 04-27-2023 End: 04-28-2023 Emergency department patient visit Emelina Justice Facility:[facility] Start: 04-27-2023 End: 04-27-2023 Emergency department patient visit [facility] Work Phone: Start: 04-11-2023 End: 04-11-2023 ambulatory Bertha Velezjaneen [facility] Work Phone: Start: 04-11-2023 End: 04-11-2023 Departed [facility] Start: 02-27-2023 End: 02-27-2023 ambulatory Bertha Hernandez Yris Facility:[facility] Start: 02-27-2023 End: 02-27-2023 Departed [facility] Start: 09-05-2022 End: 09-05-[address] Kely Mancilla Work Phone: [facility] Work Phone: Start: 09-05-2022 End: 09-05-[address] Kely Mancilla Work Phone: [facility] Start: 07-25-2022 End: 07-25-[address] Kely Mancilla Work Phone: [facility] Work Phone: Start: 07-25-2022 End: 07-25-[address] Kely Mancilla Work Phone: [facility] Start: 07-20-2022 End: 07-21-2022 Emergency department patient visit Bertha Arndt Facility:[facility] Start: 07-20-2022 End: 07-21-2022 Emergency department patient visit Dr. Kely Mancilla Work Phone: [facility] Start: 06-18-2022 End: 06-18-2022 ambulatory Kely Mancilla Facility:[facility] Start: 06-18-2022 End: 06-18-[address] Kely Mancilla Work Phone: [facility] Start: 03-25-2022 Non-patient / Non-visit Dr. Hernandez Work Phone: [facility] Start: 03-25-2022 End: 03-25-[address] Kely Mancilla Work Phone: [facility] Work Phone: Start: 03-25-2022 End: 03-25-[address] Kely Mancilla Work Phone: [facility] Start: 03-13-2022 End: 03-13-[address] Kely Mancilla Work Phone: [facility] Start: 01-22-2022 End: 01-22-[address] Kely Mancilla Work Phone: [facility] Start: 04-18-2021 End: 04-18-2021 Patient encounter procedure LESA MAX MD [facility] Procedures Date Procedure Procedure Detail Performing Clinician Start: 05-28-[address] Bertha patton Work Phone: Start: 05-28-2023 Fluoroscopic guidance Linda Arndt Work Phone: Start: 05-28-2023 Total cholecystectom y and exploration of common bile duct Dr. Bertha Arndt Work Phone: Start: 05-28-2023 US scan of gallbladder Dr. Bertha Arndt Work Phone: Start: 05-28-2023 CT of abdomen and pe lvis without contrast Dr. Bertha Arndt Work Phone: Start: 04-27-2023 CT of thorax, abdome n and pelvis with contrast Start: 07-20-2022 Plain chest X-ray Dr. Linda Mancilla Work Phone: Start: 07-20-2022 Computed tomography of thoracic spine without contrast Dr. Kely Mancilla Work Phone: Start: 07-20-2022 CT cervical spine wi thout contrast Dr. Kely Mancilla Work Phone: Start: 07-20-2022 CT of head without contrast Dr. Kely Mancilla Work Phone: Start: 07-20-2022 CT of lumbar spine Dr. Kely Mancilla Work Phone: Start: 03-23-2021 Echocardiography FABRICE FOX MD Comment on above: Summary: 1. Left ventricle: The cavity size is at the lower limits of normal. Wall thickness is mildly increased. Concentric Left Ventricular Hypertrophy Systolic function is normal. The estimated ejection fraction is 55-60%. Wall motion is normal; there are no regional wall motion abnormalities. 2. Aortic valve: Thickening, consistent with sclerosis. 3. Mitral valve: There is mild regurgitation. 4. Right ventricle: The RV systolic pressure by Doppler is 17 mm Hg. 5. Inferior vena cava: The IVC is normal-sized. Start: 03-17-2019 Cardiovascular stres s test using treadmill LESA MAX MD Comment on above: IMPRESSION: 1. No evidence of inducible ischemia or prior myocardial infarction. 2. Abnormal septal motion with normal left ventricle systolic function, calculated LVEF 59%. 3. Inferior diaphragmatic attenuation artifact noted. 4. No prior study available for comparison. Start: 07-02-2004 Coronary artery bypa ss graft operation planned LESA MAX MD Comment on above: X3 - COELOH TO LATERAL CIRCUMFLEX, MICHAEL TO LEFT ANTERIOR DESCENDING, SAPHENOUS VEIN GRAFT TO THE PDA Start: 06-23-1998 Percutaneous translu siddhartha coronary angioplasty LESA MAX MD Comment on above: LAD Left inguinal hernia (disorder) LESA MAX MD Plan of Treatment Date Care Activity Detail Author Start: 05-29-2023 Patient discharge [facility] Start: 05-28-2023 Application of intermittent pneumatic compression device [facility] Start: 05-28-2023 Following clinical pathway protocol [facility] Start: 05-28-2023 Ambulation without limitation [facility] Start: 05-28-2023 Assessment of risk of venous thromboembolism [facility] Start: 05-28-2023 Incentive spirometry [facility] Start: 05-28-2023 Insertion of catheter into peripheral vein [facility] Start: 05-28-2023 Measuring intake and output [facility] Start: 05-28-2023 Oxygen therapy [facility] Start: 05-28-2023 Preoperative care [facility] Start: 05-28-2023 Providing care according to standard [facility] Start: 05-28-2023 Referral to service [facility] Start: 05-28-2023 [facility] Start: 05-28-2023 Total cholecystectomy and exploration of common bile duct Laparoscopic, Cholecystectomy with IOC (Not Applicable) [facility] Start: 05-28-2023 Cholangiogram Cholangiogram/ O R,Initial [facility] Start: 05-28-2023 Fluoroscopic guidance O.R. Fluoro for C-Arm [facility] Start: 05-28-2023 Verification routine [facility] Start: 05-28-2023 Admission procedure [facility] Start: 05-28-2023 Hospital admission, emergency, from emergency room, medical nature [facility] Patient Education [facility] Work Phone: Patient referral [facility] Work Phone: Immunizations Immunization Date Immunization Notes Care Provider Fa cility 03-19-2022 Meme Kolb Bivale nt Booster Dr. Bertha Arndt Work Phone: [facility] 03-19-2022 Influenza High-Dose Quadrivalent Dr. Bertha Arndt Work Phone: [facility] 10-30-2021 Covid (Moderna) Dr. Bertha vernon Work Phone: [facility] 04-24-2021 influenza, injectabl e, quadrivalent, preservative free [facility] 04-24-2021 influenza, seasonal, injectable Dr. Kely Mancilla Work Phone: [facility] 04-13-2021 Covid (Moderna) Dr. Bertha vernon Work Phone: [facility] 08-30-2020 Barbaraid (Moderna) Dr. Bertha vernon Work Phone: [facility] 08-03-2020 Barbaraid (Moderna) Dr. Bertha vernon Work Phone: [facility] 02-29-2020 Influenza High-Dose Quadrivalent Dr. Bertha Arndt Work Phone: [facility] 06-17-[address] Kely Mancilla Work Phone: [facility] 06-17-[address] Bertha Arndt Work Phone: [facility] 03-01-2019 influenza, high dose seasonal, preservative-free Dr. Bertha Arndt Work Phone: [facility] 03-01-2019 influenza, injectabl e, quadrivalent, preservative free [facility] 03-01-2019 influenza, seasonal, injectable Dr. Kely Mancilla Work Phone: [facility] 01-18-[address] Bertha Arndt Work Phone: [facility] 03-29-2015 influenza, injectabl e, quadrivalent, preservative free Dr. Bertha Arndt Work Phone: [facility] Payers Date Payer Category Payer Self-pay [id number] 2022 Medicare [id number] 2022 Unknown [id number] 1940 Unknown [id number] 2.16.8 [id number] Private Health Insurance [id number] Unknown [id number] 2.16.8 [id number] Unknown [id number] 2.16.8 [id number] Unknown [id number] 2.16.8 [id number] Unknown [id number] 2.16.8 [id number] Unknown [id number] 2.16.8 [id number] Unknown [id number] 2.16.8 [id number] Unknown [id number] 2.16.8 [id number] Unknown [id number] 2.16.8 [id number] Unknown [id number] 2.16.8 [id number] Unknown [id number] 2.16.8 [id number] Social History Date Type Detail Facility Start: 09-02-2019 Ex-smoker (finding) [facility] Start: 1940 Sex Assigned At Male A [facility] Start: 01-22-2022 End: 05-28-2023 Tobacco smoking status NHIS Unknown if ever smoked [facility] Medical Equipment Procedure Code Equipment Code Equipment Original Text Equipment Identifier Dates Total cholecystectomy with exploration of common bile duct Ligation clip, synthetic polymer, non-bioabsorbable [id number] [facility] Start: 05-28-2023 Goals Date Patient Goal Desired Activity /State Functional Status Date Assessment Result Facility 05-29-2023 Functional status Ambulates;Chair [facility] Work Phone: Mental Status Date Assessment Result Facility 05-29-2023 Cognitive function Level Of Cons ciousness Awake;Alert;Appropriate;Follow s Commands [facility] Work Phone: 05-29-2023 Cognitive function Voice/Name [facility] Work Phone: Clinical Notes 06-25-2021 to 10-19-2023 Note Date & Type Note Facility 10-19-2023 Note ORIGINAL EXAMINATION: ONE XRAY VIEW OF THE CHEST 10/19/2023 3:12 pm COMPARISON: None. HISTORY: ORDERING SYSTEM PROVIDED HISTORY: Reason for Exam: chest pain FINDINGS: The cardiomediastinal silhouette demonstrates a normal appearance status post prior CABG. No consolidative opacity is identified. There is no pleural effusion or pneumothorax. No free air seen beneath the level of the diaphragm. The bony thorax appears acutely intact. IMPRESSION: No evidence of an acute process. Interpreted by: Christopher Geller MD Preliminary Report By: Christopher Geller MD Electronically signed By Christopher Geller MD Dictated Date: 10/19/2023 3:15:59 PM Prelim Date: 10/19/2023 3:16:19 PM Sign Date: 10/19/2023 3:16:19 PM Ordering Provider: [facility] 10-19-2023 Note SINUS RHYTHM BORDERLINE T WAVE ABNORMALITIES Electronic Signature: FABRICE FOX MD 10/19/2023 23:01:41 [facility] 05-29-2023 Discharge summary Note Date/Time May 29, 2023 11:55am [facility] Medical Records Department [address] [place] [address] Instructions for Home/Discharge Instructions 05/29/23 1155 MR#: [id number] Acct: [id number] Name: JANE VALENTINO Rep #:[id number] : 1940 83 From: Dorothy BONILLA PA-C PCP: Dr. Bertha Arndt MD Status:ADM THEO Discharge Instructions Diet Discharge Diet: Light diet - advance as tolerated Activity Discharge Activity: May Shower Lifting Restrictions: No lifting greater than 10 pounds for 2 weeks Dressing / Incision Call your doctor if your incision/area has: Continuous Slow Oozing, Sudden Increased Bleeding, Increased Pain/ Swelling, Increased Redness, Foul Smelling Discharge and Swelling at the incision site Call your doctor if you observe: Fever of 101 or Higher Remove Dressing in: 2 days Cleanse incision/area with: Soap & Water Additional Dressing/Incision Instructions:: Remove steri-strips in 1 week from surgery Follow Up Care Please Follow Up With: Christen Mcbride MD When: Please call to schedule an appointment to follow-up in 2 weeks from surgery Test Results: Test results from this visit will be discussed in further detail at your follow-up appointment, if applicable. Discharge Plan Admission Admit Date/Time: 05/28/23 15:22 Primary Reason for Your Visit: Acute cholecystitis Attending Provider: Christen Mcbride Primary Care Provider: Bertha Arndt Instructions Additional Instructions / Restrictions: Cholecystectomy Diet ? Start light with soups and soft bland foods. You may advance diet as tolerated. Activity ? I encourage walking. You may go up steps, one at a time. ? Do not swim or use hot tubs for 2 weeks. ? For comfort, you may use warm compresses or ice as needed for 15-20 minutes darren time. Lifting ? You may lift up to 10 pounds for the first 2 weeks. You may advance to 20 pounds for the next 2 weeks. Dressings/Incision ? You may shower OVER your plastic dressings ? Do NOT tub bathe for 1 week ? Leave plastic dressings on for 3 days. ? When plastic dressings are removed, you will find steri strips. It is okay to continue showering with them in place, pat them dry. ? You may remove steri-strips after 1 week. We recommend getting them soaking wet for easier removal. Medications ? Anesthesia used during surgery and pain medications may cause constipation. I recommend initiating on the day of surgery a fiber supplement like, Metamucil, Citrucel, FiberCon, Benefiber, or a generic form of these medications. 1 heapingtablespoon in water daily. You may continue to utilize any bowel regimen or orallaxatives that you routinely take. ? As long as you are not intolerant to Tylenol, acetaminophen, ibuprofen, Motrin, Advil, Aleve, or similar medications, I would recommend transitioning tothese onmm-thd-ijotzkz medicines as soon as possible instead of continued use ofnarcotic pain medication. Follow up ? You should call [facility] soon after surgery, at [phone] option 1 to make a follow up appointment for 14 days after your surgery. Discharge Orders/Prescriptions Prescriptions: Continued aspirin 81 mg tablet,delayed release (DR/EC) 81 mg PO QDAY famciclovir 500 mg tablet 500 mg PO BID Mucinex DM 30-600 mg Tablet Extended Release 12 Hr 1 tab PO Q12H acetaminophen [Tylenol] 325 mg capsule 325 mg PO Q6H PRN (Reason: pain) Qty: 120 0RF celecoxib 200 mg capsule 200 mg PO Q24H fexofenadine [Mona Allergy] 180 mg tablet 180 mg PO DAILY escitalopram oxalate [Lexapro] 5 mg tablet 5 mg PO DAILY quetiapine 50 mg tablet 50 mg PO QHS hydroxyzine pamoate 25 mg capsule 25 mg PO Q8H PRN (Reason: anxiety) cholecalciferol (vitamin D3) [Vitamin D3] 125 mcg (5,000 unit) tablet 125 mcg PO DAILY ibuprofen 200 mg tablet 200 mg PO Q4H PRN (Reason: pain) omeprazole 40 mg capsule,delayed release(DR/EC) 40 mg PO QDAY Qty: 90 3RF rosuvastatin [Crestor] 20 mg tablet 20 mg PO QDAY Qty: 90 3RF Referrals / Follow Up: Bertha Arndt MD [Primary Care Provider] - Christen Mcbride MD [Med Staff - Active Staff] - (Follow-up in 2 weeks with . Please call our office to schedule.) Disposition Disposition (needs filled in before D/C Order can be placed): [facility] 05/29/23 1157<Electronically signed by Dorothy BONILAL PA-C>Dorothy BONILLA PA-C CC: Dr. Bertha Arndt MD ~ Signed [facility] Work Phone: 1(827) 552-926812-07-2023 Procedure [facility] 05-29-2023 Progress note Author Dorothy [facility] May 29, 2023 8:43am Note Date/Time May 29, 2023 8 :34am [facility] Medical Records Department [address] [place] [address] Progress Note - Surgery 05/29/23 0832 MR#: [id number] Acct: [id number] Name: JANE VALENTINO Rep #:[id number] : 1940 83 From: Dorothy BONILLA PA-C PCP: Dr. Bertha Arndt MD Status:ADM THEO Location: [place] [address]1 Subjective Subjective Patient is evaluated resting comfortably in bed. Patient dneies nausea, vomiting, fever. He notes his RQU pain has improved. He states it is not completely gone. Patient was lethargic this morning. he was answering questions appropriately however would not open his eyes. Objective Data Objective Data Vital Signs: Vital Signs Temp Pulse Resp BP Pulse Ox O2 Del Method O2 Flow Rate 98.1 F 62 18 144/73 H 96 Room Air 2 05/29/23 05:47 05/29/23 05:47 05/29/23 05:47 05/29/23 05:47 05/29/23 05:47 05/29/23 05:47 05/28/23 19:30 Oxygen Flow Rate (L/min) 2 Oxygen Delivery Method Room Air Weight: 176 lb 5.917 oz Body Mass Index (BMI) 26.1 Intake & Output: Intake and Output for Last 24 Hours 05/27/23 05/28/23 05/29/23 23:59 23:59 23:59 Intake Total 204.75 / 204.75 955 / 955 Balance 204.75 / 204.75 955 / 955 Lab / Micro Data 05/29/23 07:30 05/28/23 07:22 Labs: Laboratory Results - last 24 hr 05/28/23 09:37: Urine Color Yellow, Urine Clarity Sl. Cloudy, Urine pH 6.5, Ur Specific [place] 1.010, Urine Protein Negative, Urine Glucose (UA) Normal, UrineKetones Negative, Urine Occult Blood Negative, Urine Nitrite Negative, Urine Bilirubin Negative, Urine Urobilinogen 1 H, Ur Leukocyte Esterase 25 H, Urine RBC 0 SEEN, Urine WBC 0-5 SEEN, Ur Squamous Epith Cells 0-5 SEEN, Urine Bacteria0 SEEN, Urine Mucus 0 SEEN 05/29/23 07:30: WBC 10.0, RBC 3.92 L, Hgb 13.3, Hct 40.1, MCV 102.3 H, MCH 33.9 H, MCHC 33.2, RDW Std Deviation 45.6 H, RDW Coeff of Solitario 12.1, Plt Count 110 L, MPV 9.8, Immature Gran % (Auto) 0.400, Neut % (Auto) 77.7 H, Lymph % (Auto) 7.6 L, Cocke % (Auto) 11.2 H, Eos % (Auto) 2.8, Baso % (Auto) 0.3, Absolute Neuts (auto) 7.7, Absolute Lymphs (auto) 0.76 L, Nucleated RBC % 0 Radiography Diagnostic Testing: Radiology Impression Abdomen/Pelvis CT 05/28/23 07:10 IMPRESSION: No obstructive uropathy, or suspicious solid renal lesion. There are stable nonobstructing stones in stable cysts, no specific follow-up needed. The gallbladder is slightly more distended on current exam than when compared to the previous study of April. Additionally, there is wall thickening and pericholecystic fluid with stable gallstones. No biliary dilatation is noted. Findings nonetheless suggests cholecystitis and surgical consultation is recommended along with correlation with lab results and physical exam Scattered colonic diverticula, no CT evidence of acute diverticulitis Electronically Signed: Jae Phillips MD at 8:37 EST , Gallbladder Ultrasound 05/28/23 07:42 IMPRESSION: The gallbladder is distended with multiple gallstones and echogenic sludge and a positive Mckinley sign. However, there is only borderline gallbladder wall thickening, no pericholecystic fluid, and no biliary dilatation is noted. Findings are suggestive of acute cholecystitis, especially with similar findings noted on the CT scan from earlier today. Surgical consultation recommended Simple right renal cysts, no specific follow-up needed Electronically Signed: Jae Phillips MD at 9:30 EST , Cholangiogram 05/28/23 16:15 IMPRESSION: Negative intraoperative cholangiogram. Electronically Signed: Wilmar Stearns MD at 18:10 EST , Physical Exam GI GI Narrative: Abdomen- soft, slight tenderness at the incision sites in the RUQ. Incisions c/d/i. No active oozing or bleeding noted. Bowel sounds present. Assessment & Plan Assessment/Plan (1) Acute cholecystitis: PLAN: I am following this patient in conjunction with Dr. Mcbride. I have discussed my findings and treatment plan with her. Patient lethargic this morning possibly due to oxycodone provided for pain. I will not be discharging patient to [place] with oxycodone. I am recommending that they alternate between Tylenol and ibuprofen for pain as needed. I have communicated these instructions in the discharge instructions. I will contact nursing around lunch time to obtain a progress report prior to placing a discharge order. Charges/Coding Visit Charges Inpatient E&M: 44049 Subs Hosp L1 (post-op; no charge) 05/29/23 0843 <Electronically signed by Dorothy BONILLA PA-C> Cosigner Signature (if applicable): CC: ~ Signed [facility] Work Phone: 1(166) 114-472612-07-2023 Discharge summary Author Sha Jacome [facility] May 29, 2023 8:30am Note Date/Time May 28, 2023 7 :15am [facility] Medical Records Department [address] [place] [address] Emergency Department Summary 05/28/23 MR#: [id number] Acct: [id number] Name: JANE VALENTINO Rep #:[id number] : 1940 83 From: Sha Can PCP: Dr. Bertha Arndt MD Status:ADM THEO Location: [place] [address] HPI History of Present Illness Chief Complaint: Flank Pain Informant: patient and spouse/S.O. Narrative Narrative: 83-year-old male presenting to the emergency department with abdominal pain. Patient was seen in the emergency room approximately 4 weeks ago and diagnosed with a distal 8 mm ureteral stone which he passed. states that he has beenfine until last evening when he began to complain of a mid to right abdominal pain. Is been intermittent in nature. Nothing seems to make it better or worse. In between episodes of pain he states he does not have any symptoms. Hedenies any nausea vomiting, urinary symptoms, or change in stool. No reported fevers. No new medications since last ED visit. Patient denies any prior abdominal surgeries. No history of colitis or diverticulitis. PFSH [facility] Medical History Arthritis Cataracts, both eyes Chronic bronchitis Heart disease Memory deficit Seasonal allergies Home Medications aspirin 81 mg tablet,delayed release 81 mg PO QDAY 01/06/18 [History Last Taken Unknown] omeprazole 40 mg capsule,delayed release 40 mg PO QDAY #90 caps 01/05/21 [Rx Last Taken Unknown] rosuvastatin 20 mg tablet (Crestor) 20 mg PO QDAY #90 tabs 03/29/21 [Rx Last Taken Unknown] acetaminophen 325 mg capsule (Tylenol) 325 mg PO Q6H PRN pain #120 caps 07/20/22[Rx Last Taken Unknown] dextromethorphan-guaifenesin 30 mg-600 mg tablet extended ofzsdsw16 hr (Mucinex DM) 1 tab PO Q12H 07/20/22 [History Last Taken Unknown] famciclovir 500 mg tablet 500 mg PO BID 07/20/22 [History Last Taken Unknown] celecoxib 200 mg capsule 200 mg PO Q24H 04/27/23 [History Last Taken Unknown] cholecalciferol (vitamin D3) 125 mcg (5,000 unit) tablet (Vitamin D3) 125 mcg PODAILY 04/27/23 [History Last Taken Unknown] escitalopram oxalate 5 mg tablet (Lexapro) 5 mg PO DAILY 04/27/23 [History Last Taken Unknown] fexofenadine 180 mg tablet (Mona Allergy) 180 mg PO DAILY 04/27/23 [History Last Taken Unknown] hydroxyzine pamoate 25 mg capsule 25 mg PO Q8H PRN anxiety 04/27/23 [History Last Taken Unknown] ibuprofen 200 mg tablet 200 mg PO Q4H PRN pain 04/27/23 [History Last Taken Unknown] quetiapine 50 mg tablet 50 mg PO QHS 04/27/23 [History Last Taken Unknown] Allergy/AdvReac Type Severity Reaction Status Date / Time No Known Allergies Allergy Verified 05/28/23 06:59 Family History Mother Arthritis Father Arthritis Heart disease Kidney disease Parkinson disease Daughter Heart disease Brother Heart disease Surgical History history of triple bypass surgery Social History Smoking Status: Never smoker alcohol intake: never substance use type: does not use what type of physical activity do you participate in: walking and bicycling ROS ROS ED Constitutional Constitutional ED: Denies chills, fever(s) or weight loss Eyes Eyes: Denies change in vision or diplopia ENT ENT ED: Denies ear pain, rhinorrhea or sore throat Cardiovascular Cardiovascular: Denies chest pain, orthopnea, palpitations or racing heartbeat Respiratory/Chest Respiratory/Chest: Denies cough, dyspnea or orthopnea Gastrointestinal Gastrointestinal: Reports abdominal pain; Denies diarrhea, nausea or vomiting Genitourinary Genitourinary ED: Denies dysuria, hematuria or urinary frequency Musculoskeletal Musculoskeletal: Denies arthralgias or myalgias Integumentary Denies abscess or rash Neurologic Neurologic: Denies headache(s) or weakness Psychiatric Psychiatric: Denies anxiety, depression, suicidal ideation or suicidal thoughts Endocrine Endocrinology: Denies polydipsia, polyphagia or polyuria Allergic/Immunologic Allergic/Immunologic ED: Denies mouth swelling, tongue swelling or urticaria EXAM Physical Exam Const Vital Signs: 05/28/23 06:59 05/28/23 09:00 Temperature 97.1 F L Temperature Source Temporal Pulse Rate 99 Respiratory Rate 15 Blood Pressure 117/90 H 123/76 H Blood Pressure Mean 99 91 Pulse Ox 95 Positive well nourished and well developed General Appearance ED: well developed HEENT Reports normocephalic, head/scalp atraumatic and moist mucous membranes Eyes PERRL and EOMs intact bilaterally Neck no lymphadenopathy, supple and no JVD Resp normal respiratory effort and clear to auscultation bilaterally Cardio regular rate, regular rhythm and no murmurs GI Inspection: Negative for abdominal distention Auscultation: normoactive bowel sounds Palpation: soft and tender RLQ and periumbilical Back/Spine no CVA tenderness and normal ROM Extremity normal to inspection General Extremety ED: Negative for edema General Extremity: Negative for edema Neuro oriented x3 and CN's II-XII intact bilaterally Sensorium / Orientation: alert Motor Exam: strength 5/5 throughout Psych mental status grossly normal Mood & Affect: Negative for depressed or tearful Skin no rashes or lesions noted and no wounds MDM MDM MDM Narrative Medical decision making narrative: White count elevated at 13.3. Direct bilirubin elevated 2.3 and direct bilirubin 0.25. Transaminases and alk phos normal. Lipase normal. Urinalysis shows no overt infection. CT of the abdomen pelvis demonstrates a distended gallbladder with possible wall thickening and pericholecystic fluid. A formal gallbladder ultrasound was ordered.This was a positive Mckinley's with cholelithiasis. No obvious pericholecystic fluid was seen on the ultrasound. Patient was discussed with on- call surgeon Dr. Mcbride. Patient received a doseof Zosyn and plan will be admission. Patient does not wish any pain medication at the current time stating that he is not in pain unless he pushes on his abdomen History & Record Review Discussion w/independent historian: Patient and Family Additional record(s) reviewed:: Prior inpatient record, Prior outpatient record,Prior ED visit and Prior labs Lab Data Attestation: I reviewed the patient's lab results. Labs: Laboratory Results - last 24 hr 05/28/23 05/28/23 07:22 09:37 WBC 13.3 H RBC 4.44 L Hgb 15.1 Hct 44.8 MCV 100.9 H MCH 34.0 H MCHC 33.7 RDW Std Deviation 45.5 H RDW Coeff of Solitario 12.1 Plt Count 151 MPV 10.4 Immature Gran % (Auto) 1.000 H Neut % (Auto) 79.1 H Lymph % (Auto) 4.7 L Cocke % (Auto) 11.0 H Eos % (Auto) 3.8 Baso % (Auto) 0.4 Absolute Neuts (auto) 10.6 H Absolute Lymphs (auto) 0.63 L Nucleated RBC % 0 Sodium 133 L Potassium 4.8 Chloride 107 Carbon Dioxide 23.0 Anion Gap 3 L BUN 22 H Creatinine 0.96 Estim Creat Clear Calc 59.33 Est GFR (MDRD) Af Amer 96 Est GFR (MDRD) Non-Af 79 BUN/Creatinine Ratio 22.8 H Glucose 118 H Calcium 8.8 Total Bilirubin 2.30 H Direct Bilirubin 0.25 AST 31 ALT 25 Alkaline Phosphatase 54 Total Protein 6.9 Albumin 3.3 Globulin 3.6 Albumin/Globulin Ratio 0.9 Lipase 32 Urine Color Yellow Urine Clarity Sl. Cloudy Urine pH 6.5 Ur Specific [place] 1.010 Urine Protein Negative Urine Glucose (UA) Normal Urine Ketones Negative Urine Occult Blood Negative Urine Nitrite Negative Urine Bilirubin Negative Urine Urobilinogen 1 H Ur Leukocyte Esterase 25 H Urine RBC 0 SEEN Urine WBC 0-5 SEEN Ur Squamous Epith Cells 0-5 SEEN Urine Bacteria 0 SEEN Urine Mucus 0 SEEN Radiography Diagnostic Testing: Clinical Impression(s) from Imaging Studies Abdomen/Pelvis CT 05/28/23 07:10 IMPRESSION: No obstructive uropathy, or suspicious solid renal lesion. There are stable nonobstructing stones in stable cysts, no specific follow-up needed. The gallbladder is slightly more distended on current exam than when compared to the previous study of April. Additionally, there is wall thickening and pericholecystic fluid with stable gallstones. No biliary dilatation is noted. Findings nonetheless suggests cholecystitis and surgical consultation is recommended along with correlation with lab results and physical exam Scattered colonic diverticula, no CT evidence of acute diverticulitis Electronically Signed: Jae Phillips MD at 8:37 EST , Gallbladder Ultrasound 05/28/23 07:42 IMPRESSION: The gallbladder is distended with multiple gallstones and echogenic sludge and a positive Mckinley sign. However, there is only borderline gallbladder wall thickening, no pericholecystic fluid, and no biliary dilatation is noted. Findings are suggestive of acute cholecystitis, especially with similar findings noted on the CT scan from earlier today. Surgical consultation recommended Simple right renal cysts, no specific follow-up needed Electronically Signed: Jae Phillips MD at 9:30 EST , EKG Initial EKG: Attestation: I personally reviewed and interpreted this EKG as follows: Comments: Normal sinus rhythm with a ventricular rate of 73 bpm. 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 Call [facility] ([phone]) or report to the closest Emergency Room. Call 911 if necessary. 05/29/23 0830 <Electronically signed by Sha Jacome DO> Cosigner Signature (if applicable): CC: Dr. Bertha Arndt MD ~ Signed [facility] Work Phone: 1(173) 512-452212-06-2023 History and physical note Author [facility] May 28, 2023 3:17pm Note Date/Time May 28, 2023 1 0:49am [facility] Medical Records Department [address] [place] [address] History & Physical Exam 05/28/23 1042 MR#: [id number] Acct: [id number] Name: JANE VALENTINO Rep #:[id number] : 1940 83 From: Dorothy BONILLA PAJemC PCP: Dr. Bertha Arndt MD Status:REG [facility] Location: [facility] HPI - General General Date of Admission: 05/28/23 Date of Service: 05/28/23 Chief Complaint: RUQ abdominal pain HPI Narrative JANE VALENTINO, is a 83 M who presents with a 1 month history of abdominal pain. Patient resides at [facility] for history of dementia for 1 year. Patient's and daughter are present in the room and provide majority of the history. Patient notes he likes to take walks and is very active at [place]. He notes in the evenings is when he does most of his walking. He states after his walks he would noticed pain in the right upper quadrant. Patient was in the ED at [facility] on 04/27/23 for a renal stone which was passed in the ED. Patient's notes that the patient's abdominal pain has become worse over the last 3 days. Patient is unsure if it relates to food. Per family, the penitentiary did not mention that patient is having pain after eating. Patient notes he has had a lack of appetite within the last 3 days. Patient denies any nausea, vomiting. 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 He was following with a sampling expert at [place]. He has since been discharged and told he no longer needed to follow-up and that he can just follow-up with his primarycare unless cardiac intervention is needed. Patient denies previous myocardial infarction, stroke and blood clots. He is on a daily aspirin. He denies pulmonary medical history. He denies previous abdominal surgeries. CT scan of the abdomen/pelvis demonstrated slightly distended gallbladder with pericholecystic fluid and wall thickening. Stable gallstones. RUQ u/s demonstrated: The gallbladder is distended with multiple gallstones and echogenic sludge and a positive Mckinley sign. However, there is only borderline gallbladder wall thickening, no pericholecystic fluid, and no biliary dilatation is noted. Findings are suggestive of acute cholecystitis, especially with similar findings noted on the CT scan from earlier today. Surgical consultation recommended. Patient's lab work demonstrated WBC 13.3. Liver enzymes were noted for a total bilirubin of 2.30. Remaining liver enzymes are within normal range. [facility] Medical History Arthritis Cataracts, both eyes Chronic bronchitis Heart disease Memory deficit Seasonal allergies Home Medications aspirin 81 mg tablet,delayed release 81 mg PO QDAY 01/06/18 [History Last Taken Unknown] omeprazole 40 mg capsule,delayed release 40 mg PO QDAY #90 caps 01/05/21 [Rx Last Taken Unknown] rosuvastatin 20 mg tablet (Crestor) 20 mg PO QDAY #90 tabs 03/29/21 [Rx Last Taken Unknown] acetaminophen 325 mg capsule (Tylenol) 325 mg PO Q6H PRN pain #120 caps 07/20/22[Rx Last Taken Unknown] dextromethorphan-guaifenesin 30 mg-600 mg tablet extended sdacida21 hr (Mucinex DM) 1 tab PO Q12H 07/20/22 [History Last Taken Unknown] famciclovir 500 mg tablet 500 mg PO BID 07/20/22 [History Last Taken Unknown] celecoxib 200 mg capsule 200 mg PO Q24H 04/27/23 [History Last Taken Unknown] cholecalciferol (vitamin D3) 125 mcg (5,000 unit) tablet (Vitamin D3) 125 mcg PODAILY 04/27/23 [History Last Taken Unknown] escitalopram oxalate 5 mg tablet (Lexapro) 5 mg PO DAILY 04/27/23 [History Last Taken Unknown] fexofenadine 180 mg tablet (Mona Allergy) 180 mg PO DAILY 04/27/23 [History Last Taken Unknown] hydroxyzine pamoate 25 mg capsule 25 mg PO Q8H PRN anxiety 04/27/23 [History Last Taken Unknown] ibuprofen 200 mg tablet 200 mg PO Q4H PRN pain 04/27/23 [History Last Taken Unknown] quetiapine 50 mg tablet 50 mg PO QHS 04/27/23 [History Last Taken Unknown] Allergy/AdvReac Type Severity Reaction Status Date / Time No Known Allergies Allergy Verified 05/28/23 06:59 Family History Mother Arthritis Father Arthritis Heart disease Kidney disease Parkinson disease Daughter Heart disease Brother Heart disease Surgical History history of triple bypass surgery Social History Smoking Status: Never smoker alcohol intake: never substance use type: does not use what type of physical activity do you participate in: walking and bicycling ROS Constitutional Constitutional: Reports systems reviewed and no addt'l complaints, except as documented Eyes Eyes: Reports systems reviewed and no addt'l complaints, except as documented ENT HEENT: Reports systems reviewed and no addt'l complaints, except as documented Cardiovascular Cardiovascular: Reports systems reviewed and no addt'l complaints, except as documented Respiratory/Chest Respiratory/Chest: Reports systems reviewed and no addt'l complaints, except as documented Gastrointestinal Gastrointestinal: Reports systems reviewed and no addt'l complaints, except as documented Genitourinary Genitourinary: Reports systems reviewed and no addt'l complaints, except as documented Musculoskeletal Musculoskeletal: Reports systems reviewed and no addt'l complaints, except as documented Integumentary Integumentary: Reports systems reviewed and no addt'l complaints, except as documented Neurologic Neurologic: Reports systems reviewed and no addt'l complaints, except as documented Psychiatric Psychiatric: Reports systems reviewed and no addt'l complaints, except as documented Endocrine Endocrinology: Reports systems reviewed and no addt'l complaints, except as documented Hematologic/Lymphatic Hematologic/Lymphatic: Reports systems reviewed and no addt'l complaints, exceptas documented Allergic/Immunologic Allergic/Immunologic: Reports systems reviewed and no addt'l complaints, except as documented Vital Signs Vital Signs Vital Signs: 05/28/23 06:59 05/28/23 09:00 Temperature 97.1 F L Temperature Source Temporal Pulse Rate 99 Respiratory Rate 15 Blood Pressure 117/90 H 123/76 H Blood Pressure Mean 99 91 Pulse Ox 95 Weight Weight: 168 lb 10.458 oz Body Mass Index (BMI) 24.9 Physical Exam Const alert, oriented x3 and no apparent distress Constitutional Narrative: Pleasantly confused. Is able to answer questions appropriately, however some questions he looks to his for answers. HEENT normocephalic and head/scalp atraumatic Eyes PERRL and EOMs intact bilaterally Neck full ROM Lymph Lymphatic: no lymphadenopathy noted Chest inspection of chest normal Resp normal respiratory effort and clear to auscultation bilaterally Cardio regular rate and regular rhythm GI GI Narrative: Abdomen- soft, non-distended. Pain note with palpation of the RUQ. Positive Mckinley's sign. Positive bowel sounds. no CVA tenderness Back/Spine no CVA tenderness Extremity normal to inspection Skin no rashes or lesions noted Neuro no focal motor deficits and no sensory deficits noted Psych mental status grossly normal, cooperative and activity/motor behavior normal Thought Process: loose associations Results Lab / Micro Data 05/28/23 07:22 05/28/23 07:22 Labs: Laboratory Results - last 24 hr 05/28/23 07:22: WBC 13.3 H, RBC 4.44 L, Hgb 15.1, Hct 44.8, MCV 100.9 H, MCH 34.0 H, MCHC 33.7, RDW Std Deviation 45.5 H, RDW Coeff of Solitario 12.1, Plt Count 151, MPV 10.4, Immature Gran % (Auto) 1.000 H, Neut % (Auto) 79.1 H, Lymph % (Auto) 4.7 L, Cocke % (Auto) 11.0 H, Eos % (Auto) 3.8, Baso % (Auto) 0.4, Absolute Neuts (auto) 10.6 H, Absolute Lymphs (auto) 0.63 L, Nucleated RBC % 0, Sodium 133 L, Potassium 4.8, Chloride 107, Carbon Dioxide 23.0, Anion Gap 3 L, BUN 22 H, Creatinine 0.96, Estim Creat Clear Calc 59.33, Est GFR (MDRD) Af Amer 96, Est GFR (MDRD) Non-Af 79, BUN/Creatinine Ratio 22.8 H, Glucose 118 H, Calcium 8.8, Total Bilirubin 2.30 H, Direct Bilirubin 0.25, AST 31, ALT 25, Alkaline Phosphatase 54, Total Protein 6.9, Albumin 3.3, Globulin 3.6, Albumin/Globulin Ratio 0.9, Lipase 32 05/28/23 09:37: Urine Color Yellow, Urine Clarity Sl. Cloudy, Urine pH 6.5, Ur Specific [place] 1.010, Urine Protein Negative, Urine Glucose (UA) Normal, UrineKetones Negative, Urine Occult Blood Negative, Urine Nitrite Negative, Urine Bilirubin Negative, Urine Urobilinogen 1 H, Ur Leukocyte Esterase 25 H, Urine RBC 0 SEEN, Urine WBC 0-5 SEEN, Ur Squamous Epith Cells 0-5 SEEN, Urine Bacteria0 SEEN, Urine Mucus 0 SEEN Imagaing Radiology Impression Abdomen/Pelvis CT 05/28/23 07:10 IMPRESSION: No obstructive uropathy, or suspicious solid renal lesion. There are stable nonobstructing stones in stable cysts, no specific follow-up needed. The gallbladder is slightly more distended on current exam than when compared to the previous study of April. Additionally, there is wall thickening and pericholecystic fluid with stable gallstones. No biliary dilatation is noted. Findings nonetheless suggests cholecystitis and surgical consultation is recommended along with correlation with lab results and physical exam Scattered colonic diverticula, no CT evidence of acute diverticulitis Electronically Signed: Jae Phillips MD at 8:37 EST , Gallbladder Ultrasound 05/28/23 07:42 IMPRESSION: The gallbladder is distended with multiple gallstones and echogenic sludge and a positive Mckinley sign. However, there is only borderline gallbladder wall thickening, no pericholecystic fluid, and no biliary dilatation is noted. Findings are suggestive of acute cholecystitis, especially with similar findings noted on the CT scan from earlier today. Surgical consultation recommended Simple right renal cysts, no specific follow-up needed Electronically Signed: Jae Phillips MD at 9:30 EST , Assessment & Plan Assessment/Plan (1) Acute cholecystitis: PLAN: I am seeing this patient in consultation in conjunction with Dr. Mcbride.Dr. Mcbride will evaluate this patient independently. I have reviewed and discussed patient care and treatment plan with her. Patient has had a 1 month history of abdominal pain, which has become worse over the last 3 days. RUQ u/s along with patient's examination is demonstrating acute cholecystitis. Plan willbe for patient to be admitted to a med/surg floor with IV hydration, IV antibiotics and NPO. Dr. Mcbride will plan to perform a laparoscopic cholecystectomy with intraoperative cholangiogram today. Procedure details, risks and benefits have been explained including but not limited to risk of bleeding, risk of injury to the common bile duct which would require transfer. Patient and his family have had the opportunity to ask and have questions answered. Patient verbally understands and agrees with the plan. Patient's last dose of aspirin was yesterday. Thank you for allowing us to participate in this patient's care. Charges/Coding Visit Charges OBSV E&M: 63612 Observ/hosp same date L2 05/28/23 1214 <Electronically signed by Dorothy BONILLA PA-C> Cosigner Signature (if applicable): CC: PEDRO Bone; Dr. Bertha Arndt MD; Dr. Christen Mcbride MD~ Signed ADDENDUM by Dr. Christen Mcbride MD on 05/28/23 at 1517 Addendum Patient seen and examined. Agree with Dorothy Izquierdo note. Reviewed the anatomy with the patient and discussed the procedure: laparoscopic cholecystectomy with possible cholangiograms, possible open. Review risks including but not limited to bleeding, infection, hernia, bile leak, retained gallstones requiring another procedure ERCP- Endoscopic Retrograde Cholangiopancreatography, injury to another organ (bile ducts, common bile duct,small bowel, etc.) and conversion to an open procedure. All patient's and family's questions were answered. Christen Mcbride M.D. Pager: [phone] [facility] [address] [place] [address], [address] [place] [address] Office: [phone] 05/28/23 1517<Electronically signed by Christen Mcbride MD> Cosigner Signature (if applicable): cc: PEDRO Bone; Dr. Bertha Arndt MD; Dr. Christen Mcbride MD ~* Signed [facility] Work Phone: 1(944) 369-442712-06-2023 History and physical note Author Dorothy Bone [facility] May 28, 2023 12:14pm Note Date/Time May 28, 2023 1 0:49am [facility] Medical Records Department [address] [place] [address] History & Physical Exam 05/28/23 1042 MR#: [id number] Acct: [id number] Name: JANE VALENTINO Rep #:[id number] : 1940 83 From: Dorothy BONILLA PA-C PCP: Dr. Bertha Arndt MD Status:REG ER Location: ED HPI - General General Date of Admission: 05/28/23 Date of Service: 05/28/23 Chief Complaint: RUQ abdominal pain HPI Narrative JANE VALENTINO, is a 83 M who presents with a 1 month history of abdominal pain. Patient resides at [facility] for history of dementia for 1 year. Patient's and daughter are present in the room and provide majority of the history. Patient notes he likes to take walks and is very active at [place]. He notes in the evenings is when he does most of his walking. He states after his walks he would noticed pain in the right upper quadrant. Patient was in the ED at [facility] on 04/27/23 for a renal stone which was passed in the ED. Patient's notes that the patient's abdominal pain has become worse over the last 3 days. Patient is unsure if it relates to food. Per family, the penitentiary did not mention that patient is having pain after eating. Patient notes he has had a lack of appetite within the last 3 days. Patient denies any nausea, vomiting. 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 He was following with a sampling expert at [place]. He has since been discharged and told he no longer needed to follow-up and that he can just follow-up with his primarycare unless cardiac intervention is needed. Patient denies previous myocardial infarction, stroke and blood clots. He is on a daily aspirin. He denies pulmonary medical history. He denies previous abdominal surgeries. CT scan of the abdomen/pelvis demonstrated slightly distended gallbladder with pericholecystic fluid and wall thickening. Stable gallstones. RUQ u/s demonstrated: The gallbladder is distended with multiple gallstones and echogenic sludge and a positive Mckinley sign. However, there is only borderline gallbladder wall thickening, no pericholecystic fluid, and no biliary dilatation is noted. Findings are suggestive of acute cholecystitis, especially with similar findings noted on the CT scan from earlier today. Surgical consultation recommended. Patient's lab work demonstrated WBC 13.3. Liver enzymes were noted for a total bilirubin of 2.30. Remaining liver enzymes are within normal range. [facility] Medical History Arthritis Cataracts, both eyes Chronic bronchitis Heart disease Memory deficit Seasonal allergies Home Medications aspirin 81 mg tablet,delayed release 81 mg PO QDAY 01/06/18 [History Last Taken Unknown] omeprazole 40 mg capsule,delayed release 40 mg PO QDAY #90 caps 01/05/21 [Rx Last Taken Unknown] rosuvastatin 20 mg tablet (Crestor) 20 mg PO QDAY #90 tabs 03/29/21 [Rx Last Taken Unknown] acetaminophen 325 mg capsule (Tylenol) 325 mg PO Q6H PRN pain #120 caps 07/20/22[Rx Last Taken Unknown] dextromethorphan-guaifenesin 30 mg-600 mg tablet extended fjnjnuh90 hr (Mucinex DM) 1 tab PO Q12H 07/20/22 [History Last Taken Unknown] famciclovir 500 mg tablet 500 mg PO BID 07/20/22 [History Last Taken Unknown] celecoxib 200 mg capsule 200 mg PO Q24H 04/27/23 [History Last Taken Unknown] cholecalciferol (vitamin D3) 125 mcg (5,000 unit) tablet (Vitamin D3) 125 mcg PODAILY 04/27/23 [History Last Taken Unknown] escitalopram oxalate 5 mg tablet (Lexapro) 5 mg PO DAILY 04/27/23 [History Last Taken Unknown] fexofenadine 180 mg tablet (Mona Allergy) 180 mg PO DAILY 04/27/23 [History Last Taken Unknown] hydroxyzine pamoate 25 mg capsule 25 mg PO Q8H PRN anxiety 04/27/23 [History Last Taken Unknown] ibuprofen 200 mg tablet 200 mg PO Q4H PRN pain 04/27/23 [History Last Taken Unknown] quetiapine 50 mg tablet 50 mg PO QHS 04/27/23 [History Last Taken Unknown] Allergy/AdvReac Type Severity Reaction Status Date / Time No Known Allergies Allergy Verified 05/28/23 06:59 Family History Mother Arthritis Father Arthritis Heart disease Kidney disease Parkinson disease Daughter Heart disease Brother Heart disease Surgical History history of triple bypass surgery Social History Smoking Status: Never smoker alcohol intake: never substance use type: does not use what type of physical activity do you participate in: walking and bicycling ROS Constitutional Constitutional: Reports systems reviewed and no addt'l complaints, except as documented Eyes Eyes: Reports systems reviewed and no addt'l complaints, except as documented ENT HEENT: Reports systems reviewed and no addt'l complaints, except as documented Cardiovascular Cardiovascular: Reports systems reviewed and no addt'l complaints, except as documented Respiratory/Chest Respiratory/Chest: Reports systems reviewed and no addt'l complaints, except as documented Gastrointestinal Gastrointestinal: Reports systems reviewed and no addt'l complaints, except as documented Genitourinary Genitourinary: Reports systems reviewed and no addt'l complaints, except as documented Musculoskeletal Musculoskeletal: Reports systems reviewed and no addt'l complaints, except as documented Integumentary Integumentary: Reports systems reviewed and no addt'l complaints, except as documented Neurologic Neurologic: Reports systems reviewed and no addt'l complaints, except as documented Psychiatric Psychiatric: Reports systems reviewed and no addt'l complaints, except as documented Endocrine Endocrinology: Reports systems reviewed and no addt'l complaints, except as documented Hematologic/Lymphatic Hematologic/Lymphatic: Reports systems reviewed and no addt'l complaints, exceptas documented Allergic/Immunologic Allergic/Immunologic: Reports systems reviewed and no addt'l complaints, except as documented Vital Signs Vital Signs Vital Signs: 05/28/23 06:59 05/28/23 09:00 Temperature 97.1 F L Temperature Source Temporal Pulse Rate 99 Respiratory Rate 15 Blood Pressure 117/90 H 123/76 H Blood Pressure Mean 99 91 Pulse Ox 95 Weight Weight: 168 lb 10.458 oz Body Mass Index (BMI) 24.9 Physical Exam Const alert, oriented x3 and no apparent distress Constitutional Narrative: Pleasantly confused. Is able to answer questions appropriately, however some questions he looks to his for answers. HEENT normocephalic and head/scalp atraumatic Eyes PERRL and EOMs intact bilaterally Neck full ROM Lymph Lymphatic: no lymphadenopathy noted Chest inspection of chest normal Resp normal respiratory effort and clear to auscultation bilaterally Cardio regular rate and regular rhythm GI GI Narrative: Abdomen- soft, non-distended. Pain note with palpation of the RUQ. Positive Mckinley's sign. Positive bowel sounds. no CVA tenderness Back/Spine no CVA tenderness Extremity normal to inspection Skin no rashes or lesions noted Neuro no focal motor deficits and no sensory deficits noted Psych mental status grossly normal, cooperative and activity/motor behavior normal Thought Process: loose associations Results Lab / Micro Data 05/28/23 07:22 05/28/23 07:22 Labs: Laboratory Results - last 24 hr 05/28/23 07:22: WBC 13.3 H, RBC 4.44 L, Hgb 15.1, Hct 44.8, MCV 100.9 H, MCH 34.0 H, MCHC 33.7, RDW Std Deviation 45.5 H, RDW Coeff of Solitario 12.1, Plt Count 151, MPV 10.4, Immature Gran % (Auto) 1.000 H, Neut % (Auto) 79.1 H, Lymph % (Auto) 4.7 L, Cocke % (Auto) 11.0 H, Eos % (Auto) 3.8, Baso % (Auto) 0.4, Absolute Neuts (auto) 10.6 H, Absolute Lymphs (auto) 0.63 L, Nucleated RBC % 0, Sodium 133 L, Potassium 4.8, Chloride 107, Carbon Dioxide 23.0, Anion Gap 3 L, BUN 22 H, Creatinine 0.96, Estim Creat Clear Calc 59.33, Est GFR (MDRD) Af Amer 96, Est GFR (MDRD) Non-Af 79, BUN/Creatinine Ratio 22.8 H, Glucose 118 H, Calcium 8.8, Total Bilirubin 2.30 H, Direct Bilirubin 0.25, AST 31, ALT 25, Alkaline Phosphatase 54, Total Protein 6.9, Albumin 3.3, Globulin 3.6, Albumin/Globulin Ratio 0.9, Lipase 32 05/28/23 09:37: Urine Color Yellow, Urine Clarity Sl. Cloudy, Urine pH 6.5, Ur Specific [place] 1.010, Urine Protein Negative, Urine Glucose (UA) Normal, UrineKetones Negative, Urine Occult Blood Negative, Urine Nitrite Negative, Urine Bilirubin Negative, Urine Urobilinogen 1 H, Ur Leukocyte Esterase 25 H, Urine RBC 0 SEEN, Urine WBC 0-5 SEEN, Ur Squamous Epith Cells 0-5 SEEN, Urine Bacteria0 SEEN, Urine Mucus 0 SEEN Imagaing Radiology Impression Abdomen/Pelvis CT 05/28/23 07:10 IMPRESSION: No obstructive uropathy, or suspicious solid renal lesion. There are stable nonobstructing stones in stable cysts, no specific follow-up needed. The gallbladder is slightly more distended on current exam than when compared to the previous study of April. Additionally, there is wall thickening and pericholecystic fluid with stable gallstones. No biliary dilatation is noted. Findings nonetheless suggests cholecystitis and surgical consultation is recommended along with correlation with lab results and physical exam Scattered colonic diverticula, no CT evidence of acute diverticulitis Electronically Signed: Jae Phillips MD at 8:37 EST , Gallbladder Ultrasound 05/28/23 07:42 IMPRESSION: The gallbladder is distended with multiple gallstones and echogenic sludge and a positive Mckinley sign. However, there is only borderline gallbladder wall thickening, no pericholecystic fluid, and no biliary dilatation is noted. Findings are suggestive of acute cholecystitis, especially with similar findings noted on the CT scan from earlier today. Surgical consultation recommended Simple right renal cysts, no specific follow-up needed Electronically Signed: Jae Phillips MD at 9:30 EST , Assessment & Plan Assessment/Plan (1) Acute cholecystitis: PLAN: I am seeing this patient in consultation in conjunction with Dr. Mcbride.Dr. Mcbride will evaluate this patient independently. I have reviewed and discussed patient care and treatment plan with her. Patient has had a 1 month history of abdominal pain, which has become worse over the last 3 days. RUQ u/s along with patient's examination is demonstrating acute cholecystitis. Plan willbe for patient to be admitted to a med/surg floor with IV hydration, IV antibiotics and NPO. Dr. Mcbride will plan to perform a laparoscopic cholecystectomy with intraoperative cholangiogram today. Procedure details, risks and benefits have been explained including but not limited to risk of bleeding, risk of injury to the common bile duct which would require transfer. Patient and his family have had the opportunity to ask and have questions answered. Patient verbally understands and agrees with the plan. Patient's last dose of aspirin was yesterday. Thank you for allowing us to participate in this patient's care. Charges/Coding Visit Charges OBSV E&M: 66025 Observ/hosp same date L2 05/28/23 1214 <Electronically signed by Dorothy BONILLA PA-C> Cosigner Signature (if applicable): CC: PEDRO Bone; Dr. Bertha Arndt MD~ Signed [facility] Work Phone: 1(586) 241-115312-06-2023 [facility] Medical Records Department [address] [place] [address] History Physical Exam 05/28/23 1042 MR#: [id number] Acct: [id number] Name: JANE VALENTINO Rep #: [id number] : 1940 83 From: Dorothy BONILLA PA-C PCP: Dr. Bertha Arndt MD Status:REG [facility] Location: [facility] HPI - General General Date of Admission: 05/28/23 Date of Service: 05/28/23 Chief Complaint: RUQ abdominal pain HPI Narrative JANE VALENTINO, is a 83 M who presents with a 1 month history of abdominal pain. Patient resides at [facility] for history of dementia for 1 year. Patient's and daughter are present in the room and provide majority of the history. Patient notes he likes to take walks and is very active at [place]. He notes in the evenings is when he does most of his walking. He states after his walks he would noticed pain in the right upper quadrant. Patient was in the ED at [facility] on 04/27/23 for a renal stone which was passed in the ED. Patient's notes that the patient's abdominal pain has become worse over the last 3 days. Patient is unsure if it relates to food. Per family, the pen[facility]entiary did not mention that patient is having pain after eating. Patient notes he has had a lack of appetite within the last 3 days. Patient denies any nausea, vomiting. 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 He was following with a sampling expert at [place]. He has since been discharged and told he no longer needed to follow-up and that he can just follow-up with his primary care unless cardiac intervention is needed. Patient denies previous myocardial infarction, stroke and blood clots. He is on a daily aspirin. He denies pulmonary medical history. He denies previous abdominal surgeries. CT scan of the abdomen/pelvis demonstrated slightly distended gallbladder with pericholecystic fluid and wall thickening. Stable gallstones. RUQ u/s demonstrated: The gallbladder is distended with multiple gallstones and echogenic sludge and a positive Mckinley sign. However, there is only borderline gallbladder wall thickening, no pericholecystic fluid, and no biliary dilatation is noted. Findings are suggestive of acute cholecystitis, especially with similar findings noted on the CT scan from earlier today. Surgical consultation recommended. Patient's lab work demonstrated WBC 13.3. Liver enzymes were noted for a total bilirubin of 2.30. Remaining liver enzymes are within normal range. [facility] Medical History Arthritis Cataracts, both eyes Chronic bronchitis Heart disease Memory deficit Seasonal allergies Home Medications aspirin 81 mg tablet,delayed release 81 mg PO QDAY 01/06/18 [History Last Taken Unknown] omeprazole 40 mg capsule,delayed release 40 mg PO QDAY #90 caps 01/05/21 [Rx Last Taken Unknown] rosuvastatin 20 mg tablet (Crestor) 20 mg PO QDAY #90 tabs 03/29/21 [Rx Last Taken Unknown] acetaminophen 325 mg capsule (Tylenol) 325 mg PO Q6H PRN pain #120 caps 07/20/22 [Rx Last Taken Unknown] dextromethorphan-guaifenesin 30 mg-600 mg tablet extended [id number] hr (Mucinex DM) 1 tab PO Q12H 07/20/22 [History Last Taken Unknown] famciclovir 500 mg tablet 500 mg PO BID 07/20/22 [History Last Taken Unknown] celecoxib 200 mg capsule 200 mg PO Q24H 04/27/23 [History Last Taken Unknown] cholecalciferol (vitamin D3) 125 mcg (5,000 unit) tablet (Vitamin D3) 125 mcg PO DAILY 04/27/23 [History Last Taken Unknown] escitalopram oxalate 5 mg tablet (Lexapro) 5 mg PO DAILY 04/27/23 [History Last Taken Unknown] fexofenadine 180 mg tablet (Mona Allergy) 180 mg PO DAILY 04/27/23 [History Last Taken Unknown] hydroxyzine pamoate 25 mg capsule 25 mg PO Q8H PRN anxiety 04/27/23 [History Last Taken Unknown] ibuprofen 200 mg tablet 200 mg PO Q4H PRN pain 04/27/23 [History Last Taken Unknown] quetiapine 50 mg tablet 50 mg PO QHS 04/27/23 [History Last Taken Unknown] Allergy/AdvReac Type Severity Reaction Status Date / Time No Known Allergies Allergy Verified 05/28/23 06:59 Family History Mother Arthritis Father Arthritis Heart disease Kidney disease Parkinson disease Daughter Heart disease Brother Heart disease Surgical History history of triple bypass surgery Social History Smoking Status: Never smoker alcohol intake: never substance use type: does not use what type of physical activity do you participate in: walking and bicycling ROS Constitutional Constitutional: Reports systems reviewed and no addt'l complaints, except as documented Eyes Eyes: Reports systems reviewed and no addt'l complaints, except as documented ENT HEENT: Reports systems review (more content not included)...[facility] Shelton [facility] July 20, 2022 11:51pm Note Date/Time July 20, 2022 9 :12pm [facility] Medical Records Department [address] [place] [address] Emergency Department Summary 07/20/22 MR#: [id number] Acct: [id number] Name: JANE VALENTINO Rep #:[id number] : 1940 82 From: [facility] Can PCP: Dr. Bertha Arndt MD Status:REG ER Location: ED HPI History of Present Illness Chief Complaint: Back Narrative Narrative: 82-year-old male here for back pain, chest pain, dental pain. Notes a fall out of bed either Friday or Friday night. This is approximately 5 to 6 days prior to arrival. The patient states he has been having intermittent right-sided chest pain and back pain. Notes diffuse weakness all over. Patient has historyof dementia per family provide a lot of history otherwise. They state he just moved into a new memory care unit. States since he got a smaller bed he may have fallen earlier in the week. They deny any personal family history of connective tissue disorder such as [place]- Danlos or Marfan syndrome. Denies focal weakness, lateralizing weakness. Patient's baseline mental status is alert and oriented x2. He denies any vomiting. Denies any diarrhea. Denies any recent surgery, travel, unilateral leg swelling, he denies any history of PEor DVT. [facility] Medical History Arthritis Cataracts, both eyes Chronic bronchitis Heart disease Seasonal allergies Home Medications aspirin 81 mg tablet,delayed release 81 mg PO QDAY 01/06/18 [History Last Taken Unknown] fexofenadine 60 mg-pseudoephedrine ER 120 mg tablet,ext.release,12 hr (Mona- D12 Hour) 1 tab PO Q12H PRN allergies 11/24/19 [History Last Taken Unknown] omeprazole 40 mg capsule,delayed release 40 mg PO QDAY #90 caps 01/05/21 [Rx Last Taken Unknown] rosuvastatin 20 mg tablet (Crestor) 20 mg PO QDAY #90 tabs 03/29/21 [Rx Last Taken Unknown] montelukast 10 mg tablet (Singulair) 10 mg PO DAILY #90 tabs 08/13/21 [Rx Last Taken Unknown] acetaminophen 325 mg capsule (Tylenol) 325 mg PO Q6H PRN pain #120 caps 07/20/22[Rx Last Taken Unknown] dextromethorphan-guaifenesin 30 mg-600 mg tablet extended hr (Mucinex DM) 1 tab PO Q12H 07/20/22 [History Last Taken Unknown] famciclovir 500 mg tablet 500 mg PO BID 07/20/22 [History Last Taken Unknown] ibuprofen 200 mg tablet 200 mg PO Q6H PRN pain 14 days #56 tabs 07/20/22 [Rx Last Taken Unknown] Allergy/AdvReac Type Severity Reaction Status Date / Time No Known Allergies Allergy Verified 06/18/22 12:56 Family History Mother Arthritis Father Arthritis Heart disease Kidney disease Parkinson disease Daughter Heart disease Brother Heart disease Surgical History history of triple bypass surgery Social History Smoking Status: Never smoker alcohol intake: never substance use type: does not use what type of physical activity do you participate in: walking and bicycling ROS ROS ED ROS Narrative Constitutional: Denies fever HEENT: Denies sore throat Neck: Denies neck pain Cardiovascular: Endorses chest pain Respiratory: Denies shortness of breath GI: Denies nausea vomiting or abdominal pain : Denies changes in urinary habits Musculoskeletal: Endorses back pain Neurologic: Denies numbness weakness or loss of sensation Skin denies rash EXAM Physical Exam Narrative Exam Narrative: Nursing triage notes reviewed, Vital signs reviewed Primary Survey Airway: Intact Breathing: Bilateral breath sounds Circulation: Palpable bilateral femorals, Palpable bilateral radial, Palpable bilateral DP and Palpable bilateral PT Disability / Spine precautions GCS Score: Eye Openin Verbal Response: 5 Motor Response: 6 Secondary Survey Constitutional: Please see MDM Head: Atraumatic, Midface stable, NO jaw malocclusion, No Cephalohematoma, and No Lacerations noted Eye: Pupils equal round and reactive to light, Extraocular muscles intact and Noperiorbital ecchymosis or stepoff, no evidence of entrapment ENT: Oropharynx clear, no lacerations, no hemotympanum, no raccoon eyes or núñez sign Cervical spine / Neck: No cervical spine bony tenderness, crepitance, or stepoffdeformity Trachea midline Lungs: Clear to auscultation, No asymmetric rise and No crepitus, no flail chest Cardiac: Regular rate and rhythm and No murmurs Abdomen: Soft, Nontender and No rebound Pelvis: Pelvis stable to compression : No evidence of genital injury Back: No midline bony tenderness to thoracic/lumbar/sacral spines Neuro: Alert and oriented x3, neuro exam at baseline, cranial nerves II through XII are intact. No pain with extraocular muscle movement. There is negative test of skew. Normal speech. 5 of 5 strength in upper and lower extremities inflexion extension. Intact sensation to light touch in upper and lower extremitydermatomes. No truncal or extremity ataxia. No dysdiadochokinesia. Normal gait. 2+ reflexes. No meningeal signs. Negative Babinski. NIH of 0 Extremities: NO gross Deformities Psych: Normal affect Nursing triage notes reviewed, Vital signs reviewed Const Vital Signs: 07/20/22 20:55 07/20/22 20:55 Temperature 97.1 F L 97.1 F L Temperature Source Temporal Temporal Pulse Rate 101 H 101 H Respiratory Rate 18 18 Blood Pressure 153/97 H 153/97 H Blood Pressure Mean 115 115 Pulse Ox 92 92 Oxygen Delivery Method Room Air Room Air MDM MDM MDM Narrative Medical decision making narrative: Chief Complaint: Chest pain, back pain, dental pain External records reviewed: Echocardiogram from March 2022 shows an ejection fraction of 60%, stage I diastolic dysfunction I considered: ACS, PE, pneumonia, pneumothorax, cervical spine, thoracic spine, lumbar spine fracture dislocation. I also considered musculoskeletal etiology, space- occupying lesion of the spine, aortic pathology. EKG with no evidence of STEMI. Troponin negative. Low gestalt for PE, low riskscore. No evidence of bony abnormality to the spine, denies, Lumbar spine or acute intracranial pathology. No pulsatile abdominal masses, pulse deficits suggest aortic pathology. No obvious emergent life-threatening etiology identified. UA without infection. No PNA on CXR. No leukocytosis to suggest infection. IMaging negative for acute traumatic injuries. Factors affecting care: Care complicated by history of hyperlipidemia, CAD status post CABG, atherosclerosis, chronic bronchitis Social determinants of health: Elderly, memory care patient Shared decision making: I will have a discussion with the patient and or visitors regarding risk/benefits of further testing or admission. They will be made aware of of the risk/benefits inherent in this decision they will be given the opportunity to voice understanding. Consults: none Lab Data Attestation: I reviewed the patient's lab results. Lab results narrative: CBC without evidence of leukocytosis, tachycardia anemia or thrombocytopenia BMP without evidence of significant electrolyte abnormalities, anion gap to suggest endorgan hypoperfusion, TOAN Troponin negative for evidence of myocardial schema UA without evidence of urinary tract infection Labs: Laboratory Results - last 24 hr 07/20/22 07/20/22 07/20/22 21:45 21:45 22:15 WBC 9.6 RBC 4.87 Hgb 16.2 Hct 47.6 MCV 97.7 H MCH 33.3 H MCHC 34.0 RDW Std Deviation 42.5 RDW Coeff of Solitario 11.8 Plt Count 213 MPV 9.9 Immature Gran % (Auto) 0.800 Neut % (Auto) 74.8 H Lymph % (Auto) 6.9 L Cocke % (Auto) 14.6 H Eos % (Auto) 2.4 Baso % (Auto) 0.5 Absolute Neuts (auto) 7.2 Absolute Lymphs (auto) 0.66 L Nucleated RBC % 0 Sodium 138 Potassium 4.2 Chloride 105 Carbon Dioxide 25.0 Anion Gap 8 BUN 19 H Creatinine 0.88 Estim Creat Clear Calc 59.13 Est GFR (MDRD) Af Amer 108 Est GFR (MDRD) Non-Af 89 BUN/Creatinine Ratio 21.7 H Glucose 116 H Calcium 9.0 Troponin I High Sens 6 Urine Color Yellow Urine Clarity Clear Urine pH 6.0 Ur Specific [place] 1.015 Urine Protein 15 H Urine Glucose (UA) Normal Urine Ketones 5 H Urine Occult Blood 25 H Urine Nitrite Negative Urine Bilirubin Negative Urine Urobilinogen 1 H Ur Leukocyte Esterase 25 H Urine RBC 0 SEEN Urine WBC 0 SEEN Ur Squamous Epith Cells 0 SEEN Urine Bacteria 0 SEEN Urine Mucus 0 SEEN Radiography Diagnostic Testing: Clinical Impression(s) from Imaging Studies Brain CT 07/20/22 21:36 IMPRESSION: Atrophy. No evidence of acute hemorrhage infarct or edema. Electronically Signed: Dinorah Reynolds MD at 22:32 EST , Cervical Spine CT 07/20/22 21:36 IMPRESSION: Degenerative change of the cervical spine no visualized acute fracture. Electronically Signed: Dinorah Reynolds MD at 22:46 EST , Lumbar Spine CT 07/20/22 21:36 IMPRESSION: Degenerative change, no visualized fracture. Prior laminectomy L5-S1. Prostate enlargement measuring up to 4.2 x 6.4 cm. Distended bladder Diverticulosis no visualized diverticulitis. Stones in the left kidney no hydronephrosis. As seen on that the thoracic spine CT there are bilateral benign-appearing renal cysts. Electronically Signed: Dinorah Reynolds MD at 22:54 EST , Thoracic Spine CT 07/20/22 21:36 IMPRESSION: Degenerative change at the cervical and thoracic spine without visualized acute loss of height or alignment. Prior Kyphoplasty compression injury at L1. Incidental visualization of dense calcification of the coronary arteries. Especially the left anterior descending. Electronically Signed: Dinorah Reynolds MD at 22:50 EST , Chest X-Ray 07/20/22 22:05 IMPRESSION: Status post sternotomy. No demonstrated acute cardiopulmonary process. The lung bases are mostly obscured. Electronically Signed: Dinorah Reynolds MD at 22:33 EST , Treatment and Re-Evaluation Narrative: Trauma exam without new traumatic injuries patient is appropriate discharge backto memory unit. Discharge Plan Triage Chief Complaint: Back ED Provider: Hiren Shelton Dx/Rx/DC Orders Clinical Impression: Back pain, Chest pain, Dementia Instructions: ED Chest Pain, Uncertain Cause Prescriptions: New acetaminophen [Tylenol] 325 mg capsule 325 mg PO Q6H PRN (Reason: pain) Qty: 120 0RF ibuprofen 200 mg tablet 200 mg PO Q6H PRN (Reason: pain) 14 Days Qty: 56 0RF No Action aspirin 81 mg tablet,delayed release (DR/EC) 81 mg PO QDAY fexofenadine-pseudoephedrine [Mona-D 12 Hour] 60-120 mg tablet extended release 12 hr 1 tab PO Q12H PRN (Reason: allergies) famciclovir 500 mg tablet 500 mg PO BID Mucinex DM 30-600 mg Tablet Extended Release 12 Hr 1 tab PO Q12H omeprazole 40 mg capsule,delayed release(DR/EC) 40 mg PO QDAY Qty: 90 3RF rosuvastatin [Crestor] 20 mg tablet 20 mg PO QDAY Qty: 90 3RF montelukast [Singulair] 10 mg tablet 10 mg PO DAILY Qty: 90 2RF Primary Care Provider: Bertha Arndt Referrals: Kely Mancilla DO [Med Staff - [facility]] - Disposition Disposition: Home, Self Care What to do if you have Problems For any increased pain, shortness of breath, bleeding, nausea or vomiting, chestpain, or any unexpected problems, contact your Primary Care Provider. Call [facility] ([phone]) or report to the closest Emergency Room. Call 911 if necessary. 07/20/22 1864 <Electronically signed by Hiren Shelton DO> Cosigner Signature (if applicable): CC: Dr. Bertha Arndt MD ~ Signed [facility] Work Phone: [phone] 891-173903-21-2022 NoteHNO ID: [id number] Author: Jeison Rivers MD Service: ? 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 Unsure if he is taking Cialis 5mg daily, says is in charge of pills No erections Urine stream stable No gross hematuria Prev Note: Atrophic R testicle, multiple pelvic surgeries, pt cant give specific details Check T labs - Pt request call with results ? Start Cialis 5mg daily, has failed other PDE5s RTO 4-6 weeks to discuss TRT if needed PMHx/PSHx: see above, otherwise unchanged Rx: reviewed and unchanged ROS: see above, otherwise unchanged Labs: Component Latest Ref Rng AND Units 06/25/2021 07/13/2021 Testosterone 240 - 950 ng/dL Unable to assay. No specimen received. 477 Testosterone Free 2.88 - 10.5 ng/dL Unable to assay. No specimen received. 11.0 (H) LH 1.8 - 10.8 mU/mL 8.1 Prolactin 4.0 - 15.2 ng/mL 6.0 TSH 0.270 - 4.200 uU/mL 1.480 Imaging: None MEDICATIONS: Current Outpatient Medications Medication Sig - Tadalafil (CIALIS) 5 mg tablet Take 1 pill daily - zolpidem (AMBIEN) 10 mg - rosuvastatin (CRESTOR) 20 mg tablet - omeprazole (PRILOSEC) 40 mg capsule 40 mg. - montelukast (SINGULAIR) 10 mg tablet 10 mg. - celecoxib (CELEBREX) 200 mg capsule - aspirin, enteric coated (ASPIRIN, ENTERIC COATED) 81 mg EC tablet Take by mouth. No current facility-administered medications for this visit. PHYSICAL EXAM: Ht 170.2 cm (5' 7) Wt 72.6 kg (160 lb) BMI 25.06 kg/m? Body mass index is 25.06 kg/m?. General: Well masculinized, well nourished male Psych: euthymic, NAD Neuro: AANDOx3 DIAGNOSES: 1. 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, ICD10: N40.1, N13.8 IMPRESSION/PLAN: T labs reviewed - WNL Unsure if he started Cialis 5mg or not New script given Discussed GONZALO, ICI and IPP, pt not interested F/u PRN Jeison Rivers [facility]01-03-2022 NoteHNO ID: [id number] Author: Jeison Rivers MD Service: ? Author Type: Physician Type: Progress Notes Filed: 06/25/2021 11:02 AM Note Text: [facility] UROLOGY NEW PATIENT CLINIC NOTE PATIENT INFO: Jane Valentino (81 year old) Referred by: SELF 06/25/2021 UROLOGY DIAGNOSES: 1. 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, ICD10: N40.1, N13.8 CHIEF COMPLAINT: ED HPI: 81 year old, male presents for evaluation of ED for 1 year Sudden onset No success with Viagra or Cialis Pt has multiple pelvic surgeries, he is unable to give specific details, very poor historian Family Hx: No malignancy Weak stream SEXUAL SYMPTOMS: Number of Years of Sexual Dysfunction: 1 Progressive Dysfunction: No Decreased Libido: No Quality of Erection: Rigidity: 0 % Ability to Maintain: Decreased Orgasm: Normal Unable to achieve Ejaculation: Normal Absent Nocturnal/A.M. Erections: Decreased Masturbatory Erections: Decreased Penile Curvature: No Curvature/Deviation: No Prior Treatment for Sexual Dysfunction: -oral medications, not satisfied with treatment Symptom Scores: ANGEL Score: 5 (Scores range from 1 to 25) A score of 20 or higher suggest a normal degree of erectile functioning. Low scores (10 or less) suggest moderate to severe ED. PMH: None PSH: See above SH: Social History Tobacco Use - Smoking status: Never Smoker - Smokeless tobacco: Never Used Vaping Use - Vaping Use: Never used Substance Use Topics - Alcohol use: Never - Drug use: Never FH: No family history on file. REVIEW OF SYSTEMS: Review of Systems: Constitutional: No weakness, fever/chills, unexplained weight change Psychiatric: Stable mood Skin: No rashes or lesions HEENT: No blurred vision or double vision. No severe or worsening headaches. Sense of smell intact Neck: No masses or pain Chest: No shortness of breath or cough. No history of recurrent pneumonia, bronchitis, or sinustitis. CVS: No chest pains or palpatations. No history of cardiovascular disease. GI: No nausea, vomiting or abdominal pain Neurologic: No weakness or sensory changes : see above Musculoskeletal: Stable All other systems reviewed and noncontributory Allergy: Patient has no known allergies. MEDICATIONS: Current Outpatient Medications Medication Sig Dispense Refill - zolpidem (AMBIEN) 10 mg - rosuvastatin (CRESTOR) 20 mg tablet - omeprazole (PRILOSEC) 40 mg capsule 40 mg. - montelukast (SINGULAIR) 10 mg tablet 10 mg. - celecoxib (CELEBREX) 200 mg capsule - aspirin, enteric coated (ASPIRIN, ENTERIC COATED) 81 mg EC tablet Take by mouth. - Tadalafil (CIALIS) 5 mg tablet Take 1 pill daily 90 tablet 3 No current facility-administered medications for this visit. PHYSICAL EXAM: Ht 170.2 cm (5' 7) Wt 74.8 kg (165 lb) BMI 25.84 kg/m? Body mass index is 25.84 kg/m?. General Appearance/ Constitutional: Well developed, well nourished, and in no apparent distress HEENT: Normal Neck: Lymph Nodes: Normal Cardiac: Normal Breast: Not examined Pulmonary: Ascultation: Not examined Effort: Normal GI: Soft, Non-tender, Non-distended and Costovertebral angle tenderness absent Peripheral Vascular: Not examined Extremities: Cyanosis absent, Clubbing absent and Edema absent Skin: Normal Neurologic: Normal, Grossly non-focal, Alert and oriented and Affect appropriate (MALE): Penis: Normal without external lesions Testicles: Abnormal: Atrophic right testicle Scrotum: Normal No results found for: PSA, PSAPER DIAGNOSES: 1. 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, ICD10: N40.1, N13.8 IMPRESSION/PLAN: Atrophic R testicle, multiple pelvic surgeries, pt cant give specific details Check T labs - Pt request call with results Start Cialis 5mg daily, has failed other PDE5s RTO 4-6 weeks to discuss TRT if needed Jeison Rivers [facility] note Author Nemo Robertson [facility] May 29, 2023 2:48pm Note Date/Time May 29, 2023 2 :49pm [facility] Medical Records Department [address] [place] [address] Counseling Note - Pharmacy 05/29/23 1448 MR#: [id number] Acct: [id number] Name: JANE VALENTINO Rep #:[id number] : 1940 83 From: Nemo Robertson PCP: Dr. Bertha Arndt MD Status:ADM THEO Y Location: [place] [address] [place] Med Reconciliation Pharmacy Service has performed discharge medication reconciliation for this patient upon transfer to SNF. The patient's discharge medication list was reviewed for discrepancies and discrepancies were resolved. Medications at Discharge Home Medications aspirin 81 mg tablet,delayed release 81 mg PO QDAY 01/06/18 omeprazole 40 mg capsule,delayed release 40 mg PO QDAY #90 caps 01/05/21 rosuvastatin 20 mg tablet (Crestor) 20 mg PO QDAY #90 tabs 03/29/21 acetaminophen 325 mg capsule (Tylenol) 325 mg PO Q6H PRN pain #120 caps 07/20/22 dextromethorphan-guaifenesin 30 mg-600 mg tablet extended [id number] hr (Mucinex DM) 1 tab PO Q12H 07/20/22 famciclovir 500 mg tablet 500 mg PO BID 07/20/22 celecoxib 200 mg capsule 200 mg PO Q24H 04/27/23 cholecalciferol (vitamin D3) 125 mcg (5,000 unit) tablet (Vitamin D3) 125 mcg PODAILY 04/27/23 escitalopram oxalate 5 mg tablet (Lexapro) 5 mg PO DAILY 04/27/23 fexofenadine 180 mg tablet (Mona Allergy) 180 mg PO DAILY 04/27/23 hydroxyzine pamoate 25 mg capsule 25 mg PO Q8H PRN anxiety 04/27/23 ibuprofen 200 mg tablet 200 mg PO Q4H PRN pain 04/27/23 quetiapine 50 mg tablet 50 mg PO QHS 04/27/23 05/29/23 1448 <Electronically signed by Nemo Robertson > Date _ Nemo Robertson Cosigner Signature (if applicable): Date CC: ~ Signed [facility] Work Phone: evaluation + Plan note Future Appointments Appointment Date:04/26/2021 01:00:00 PM Scheduled Provider: Location:[facility] Appointment Type:CV [facility] evaluation note* Diagnosis Onset Date Resolution Status Insomnia noneactive Fatigue noneactive Hypersomnolence noneactive [facility] Work Phone: [id number] note* Diagnosis Onset Date Resolution Status Insomnia noneactive Fatigue noneactive Hypersomnolence noneactive Atherosclerotic coronary vascular disease chronic Chronic bronchitis chronic Heart disease chronic Memory loss of unknown cause chronic Seasonal allergies chronic [facility] Work Phone: Evaluation note* Diagnosis Onset Date Resolution Status Atherosclerotic coronary vascular disease chronic Chronic bronchitis chronic Chronic insomnia chronic Memory loss of unknown cause [facility] Work Phone: Evaluation noteNo assessment information available [facility] Work Phone: evaluajrac note* Diagnosis Onset Date Resolution Status Abdominal pain, acute acute Acute cholecystitis acute [facility] Work Phone: Hospital course Narrative No data available for this section [facility] Discharge instructions No data available for this section [facility] Discharge instructions Additional Instructions You had a kidney stone 8 mm on the left side that passed into the bladder. Please follow-up with urology. Return for any worsening pain, fever chills nausea or vomiting.[facility] Work Phone: Progress note No data available for this section [facility] Summary Purpose Family History No Family History Records Found Relationship Condition Age at Onset Recorded Date/T gail mother Arthritis Unknown father Arthritis Unknown Cardiac disease Unknown Kidney disorder Unknown Parkinson's disease Unknown daughter Cardiac disease Unknown brother Cardiac disease Unknown Advance Directives No Advanced Directives Records Found Advance Directive Response Recorded Date/ Time Name of Medical Power of Lab Head LEONID CHRISTIANSON N July 20, 2022 8:58pm Living Will Yes July 20 8:58pm Power of Lab Head Yes July 20, 2022 8:58pm Advance Directive Response Recorded Date/ Time Name of Medical Power of Lab Head LEONID CHRISTIANSON N July 20, 2022 9:58pm Living Will Yes July 20 9:58pm Power of Lab Head Yes July 20, 2022 9:58pm Advance Directive Response Recorded Date/ Time Living Will Yes July 20 9:58pm Power of Lab Head Yes July 20, 2022 9:58pm Advance Directive Response Recorded Date/ Time Name of Medical Power of Lab Head LEONID CHRISTIANSON N- . April 27, 2023 6:25pm Living Will Yes April 27 6:25pm Power of Lab Head Yes April 27, 2023 6:25pm Advance Directive Response Recorded Date/ Time Name of Medical Power of Lab Head LEONID CHRISTIANSON N- . April 27, 2023 6:25pm Name of Medical Power of Lab Head , LEONID VALENTINO May 28, 2023 6:59am Living Will Yes May 28 6:59am Power of Lab Head Yes May 28, 2023 6:59am Advance Directive Response Recorded Date/ Time Name of Medical Power of Lab Head LEONID CHRISTIANSON N- . April 27, 2023 6:25pm Name of Medical Power of Lab Head Leonid butt May 28, 2023 8:50pm Living Will Yes May 28 8:50pm Power of Lab Head Yes May 28, 2023 8:50pm Chief Complaint and Reason for Visit Chief Complaint EXCESSIVE FATIGUE Reason for Visit Insomnia Fatigue Hypersomnolence Chief Complaint EXCESSIVE FATIGUE 6 M FU DYPSNEA Reason for Visit Insomnia Fatigue Hypersomnolence Atherosclerotic coronary vascular disease Chronic bronchitis Heart disease Memory loss of unknown cause Seasonal allergies Chief Complaint DYPSNEA 3 M FU BACK/CHEST Reason for Visit Atherosclerotic kati nary vascular disease Chronic bronchitis Chronic insomnia Memory loss of unknown cause Chief Complaint 3 M FU BACK/CHEST LONGTERM LAB WORK Reason for Visit Atherosclerotic kati nary vascular disease Chronic bronchitis Chronic insomnia Memory loss of unknown cause Chief Complaint 3 M FU BACK/CHEST 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 LAB WORK 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 LAB WORK Reason for Visit Atherosclerotic kati nary vascular disease Chronic bronchitis Chronic insomnia Memory loss of unknown cause Chief Complaint LONGTERM LAB WOR K LONGTERM LABWORK Chief Complaint LONGTERM LAB WOR K LONGTERM LABWORK abd pain Chief Complaint LONGTERM LAB WOR K LONGTERM LABWORK abd pain LOWER ABD PAIN LOWER ABD PAIN Reason for Visit Abdominal pain, acut e Acute cholecystitis Chief Complaint LONGTERM LAB WOR K LONGTERM LABWORK abd pain LOWER ABD PAIN ACUTE CHOLECYSTITIS LOWER ABD PAIN Reason for Visit Abdominal pain, acut e Acute cholecystitis Additional Source Comments (unrecognized sect ion and content) No Status Records FoundNo Status Records FoundNo Status Records Found INFORMATION SOURCE (unrecogn ized section and content) DATE CREATED AUTHOR 09/13/2021 [facility] DATE CREATED AUTHOR AUTHOR'S ORGANIZ ATION 06/07/2023 [facility] DATE CREATED AUTHOR AUTHOR'S ORGANIZ ATION 11/05/2023 [facility] ([place]) Goals (unrecognized section and content) Goals may be documented in a n alternate section Care Teams (unrecognized sec tion and content) Team Status: Active Member Role Status Dates Dr. Kely Mancilla , DO Family Provider Active Dr. Bertha Arndt MD Primary Care Provider Active Team Status: Inactive Member Role Status Dates Dr. Kely Mancilla , DO Primary Care Pr ovider, Attending Provider, Referring Provider Active Team Status: Active Member Role Status Dates Dr. Kely Mancilla , DO Primary Care Provider Active Dr. Reynaldo Alan MD Attending Provider Active Team Status: Inactive Member Role Status Dates Dr. Hiren Shelton DO Emergency Provider Active Dr. Bertha Arndt MD Primary Care Provider Active Team Status: Inactive Member Role Status Dates Dr. Hiren Shelton DO Attending Provider, Emergency P rovider Active Dr. Bertha Arndt MD Primary Care Provider Active Team Status: Inactive Member Role Status Dates Dr. Bertha Arndt MD Primary Care Provider Active Bertha Arndt MD Attending Provider Active Team Status: Inactive Member Role Status Dates Dr. Bertha Arndt MD Primary Care Provider Active Bertha TRACEY MD Attending Provider Active Team Status: Inactive Member Role Status Dates Dr. Bertha Arndt MD Primary Care Provider Active Jaquan TRACEY MD Attending Provider Active Team Status: Inactive Member Role Status Dates Dr. Bertha Arndt MD Primary Care Provider Active Roel TRACEY NP-C Attending Provider, Referr ing Provider Active Team Status: Inactive Member Role Status Dates Dr. Bertha Arndt MD Primary Care Provider Active Roel TRACEY NP-C Attending Provider Active Team Status: Inactive Member Role Status Dates Dr. Bertha Arndt MD Primary Care Provider Active Dr. Emelina Justice DO Emergency Provider Active Team Status: Active Member Role Status Dates Dr. Bertha Arndt MD Primary Care Provider Active Dr. Sha Jacome DO Referring Provider, Emergency P rovider Active Dorothy BONILLA PA-C Attending Provider Active Team Status: Inactive Member Role Status Dates Dr. Bertha Arndt MD Primary Care Provider Active Dr. Emelina Justice DO Attending Provider, Emergency P rovider Active Team Status: Active Member Role Status Dates Dr. Bertha Arndt MD Primary Care Provider Active Dr. Sha Jacome DO Referring Provider, Emergency P rovider Active Dr. Christen Mcbride MD Attending Provider Active Team Status: Active Member Role Status Dates Dr. Bertha Arndt MD Primary Care Provider Active Dr. Sha Jacome DO Emergency Provider Active Dr. Christen Mcbride MD Admit Provider, Referring Provider, Other Provider Active Dorothy BONILLA PA-C Attending Provider Active Team Status: Inactive Member Role Status Dates Dr. Bertha Arndt MD Primary Care Provider Active Dr. Sha Jacome DO Emergency Provider Active Dr. Christen Mcbride MD Admit Provider, Attending Provider, Referring Provider Active FOR RECORDS PERTAINING TO PATIENTS WHO ARE OR HAVE BEEN ENROLLED IN A CHEMICAL DEPENDENCY/SUBSTANCEABUSE PROGRAM, SOME INFORMATION MAY BE OMITTED. This clinical summary was aggregated from multiple sources. Caution should be exercised in using it in the provision of clinical care. This summary normalizes information from multiple sources, and as a consequence, information in this document may materially change the coding, format and clinical context of patient data. In addition, data may be omitted in some cases. CLINICAL DECISIONS SHOULD BE BASED ON THE PRIMARY CLINICAL RECORDS. [facility]. provides no warranty or guarantee of the accuracy or completeness of information in this document.
[2024-12-12 15:00] VITALS: BP 111/50; PULSE 55; RESP 12; TEMP 36.8; O2SAT 96
== END 2024-12-12 15:27 | disposition home or self-care (01) ==
PROVIDERS: Emergency Provider Emergency Medicine; PCP Family Medicine; Visit Provider Emergency Medicine
DX: S20.219A Contusion of unspecified front wall of thorax, initial encounter (principal); F03.90 Unspecified dementia, unspecified severity, without behavioral disturbance, psychotic disturbance, mood disturbance, and anxiety; I25.10 Atherosclerotic heart disease of native coronary artery without angina pectoris; E78.5 Hyperlipidemia, unspecified; S22.31XA Fracture of one rib, right side, initial encounter for closed fracture; Z79.899 Other long term (current) drug therapy; R41.3 Other amnesia; W19.XXXA Unspecified fall, initial encounter
CPT/HCPCS: 71250; 99282

== ENCOUNTER 2024-12-16 11:27 | Inpatient (IN) | payer MEDICARE, BC, SELFPAY ==
[2024-12-16] VITALS (10 sets, daily range): BP systolic 109–137; BP diastolic 62–89; PULSE 65–116; RESP 12–22; TEMP 36.4–36.8; O2SAT 92–96; BMI 28.3; BMI 28.0
[2024-12-16] MEDS: 0.9% Normal Saline (1000mL) 1,000 ML 999 ML IV ×3 (11:41→13:37)
[2024-12-16 11:46] LABS: Absolute Lymphocyte Count 0.34 X10^3/uL (0.83-4.51); Absolute Neutrophil Count 13.3 X10^3/uL (2.0-7.7); Basophil# 0.05 X10^3/uL; Basophil% 0.3 % (0-1); Hemoglobin 17.1 g/dL (13.0-16.5); Lymphocyte # 0.34 X10^3/ul (0.83-4.51); Lymphocyte % 2.2 % (19-41); Mean Corp Hgb Conc 35.6 g/dL (32-36); Mean Corpuscular Volume 98.2 fL (80-94); Monocyte% 9.2 % (0-10); NRBC Flagged by Analyzer 0 % (0-5); Neutrophil # 13.31 X10^3/uL (2.7-7.7); Neutrophil % 87.4 % (47-70); POSITIVE DIFFERENTIAL YES; Platelet Count 161 K/mm3 (150-450); RBC Distribution Width CV 11.9 % (11.6-14.6); RBC Distribution Width SD 43.2 fl (35.1-43.9); Red Blood Count 4.89 M/mm3 (4.6-6.2); White Blood Count 15.2 K/mm3 (4.4-11.0)
--- NOTE | 2024-12-16 11:47 | EDS_ITS ---
HPI History of Present Illness Chief Complaint: Alt LOC Narrative Narrative: Patient is a 84-year-old male with past medical history of dementia, recent fall with rib fractures on Friday, who presented to the emergency department chief complaint of altered mental status and weakness. Per nursing staff/facility they state that he had more altered mental status than his baseline and appeared very confused and weak therefore they called EMS to have him brought here for further evaluation management. They also noted that he is out of his oxycodone for his rib pain as well. Patient's at bedside noted that she was told that he was more confused than his baseline and they are having him sent here to the emergency department to be further evaluated. [facility] Medical History Cholecystectomy planned Memory deficit Cataracts, both eyes Chronic bronchitis Heart disease Arthritis Seasonal allergies Home Medications ?Medication ?Instructions ?Recorded ?Last Taken ?Type aspirin 81 mg tablet,delayed 81 mg PO QDAY 01/06/18 History release rosuvastatin 20 mg tablet (Crestor) 20 mg PO QDAY #90 tabs 03/29/21 05/27/23 Rx dextromethorphan-guaifenesin 30 1 tab PO BID 07/20/22 Unknown History mg-600 mg tablet extended [id number] hr (Mucinex DM) famciclovir 500 mg tablet 500 mg PO BID 07/20/22 Unkno wn History celecoxib 200 mg capsule 200 mg PO DAILY 04/27/2311/12 History cholecalciferol (vitamin D3) 125 125 mcg PO DAILY 11/12 Unknown History mcg (5,000 unit) tablet (Vitamin D3)
--- NOTE | 2024-12-16 11:47 | EX.ED.DYSGE1 ---
HPI History of Present Illness Chief Complaint: Alt LOC Narrative Narrative: Patient is a 84-year-old male with past medical history of dementia, recent fall with rib fractures on Friday, who presented to the emergency department chief complaint of altered mental status and weakness. Per nursing staff/facility they state that he had more altered mental status than his baseline and appeared very confused and weak therefore they called EMS to have him brought here for further evaluation management. They also noted that he is out of his oxycodone for his rib pain as well. Patient's at bedside noted that she was told that he was more confused than his baseline and they are having him sent here to the emergency department to be further evaluated. [facility] Medical History Cholecystectomy planned Memory deficit Cataracts, both eyes Chronic bronchitis Heart disease Arthritis Seasonal allergies Home Medications ?Medication ?Instructions ?Recorded ?Last Taken ?Type aspirin 81 mg tablet,delayed 81 mg PO QDAY 01/06/18 05/27/23 History release rosuvastatin 20 mg tablet (Crestor) 20 mg PO QDAY #90 tabs 03/29/21 05/27/23 Rx dextromethorphan-guaifenesin 30 1 tab PO BID 07/20/22 Unknown History mg-600 mg tablet extended hr (Mucinex DM) famciclovir 500 mg tablet 500 mg PO BID 07/20/22 Unknown History celecoxib 200 mg capsule 200 mg PO DAILY 04/27/23 05/27/23 History cholecalciferol (vitamin D3) 125 125 mcg PO DAILY 04/27/23 Unknown History mcg (5,000 unit) tablet (Vitamin D3) fexofenadine 180 mg tablet 180 mg PO DAILY 04/27/23 05/27/23 History (Mona Allergy) hydroxyzine pamoate 25 mg capsule 25 mg PO Q8H PRN anxiety 04/27/23 05/28/23 06:20 History quetiapine 50 mg tablet 50 mg PO DAILY 04/27/23 05/27/23 History escitalopram oxalate 10 mg tablet 10 mg PO DAILY 12/12/24 Unknown History loperamide 2 mg tablet 2 mg PO Q6H PRN loose stool 12/12/24 Unknown History (Anti-Diarrheal (loperamide)) magnesium hydroxide 400 mg/5 mL 30 ml PO DAILY PRN constipation 12/12/24 Unknown History oral suspension (Milk of Magnesia) quetiapine 25 mg tablet 25 mg PO DAILY 12/12/24 Unknown History acetaminophen 325 mg tablet 650 mg PO Q4H PRN fever or pain 12/16/24 Unknown History nystatin 100,000 unit/gram topical 1 applic topical Q8H PRN skin 12/16/24 Unknown History powder (Klayesta) irritation omeprazole 40 mg capsule,delayed 40 mg PO DAILY 12/16/24 Unknown History release bwdxjihubbtog-IV-krqgmfqubtjss 5 30 ml PO Q4H PRN cough 12/16/24 Unknown History mg-10 mg-325 mg/15 mL oral liquid (Daytime Cold and Flu Relief (PE)) Allergy/AdvReac Type Severity Reaction Status Date / Time No Known Allergies Allergy Verified 12/12/24 13:04 Family History Mother Arthritis Father Arthritis Heart disease Kidney disease Parkinson disease Daughter Heart disease Brother Heart disease Surgical History history of triple bypass surgery Social History Smoking Status: Never smoker alcohol intake: never substance use type: does not use what type of physical activity do you participate in: walking and bicycling ROS ROS ED ROS Narrative Review of systems unobtainable from the patient secondary to his altered mental status therefore acute care caveat applies EXAM Physical Exam Narrative Exam Narrative: General: Patient lying in bed rest comfortably did not appear to be in acute distress Head: Atraumatic, normocephalic Eyes: PERRL bilaterally, EOMI bilateral, no conjunctival injection noted Neck: Soft, supple, trachea midline Cardiovascular: Patient tachycardic with a regular rhythm Respiratory: Clear to auscultation bilaterally Abdomen: Soft, nondistended, nontender to palpation Extremities: +3/5 strength noted in the bilateral upper and lower extremities, radial pulses +2/4 in the bilateral upper extremities Neurological: Patient was able to tell me that he was at the hospital and his name. Patient has overall generalized weakness no focal neurologic deficits noted Skin: Warm, dry, tact no rashes or lesions noted Const Vital Signs: 12/16/24 11:29 12/16/24 11:34 12/16/24 12:36 Temperature 98.3 F 97.8 F Temperature Source Oral Oral Pulse Rate 116 H 99 Respiratory Rate 22 H 18 Blood Pressure 124/86 H 121/82 H Blood Pressure Mean 98 95 Pulse Ox 92 95 Oxygen Delivery Method Room Air Room Air Nasal Cannula Oxygen Flow Rate (L/min) 2 12/16/24 13:00 12/16/24 14:00 Temperature 97.6 F L 97.6 F L Temperature Source Oral Oral Pulse Rate 93 77 Respiratory Rate 17 19 H Blood Pressure 122/79 H 137/89 H Blood Pressure Mean 93 105 Pulse Ox 96 95 Oxygen Delivery Method Nasal Cannula Nasal Cannula Oxygen Flow Rate (L/min) 2 2 MDM MDM MDM Narrative Medical decision making narrative: Patient is a 84-year-old male who presented to the emergency department via EMS from nursing facility with the chief complaint of altered mental status and generalized weakness. On the differential diagnosis includes but not limited to intracranial hemorrhage, pneumonia, pneumothorax, ACS, electrolyte abnormality, UTI. Once the workup is obtained and reviewed he will be reevaluated. Patient will be given 30 cc/kg bolus of IV fluids this was ordered 11:35 AM. Patient CBC was reviewed and showed a leukocytosis of 15,000, hemoglobin 17.1, platelet count 161. Patient INR normal at 1.3, PT of 16.1. Patient's arterial blood gas reviewed showed pH 7.44 with a pCO2 of 37.6. Patient's PO2 was low at 58 was placed on 2 L nasal cannula. Patient sodium was 130, potassium normal 4.3, creatinine was 0.94. Patient's troponin was 14. Patient's EKG reviewed showed sinus tachycardia with a rate of 114 bpm. Patient's urinalysis reviewed showed negative nitrites negative leukocyte esterase no evidence of infection. Patient's chest x-ray reviewed by myself and by radiology showed elevation of the hemidiaphragms bilateral increased markings lung bases suggest atelectasis with superimposed mild agree vascular congestion. Given patient's white count ultimately status will add a CT of the chest on. Patient's CT head and brain reviewed no acute findings noted chronic changes noted. Patient CT chest reviewed showed a basilar consolidation worse on the right compared to prior study stable appearance of the right rib fractures. Patient was ordered Rocephin and azithromycin at 1332. Reperfusion assessment was performed at 2:30 PM and patient remains normotensive no indication for vasopressors. Will discuss case with hospitalist for admission for pneumonia, altered mental status, generalized weakness Patient case was discussed with hospitalist who is recommending CT abdomen pelvis to be added on which was added on. Dr. Sandoval will accept patient for admission notified patient and for members at bedside all course concerns answered at bedside. Lab Data Labs: Laboratory Results - last 24 hr 12/16/24 12/16/24 12/16/24 11:15 11:38 12:30 WBC 15.2 H RBC 4.89 Hgb 17.1 H Hct 48.0 MCV 98.2 H MCH 35.0 H MCHC 35.6 RDW Std Deviation 43.2 RDW Coeff of Solitario 11.9 Plt Count 161 MPV 10.0 Immature Gran % (Auto) 0.900 Neut % (Auto) 87.4 H Lymph % (Auto) 2.2 L [place] % (Auto) 9.2 Eos % (Auto) 0.0 Baso % (Auto) 0.3 Absolute Neuts (auto) 13.3 H Absolute Lymphs (auto) 0.34 L Nucleated RBC % 0 PT 16.1 H INR 1.3 APTT 31.5 Sodium 138 Potassium 4.3 Chloride 103 Carbon Dioxide 21.1 Anion Gap 14 BUN 32 H Creatinine 0.94 Estim Creat Clear Calc 63.00 Est GFR (MDRD) Non-Af 80 BUN/Creatinine Ratio 33.4 H Glucose 169 H Lactic Acid 1.7 Calcium 9.9 Total Bilirubin 1.29 AST 35 ALT 31 Alkaline Phosphatase 83 Troponin T High Sens 14 Total Protein 7.5 Albumin 4.0 Globulin 3.5 Albumin/Globulin Ratio 1.1 Urine Color Yellow Urine Clarity Clear Urine pH 6.0 Ur Specific [place] 1.020 Urine Protein 30 H Urine Glucose (UA) Normal Urine Ketones 5 H Urine Occult Blood 25 H Urine Nitrite Negative Urine Bilirubin Negative Urine Urobilinogen 1 H Ur Leukocyte Esterase Negative Urine RBC 0-5 SEEN Urine WBC 0 SEEN Ur Squamous Epith Cells 0 SEEN Urine Bacteria 0 SEEN Urine Mucus 0 SEEN ABG Data ABG results: ABG 12/16/24 11:46 Specimen Type ART Sample Site R Brach pH 7.44 Bicarbonate Actual 25.4 Total CO2 27 Base Excess 1 O2 Saturation 91 L ABG pCO2 37.6 ABG pO2 58 L O2 Delivery Device Room Air Vent Mode Not entered Radiography Diagnostic Testing: Clinical Impression(s) from Imaging Studies Brain CT 12/16/24 12:10 IMPRESSION: CHRONIC CHANGES. NO ACUTE FINDINGS. Reading Location: [facility] Chest X-Ray 12/16/24 12:15 IMPRESSION: Elevation of the hemidiaphragms bilaterally with increased markings at the lung bases suggestive of atelectasis with superimposed mild degree of vascular congestion. Reading Location: [facility] Chest CT 12/16/24 12:39 IMPRESSION: Coronary artery calcification (CAC) is is present Bibasilar consolidation worse on the right side as compared to prior study. Stable appearance of the right per fractures. Reading Location: [facility] Discharge Plan Triage Chief Complaint: Alt LOC ED Provider: Tommy Lama Dx/Rx/DC Orders Clinical Impression: Acute hypoxic respiratory failure, Pneumonia, Altered mental status Prescriptions: No Action aspirin 81 mg tablet,delayed release (DR/EC) 81 mg PO QDAY famciclovir 500 mg tablet 500 mg PO BID Mucinex DM 30-600 mg Tablet Extended Release 12 Hr 1 tab PO BID celecoxib 200 mg capsule 200 mg PO DAILY fexofenadine [Mona Allergy] 180 mg tablet 180 mg PO DAILY quetiapine 50 mg tablet 50 mg PO DAILY hydroxyzine pamoate 25 mg capsule 25 mg PO Q8H PRN (Reason: anxiety) cholecalciferol (vitamin D3) [Vitamin D3] 125 mcg (5,000 unit) tablet 125 mcg PO DAILY quetiapine 25 mg tablet 25 mg PO DAILY escitalopram oxalate 10 mg tablet 10 mg PO DAILY loperamide [Anti-Diarrheal (loperamide)] 2 mg tablet 2 mg PO Q6H PRN (Reason: loose stool) magnesium hydroxide [Milk of Magnesia] 400 mg/5 mL suspension 30 ml PO DAILY PRN (Reason: constipation) acetaminophen 325 mg tablet 650 mg PO Q4H PRN (Reason: fever or pain) nystatin [Klayesta] 100,000 unit/gram powder 1 applic topical Q8H PRN (Reason: skin irritation) Daytime Cold-Flu Relief (PE) 5-10-325 mg/15 mL liquid 30 ml PO Q4H PRN (Reason: cough) omeprazole 40 mg capsule,delayed release(DR/EC) 40 mg PO DAILY rosuvastatin [Crestor] 20 mg tablet 20 mg PO QDAY Qty: 90 3RF Primary Care Provider: River Moreno Referrals: River Moreno, [Primary Care Provider] - Print Language: Kinyarwanda Disposition Disposition: Acute Care Hospital [facility]
[2024-12-16 11:50] LABS: Base Excess 1 mmol/L (-2 to +2); Bicarbonate 25.4 mmol/L (22-26); Blood Gas Specimen Type ART; Mode Not entered; O2 Delivery Device Room Air; PO2 58 mmHG (75-100); SITE R Brach; SO2 91 % (95-99); Total Carbon Dioxide 27 mmol/L; pCO2 37.6 mmHg (35-45); pH 7.44 (7.35-7.45)
[2024-12-16 11:53] LABS: International Normalized Ratio 1.3; Prothrombin Time (Protime)PT. 16.1 SECONDS (11.7-14.9)
[2024-12-16 11:54] LABS: Partial Thromboplast Time 31.5 Seconds (24.1-36.2)
--- NOTE | 2024-12-16 12:10 | CT_ITS ---
PROCEDURE: BRAIN/HEAD WITHOUT CONTRAST N/A REASON FOR EXAM: AMS Memory deficits. TECHNIQUE: BRAIN/HEAD WITHOUT CONTRAST Coronal and Sagittal reconstruction series were provided. One or more dose reduction techniques were used (e.g., Automated exposure control, adjustment of the mA and/or kV according to patient size, use of iterative reconstruction technique. RADIATION DOSE SUMMARY: CTDlvol: 44.99 mGy DLP: 897.35 mGycm COMPARISON: Prior study dated July 20, 2022. FINDINGS: Brain: Low density in the periventricular white matter suggests mild chronic small vessel ischemic changes. Once again, there is encephalomalacia in the posterior right parieto-occipital lobe. CSF Spaces: Moderate generalized cerebral atrophy. Cerebellar atrophy. Sinuses/Mastoids: Stable 1 cm retention cyst or polyp along the lateral wall of the right sphenoid sinus. Bones: Unremarkable CT/Brain/Head without Contrast IMPRESSION: CHRONIC CHANGES. NO ACUTE FINDINGS. Reading Location: [id number]
--- NOTE | 2024-12-16 12:15 | RAD_ITS ---
PROCEDURE: CHEST PA AND LATERAL 12/16/2024 REASON FOR EXAM: AMS, WEAK TECHNIQUE: CHEST PA AND LATERAL COMPARISON: Prior chest radiograph dated June 19, 2023 FINDINGS: Hardware: EKG electrodes are seen. Heart: Prior midline sternotomy. Mild cardiomegaly. Mediastinum: Unremarkable Lungs: Elevation of both hemidiaphragms with bibasilar atelectasis superimposed on mild degree of vascular congestion. Bones: There is distention of the colon due to gas and large amount of fecal material. RAD/Chest PA and Lateral IMPRESSION: Elevation of the hemidiaphragms bilaterally with increased markings at the lung bases suggestive of atelectasis with superimposed mild degree of vascular congestion. Reading Location: [id number]
[2024-12-16 12:16] LABS: ALB/GLOB Ratio 1.1 RATIO (0.9-2.4); AST(SGOT) 35 U/L (<=37); Alanine Aminotransfer ALT/SGPT 31 U/L (<=46); Alkaline Phosphatase 83 U/L (40-129); Anion Gap 14 (5-15); BUN 32 mg/dL (4-19); BUN/Creat Ratio 33.4 RATIO (10-20); Calcium,Total 9.9 mg/dL (7.6-11.0); Carbon Dioxide 21.1 mmol/L (21.0-32.0); Chloride 103 mmol/L (98-108); Creatinine, Serum 0.94 mg/dL (0.70-1.20); EST Glomerular Filtration Rate 80 (>60); Globulin 3.5 g/dL (2.2-4.2); Glucose 169 mg/dL (70-99); Potassium 4.3 mmol/L (3.3-5.1); Protein, Total 7.5 g/dL (5.9-8.4); Sodium Level 138 mmol/L (133-145); Total Bilirubin 1.29 mg/dL (0.00-1.30); Troponin T High Sensitivity 14 ng/L (<=22)
[2024-12-16 12:39] LABS: Bacteria 0 SEEN /hpf (None Seen); Mucous, Urine 0 SEEN /hpf (<or=2+); Squamous Epithelial Cells - UA 0 SEEN /hpf (0-5); White Blood Cells 0 SEEN /hpf (0-5)
--- NOTE | 2024-12-16 12:39 | CT_ITS ---
PROCEDURE: CHEST WITHOUT CONTRAST 12/16/2024 REASON FOR EXAM: COUGH, RECENT RIB FXS TECHNIQUE: Chest CT without contrast. Coronal and Sagittal reconstruction series were provided. One or more dose reduction techniques were used (e.g., Automated exposure control, adjustment of the mA and/or kV according to patient size, use of iterative reconstruction technique RADIATION DOSE SUMMARY: CTDlvol: 19 mGy DLP: 904.45 mGycm COMPARISON: Comparison is made with prior study dated December 12, 2024. FINDINGS: Hardware: EKG electrodes are seen. Lymph nodes: No mediastinal lymphadenopathy is present. Heart and Vasculature: Prior CABG. Prior aortic valve replacement. Coronary Artery Calcifications: Present Lungs and Airways: There now is evidence of focal consolidation in the right lower lobe with airspace disease. This was not present on prior study. New consolidation in the left lower lobe. Pleura: No significant effusion Upper Abdomen: Unremarkable Bones: Stable nondisplaced fractures of the right 10th and 11th ribs. Prior vertebroplasty of the L1 vertebrae. CT/Chest without Contrast IMPRESSION: Coronary artery calcification (CAC) is is present Bibasilar consolidation worse on the right side as compared to prior study. Stable appearance of the right per fractures. Reading Location: [facility]
[2024-12-16 12:50] LABS: Color, Urine Yellow (Yellow); Glucose, Dipstick Normal (Normal); Ketone-Dipstick 5 mg/dl (Negative); Leukocyte Esterase-Dipstick Negative /ul (Negative); Nitrite-Dipstick Negative (Negative); Occult Blood-Urine 25 /ul (Negative); Protein-Dipstick 30 mg/dl (Negative); Urine Bilirubin Dipstick Negative (Negative); Urine Clarity Clear (Clear); Urine Urobilinogen 1 mg/dl (Normal)
[2024-12-16 12:54] LABS: Lactic Acid 1.7 mmol/L (0.0-2.0)
[2024-12-16 12:58] LABS: Red Blood Cells-Urine 0-5 SEEN /hpf (0-5)
[2024-12-16] MEDS: Ceftriaxone 2 GM in 0.9% Normal Saline (50mL MB+) 50 ML IV (13:57)
[2024-12-16 14:39] LABS: Troponin T High Sens 2 HR 13 ng/L (<=22)
--- NOTE | 2024-12-16 14:42 | CASEMGMT ---
Social Work SW met with patients who confirmed that patient will be returning to [place] when medically ready. No further needs identified at this time. Julia Sharp, EMBOSSING TOOL SETTER, DRILLING RIG OPERATOR
[2024-12-16] MEDS: Azithromycin 500 MG in 0.9% Normal Saline (250mL Bag) 250 ML 255 MG IV (14:45)
--- NOTE | 2024-12-16 15:05 | CT_ITS ---
PROCEDURE: ABDOMEN/PELVIS W IV CONT ONLY 12/16/2024 REASON FOR EXAM: ABD PAIN TECHNIQUE: ABDOMEN/PELVIS W IV CONT ONLY Coronal and Sagittal reconstruction series were provided. CONTRAST: Isovue-300 VOLUME: 100 mL One or more dose reduction techniques were used (e.g., Automated exposure control, adjustment of the mA and/or kV according to patient size, use of iterative reconstruction technique. RADIATION DOSE SUMMARY: CTDlvol: 17.8 mGy DLP: 1359.3 mGycm COMPARISON: Prior study dated May 28, 2023. FINDINGS: Lung bases: Small right pleural effusion with bibasilar atelectasis and/or infiltrates worse on the right side coronary artery calcification. Liver: Normal size. No mass. Gallbladder: Surgically absent. Spleen: Normal size. Pancreas: Diffuse fatty atrophy. Adrenals: Unremarkable. Kidneys: 1.5 cm cyst in the upper medial portion of the left kidney. 3 cm cyst in the lateral midportion of the right kidney. Punctate calculus in the lower pole calyx of the right kidney. Bladder: A Francis catheter is seen within the urinary bladder. There is evidence of bladder wall thickening. Prostatic enlargement. Bowel: Moderate amount of fecal material is seen in the right hemicolon. Scattered sigmoid diverticula. Appendix: Unremarkable Lymph nodes: Unremarkable. Vasculature: Mild diffuse atherosclerotic calcifications are noted. Peritoneum / Retroperitoneum: Bones: Vertebroplasty of the L1 vertebrae. CT/Abdomen/Pelvis W IV Cont ONLY IMPRESSION: Bladder wall thickening. Stable bilateral renal cysts. Sigmoid diverticulosis. Reading Location: [id number]
--- NOTE | 2024-12-16 15:05 | PCM.HP.STD ---
HPI - General General Date of Admission: 12/16/24 Date of Service: 12/16/24 Chief Complaint: AMS HPI Narrative JANE VELASCO, is a 84-year-old male history of coronary artery disease, dementia, GERD, anxiety, recent fall with rib fractures on Friday who presented to [facility] ED 12/16/2024 with weakness and altered mental status. Per staff at the facility he resides in he has been more altered than baseline and is very confused and weak so EMS was called. Patient afebrile presentation, heart rate 116 with blood pressure 124/86. Respiratory rate 22 with pulse ox 92% on room air. UA does not appear infectious, lactic acid 1.7. CBC with white blood cell count of 15.2 and hemoglobin 17.1. ABG with normal pH, O2 sat of 91% and pO2 of 58 on room air. CMP with creatinine of 0.94 which appears to be baseline and slight elevation of BUN at 32, glucose noted to be 169. Troponin within normal limits at 14. CT head with no acute findings. Chest x-ray with elevation of hemidiaphragms bilaterally with findings suggestive of atelectasis with possible superimposed mild degree of vascular congestion. CT chest therefore obtained which showed stable appearance of rib fractures but bibasilar consolidation right greater than the left. Was concerned the patient's altered mental status may be due to developing pneumonia. Patient given antibiotics and hospitalist contacted for admission. Patient evaluated at bedside with present. History obtained per report and from as patient unable to really meaningfully answer questions. reports patient has been having pain from his rib fractures since Friday despite medications when he has been somewhat weak and tired however today is when he became more noticeably altered from baseline though does have dementia at baseline. She reports she noticed some coughing today as well. She is not aware if there have been any problems with his abdomen or any nausea or vomiting. Unable to glean any further history at this time [facility] Medical History (Updated 12/16/24 @ 15:[address] Nithya Sandoval MD) Arthritis Cataracts, both eyes Cholecystectomy planned Chronic bronchitis Coronary artery disease Heart disease Memory deficit Non-smoker Rheumatoid arthritis Seasonal allergies Home Medications ?Medication ?Instructions ?Recorded ?Last Taken ?Type aspirin 81 mg tablet,delayed 81 mg PO QDAY 01/06/18 05/27/23 History release rosuvastatin 20 mg tablet (Crestor) 20 mg PO QDAY #90 tabs 03/29/21 05/27/23 Rx dextromethorphan-guaifenesin 30 1 tab PO BID 07/20/22 Unknown History mg-600 mg tablet extended [id number] hr (Mucinex DM) famciclovir 500 mg tablet 500 mg PO BID 07/20/22 Unknown History celecoxib 200 mg capsule 200 mg PO DAILY 04/27/23 05/27/23 History cholecalciferol (vitamin D3) 125 125 mcg PO DAILY 04/27/23 Unknown History mcg (5,000 unit) tablet (Vitamin D3) fexofenadine 180 mg tablet 180 mg PO DAILY 04/27/23 05/27/23 History (Mona Allergy) hydroxyzine pamoate 25 mg capsule 25 mg PO Q8H PRN anxiety 04/27/23 05/28/23 06:20 History quetiapine 50 mg tablet 50 mg PO DAILY 04/27/23 05/27/23 History escitalopram oxalate 10 mg tablet 10 mg PO DAILY 12/12/24 Unknown History loperamide 2 mg tablet 2 mg PO Q6H PRN loose stool 12/12/24 Unknown History (Anti-Diarrheal (loperamide)) magnesium hydroxide 400 mg/5 mL 30 ml PO DAILY PRN constipation 12/12/24 Unknown History oral suspension (Milk of Magnesia) quetiapine 25 mg tablet 25 mg PO DAILY 12/12/24 Unknown History acetaminophen 325 mg tablet 650 mg PO Q4H PRN fever or pain 12/16/24 Unknown History nystatin 100,000 unit/gram topical 1 applic topical Q8H PRN skin 12/16/24 Unknown History powder (Klayesta) irritation omeprazole 40 mg capsule,delayed 40 mg PO DAILY 12/16/24 Unknown History release tdloclqjtsjql-AA-vdlevxogmdmpj 5 30 ml PO Q4H PRN cough 12/16/24 Unknown History mg-10 mg-325 mg/15 mL oral liquid (Daytime Cold and Flu Relief (PE)) Allergy/AdvReac Type Severity Reaction Status Date / Time No Known Allergies Allergy Verified 12/12/24 13:04 Family History Mother Arthritis Father Arthritis Heart disease Kidney disease Parkinson disease Daughter Heart disease Brother Heart disease Surgical History (Updated 12/16/24 @ 14:57 by Angie Singletary) History of coronary artery stent placement history of triple bypass surgery Hx of CABG Social History Smoking Status: Never smoker alcohol intake: never substance use type: does not use what type of physical activity do you participate in: walking and bicycling ROS ROS Narrative Unable to obtain secondary to mental status Vital Signs Vital Signs Vital Signs: 12/16/24 11:29 12/16/24 11:34 12/16/24 12:36 Temperature 98.3 F 97.8 F Temperature Source Oral Oral Pulse Rate 116 H 99 Respiratory Rate 22 H 18 Blood Pressure 124/86 H 121/82 H Blood Pressure Mean 98 95 Pulse Ox 92 95 Oxygen Delivery Method Room Air Room Air Nasal Cannula Oxygen Flow Rate (L/min) 2 12/16/24 13:00 12/16/24 14:00 12/16/24 14:48 Temperature 97.6 F L 97.6 F L 98.2 F Temperature Source Oral Oral Pulse Rate 93 77 106 H Respiratory Rate 17 19 H 20 H Blood Pressure 122/79 H 137/89 H 120/62 Blood Pressure Mean 93 105 81 Pulse Ox 96 95 96 Oxygen Delivery Method Nasal Cannula Nasal Cannula Oxygen Flow Rate (L/min) 2 2 Weight Weight: 84.4 kg Body Mass Index (BMI) 28.3 Physical Exam Narrative General: Wakes up, only intermittently answers questions but does not seem to do so purposefully HEENT: normocephalic Eyes: Anicteric, normal conjunctiva, extraocular movements grossly intact Neck: Supple Respiratory: Diminished at the bases but with normal respiratory effort Cardiovascular: Regular rate at time of exam GI: Does not appear tender on exam, hypoactive bowel sounds, no guarding or rigidity Extremities: No edema Musculoskeletal: Moving all extremities Neuro: No overt focal neurological deficits the patient unable to participate in neuroexam Skin: No rashes appreciated Psych: Attempts to be cooperative Results Lab / Micro Data 12/16/24 11:15 12/16/24 11:15 Labs: Laboratory Results - last 24 hr 12/16/24 11:15: WBC 15.2 H, RBC 4.89, Hgb 17.1 H, Hct 48.0, MCV 98.2 H, MCH 35.0 H, MCHC 35.6, RDW Std Deviation 43.2, RDW Coeff of Solitario 11.9, Plt Count 161, MPV 10.0, Immature Gran % (Auto) 0.900, Neut % (Auto) 87.4 H, Lymph % (Auto) 2.2 L, [place] % (Auto) 9.2, Eos % (Auto) 0.0, Baso % (Auto) 0.3, Absolute Neuts (auto) 13.3 H, Absolute Lymphs (auto) 0.34 L, Nucleated RBC % 0, PT 16.1 H, INR 1.3, APTT 31.5, Sodium 138, Potassium 4.3, Chloride 103, Carbon Dioxide 21.1, Anion Gap 14, BUN 32 H, Creatinine 0.94, Estim Creat Clear Calc 63.00, Est GFR (MDRD) Non-Af 80, BUN/Creatinine Ratio 33.4 H, Glucose 169 H, Calcium 9.9, Total Bilirubin 1.29, AST 35, ALT 31, Alkaline Phosphatase 83, Troponin T High Sens 14, Total Protein 7.5, Albumin 4.0, Globulin 3.5, Albumin/Globulin Ratio 1.1 12/16/24 11:38: Lactic Acid 1.7 12/16/24 12:30: Urine Color Yellow, Urine Clarity Clear, Urine pH 6.0, Ur Specific [place] 1.020, Urine Protein 30 H, Urine Glucose (UA) Normal, Urine Ketones 5 H, Urine Occult Blood 25 H, Urine Nitrite Negative, Urine Bilirubin Negative, Urine Urobilinogen 1 H, Ur Leukocyte Esterase Negative, Urine RBC 0-5 SEEN, Urine WBC 0 SEEN, Ur Squamous Epith Cells 0 SEEN, Urine Bacteria 0 SEEN, Urine Mucus 0 SEEN 12/16/24 13:10: Troponin T Hi Sens 2 Hr 13 ABG Data ABG results: ABG 12/16/24 11:46 Specimen Type ART Sample Site R Brach pH 7.44 Bicarbonate Actual 25.4 Total CO2 27 Base Excess 1 O2 Saturation 91 L ABG pCO2 37.6 ABG pO2 58 L O2 Delivery Device Room Air Vent Mode Not entered Imaging Radiology Impression Brain CT 12/16/24 12:10 IMPRESSION: CHRONIC CHANGES. NO ACUTE FINDINGS. Reading Location: [id number] Chest X-Ray 12/16/24 12:15 IMPRESSION: Elevation of the hemidiaphragms bilaterally with increased markings at the lung bases suggestive of atelectasis with superimposed mild degree of vascular congestion. Reading Location: [facility] Chest CT 12/16/24 12:39 IMPRESSION: Coronary artery calcification (CAC) is is present Bibasilar consolidation worse on the right side as compared to prior study. Stable appearance of the right per fractures. Reading Location: [facility] Assessment & Plan Assessment/Plan (1) Altered mental status: (2) Community acquired pneumonia: PLAN: Plan #Community-acquired pneumonia -Imaging: CT chest with bibasilar consolidation right greater than left compared to imaging on Friday - and as needed albuterol -Sputum culture if able, COVID ordered, respiratory panel ordered -Urine antigens -Mucinex, I/S -Rocephin and azithromycin # Altered mental status suspect metabolic encephalopathy secondary to underlying pneumonia -UA does not appear infectious -CT head with no acute process -ABG with O2 sat 91 and PO258 on room air. -CT with new consolidations right greater than left concerning for pneumonia -Antibiotics as above # Recent fall with rib fractures -Lidocaine patch, supportive care -PT/OT #Dementia -Supportive care -Continue home medications # History of coronary artery disease -With previous aortic valve replacement and CABG - Continue aspirin and statin #Depression/anxiety -Continue home medications #GERD -Continue PPI #DVT ppx: Lovenox subcu Nithya Sandoval MD Charges/Coding Visit Charges Inpatient E&M: 46711 Init Hosp L2
[2024-12-16 15:56] LABS: Troponin T High Sens 4 HR 12 ng/L (<=22)
[2024-12-16 16:55] LABS: Bedside Glucose 127 mg/dL (74-106)
[2024-12-16] MEDS: Bisacodyl 10 MG Suppository RC (17:41)
[2024-12-16] MEDS: 0.9% Saline Lock 10 ML Syringe IV (17:41)
[2024-12-16] MEDS: 0.9% Normal Saline (1000mL) 1,000 ML 50 ML IV (17:51)
[2024-12-16] MEDS: Ipratropium/Albuterol Sulfate 3 ML AMPUL.NEB INHALATION (19:48)
--- OUTSIDE RECORDS SUMMARY | 2024-12-16 22:03 | XMS RPT_ITS | CCD ---
Author Organization [facility] Care Team Providers Care Radiologic Technology Instructor Name Role Phone KELY MORENO DO Primary Care Physician Dr. Kely Moreno Primary Care Provider Dr. Kely Moreno Referring Provider Dillan BAILEY, KARSON [place] Attending Provider Dr. Kely Moreno Attending Provider Dr. Reynaldo Alan Attending Provider [phone] Kely Moreno Primary Care Provider [phone] Dr. Reynaldo Alan Attending Provider Dr. Kely Moreno Attending Provider Dr. Kely Moreno Referring Provider Dr. Kely Moreno Primary Care Provider Dr. Kely Moreno Primary Care Provider [phone] Dr. Kely Moreno Attending Provider Dr. Kely Moreno Referring Provider Dr. Bertha Arndt Primary Care Provider Dr. Sha Jacome Referring Provider Dr. Sha Jacome Emergency Provider PEDRO Guevara Attending Provider Dr. Christen Mcbride Admit Provider Dr. Christen Mcbride Referring Provider Dr. Christen Mcbride Other Provider KELY MORENO DO Primary Care Physician KELY MORENO DO Primary Care Unavailable LELIA DUKE PA-C Attending Unavail able Dr. Hiren Shelton DO Emergency Provider Dr. Kely Moreno DO Primary Care Provider [phone] Kely Moreno Primary Care Unavailable Hiren Shelton Attending Unavailable Dr. Hiren Shelton DO Attending Provider Dr. Tommy Lama DO Emergency Provider [phone] Jaime DUTTON, Dr. Barriga Admit Provider Jaime DUTTON, Dr. Barriga Attending Provider Medications Current Medications Medication Drug Class(es) Dates Sig (Normalized) Sig (Original) acetaminophen 325 mg oral tablet (10 sources) Start: 12-16-2024 take 2 tablets by mouth every four hours as needed for pain Acetaminophen 325 mg tablet Active 650 mg PO Q4H as needed for fever or pain December 16, 2024 12:00am Start: 07-20-2022 End: 12-16-2024 take 1 capsule by mouth every six hours as needed for pain Acetaminophen (Tylenol) 325 mg capsule Discontinued 325 mg PO EVERY 6 HOURS as needed for pain 120 July 20, 2022 1:00am December 16, 2024 11:54am acetaminophen 21.7 mg/ml / dextromethorphan hydrobromide 0.667 mg/ml / phenylephrine hydrochloride 0.333 mg/ml oral solution (1 source) Uncompetitive L-rqlqtt-Z-aspartate Receptor Antagonist, Sigma-1 Agonist, alpha-1 Adrenergic Agonist Start: 12-16-2024 take 1 mL by mouth every four hours as needed for cough Vrkmahzavbpyx-Wq-Fgdhdingzghxc (Daytime Cold-Flu Relief (Pe)) 5-10-325 mg/15 mL liquid Active 30 mL PO Q4H as needed for cough December 16, 2024 12:00am acetaminophen 500 mg / diphenhydrAMINE hydrochloride [...] aspirin 81 mg delayed release oral tablet (13 sources) Platelet Aggregation Inhibitor, Nonsteroidal Anti-inflammatory Drug Start: 01-27-2016 take 1 tablet by mouth once daily Aspirin 81 mg tablet,delayed release (DR/EC) Active 81 mg PO daily January 06, 2018 12:00am Start: 01-27-2016 aspirin 81 mg oral delayed [...] sources) Nonsteroidal Anti-inflammatory Drug Start: 04-27-2023 take 1 capsule by mouth once daily Celecoxib 200 mg capsule Active 200 mg PO DAILY April 27, 2023 12:00am Start: 04-27-2023 take 1 capsule by mo [facility] every twenty-four hours Celecoxib 200 mg capsule Active 200 mg PO Q24H April 27, 2023 12:00am Start: 09-02-2019 take 1 mg by mouth twice daily CeleBREX 200 mg oral capsule mg = cap(s), Oral, BID, 0 Refill(s) Start Date: 09/02/19 Status: Ordered Start: 01-06-2018 End: 09-19-2021 take 1 capsule by mouth once daily Celecoxib (Celebrex) 200 mg capsule Discontinued 200 mg PO daily 90 January 01, 2021 1:04pm September 19, 2021 8:35am cholecalciferol 0.125 mg oral tablet (5 sources) Vitamin D Start: 04-27-2023 take 1 tablet by mouth once daily Cholecalciferol (Vitamin D3) (Vitamin D3) 125 mcg (5,000 unit) tablet Active 125 ug PO DAILY April 27, 2023 12:00am 12 hr dextromethorphan hydrobromide 30 mg / guaiFENesin 600 mg extended release oral tablet (9 sources) Uncompetitive L-jhljhn-T-asparta te Receptor Antagonist, Sigma-1 Agonist Start: 07-20-2022 Dextromethorphan-Gua ifenesin (Mucinex Dm) 30-600 mg Tablet Extended Release 12 Hr Active 1 {tbl} PO TWICE A DAY July 20, 2022 1:00am Start: 07-20-2022 Dextromethorph an-Guaifenesin (Mucinex Dm) 30-600 mg Tablet Extended Release 12 Hr Active 1 {tbl} PO Q12H July 20, 2022 1:00am dextromethorphan hydrobromide 3 mg/ml / promethazine hydrochloride 1.25 mg/ml oral solution (12 sources) Phenothiazine, Uncompetitive Q-lqkihm-I-aspartate Receptor Antagonist, Sigma-1 Agonist Start: 03-13-2022 take 1 mL by mouth every six hours Promethazine-Dm Active 5 ML PO EVERY 6 HOURS 118 March 13, 2022 1:28pm Start: 05-30-2021 End: 09-04-2021 take 1 mL by mouth every six hours as needed for cough Promethazine-Dm 6.25-15 mg/5 mL syrup Discontinued 5 mL PO EVERY 6 HOURS as needed for cough 118 May 30, 2021 1:00am September 04, 2021 11:00am Start: 05-30-2021 End: 09-04-2021 take 1 mL by mouth every six hours Promethazine-Dm Discontinued 5 ML PO EVERY 6 HOURS 118 May 30, 2021 12:00am September 04, 2021 10:00am escitalopram 10 mg oral tablet (7 sources) Serotonin Reuptake Inhibitor Start: 12-12-2024 take 1 tablet by mouth once daily Escitalopram Oxalate 10 mg tablet Active 10 mg PO DAILY December 12, 2024 12:00am Start: 04-27-2023 End: 12-12-2024 take 1 tablet by mouth once daily Escitalopram Oxalate (Lexapro) 5 mg tablet Discontinued 5 mg PO DAILY April 27, 2023 12:00am December 12, 2024 1:33pm famciclovir 500 mg oral tablet (20 sources) Herpes Simplex Virus Nucleoside Analog DNA Polymerase Inhibitor Start: 07-20-2022 take 1 tablet by mouth twice daily Famciclovir 500 mg tablet Active 500 mg PO TWICE A DAY July 20, 2022 1:00am Start: 10-17-2021 End: 07-08-2022 take 1 tablet by mouth twice daily Famciclovir 500 mg tablet Discontinued 500 mg PO TWICE A DAY May 15, 2022 10:58am July 08, 2022 12:29pm Start: 05-13-2019 End: 09-21-2020 take 1 tablet by mouth twice daily Famciclovir 500 mg tablet Discontinued 500 mg PO TWICE A DAY March 16, 2020 11:38am September 21, 2020 2:06pm fexofenadine hydrochloride 180 mg oral tablet (5 sources) Histamine-1 Receptor Antagonist Start: 04-27-2023 take 1 tablet by mouth once daily Fexofenadine (Mona Allergy) 180 mg tablet Active 180 mg PO DAILY April 27, 2023 12:00am hydrOXYzine pamoate 25 mg oral capsule (5 sources) Antihistamine Start: 04-27-2023 take 1 capsule by mouth every eight hours as needed for anxiety Hydroxyzine Pamoate 25 mg capsule Active 25 mg PO Q8H as needed for anxiety April 27, 2023 12:00am loperamide hydrochloride 2 mg oral tablet (2 sources) Opioid Agonist Start: 12-12-2024 take 1 tablet by mouth every six hours as needed Loperamide (Anti-Diarrheal (Loperamide)) 2 mg tablet Active 2 mg PO EVERY 6 HOURS as needed for loose stool December 12, 2024 12:00am Magnesium Hydroxide (2 sources) Start: 12-12-2024 take 1 mL by mouth once daily as needed for constipation Magnesium Hydroxide (Milk Of Magnesia) 400 mg/5 mL suspension Active 30 mL PO DAILY as needed for constipation December 12, 2024 12:00am metoprolol tartrate 25 mg oral tablet (15 sources) beta-Adrenergic Juany Start: 05-09-2021 take 25 mg by mouth once daily Metoprolol Tartrate Active 25 MG PO DAILY May 09, 2021 1:00am Start: 09-07-2020 take 1 tablet by herlinda th every hour as needed Metoprolol Tartrate 25 mg oral tablet See Instructions, 1 tab(s) Oral PRN for increased HR, 0 Refill(s) Start Date: 09/07/20 Status: Ordered Start: 03-16-2020 End: 09-21-2020 take 1 tablet by mouth once daily Metoprolol Tartrate 25 mg tablet Discontinued 25 mg PO DAILY March 16, 2020 12:00am September 21, 2020 2:06pm nystatin 100 unt/mg topical powder (1 source) Polyene Antifungal Start: 12-16-2024 Nystatin (Klayesta) 100,000 unit/gram powder Active 1 NMA TOPICAL Q8H as needed for skin irritation December 16, 2024 12:00am omeprazole 40 mg delayed release oral capsule (20 sources) Proton Pump Inhibitor Start: 01-27-2016 End: 12-16-2024 take 1 capsule by mouth once daily Omeprazole 40 mg capsule,delayed release(DR/EC) Active 40 mg PO DAILY December 16, 2024 12:00am QUEtiapine 25 mg oral tablet (7 sources) Atypical Antipsychotic Start: 12-12-2024 take 1 tablet by mouth once daily Quetiapine 25 mg tablet Active 25 mg PO DAILY December 12, 2024 12:00am Start: 04-27-2023 take 1 tablet by herlinda th once daily Quetiapine 50 mg tablet Active 50 mg PO DAILY April 27, 2023 12:00am Tylenol PM Extra Strength oral tablet (1 source) Start: 09-07-2020 take 1 tablet by mouth once daily at bedtime as needed for pain Tylenol PM Extra Strength oral tablet Dose = 1 tab(s), Oral, qHS, PRN as needed for pain, # 10 tab(s), 0 Refill(s) Start Date: 09/07/20 Status: Ordered zolpidem tartrate 5 mg oral tablet (20 sources) gamma-Aminobutyr ic Acid-ergic Agonist Start: 03-13-2022 take 1 tablet by mouth at bedtime Zolpidem (Ambien) 5 mg tablet Active 5 MG PO AT BEDTIME March 13, 2022 12:00am Start: 01-27-2016 End: 03-13-2022 take 1 tablet by mouth at bedtime Zolpidem 10 mg tablet Discontinued 10 mg PO AT BEDTIME September 06, 2020 11:21am June 20, 2021 3:24pm Completed/Discontinued Medications Medication Drug Class(es) Dates Sig (Normalized) Sig (Original) azithromycin 250 mg oral tablet (20 sources) Macrolide Antimicrobial Start: 03-13-2022 End: 06-18-2022 Azithromycin (Zithromax) 250 mg tablet Discontinued 0 PO .COMPLEX March 13, 2022 1:28pm June 18, 2022 1:56pm For 250 mg dose pack: take 500 mg today (day 1), then 250 mg for 4 days (days 2-5) PO Start: 05-30-2021 End: 06-20-2021 Azithromycin (Zithromax) 250 mg tablet Discontinued 0 PO .COMPLEX May 30, 2021 1:00am June 20, 2021 3:14pm For 250 mg dose pack: take 500 mg today (day 1), then 250 mg for 4 days (days 2-5) PO benzonatate 100 mg oral capsule (11 sources) Non-narcotic Antitussive Start: 02-09-2021 End: 09-04-2021 take 1 capsule by mouth three times daily as needed for cough Benzonatate (Tessalon Perles) 100 mg capsule Discontinued 100 mg PO THREE TIMES A DAY as needed for cough February 09, 2021 12:00am September 04, 2021 10:59am cyclobenzaprine hydrochloride 10 mg oral tablet (20 sources) Muscle Relaxant Start: 09-21-2020 End: 01-03-2021 take 1 tablet by mouth three times daily Cyclobenzaprine 10 mg tablet Discontinued 10 mg PO THREE TIMES A DAY October 17, 2020 10:26am January 03, 2021 11:21am diazePAM 2 mg oral tablet (11 sources) Benzodiazepine Start: 11-12-2018 End: 09-21-2020 take 1 tablet by mouth twice daily as needed for anxiety Diazepam 2 mg tablet Discontinued 2 mg PO TWICE A DAY as needed for anxiety November 12, 2018 12:00am September 21, 2020 2:06pm 24 hr dilTIAZem hydrochloride 180 mg extended release oral capsule (20 sources) Calcium Channel Juany Start: 01-06-2018 End: 05-13-2019 take 1 capsule by mouth once daily Diltiazem Hcl 180 mg capsule,extended release 24 hr Discontinued 180 mg PO daily November 12, 2018 10:13am May 13, 2019 10:59am doxycycline monohydrate 100 mg oral capsule (20 sources) Tetracycline-class Drug Start: 01-09-2021 End: 05-09-2021 take 1 capsule by mouth twice daily Doxycycline Monohydrate 100 mg capsule Discontinued 100 mg PO TWICE A DAY 180 January 09, 2021 12:00am May 09, 2021 11:57am Start: 11-24-2019 End: 01-09-2021 take 1 tablet by mouth once daily Doxycycline Hyclate 200 mg tablet,delayed release (DR/EC) Discontinued 200 mg PO DAILY January 03, 2021 11:30am January 09, 2021 8:31am 12 hr fexofenadine hydrochloride 60 mg / pseudoephedrine hydrochloride 120 mg extended release oral tablet (12 sources) alpha-Adrenergic Agonist, Histamine-1 Receptor Antagonist Start: 11-24-2019 End: 04-27-2023 take 1 tablet by mouth every twelve hours as needed Fexofenadine-Pseudoephedrine (Mona-D 12 Hour) 60-120 mg tablet extended release 12 hr Discontinued 1 {tbl} PO Q12H as needed for allergies November 24, 2019 12:00am April 27, 2023 10:47pm Start: 01-27-2016 take 1 tablet by herlinda once daily Mona-D 12 Hour 60 mg-120 mg oral tablet, extended release Dose = 0.5 tab(s), Oral, qDay Start Date: 01/27/16 Status: Ordered hydrocortisone 25 mg/ml topical cream (11 sources) Corticosteroid Start: 01-06-2018 End: 09-12-2020 Hydrocortisone (Proctosol Hc) 2.5 % cream with perineal applicator Discontinued 1 NMA RC 1 to 2 times per day as needed for hemorrhoids January 06, 2018 12:00am September 12, 2020 10:59am ibuprofen 200 mg oral tablet (14 sources) Nonsteroidal Anti-inflammatory Drug Start: 04-27-2023 End: 12-16-2024 take 1 tablet by mouth every four hours as needed for pain Ibuprofen 200 mg tablet Discontinued 200 mg PO Q4H as needed for pain April 27, 2023 12:00am December 16, 2024 11:54am Start: 07-20-2022 End: 04-27-2023 take 1 tablet by mouth every six hours as needed for pain Ibuprofen 200 mg tablet Discontinued 200 mg PO EVERY 6 HOURS as needed for pain 56 14 July 20, 2022 1:00am April 27, 2023 10:53pm levocetirizine dihydrochloride 5 mg oral tablet (11 sources) Histamine-1 Receptor Antagonist Start: 03-22-2021 End: 09-04-2021 take 1 tablet by mouth once daily Levocetirizine (Xyzal) 5 mg tablet Discontinued 5 mg PO DAILY March 22, 2021 12:00am September 04, 2021 10:59am minocycline 100 mg oral capsule (20 sources) Tetracycline-class Drug Start: 01-06-2018 End: 11-24-2019 take 1 capsule by mouth twice daily Minocycline 100 mg capsule Discontinued 100 mg PO TWICE A DAY May 13, 2019 11:31am November 24, 2019 10:24am montelukast 10 mg oral tablet (20 sources) Leukotriene Receptor Antagonist Start: 01-03-2021 End: 04-27-2023 take 1 tablet by mouth once daily Montelukast (Singulair) 10 mg tablet Discontinued 10 mg PO DAILY August 13, 2021 2:51pm April 27, 2023 10:52pm oxyCODONE hydrochloride 5 mg oral tablet (3 sources) Opioid Agonist Start: 12-12-2024 End: 12-16-2024 take 1 tablet by mouth every six hours as needed for pain Oxycodone 5 mg tablet Discontinued 5 mg PO EVERY 6 HOURS as needed for pain 12 3 December 12, 2024 December 16, 2024 11:54am rosuvastatin calcium 20 mg oral tablet (20 sources) HMG-CoA Reductase Inhibitor Start: 01-06-2018 End: 03-29-2021 take 1 tablet by mouth once daily Rosuvastatin (Crestor) 20 mg tablet Discontinued 20 mg PO daily January 05, 2021 12:09pm March 29, 2021 9:41am sildenafil 50 mg oral tablet (13 sources) Phosphodiesterase 5 Inhibitor Start: 02-14-2021 End: 02-14-2021 Sildenafil 50 mg tablet Discontinued 50 mg PO DAILY as needed for sexual activity February 14, 2021 12:00am February 14, 2021 1:18pm administer 30 minutes to 4 hours before activity tadalafil 20 mg oral tablet (20 sources) Phosphodiesterase 5 Inhibitor Start: 11-24-2019 End: 02-14-2021 take 1 tablet by mouth every twenty-four hours Tadalafil (Cialis) 20 mg tablet Discontinued 20 mg PO DAILY as needed for sexual activity March 16, 2020 11:58am February 14, 2021 1:16pm administer approximately 30min before sexual activity; do not use more than 1 dose per 24hrs tamsulosin hydrochloride 0.4 mg oral capsule (11 sources) alpha-Adrenergic Juany Start: 05-13-2019 End: 11-24-2019 take 1 capsule by mouth once daily Tamsulosin 0.4 mg capsule Discontinued 0.4 mg PO DAILY May 13, 2019 1:00am November 24, 2019 10:25am traZODone hydrochloride 50 mg oral tablet (11 sources) Serotonin Reuptake Inhibitor Start: 01-22-2022 End: 03-13-2022 Trazodone 50 mg tablet Discontinued 25 mg PO AT BEDTIME as needed for insomnia January 22, 2022 12:00am March 13, 2022 1:15pm Start: 01-22-2022 End: 03-13-2022 take 25 mg by mouth at bedtime Trazodone Discontinued 25 MG PO AT BEDTIME January 21, 2022 11:00pm March 13, 2022 12:15pm triamcinolone acetonide 0.055 mg/actuat metered dose nasal spray (11 sources) Corticosteroid Start: 05-13-2019 End: 11-24-2019 Triamcinolone Acetonide (Nasacort) 55 mcg aerosol,spray Discontinued 1 NMA INTRANASAL DAILY as needed May 13, 2019 1:00am November 24, 2019 10:26am Start: 05-13-2019 End: 11-24-2019 Triamcinolone Acetonide (Oren acort) 55 mcg aerosol,spray Discontinued 1 SPRAY INTRANASAL DAILY May 13, 2019 12:00am November 24, 2019 9:26am Problems Active Problems Problem Classification Problem Date Documented Date Episodic/Chronic Abdominal pain (6 sources) Acute abdominal pain; Translations: [Unspecified abdominal pain] 05-28-2023 Episodic Biliary tract disease (6 sources) Acute cholecystitis; Translations: [Acute cholecystitis] 05-28-2023 Episodic Calculus of urinary tract (5 sources) Kidney stone; Translations: [Calculus of kidney] 04-27-2023 Episodic Cardiac dysrhythmias (2 sources) Atrial tachycardia 12-09-2019 Chronic Cataract (11 sources) Bilateral cataracts; Translations: [Unspecified cataract] 01-06-2018 Chronic Chronic obstructive pulmonary disease and bronchiectasis (15 sources) Chronic bronchitis; Translations: [Unspecified chronic bronchitis] Chronic Chronic obstructive pulmonary disease and bronchiectasis (11 sources) Bronchitis; Translations: [Bronchitis, not specified as acute or chronic] 05-30-2021 Episodic Coronary atherosclerosis and other heart disease (17 sources) Coronary arteriosclerosis in [place] artery; Translations: [Coronary atherosclerosis] 09-02-2019 Chronic Comment on above: COELHO to LCx, MICHAEL to LAD, SVG graft to PDA in 2004 Stress test in February 2019 normal with normal EF s/p CABGX3 in 2004 Delirium, dementia, and amnestic and other cognitive disorders (9 sources) Dementia; Translations: [Unspecified dementia without behavioral disturbance] 07-20-2022 Chronic Disorders of lipid metabolism (13 sources) Hypercholesterolemia; Translations: [Hyperlipidemia] 08-31-2019 Chronic Esophageal disorders (2 sources) Gastroesophageal reflux disease 01-27-2016 Chronic Essential hypertension (2 sources) Benign essential hypertension 08-31-2019 Chronic Hyperplasia of prostate (11 sources) Large prostate ; Translations: [Benign prostatic hyperplasia without lower urinary tract symptoms] 11-12-2018 Chronic Malaise and fatigue (3 sources) Other fatigue; Translations: [Other malaise and fatigue] Episodic Miscellaneous mental health disorders (12 sources) Chronic insomnia; Translations: [Psychophysiologic insomnia] 06-18-2022 Chronic Nonspecific chest pain (9 sources) Chest pain; Translations: [Chest pain, unspecified] 07-20-2022 Episodic Osteoarthritis (11 sources) Arthritis; Translations: [Unspecified osteoarthritis, unspecified site] 01-06-2018 Chronic Other and ill-defined heart disease (20 sources) Heart disease; Translations: [Heart disease, unspecified] 01-06-2018 Chronic Other and ill-defined heart disease (1 source) Heart disease, unspecified; Translations: [Heart disease, unspecified] Chronic Other fractures (2 sources) Fracture of rib; Translations: [Fracture of one rib, unspecified side, initial encounter for closed fracture] 12-12-2024 Episodic Other fractures (1 source) Fracture of one rib, unspecified side, initial encounter for closed fracture; Translations: [Fracture of one rib, unspecified side, initial encounter for closed fracture] Onset: 12-12-2024 Episodic Other male genital disorders (11 sources) Male erectile dysfunction, unspecified; Translations: [Erectile dysfunction] 01-03-2021 Chronic Other skin disorders (11 sources) Folliculitis; Translations: [Follicular disorder, unspecified] 11-12-2018 Episodic Other upper respiratory disease (11 sources) Seasonal allergy; Translations: [Other seasonal allergic rhinitis] 01-06-2018 Chronic Other upper respiratory disease (11 sources) Allergic rhinitis; Translations: [Allergic rhinitis, unspecified] 03-22-2021 Chronic Other upper respiratory disease (1 source) Other seasonal allergic rhinitis; Translations: [Allergic rhinitis, cause unspecified] Chronic Pneumonia (except that caused by tuberculosis or sexually transmitted disease) (3 sources) Community acquired pneumonia; Translations: [Pneumonia, unspecified organism] 12-16-2024 Episodic Residual codes; unclassified (2 sources) Hypersomnia, unspecified; Translations: [Hypersomnia, unspecified] Chronic Residual codes; unclassified (11 sources) Amnesia; Translations: [Other amnesia] 11-12-2018 Episodic Residual codes; unclassified (2 sources) Insomnia, unspecified; Translations: [Insomnia, unspecified] Episodic Residual codes; unclassified (4 sources) Other amnesia; Translations: [Memory loss] Episodic Residual codes; unclassified (2 sources) Altered mental status; Translations: [Altered mental status, unspecified] 12-16-2024 Episodic Respiratory failure; insufficiency; arrest (adult) (1 source) Acute respiratory failure; Translations: [Acute respiratory failure with hypoxia] 12-16-2024 Episodic Spondylosis; intervertebral disc disorders; other back problems (9 sources) Backache; Translations: [Dorsalgia, unspecified] 07-20-2022 Episodic Sprains and strains (11 sources) Lower back injury; Translations: [Strain of muscle, fascia and tendon of lower back, initial encounter] 09-21-2020 Episodic Superficial injury; contusion (2 sources) Contusion of rib; Translations: [Contusion of unspecified front wall of thorax, initial encounter] 12-12-2024 Episodic Past or Other Problems Problem Classification Problem Date Documented Da te Episodic/Chronic Unclassified (11 sources) history of triple bypass surgery 01-21-2022 Comment on above: Results Test Name Value Interpretation Reference Range Facility Absolute lymphocyte countOrd ered By: Tommy Lama on 12-16-2024 Lymphocytes Auto (Unsp spec) [#/Vol] 0.34 10*3/uL Low 0.83-4.51 [facility] Absolute neutrophil countOrd ered By: Tommy Lama on 12-16-2024 Neutrophils (Bld) [#/Vol] 13.3 10*3/uL High 2.0-7.7 [facility] Activated partial thrombopla stin time (aPTT) in platelet poor plasma by coagulation aOrdered By: Tommy Lama on 12-16-2024 aPTT Coag (PPP) [Time] 31.5 s 24.1-36.2 [facility] Anion gap in Serum or Plasma Ordered By: Tommy Lama on 12-16-2024 Anion gap [Moles/Vol] 14 mmol/L 5-15 [facility] Automated lymphocyte count a s percentage of total leukocytesOrdered By: Tommy Lama on 12-16-2024 Lymphocytes/100 WBC Auto (Unsp spec) 2.2 % Low 19-41 [facility] BUN/creatinine ratioOrdered By: Tommy Lama on 12-16-2024 Urea nitrogen/Creatinine [Mass ratio] 33.4 mg/mg High 10-20 [facility] Basophil percentageOrdered B y: Tommy Lama on 12-16-2024 Basophils/100 WBC (Bld) 0.3 % 0-1 [facility] Bilirubin Test strip Ql (U)O rdered By: Tommy Lama on 12-16-2024 Bilirubin Ql (U) Negative Negative [facility] Bilirubin, totalOrdered By: Tommy Lama on 12-16-2024 Bilirubin [Mass/Vol] 1.29 mg/dL 0.00-1.30 [facility] Blood base excess determinat ionOrdered By: Tommy Lama on 12-16-2024 Base excess Calc (BldV) [Moles/Vol] 1 mmol/L -2-2 [facility] Blood bicarbonate measuremen tOrdered By: Tommy Lama on 12-16-2024 HCO3 (Bld) [Moles/Vol] 25.4 mmol/L 22-26 [facility] Carbon dioxide, total [Moles /volume] in Central venous bloodOrdered By: Tommy Lama on 12-16-2024 CO2 [Moles/Vol] 21.1 mmol/L 21.0-32.0 [facility] Chloride assayOrdered By: Tanner Lama on 12-16-2024 Chloride [Moles/Vol] 103 mmol/L 98-108 [facility] Eosinophil percentageOrdered By: Tommy Lama on 12-16-2024 Eosinophils/100 WBC (Bld) 0.0 % 0-5 [facility] Erythrocyte distribution wid th ratioOrdered By: Tommy Lama on 12-16-2024 Erythrocyte distribution width (RBC) [Ratio] 11.9 % 11.6-14.6 [facility] Erythrocyte distribution wid th standard deviationOrdered By: Tommy Lama on 12-16-2024 Erythrocyte distribution width (RBC) [Ratio] 43.2 fl 35.1-43.9 [facility] Glomerular filtration rate ( GFR) estimation/1.73 sq m using serum, plasma, or whole bOrdered By: Tommy Lama on 12-16-2024 GFR/1.73 sq M.predicted among non-blacks MDRD (S/P/Bld) [Vol rate/Area] 80 mL/min/{1.73_m2} >60 [facility] Comment on above: mL/min/1.73m2 CKD-EP I Creatinine Equation (2020) Hematocrit Auto (Bld) [Volum e fraction]Ordered By: Tommy Lama on 12-16-2024 Hematocrit (Bld) [Volume fraction] 48.0 % 40-54 [facility] Hemoglobin measurementOrdere d By: Tommy Lama on 12-16-2024 Hemoglobin (Bld) [Mass/Vol] 17.1 g/dL High 13.0-16.5 [facility] Immature granulocytes/100 WB C Auto (Bld)Ordered By: Tommy Lama on 12-16-2024 Immature granulocytes/100 WBC (Bld) 0.900 % 0.0-0.9 [facility] Comment on above: IG% - Immature Granu locytes (promyelocytes, myelocytes and metamyelocytes) > 1% indicates that a LEFT SHIFT is Present. International normalized rat io (INR) calculationOrdered By: Tommy Lama on 12-16-2024 INR Coag (Bld) [Relative time] 1.3 {INR} [facility] Ketones Test strip Ql (U)Ord ered By: Tommy Lama on 12-16-2024 Ketones Ql (U) 5 mg/dl High Negative [facility] Laboratory - Chemistry and C hemistry - challengeOrdered By: Tommy Lama on 12-16-2024 AST [Catalytic activity/Vol] 35 U/L <38 [facility] Lactic acid measurementOrder ed By: Tommy Lama on 12-16-2024 Lactate [Moles/Vol] 1.7 mmol/L 0.0-2.0 [facility] MCV (mean corpuscular volume ) determinationOrdered By: Tommy Lama on 12-16-2024 MCV (RBC) [Entitic vol] 98.2 fL High 80-94 [facility] Mean corpuscular hemoglobin (MCH) determinationOrdered By: Tommy Lama on 12-16-2024 MCH (RBC) [Entitic mass] 35.0 pg High 27.0-32.0 [facility] Mean corpuscular hemoglobin concentration (MCHC) determinationOrdered By: Tommy Lama on 12-16-2024 MCHC (RBC) [Mass/Vol] 35.6 g/dL 32-36 [facility] Mean platelet volume determi nationOrdered By: Tommy Lama on 12-16-2024 Platelet mean volume (Bld) [Entitic vol] 10.0 fL 6.2-12.0 [facility] Measurement, pHOrdered By: Sammy Lama on 12-16-2024 pH (Unsp spec) 7.44 [pH] 7.35-7.45 [facility] Microscopic analysis of urin e for red blood cells (RBC)Ordered By: Tommy Lama on 12-16-2024 Microscopic analysis of urine for red blood cells (RBC) 0-5 SEEN /hpf 0-5 [facility] Monocyte percentageOrdered B y: Tommy Lama on 12-16-2024 Monocytes/100 WBC (Bld) 9.2 % 0-10 [facility] Mucus LM Ql (Urine sed)Order ed By: Tommy Lama on 12-16-2024 Mucus Ql (Urine sed) 0 SEEN /hpf [facility] Neutrophil percentageOrdered By: Tommy Lama on 12-16-2024 Neutrophils/100 WBC (Bld) 87.4 % High 47-70 [facility] Nitrite Test strip Ql (U)Ord ered By: Tommy Lama on 12-16-2024 Nitrite Ql (U) Negative Negative [facility] No Panel InformationOrdered By: Tommy Lama on 12-16-2024 Blood Gas Sample Site R Brach [facility] Blood Gas Specimen Type ART [facility] Blood Gas Vent Mode Not entered [facility] Oxygen Delivery Device Room Air [facility] Nucleated red blood cell per centageOrdered By: Tommy Lama on 12-16-2024 Nucleated RBC/100 WBC (Bld) [Ratio] 0 % 0-5 [facility] Platelet countOrdered By: Tanner Lama on 12-16-2024 Platelets (Bld) [#/Vol] 161 10*3/uL 150-450 [facility] Potassium measurement (mass/ volume)Ordered By: Tommy Lama on 12-16-2024 Potassium (Unsp spec) [Mass/Vol] 4.3 mmol/L 3.3-5.1 [facility] Protein Test strip Ql (U)Ord ered By: Tommy Lama on 12-16-2024 Protein Ql (U) 30 mg/dl High Negative [facility] Prothrombin timeOrdered By: Tommy Lama on 12-16-2024 PT Coag (PPP) [Time] 16.1 s High 11.7-14.9 [facility] RBC Auto (Bld) [#/Vol]Ordere d By: Tommy Lama on 12-16-2024 RBC (Bld) [#/Vol] 4.89 10*6/uL 4.6-6.2 [facility] Serum creatinine measurement (mass/volume)Ordered By: Tommy Lama on 12-16-2024 Creatinine [Mass/Vol] 0.94 mg/dL 0.70-1.20 [facility] Serum globulin measurementOr dered By: Tommy Lama on 12-16-2024 Globulin (S) [Mass/Vol] 3.5 g/dL 2.2-4.2 [facility] Serum glucose measurement (m ass/volume)Ordered By: Tommy Lama on 12-16-2024 Glucose [Mass/Vol] 169 mg/dL High 70-99 [facility] Serum or plasma alanine oliveira otransferase (ALT) measurementOrdered By: Tommy Lama on 12-16-2024 ALT [Catalytic activity/Vol] 31 U/L <47 [facility] Serum or plasma albumin barbara urement (mass/volume)Ordered By: Tommy Lama on 12-16-2024 Albumin [Mass/Vol] 4.0 g/dL 3.4-4.8 [facility] Serum or plasma albumin/glob ulin mass ratioOrdered By: Tommy Lama on 12-16-2024 Albumin/Globulin [Mass ratio] 1.1 {ratio} 0.9-2.4 [facility] Serum or plasma alkaline manju sphatase measurementOrdered By: Tommy Lama on 12-16-2024 ALP [Catalytic activity/Vol] 83 U/L 40-129 [facility] Serum or plasma calcium barbara urement (mass/volume)Ordered By: Tommy Lama on 12-16-2024 Calcium [Mass/Vol] 9.9 mg/dL 7.6-11.0 [facility] Serum or plasma urea nitroge n measurement (mass/volume)Ordered By: Tommy Lama on 12-16-2024 Urea nitrogen [Mass/Vol] 32 mg/dL High 4-19 [facility] Sodium levelOrdered By: Gretta Lama on 12-16-2024 Sodium [Moles/Vol] 138 mmol/L 133-145 [facility] Squamous epithelial cells de tection in urine sediment by light microscopyOrdered By: Tommy Lama on 12-16-2024 Epithelial cells.squamous LM Ql (Urine sed) 0 SEEN /hpf 0-5 [facility] Total carbon dioxide measure mentOrdered By: Tommy Lama on 12-16-2024 CO2 [Moles/Vol] 27 mmol/L [facility] Total proteinOrdered By: Digna Lama on 06-26-2025 Protein [Mass/Vol] 7.5 g/dL 5.9-8.4 [facility] Troponin T.cardiac [Mass/vol ume] in Serum or Plasma by High sensitivity methodOrdered By: Tommy Lama on 12-16-2024 Troponin T.cardiac High sensitivity method [Mass/Vol] 12 ng/L <22 [facility] Troponin T.cardiac High sensitivity method [Mass/Vol] 13 ng/L <22 [facility] Comment on above: Hemolysis present, R esults could be affected. Troponin T.cardiac High sensitivity method [Mass/Vol] 14 ng/L <22 [facility] Urine clarityOrdered By: Digna Lama on 12-16-2024 Clarity (U) Clear Clear [facility] Urine color determinationOrd ered By: Tommy Lama on 12-16-2024 Color (U) Yellow Yellow [facility] Urine glucose detectionOrder ed By: Tommy Lama on 12-16-2024 Glucose Ql (U) Normal mg/dl Normal [facility] Urine leukocyte esterase det ection by dipstickOrdered By: Tommy Lama on 12-16-2024 Leukocyte esterase Test strip Ql (U) Negative Negative [facility] Urine pHOrdered By: Tommy johnson on 12-16-2024 pH (U) 6.0 [pH] 5.0 - 8.0 [facility] Urine sediment bacteria coun t by microscopy (number/high power field)Ordered By: Tommy Lama on 12-16-2024 Bacteria LM.HPF (Urine sed) [#/Area] 0 /[HPF] None Seen [facility] Urine specific gravity measu rementOrdered By: Tommy Lama on 12-16-2024 Specific gravity (U) [Rel density] 1.020 1.002-1.030 [facility] Urine urobilinogen measureme ntOrdered By: Tommy Lama on 12-16-2024 Urobilinogen Ql (U) 1 mg/dl High Normal [facility] White blood cell (WBC) count Ordered By: Tommy Lama on 12-16-2024 WBC (Bld) [#/Vol] 15.2 10*3/uL High 4.4-11.0 [facility] White blood cell countOrdere d By: Tommy Lama on 12-16-2024 White blood cell count 0 SEEN /hpf 0-5 [facility] Chest without Contraston Chest without Contrast [facility] Imaging Services [address] [place], [place] [address] Chest without Contrast MR#: [id number] Acct: [id number] Name: JANE VALENTINO Rep #: [id number] : 1940 M 84 From: Roro Olson nd, MD PCP: Dr. Kely Moreno DO Status: REG ER Study: Chest without Contrast Date of Exam: 12/12/24 Exam# [id number] Ordering Dr: Hiren Shelton DO PROCEDURE: CHEST WITHOUT CONTRAST 12/12/2024 REASON FOR EXAM: RIGHT POSTERIOR RIB PAIN TECHNIQUE: Chest CT without contrast. Coronal and Sagittal reconstruction series were provided. One or more dose reduction techniques were used (e.g., Automated exposure control, adjustment of the mA and/or kV according to patient size, use of iterative reconstruction technique. RADIATION DOSE SUMMARY: DLP: 750 mGycm COMPARISON: CTA chest abdomen pelvis 04/27/2023. FINDINGS: Hardware: Sternotomy wires and mediastinal clips. Lymph nodes: No axillary, mediastinal or hilar lymphadenopathy. Heart and Vasculature: The heart is normal in size without pericardial effusion. Prior CABG. Calcifications/prior replacement of the aortic valve. The great vessels are normal in caliber. Lungs and Airways: Visualization of the lung parenchyma is slightly limited by motion artifact. The central airways are patent. Bibasilar atelectasis/scarring . No large pulmonary mass. No pleural effusion or pneumothorax. Upper Abdomen: Prior cholecystectomy. Nonobstructing bilateral renal calculi. Bilateral renal cysts and additional hypodensities. Bones: Acute fracture deformity of the posterior right 10th rib. Prior L1 vertebral body cement augmentation. The sternal wires are intact. CT/Chest without Contrast IMPRESSION: Acute fracture deformity of the posterior right 10th rib. Additional chronic findings as described. Reading Location: [id number] CC: Dr. Kely Moreno DO; Dr. Hiren Shelton DO Teacher Education Instructor: Signed Normal [facility] Emergency Department Summary on 12-12-2024 Emergency Department Summary [facility] Medical Records Department [address] [place] [address] Emergency Department Summary 12/12/24 MR#: [id number] Acct: [id number] Name: JANE VALENTINO Rep #: [id number] : 1940 84 From: Hiren Shelton DO PCP: Dr. Kely Moreno, DO Status:REG ER Location: ED HPI HPI - Fall History of Present Illness Chief Complaint: Fall PFSH PFSH Medical History (Updated 12/12/24 @ 15:[address] Hiren Shelton DO) Cholecystectomy planned Memory deficit Cataracts, both eyes Chronic bronchitis Heart disease Arthritis Seasonal allergies Home Medications ???Medication ???Instructions ???Recorded ???Last Taken ???Type aspirin 81 mg tablet,delayed 81 mg PO QDAY 01/06/18 05/27/23 Hi story release omeprazole 40 mg capsule,delayed 40 mg PO QDAY #90 caps 01/05/21 Rx release rosuvastatin 20 mg tablet (Crestor) 20 mg PO QDAY #90 tabs 03/29/21 05/27/23 Rx acetaminophen 325 mg capsule 325 mg PO Q6H PRN pain #120 caps 0 07/20/22 Unknown Rx (Tylenol) dextromethorphan-gua ifenesin 30 1 tab PO Q12H 07/20/22 Unknown His tory mg-600 mg tablet extended hr (Mucinex DM) famciclovir 500 mg tablet 500 mg PO BID 07/20/22 Unknown His tory celecoxib 200 mg capsule 200 mg PO Q24H 04/27/23 05/27/23 H istory cholecalciferol (vitamin D3) 125 125 mcg PO DAILY 04/27/23 Unknown History mcg (5,000 unit) tablet (Vitamin D3) fexofenadine 180 mg tablet 180 mg PO DAILY 04/27/23 05/27/23 History (Mona Allergy) hydroxyzine pamoate 25 mg capsule 25 mg PO Q8H PRN anxiety 04/27/23 05/28/23 06:20 History ibuprofen 200 mg tablet 200 mg PO Q4H PRN pain 04/27/23 Un known History quetiapine 50 mg tablet 50 mg PO QHS 04/27/23 05/27/23 His tory escitalopram oxalate 10 mg tablet 10 mg PO DAILY 12/12/24 Unknown H istory loperamide 2 mg tablet 2 mg PO Q6H PRN loose stool Unknown History (Anti-Diarrheal (loperamide)) magnesium hydroxide 400 mg/5 mL 30 ml PO DAILY PRN constipation Unknown History oral suspension (Milk of Magnesia) oxycodone 5 mg tablet 5 mg PO Q6H PRN pain 3 days #12 Unknown Rx tabs quetiapine 25 mg tablet 25 mg PO QHS 12/12/24 Unknown Hist ory Allergy/AdvReac Type Severity Reaction Status Date / Time No Known Allergies Allergy Verified 12/12/24 13:04 Family History Mother Arthritis Father Arthritis Heart disease Kidney disease Parkinson disease Daughter Heart disease Brother Heart disease Surgical History history of triple bypass surgery Social History Smoking Status: Never smoker alcohol intake: never substance use type: does not use what type of physical activity do you participate in: walking and bicycling EXAM Physical Exam Const Vital Signs: 12/12/24 13:04 12/12/24 13:35 12/12/24 15:00 Temperature 97.8 F 98.2 F Temperature Source Oral Pulse Rate 94 55 L Respiratory Rate 16 12 Blood Pressure 104/65 111/50 L Blood Pressure Mean 78 70 Pulse Ox 97 96 Oxygen Delivery Method Room Air Room Air MDM MDM MDM Narrative Medical decision making narrative: HISTORY OF PRESENT ILLNESS: Chief complaint: Fall 84-year-old male history of memory loss, CAD, large prostate, 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 Patient is unclear what happened. Denies syncope. Patient notes right posterior rib pain. Denies headache or head trauma. Denies extremity injury, chest pain, shortness of breath or pain in the hips. REVIEW OF SYSTEMS: Pertinent positives: Unwitnessed fall Pertinent negatives: Chest pain, shortness of breath, headache PHYSICAL EXAM: Nursing triage notes reviewed, Vital signs reviewed [...] crepitance, or stepoff deformity Trachea midline Lungs: TTP over right rib margin.. Clear to auscultation, No asymmetric rise and No crepitus, no flail chest Ca (more content not included)... Normal [facility] .Auto Diffon 10-19-2023 Basophil, Absolute 0.1 10 3/mcL Normal 0.0-0.3 [facility] ([place]) Comment on above: Performed By: #### T ROPWANDER, CMP, GFR, ADIFF, LIP, ANEU, PBNP, MDW, CBC #### [address] [address] Basophils/100 WBC (Bld) 1.0 % Normal 0.0-2.5 A [facility] ([place]) Comment on above: Performed By: #### T ROPWANDER, CMP, GFR, ADIFF, LIP, ANEU, PBNP, MDW, CBC #### [address] [address] Eosinophil, Absolute 0.8 10 3/mcL High 0.0-0.7 [facility] ([place]) Comment on above: Performed By: #### T ROPHS, CMP, GFR, ADIFF, LIP, ANEU, PBNP, MDW, CBC #### [address] [address] Eosinophils/100 WBC (Bld) 10.9 % High 0.0-6.0 [facility] ([place]) Comment on above: Performed By: #### T ROPHS, CMP, GFR, ADIFF, LIP, ANEU, PBNP, MDW, CBC #### [address] [address] Lymphocyte, Absolute 1.1 10 3/mcL Normal 0.9-4.3 [facility] ([place]) Comment on above: Performed By: #### T ROPHS, CMP, GFR, ADIFF, LIP, ANEU, PBNP, MDW, CBC #### [address] [address] Lymphocytes/100 WBC (Bld) 15.5 % Low 20.0-40.0 [facility] ([place]) Comment on above: Performed By: #### T ROPHS, CMP, GFR, ADIFF, LIP, ANEU, PBNP, MDW, CBC #### [address] [address] Monocyte, Absolute 0.7 10 3/mcL Normal 0.1-1.4 [facility] ([place]) Comment on above: Performed By: #### T ROPHS, CMP, GFR, ADIFF, LIP, ANEU, PBNP, MDW, CBC #### [address] [address] Monocytes/100 WBC (Bld) 10.5 % Normal 2.0-13.0 A [facility] ([place]) Comment on above: Performed By: #### T ROPHS, CMP, GFR, ADIFF, LIP, ANEU, PBNP, MDW, CBC #### [address] [address] Neutrophils/100 WBC (Bld) 62.1 % Normal 50.0-75.0 [facility] ([place]) Comment on above: Performed By: #### T ROPHS, CMP, GFR, ADIFF, LIP, ANEU, PBNP, MDW, CBC #### [address] [address] .GFRon 10-19-2023 GFR Non- >60 Normal [facility] ([place]) Comment on above: Result Comment: GFR Population [...] ADIFF, LIP, ANEU, PBNP, MDW, CBC #### [address] [address] GFR >60 Normal [facility] ([place]) Comment on above: Result Comment: GFR Population [...] ADIFF, LIP, ANEU, PBNP, MDW, CBC #### [address] [address] .MDWon 10-19-2023 Monocyte Distribution Width 17.01 Normal 0.00-20.00 [facility] ([place]) Comment on above: Result Comment: For ED adult patients suspected of sepsis, MDW<=20.0 does not rule out sepsis or risk of sepsis Performed By: #### T MACI, CMP, GFR, ADIFF, LIP, ANEU, PBNP, MDW, CBC #### [address] [address] .NEUABSon 10-19-2023 Neutrophil, Absolute 4.4 10 3/mcL Normal 2.3-8.1 [facility] ([place]) Comment on above: Performed By: #### T MACI, CMP, GFR, ADIFF, LIP, ANEU, PBNP, MDW, CBC #### [address] [address] CBCon 10-19-2023 Erythrocyte distribution width (RBC) [Ratio] 12.8 % Normal 11.5-15.5 [facility] ([place]) Comment on above: Performed By: #### T MACI, CMP, GFR, ADIFF, LIP, ANEU, PBNP, MDW, CBC #### [place] [address] Hematocrit (Bld) [Volume fraction] 44.9 % Normal 40.0-52.0 [facility] ([place]) Comment on above: Performed By: #### T MACI, CMP, GFR, ADIFF, LIP, ANEU, PBNP, MDW, CBC #### [place] [address] Hgb 15.5 G/dL Normal 13.0-17.5 [facility] ([place]) Comment on above: Performed By: #### T MACI, CMP, GFR, ADIFF, LIP, ANEU, PBNP, MDW, CBC #### [place] [id number] MCH (RBC) [Entitic mass] 34.4 pg High 27.0-33.0 [facility] ([place]) Comment on above: Performed By: #### T MACI, CMP, GFR, ADIFF, LIP, ANEU, PBNP, MDW, CBC #### [place] [id number] MCHC 34.5 G/dL Normal 32.0-36.0 [facility] ([place]) Comment on above: Performed By: #### T MACI, CMP, GFR, ADIFF, LIP, ANEU, PBNP, MDW, CBC #### [place] [id number] MCV (RBC) [Entitic vol] 99.8 fL Normal 81.0-100.0 A [facility] ([place]) Comment on above: Performed By: #### T ROPWANDER, CMP, GFR, ADIFF, LIP, ANEU, PBNP, MDW, CBC #### [place] [address] Platelet 155 10 3/mcL Normal 150-450 [facility] ([place]) Comment on above: Performed By: #### T ROPHS, CMP, GFR, ADIFF, LIP, ANEU, PBNP, MDW, CBC #### [place] [address] Platelet mean volume (Bld) [Entitic vol] 8.1 fL Normal 6.4-10.5 [facility] ([place]) Comment on above: Performed By: #### T MACI, CMP, GFR, ADIFF, LIP, ANEU, PBNP, MDW, CBC #### [place] [id number] RBC 4.51 10 6/mcL Normal 4.50-6.00 [facility] ([place]) Comment on above: Performed By: #### T ROPHS, CMP, GFR, ADIFF, LIP, ANEU, PBNP, MDW, CBC #### [place] [id number] WBC 7.1 10 3/mcL Normal 4.5-10.8 [facility] ([place]) Comment on above: Performed By: #### T MACI, CMP, GFR, ADIFF, LIP, ANEU, PBNP, MDW, CBC #### [place] [address] CMPon 10-19-2023 Albumin Level 3.9 G/dL Normal 3.2-4.8 [facility] ([place]) Comment on above: Performed By: #### T ROPHS, CMP, GFR, ADIFF, LIP, ANEU, PBNP, MDW, CBC #### [place] [id number] Albumin/Globulin [Mass ratio] 1.4 {ratio} Normal 0.9-1.6 [facility] ([place]) Comment on above: Performed By: #### T ROPHS, CMP, GFR, ADIFF, LIP, ANEU, PBNP, MDW, CBC #### [address] [address] ALP [Catalytic activity/Vol] 66 U/L Normal 38-126 [facility] ([place]) Comment on above: Performed By: #### T ROPHS, CMP, GFR, ADIFF, LIP, ANEU, PBNP, MDW, CBC #### [address] [address] ALT [Catalytic activity/Vol] 34 U/L Normal 12-55 [facility] ([place]) Comment on above: Performed By: #### T ROPHS, CMP, GFR, ADIFF, LIP, ANEU, PBNP, MDW, CBC #### [address] [address] AST [Catalytic activity/Vol] 32 U/L Normal 8-34 [facility] ([place]) Comment on above: Performed By: #### T ROPHS, CMP, GFR, ADIFF, LIP, ANEU, PBNP, MDW, CBC #### [address] [address] Bili Total 0.80 mg/dL Normal 0.20-1.20 [facility] ([place]) Comment on above: Result Comment: Use of this assay is not recommended for patients undergoing treatment with eltrombopag due to the potential for falsely elevated results. Performed By: #### T ROPHS, CMP, GFR, ADIFF, LIP, ANEU, PBNP, MDW, CBC #### [place] [id number] BUN/Creatinine Ratio 23.0 ratio High 10.0-22.0 [facility] ([place]) Comment on above: Performed By: #### T ROPHS, CMP, GFR, ADIFF, LIP, ANEU, PBNP, MDW, CBC #### [address] [address] Calcium [Mass/Vol] 9.7 mg/dL Normal 8.7-10.4 [facility] ([place]) Comment on above: Performed By: #### T ROPHS, CMP, GFR, ADIFF, LIP, ANEU, PBNP, MDW, CBC #### [address] [address] Chloride [Moles/Vol] 108 mmol/L Normal 98-110 [facility] ([place]) Comment on above: Performed By: #### T MACI, CMP, GFR, ADIFF, LIP, ANEU, PBNP, MDW, CBC #### [address] [address] CO2 [Moles/Vol] 26 mmol/L Normal 22-32 [facility] ([place]) Comment on above: Performed By: #### T MACI, CMP, GFR, ADIFF, LIP, ANEU, PBNP, MDW, CBC #### [address] [address] Creatinine [Mass/Vol] 1.00 mg/dL Normal 0.60-1.40 [facility] ([place]) Comment on above: Performed By: #### T MACI, CMP, GFR, ADIFF, LIP, ANEU, PBNP, MDW, CBC #### [address] [address] Electrolyte Balance 6.0 mEq/L Normal 4.0-15.0 [facility] ([place]) Comment on above: Performed By: #### T MACI, CMP, GFR, ADIFF, LIP, ANEU, PBNP, MDW, CBC #### [address] [address] Globulin 2.8 G/dL Normal 1.5-3.8 [facility] ([place]) Comment on above: Performed By: #### T MACI, CMP, GFR, ADIFF, LIP, ANEU, PBNP, MDW, CBC #### [address] [address] Glucose [Mass/Vol] 102 mg/dL Normal 82-115 [facility] ([place]) Comment on above: Performed By: #### T MACI, CMP, GFR, ADIFF, LIP, ANEU, PBNP, MDW, CBC #### [address] [address] Potassium [Moles/Vol] 4.3 mmol/L Normal 3.5-5.0 [facility] ([place]) Comment on above: Performed By: #### T MACI, CMP, GFR, ADIFF, LIP, ANEU, PBNP, MDW, CBC #### [address] [address] Sodium [Moles/Vol] 140 mmol/L Normal 136-145 [facility] ([place]) Comment on above: Performed By: #### T MACI, CMP, GFR, ADIFF, LIP, ANEU, PBNP, MDW, CBC #### [address] [address] Total Protein 6.7 G/dL Normal 5.7-8.2 [facility] ([place]) Comment on above: Result Comment: No te - New Reference Range in effect 20 Performed By: #### T MACI, CMP, GFR, ADIFF, LIP, ANEU, PBNP, MDW, CBC #### [address] [address] Urea nitrogen [Mass/Vol] 23.0 mg/dL High 8.0-22.0 [facility] ([place]) Comment on above: Performed By: #### T MACI, MARIFER, GFR, ADIFF, LIP, ANEU, PBNP, MDW, CBC #### [address] [address] LABORATORYOrdered By: SYSTEM SYSTEM on 10-19-2023 Albumin BCP dye [Mass/Vol] 3.9 G/dL Normal 3.2 - 4.8 G/dL ADM SS Albumin/Globulin [Mass ratio] 1.4 {ratio} Normal 0.9 - 1.6 ratio ADM SS ALP [Catalytic activity/Vol] 66 U/L Normal 38 - 126 U/L ADM SS ALT No additional P-5'-P [Catalytic activity/Vol] 34 U/L Normal 12 - 55 U/L ADM SS AST [Catalytic activity/Vol] 32 U/L Normal 8 - 34 U/L ADM SS Basophils (Bld) [#/Vol] 0.1 103/mcL [...] mg/dL Normal 8.7 - 10. 4 mg/dL ADM SS Chloride [Moles/Vol] 108 mmol/L Normal 98 - 11 0 mEq/L ADM SS CO2 [Moles/Vol] 26 mmol/L Normal 22 - 32 mEq/L ADM SS Creatinine [Mass/Vol] 1.00 mg/dL Normal 0.60 - 1.40 mg/dL ADM SS Electrolyte Balance 6.0 mEq/L Normal 4.0 - 15 .0 mEq/L ADM SS Eosinophils (Bld) [#/Vol] 0.8 103/mcL High 0.0 - 0.7 10^3/mcL Workflow SS Eosinophils/100 WBC (Bld) 10.9 % High 0.0 - 6.0 % Workflow SS Erythrocyte distribution width (RBC) [Ratio] 12.8 % Normal 11.5 - 15.5 % Workflow SS GFR/1.73 sq M.predicted among blacks MDRD (S/P/Bld) [Vol rate/Area] ml/min/1.73sqm Invalid Interpretation Code ADM SS Comment on above: Interpretive Data: GFR Population [...] (S/P/Bld) [Vol rate/Area] ml/min/1.73sqm Invalid Interpretation Code ADM Comment on above: Interpretive Data: GFR Population [...] G/dL Normal 1.5 - 3.8 G/dL ADM SS Glucose [Mass/Vol] 102 mg/dL Normal 82 - 115 mg/dL [facility] SS Hematocrit (Bld) [Volume fraction] 44.9 % Normal 40.0 - 52.0 % Workflow SS Hemoglobin (Bld) [Mass/Vol] 15.5 G/dL Normal 13.0 - 17.5 G/dL Workflow SS Lipase [Catalytic activity/Vol] 50 U/L Normal 12 - 53 U/L [facility] Comment on above: Interpretive Data: * *Note - New Reference Range in effect 20 Lymphocytes (Bld) [#/Vol] 1.1 103/mcL Normal 0.9 - 4.3 10^3/mcL Workflow SS Lymphocytes/100 WBC (Bld) 15.5 % Low 20.0 - 40.0 % Workflow SS MCH (RBC) [Entitic mass] 34.4 pg High 27.0 - 33.0 pg Workflow SS MCHC 34.5 G/dL Normal 32.0 - 36.0 G/dL Workflow SS MCV (RBC) [Entitic vol] 99.8 fL Normal 81.0 - 100.0 fL Workflow SS Monocyte distribution width Auto (Bld) [Entitic vol] 17.01 1 Normal 0.00 - 20.00 [facility] SS Comment on above: Result Comment: For [...] 4.3 mmol/L Normal 3.5 - 5.0 mEq/L AH ADM SS Protein [Mass/Vol] 6.7 G/dL Normal [...] 3 ng/L Normal 0 - 54 ng/L AH ADM SS Comment on above: Interpretive Data: High Sensitive Troponin I Reference Ranges: Female: 0-34 ng/L Male: 0-54 ng/L Testing performed on [employer] analyzer using direct chemiluminescent technology. Urea nitrogen [Mass/Vol] 23.0 mg/dL High 8.0 - 22.0 mg/dL ADM SS Urea nitrogen/Creatinine [Mass ratio] 23.0 ratio High 10.0 - 22.0 ratio AH ADM SS WBC (Bld) [#/Vol] 7.1 103/mcL Normal 4.5 - 10.8 10^3/mcL AH Workflow SS LABORATORYOrdered By: Iman Bowman on 10-19-2023 Natriuretic peptide.B prohormone N-Terminal IA [Mass/Vol] 98 pg/mL Normal 0 - 1800 pg/mL ADM SS LIPon 10-19-2023 Lipase Level 50 U/L Normal 12-53 [facility] ([place]) Comment on above: Result Comment: No te - New Reference Range in effect 20 Performed By: #### T MACI, CMP, GFR, ADIFF, LIP, ANEU, PBNP, MDW, CBC #### [address] [address] PBNPon 10-19-2023 Natriuretic peptide B (Bld) [Mass/Vol] 98 pg/mL Normal 0-1800 [facility] ([place]) Comment on above: Performed By: #### T MACI, CMP, GFR, ADIFF, LIP, ANEU, PBNP, MDW, CBC #### [address] [address] TROPHSon 10-19-2023 High Sensitivity Troponin I 3 ng/L Normal 0-54 [facility] ([place]) Comment on above: Result Comment: High Sensitive Troponin I Reference Ranges: Female: 0-34 ng/L Male: 0-54 ng/L Testing performed on [employer] analyzer using direct chemiluminescent technology. Performed By: #### T MACI, MARIFER, GFR, ADIFF, LIP, ANEU, PBNP, MDW, CBC #### [address] [address] XR CHEST 1 VIEWon 10-19-2023 XR CHEST [...] Date: 10/19/2023 3:16:19 PM Ordering Provider: LELIA Toro [facility] ([place]) Absolute lymphocyte countOrd ered By: Dorothy Bone on 05-29-2023 Lymphocytes Auto (Unsp spec) [#/Vol] 0.76 10*3/uL 0.83-4.51 [facility] Basophil percentageOrdered B y: Dorothy Bone on 05-29-2023 Basophils/100 WBC (Bld) 0.3 % 0-1 [facility] Bilirubin [Mass/Vol] 1.70 mg/dL 0.20-1.00 [facility] Comment on above: For patients on eltr ombopag therapy, use of Dimension [place] TBIL is not recommended. Chloride [Moles/Vol] 109 mmol/L 98-107 [facility] Eosinophils/100 WBC (Bld) 2.8 % 0-5 [facility] Glucose [Mass/Vol] 99 mg/dL 74-106 [facility] Neutrophils (Bld) [#/Vol] 7.7 10*3/uL 2.0-7.7 [facility] Neutrophils/100 WBC (Bld) 77.7 % 47-70 [facility] Potassium [Moles/Vol] 4.0 mmol/L 3.5-5.1 [facility] Protein [Mass/Vol] 5.8 g/dL 6.4-8.2 [facility] Sodium [Moles/Vol] 137 mmol/L 136-145 [facility] WBC (Bld) [#/Vol] 10.0 10*3/uL 4.4-11.0 [facility] Blood erythrocytes count (nu mber/volume)Ordered By: Dorothy Bone on 05-29-2023 RBC (Bld) [#/Vol] 3.92 10*6/uL 4.6-6.2 [facility] Blood hemoglobin measurement (mass/volume)Ordered By: Dorothy Bone on 05-29-2023 Hemoglobin (Bld) [Mass/Vol] 13.3 g/dL 13.0-16.5 [facility] Blood lymphocytes/100 leukoc ytesOrdered By: Dorothy Bone on 05-29-2023 Lymphocytes/100 WBC (Bld) 7.6 % 19-41 [facility] Blood monocytes/100 leukocyt esOrdered By: Dorothy Bone on 05-29-2023 Monocytes/100 WBC (Bld) 11.2 % 0-10 [facility] Blood platelet mean volumeOr dered By: Dorothy Bone on 05-29-2023 Platelet mean volume (Bld) [Entitic vol] 9.8 fL 6.2-12.0 [facility] Determination of erythrocyte mean corpuscular volume (MCV)Ordered By: Dorothy Bone on 05-29-2023 MCV (RBC) [Entitic vol] 102.3 fL 80-94 [facility] Hematocrit Auto (Bld) [Volum e fraction]Ordered By: Dorothy Bone on 05-29-2023 Hematocrit (Bld) [Volume fraction] 40.1 % 40-54 [facility] Laboratory - Chemistry and C hemistry - challengeOrdered By: Dorothy Bone on 05-29-2023 ALP [Catalytic activity/Vol] 50 U/L 45-117 [facility] ALT [Catalytic activity/Vol] 27 U/L 16-61 [facility] CO2 [Moles/Vol] 24.0 mmol/L 21.0-32.0 [facility] Globulin (S) [Mass/Vol] 3.3 g/dL 2.2-4.2 [facility] Urea nitrogen/Creatinine [Mass ratio] 19.3 mg/mg 10-20 [facility] Laboratory - Hematology and Cell countsOrdered By: Dorothy Bone on 05-29-2023 Erythrocyte distribution width (RBC) [Entitic vol] 45.6 fL 35.1-43.9 [facility] Erythrocyte distribution width (RBC) [Ratio] 12.1 % 11.6-14.6 [facility] Immature granulocytes/100 WBC (Bld) 0.400 % 0.0-0.9 [facility] Comment on above: IG% - Immature Granu locytes (promyelocytes, myelocytes and metamyelocytes) > 1% indicates that a LEFT SHIFT is Present. MCH (RBC) [Entitic mass] 33.9 pg 27.0-32.0 [facility] Nucleated RBC/100 WBC (Bld) [Ratio] 0 % 0-5 [facility] MCHC Auto (RBC) [Mass/Vol]Or dered By: Dorothy Bone on 05-29-2023 MCHC (RBC) [Mass/Vol] 33.2 g/dL 32-36 [facility] No Panel InformationOrdered By: Dorothy Bone on 05-29-2023 Estimated Creatinine Clearance Calc 62.61 ml/min [facility] Estimated GFR (MDRD) Amer 107 mL/min >60 [facility] Comment on above: GFR Calc Estimated GFR (MDRD) Non-Af Amer 88 mL/min >60 [facility] Comment on above: Non- GFR Calc Platelets bldOrdered By: Angela Bone on 05-29-2023 Platelets (Bld) [#/Vol] 110 10*3/uL 150-450 [facility] Serum or plasma albumin barbara urement (mass/volume)Ordered By: Dorothy Bone on 05-29-2023 Albumin [Mass/Vol] 2.5 g/dL 3.2-5.0 [facility] Serum or plasma albumin/glob ulin mass ratioOrdered By: Dorothy Bone on 05-29-2023 Albumin/Globulin [Mass ratio] 0.8 {ratio} 0.9-2.4 [facility] Serum or plasma calcium barbara urement (mass/volume)Ordered By: Dorothy Bone on 05-29-2023 Calcium [Mass/Vol] 8.1 mg/dL 8.5-10.1 [facility] Serum or plasma creatinine m easurement (mass/volume)Ordered By: Dorothy Bone on 05-29-2023 Creatinine [Mass/Vol] 0.88 mg/dL 0.70-1.30 [facility] Comment on above: The validity of the calculated GFR & GFRAA in patients over 70 years has not been determined. Clinical correlation is essential. Serum or plasma urea nitroge n measurement (mass/volume)Ordered By: Dorothy Bone on 05-29-2023 Urea nitrogen [Mass/Vol] 17 mg/dL 7-18 [facility] Thin prep Papanicolaou smear with manual screeningOrdered By: Dorothy Bone on 05-29-2023 Thin prep Papanicolaou smear with manual screening 19 U/L 15-37 [facility] Thin prep Papanicolaou smear with manual screening 4 5-15 [facility] Absolute lymphocyte countOrd ered By: Sha Jacome on 05-28-2023 Lymphocytes Auto (Unsp spec) [#/Vol] 0.63 10*3/uL 0.83-4.51 [facility] Basophil percentageOrdered B y: Sha Jacome on 05-28-2023 Basophil percentage 0-5 SEEN /hpf 0-5 [facility] Basophils/100 WBC (Bld) 0.4 % 0-1 [facility] Bilirubin [Mass/Vol] 2.30 mg/dL 0.20-1.00 [facility] Comment on above: For patients on eltr ombopag therapy, use of Dimension [place] TBIL is not recommended. Chloride [Moles/Vol] 107 mmol/L 98-107 [facility] Eosinophils/100 WBC (Bld) 3.8 % 0-5 [facility] Glucose [Mass/Vol] 118 mg/dL 74-106 [facility] Comment on above: Fasting Glucose resu lt from 100 to 125 mg/dL suggests IMPAIRED HOMEOSTASIS per A.D.A. criteria. Neutrophils (Bld) [#/Vol] 10.6 10*3/uL 2.0-7.7 [facility] Neutrophils/100 WBC (Bld) 79.1 % 47-70 [facility] Potassium [Moles/Vol] 4.8 mmol/L 3.5-5.1 [facility] Comment on above: Moderate Hemolysis, Result may be falsely increased. Protein [Mass/Vol] 6.9 g/dL 6.4-8.2 [facility] Sodium [Moles/Vol] 133 mmol/L 136-145 [facility] WBC (Bld) [#/Vol] 13.3 10*3/uL 4.4-11.0 [facility] Bilirubin Test strip Ql (U)O rdered By: Sha Jacome on 05-28-2023 Bilirubin Ql (U) Negative Negative [facility] Blood erythrocytes count (nu mber/volume)Ordered By: Sha Jacome on 05-28-2023 RBC (Bld) [#/Vol] 4.44 10*6/uL 4.6-6.2 [facility] Blood hemoglobin measurement (mass/volume)Ordered By: Sha Jacome on 05-28-2023 Hemoglobin (Bld) [Mass/Vol] 15.1 g/dL 13.0-16.5 [facility] Blood lymphocytes/100 leukoc ytesOrdered By: Sha Jacome on 05-28-2023 Lymphocytes/100 WBC (Bld) 4.7 % 19-41 [facility] Blood monocytes/100 leukocyt esOrdered By: Sha Jacome on 05-28-2023 Monocytes/100 WBC (Bld) 11.0 % 0-10 [facility] Blood platelet mean volumeOr dered By: Sha Jacome on 05-28-2023 Platelet mean volume (Bld) [Entitic vol] 10.4 fL 6.2-12.0 [facility] Determination of erythrocyte mean corpuscular volume (MCV)Ordered By: Sha Jacome on 05-28-2023 MCV (RBC) [Entitic vol] 100.9 fL 80-94 [facility] Direct bilirubinOrdered By: Sha Jacome on 05-28-2023 Bilirubin.direct [Mass/Vol] 0.25 mg/dL 0.00-0.30 [facility] Hematocrit Auto (Bld) [Volum e fraction]Ordered By: Sha Jacome on 05-28-2023 Hematocrit (Bld) [Volume fraction] 44.8 % 40-54 [facility] Ketones Test strip Ql (U)Ord ered By: Sha Jacome on 05-28-2023 Ketones Ql (U) Negative Negative [facility] Laboratory - Chemistry and C hemistry - challengeOrdered By: Sha Jacome on 05-28-2023 ALP [Catalytic activity/Vol] 54 U/L 45-117 [facility] ALT [Catalytic activity/Vol] 25 U/L 16-61 [facility] CO2 [Moles/Vol] 23.0 mmol/L 21.0-32.0 [facility] Globulin (S) [Mass/Vol] 3.6 g/dL 2.2-4.2 [facility] Lipase [Catalytic activity/Vol] 32 U/L 13-75 [facility] Comment on above: Please note:LIPASE r evised reference range effective 22. New Lipase methodology. Expected to produce lower values than the previous assay method. NEW Reference Range: 13 - 75 U/L Urea nitrogen/Creatinine [Mass ratio] 22.8 mg/mg 10-20 [facility] Laboratory - Hematology and Cell countsOrdered By: Sha Jacome on 05-28-2023 Erythrocyte distribution width (RBC) [Entitic vol] 45.5 fL 35.1-43.9 [facility] Erythrocyte distribution width (RBC) [Ratio] 12.1 % 11.6-14.6 [facility] Immature granulocytes/100 WBC (Bld) 1.000 % 0.0-0.9 [facility] Comment on above: IG% - Immature Granu locytes (promyelocytes, myelocytes and metamyelocytes) > 1% indicates that a LEFT SHIFT is Present. MCH (RBC) [Entitic mass] 34.0 pg 27.0-32.0 [facility] Nucleated RBC/100 WBC (Bld) [Ratio] 0 % 0-5 [facility] MCHC Auto (RBC) [Mass/Vol]Or dered By: Sha Jacome on 05-28-2023 MCHC (RBC) [Mass/Vol] 33.7 g/dL 32-36 [facility] Mucus LM Ql (Urine sed)Order ed By: Sha Jacome on 05-28-2023 Mucus Ql (Urine sed) 0 SEEN /hpf [facility] Nitrite Test strip Ql (U)Ord ered By: Sha Jacome on 05-28-2023 Nitrite Ql (U) Negative Negative [facility] No Panel InformationOrdered By: Sha Jacome on 05-28-2023 Estimated Creatinine Clearance Calc 59.33 ml/min [facility] Estimated GFR (MDRD) Amer 96 mL/min >60 [facility] Comment on above: GFR Calc Estimated GFR (MDRD) Non-Af Amer 79 mL/min >60 [facility] Comment on above: Non- GFR Calc Platelets bldOrdered By: Leodan Jacome on 05-28-2023 Platelets (Bld) [#/Vol] 151 10*3/uL 150-450 [facility] Protein Test strip Ql (U)Ord ered By: Sha Jacome on 05-28-2023 Protein Ql (U) Negative Negative [facility] Serum or plasma albumin barbara urement (mass/volume)Ordered By: Sha Jacome on 05-28-2023 Albumin [Mass/Vol] 3.3 g/dL 3.2-5.0 [facility] Serum or plasma albumin/glob ulin mass ratioOrdered By: Sha Jacome on 05-28-2023 Albumin/Globulin [Mass ratio] 0.9 {ratio} 0.9-2.4 [facility] Serum or plasma calcium barabra urement (mass/volume)Ordered By: Sha Jacome on 05-28-2023 Calcium [Mass/Vol] 8.8 mg/dL 8.5-10.1 [facility] Serum or plasma creatinine m easurement (mass/volume)Ordered By: Sha Jacome on 05-28-2023 Creatinine [Mass/Vol] 0.96 mg/dL 0.70-1.30 [facility] Comment on above: The validity of the calculated GFR & GFRAA in patients over 70 years has not been determined. Clinical correlation is essential. Serum or plasma urea nitroge n measurement (mass/volume)Ordered By: Sha Jacome on 05-28-2023 Urea nitrogen [Mass/Vol] 22 mg/dL 7-18 [facility] Squamous epithelial cells de tection in urine sediment by light microscopyOrdered By: Sha Jacome on 05-28-2023 Epithelial cells.squamous LM Ql (Urine sed) 0-5 SEEN /hpf 0-5 [facility] Thin prep Papanicolaou smear with manual screeningOrdered By: Sha Jacome on 05-28-2023 Thin prep Papanicolaou smear with manual screening 31 U/L 15-37 [facility] Comment on above: Moderate Hemolysis, Result may be falsely increased. Thin prep Papanicolaou smear with manual screening 3 5-15 [facility] Urine blood detectionOrdered By: Sha Jacome on 05-28-2023 RBC Ql (U) Negative Negative [facility] RBC Ql (U) 0 SEEN /hpf 0-5 [facility] Urine clarityOrdered By: Leodan Jacome on 05-28-2023 Clarity (U) Sl. Cloudy Clear [facility] Urine color determinationOrd ered By: Sha Jacome on 05-28-2023 Color (U) Yellow Yellow [facility] Urine glucose detectionOrder ed By: Sha Jacome on 05-28-2023 Glucose Ql (U) Normal mg/dl Normal [facility] Urine leukocyte esterase det ection by dipstickOrdered By: Sha Jacome on 05-28-2023 Leukocyte esterase Test strip Ql (U) 25 /ul Negative [facility] Urine pHOrdered By: Sha velasco on 05-28-2023 pH (U) 6.5 [pH] 5.0 - 8.0 [facility] Urine sediment bacteria coun t by microscopy (number/high power field)Ordered By: Sha Jacome on 05-28-2023 Bacteria LM.HPF (Urine sed) [#/Area] 0 /[HPF] None Seen [facility] Urine specific gravity measu rementOrdered By: Sha Jacome on 05-28-2023 Specific gravity (U) [Rel density] 1.010 1.002-1.030 [facility] Urobilinogen Auto test strip Ql (U)Ordered By: Sha Jacome on 05-28-2023 Urobilinogen Ql (U) 1 mg/dl Normal [facility] Absolute lymphocyte countOrd ered By: Jg Brennan on 04-27-2023 Lymphocytes Auto (Unsp spec) [#/Vol] 1.21 10*3/uL 0.83-4.51 [facility] Basophil percentageOrdered B y: Jg Brennan on 04-27-2023 Basophil percentage 0-5 SEEN /hpf 0-5 [facility] Basophils/100 WBC (Bld) 0.7 % 0-1 [facility] Bilirubin [Mass/Vol] 0.90 mg/dL 0.20-1.00 [facility] Comment on above: For patients on eltr ombopag therapy, use of Dimension [place] TBIL is not recommended. Chloride [Moles/Vol] 103 mmol/L 98-107 [facility] Eosinophils/100 WBC (Bld) 5.1 % 0-5 [facility] Glucose [Mass/Vol] 143 mg/dL 74-106 [facility] Comment on above: Fasting Glucose resu lt greater than or equal to 126 mg/dL suggests DIABETES MELLITUS per A.D.A. criteria. Lactate [Moles/Vol] 2.1 mmol/L 0.4-2.0 [facility] Comment on above: Critical Result(s) C alled at: 19:30:18 04/27/2023 by: CRISSY DONOVAN to LESA JHAVERI RN ERResults read back by same. Neutrophils (Bld) [#/Vol] 5.9 10*3/uL 2.0-7.7 [facility] Neutrophils/100 WBC (Bld) 70.3 % 47-70 [facility] Potassium [Moles/Vol] 3.9 mmol/L 3.5-5.1 [facility] Protein [Mass/Vol] 7.3 g/dL 6.4-8.2 [facility] Sodium [Moles/Vol] 140 mmol/L 136-145 [facility] WBC (Bld) [#/Vol] 8.4 10*3/uL 4.4-11.0 [facility] Bilirubin Test strip Ql (U)O rdered By: Jg Brennan on 04-27-2023 Bilirubin Ql (U) Negative Negative [facility] Blood erythrocytes count (nu mber/volume)Ordered By: Jg Brennan on 04-27-2023 RBC (Bld) [#/Vol] 4.65 10*6/uL 4.6-6.2 [facility] Blood hemoglobin measurement (mass/volume)Ordered By: Jg Brennan on 04-27-2023 Hemoglobin (Bld) [Mass/Vol] 15.7 g/dL 13.0-16.5 [facility] Blood lymphocytes/100 leukoc ytesOrdered By: Jg Brennan on 04-27-2023 Lymphocytes/100 WBC (Bld) 14.4 % 19-41 [facility] Blood monocytes/100 leukocyt esOrdered By: Jg Brennan on 04-27-2023 Monocytes/100 WBC (Bld) 8.9 % 0-10 [facility] Blood platelet mean volumeOr dered By: Jg Brennan on 04-27-2023 Platelet mean volume (Bld) [Entitic vol] 9.6 fL 6.2-12.0 [facility] Determination of erythrocyte mean corpuscular volume (MCV)Ordered By: Jg Brennan on 04-27-2023 MCV (RBC) [Entitic vol] 101.1 fL 80-94 [facility] Hematocrit Auto (Bld) [Volum e fraction]Ordered By: Jg Brennan on 04-27-2023 Hematocrit (Bld) [Volume fraction] 47.0 % 40-54 [facility] Ketones Test strip Ql (U)Ord ered By: Jg Brennan on 04-27-2023 Ketones Ql (U) 5 mg/dl Negative [facility] Laboratory - Chemistry and C hemistry - challengeOrdered By: Jg Brennan on 04-27-2023 ALP [Catalytic activity/Vol] 65 U/L 45-117 [facility] ALT [Catalytic activity/Vol] 29 U/L 16-61 [facility] CO2 [Moles/Vol] 29.0 mmol/L 21.0-32.0 [facility] Globulin (S) [Mass/Vol] 3.3 g/dL 2.2-4.2 [facility] Lipase [Catalytic activity/Vol] 70 U/L 13-75 [facility] Comment on above: Please note:LIPASE r evised reference range effective 22. New Lipase methodology. Expected to produce lower values than the previous assay method. NEW Reference Range: 13 - 75 U/L Urea nitrogen/Creatinine [Mass ratio] 19.3 mg/mg 10-20 [facility] Laboratory - Hematology and Cell countsOrdered By: Jg Brennan on 04-27-2023 Erythrocyte distribution width (RBC) [Entitic vol] 44.3 fL 35.1-43.9 [facility] Erythrocyte distribution width (RBC) [Ratio] 11.9 % 11.6-14.6 [facility] Immature granulocytes/100 WBC (Bld) 0.600 % 0.0-0.9 [facility] Comment on above: IG% - Immature Granu locytes (promyelocytes, myelocytes and metamyelocytes) > 1% indicates that a LEFT SHIFT is Present. MCH (RBC) [Entitic mass] 33.8 pg 27.0-32.0 [facility] Nucleated RBC/100 WBC (Bld) [Ratio] 0 % 0-5 [facility] MCHC Auto (RBC) [Mass/Vol]Or dered By: Jg Brennan on 04-27-2023 MCHC (RBC) [Mass/Vol] 33.4 g/dL 32-36 [facility] Mucus LM Ql (Urine sed)Order ed By: Jg Brennan on 04-27-2023 Mucus Ql (Urine sed) 0 SEEN /hpf [facility] Nitrite Test strip Ql (U)Ord ered By: Jg Brennan on 04-27-2023 Nitrite Ql (U) Negative Negative [facility] No Panel InformationOrdered By: Jg Brennan on 04-27-2023 Troponin I High Sensitivity 5 pg/mL 3.0-78.0 [facility] Comment on above: Please Note: New [place] t Units and Gender Specific Reference Ranges. For more information see Policy Stat Procedure [place] High Sensitivity Troponin (TNIH) and attachments. Estimated Creatinine Clearance Calc 51.42 ml/min [facility] Estimated GFR (MDRD) Amer 83 mL/min >60 [facility] Comment on above: GFR Calc Estimated GFR (MDRD) Non-Af Amer 69 mL/min >60 [facility] Comment on above: Non- GFR Calc Platelets bldOrdered By: Radha Brennan on 04-27-2023 Platelets (Bld) [#/Vol] 168 10*3/uL 150-450 [facility] Protein Test strip Ql (U)Ord ered By: Jg Brennan on 04-27-2023 Protein Ql (U) 15 mg/dl Negative [facility] Serum or plasma albumin barbara urement (mass/volume)Ordered By: Jg Brennan on 04-27-2023 Albumin [Mass/Vol] 4.0 g/dL 3.2-5.0 [facility] Serum or plasma albumin/glob ulin mass ratioOrdered By: Jg Brennan on 04-27-2023 Albumin/Globulin [Mass ratio] 1.2 {ratio} 0.9-2.4 [facility] Serum or plasma calcium barbara urement (mass/volume)Ordered By: Jg Brennan on 04-27-2023 Calcium [Mass/Vol] 9.7 mg/dL 8.5-10.1 [facility] Serum or plasma creatinine m easurement (mass/volume)Ordered By: Jg Brennan on 04-27-2023 Creatinine [Mass/Vol] 1.09 mg/dL 0.70-1.30 [facility] Comment on above: The validity of the calculated GFR & GFRAA in patients over 70 years has not been determined. Clinical correlation is essential. Serum or plasma urea nitroge n measurement (mass/volume)Ordered By: Jg Brennan on 04-27-2023 Urea nitrogen [Mass/Vol] 21 mg/dL 7-18 [facility] Squamous epithelial cells de tection in urine sediment by light microscopyOrdered By: Jg Brennan on 04-27-2023 Epithelial cells.squamous LM Ql (Urine sed) 0-5 SEEN /hpf 0-5 [facility] Thin prep Papanicolaou smear with manual screeningOrdered By: Jg Brennan on 04-27-2023 Thin prep Papanicolaou smear with manual screening 17 U/L 15-37 [facility] Thin prep Papanicolaou smear with manual screening 8 5-15 [facility] Urine blood detectionOrdered By: Jg Brennan on 04-27-2023 RBC Ql (U) Negative Negative [facility] RBC Ql (U) 0 SEEN /hpf 0-5 [facility] Urine clarityOrdered By: Radha Brennan on 04-27-2023 Clarity (U) Sl. Cloudy Clear [facility] Urine color determinationOrd ered By: Jg Brennan on 04-27-2023 Color (U) Yellow Yellow [facility] Urine glucose detectionOrder ed By: Jg Brennna on 04-27-2023 Glucose Ql (U) Normal mg/dl Normal [facility] Urine leukocyte esterase det ection by dipstickOrdered By: Jg Brennan on 04-27-2023 Leukocyte esterase Test strip Ql (U) 25 /ul Negative [facility] Urine pHOrdered By: Jg dia on 04-27-2023 pH (U) 7.0 [pH] 5.0 - 8.0 [facility] Urine sediment bacteria coun t by microscopy (number/high power field)Ordered By: Jg Brennan on 11-05-2023 Bacteria LM.HPF (Urine sed) [#/Area] 0 /[HPF] None Seen [facility] Urine specific gravity measu rementOrdered By: Jg Brennan on 04-27-2023 Specific gravity (U) [Rel density] 1.010 1.002-1.030 [facility] Urobilinogen Auto test strip Ql (U)Ordered By: Jg Brennan on 04-27-2023 Urobilinogen Ql (U) Normal mg/dl Normal [facility] Basophil percentageOrdered B y: Roel Chiu on 04-11-2023 Cholesterol [Mass/Vol] 121 mg/dL <200 [facility] Comment on above: <200 mg/dL Desirable 200-240 mg/dL Borderline >240 mg/dL High Risk Triglyceride [Mass/Vol] 84 mg/dL <199 [facility] Comment on above: The drugs N-Acetylcy steine and Metamizole may falsely depress this assay.Serum Triglycerides Reference Interval Normal <150 mg/dL Borderline high 150 - 199 mg/dL High 200 - 499 mg/dL Very High > or = 500 mg/dL Serum or plasma cholesterol in HDL measurement (mass/volume)Ordered By: Roel Chiu on 04-11-2023 Cholesterol in HDL [Mass/Vol] 48 mg/dL >40 [facility] Comment on above: The drugs N-Acetylcy steine and Metamizole may falsely depress this assay. Reference Range HDL <40 mg/dL Low HDL Cholesterol HDL >or= 60 mg/dL High HDL Cholesterol Serum or plasma cholesterol in VLDL measurement (mass/volume)Ordered By: Roel Chiu on 04-11-2023 Cholesterol in VLDL [Mass/Vol] 17 mg/dL 5-40 [facility] Serum or plasma low density lipoprotein (LDL) cholesterol measurement (mass/volume)Ordered By: Roel Chiu on 04-11-2023 Cholesterol in LDL [Mass/Vol] 56 mg/dL 0-130 [facility] Basophil percentageOrdered B y: Roel Chiu on 02-27-2023 Cholesterol [Mass/Vol] 117 mg/dL <200 [facility] Comment on above: <200 mg/dL Desirable 200-240 mg/dL Borderline >240 mg/dL High Risk Triglyceride [Mass/Vol] 97 mg/dL <199 [facility] Comment on above: The drugs N-Acetylcy steine and Metamizole may falsely depress this assay.Serum Triglycerides Reference Interval Normal <150 mg/dL Borderline high 150 - 199 mg/dL High 200 - 499 mg/dL Very High > or = 500 mg/dL Serum or plasma cholesterol in HDL measurement (mass/volume)Ordered By: Roel Chiu on 02-27-2023 Cholesterol in HDL [Mass/Vol] 48 mg/dL >40 [facility] Comment on above: The drugs N-Acetylcy steine and Metamizole may falsely depress this assay. Reference Range HDL <40 mg/dL Low HDL Cholesterol HDL >or= 60 mg/dL High HDL Cholesterol Serum or plasma cholesterol in VLDL measurement (mass/volume)Ordered By: Roel Chiu on 02-27-2023 Cholesterol in VLDL [Mass/Vol] 19 mg/dL 5-40 [facility] Serum or plasma low density lipoprotein (LDL) cholesterol measurement (mass/volume)Ordered By: Roel Chiu on 02-27-2023 Cholesterol in LDL [Mass/Vol] 50 mg/dL 0-130 [facility] Basophil percentageOrdered B y: Jaquan Hampton on 09-05-2022 Bilirubin [Mass/Vol] 0.50 mg/dL 0.20-1.00 [facility] Comment on above: For patients on eltr ombopag therapy, use of Dimension [place] TBIL is not recommended. Chloride [Moles/Vol] 105 mmol/L 98-107 [facility] Cholesterol [Mass/Vol] 113 mg/dL <200 [facility] Comment on above: <200 mg/dL Desirable 200-240 mg/dL Borderline >240 mg/dL High Risk Glucose [Mass/Vol] 100 mg/dL 74-106 [facility] Comment on above: Fasting Glucose resu lt from 100 to 125 mg/dL suggests IMPAIRED HOMEOSTASIS per A.D.A. criteria. Potassium [Moles/Vol] 4.4 mmol/L 3.5-5.1 [facility] Protein [Mass/Vol] 6.5 g/dL 6.4-8.2 [facility] Sodium [Moles/Vol] 139 mmol/L 136-145 [facility] Triglyceride [Mass/Vol] 155 mg/dL <199 [facility] Comment on above: The drugs N-Acetylcy steine and Metamizole may falsely depress this assay.Serum Triglycerides Reference Interval Normal <150 mg/dL Borderline high 150 - 199 mg/dL High 200 - 499 mg/dL Very High > or = 500 mg/dL WBC (Bld) [#/Vol] 5.4 10*3/uL 4.4-11.0 [facility] Blood erythrocytes count (nu mber/volume)Ordered By: Jaquan Hampton on 09-05-2022 RBC (Bld) [#/Vol] 4.40 10*6/uL 4.6-6.2 [facility] Blood hemoglobin measurement (mass/volume)Ordered By: Jaquan Hampton on 09-05-2022 Hemoglobin (Bld) [Mass/Vol] 14.6 g/dL 13.0-16.5 [facility] Blood platelet mean volumeOr dered By: Jaquan Hampton on 09-05-2022 Platelet mean volume (Bld) [Entitic vol] 9.9 fL 6.2-12.0 [facility] Determination of erythrocyte mean corpuscular volume (MCV)Ordered By: Jaquan Hampton on 09-05-2022 MCV (RBC) [Entitic vol] 100.7 fL 80-94 [facility] Hematocrit Auto (Bld) [Volum e fraction]Ordered By: Jaquan Hampton on 09-05-2022 Hematocrit (Bld) [Volume fraction] 44.3 % 40-54 [facility] Laboratory - Chemistry and C hemistry - challengeOrdered By: Jaquan Hampton on 09-05-2022 ALP [Catalytic activity/Vol] 78 U/L 45-117 [facility] ALT [Catalytic activity/Vol] 36 U/L 16-61 [facility] CO2 [Moles/Vol] 26.0 mmol/L 21.0-32.0 [facility] Cobalamin (Vitamin B12) [Mass/Vol] 276 pg/mL 211-911 [facility] Globulin (S) [Mass/Vol] 3.2 g/dL 2.2-4.2 [facility] Urea nitrogen/Creatinine [Mass ratio] 25.0 mg/mg 10-20 [facility] Laboratory - Hematology and Cell countsOrdered By: Jaquan Hampton on 09-05-2022 Erythrocyte distribution width (RBC) [Entitic vol] 48.1 fL 35.1-43.9 [facility] Erythrocyte distribution width (RBC) [Ratio] 13.0 % 11.6-14.6 [facility] MCH (RBC) [Entitic mass] 33.2 pg 27.0-32.0 [facility] MCHC Auto (RBC) [Mass/Vol]Or dered By: Jaquan Hampton on 09-05-2022 MCHC (RBC) [Mass/Vol] 33.0 g/dL 32-36 [facility] No Panel InformationOrdered By: Jaquan Hampton on 09-05-2022 Estimated GFR (MDRD) Amer 88 mL/min >60 [facility] Comment on above: GFR Calc Estimated GFR (MDRD) Non-Af Amer 73 mL/min >60 [facility] Comment on above: Non- GFR Calc Thyroid Stimulating Hormone (TSH) 1.28 uIU/mL 0.358-3.74 [facility] Vitamin D 25-Hydroxy 53.0 ng/mL [facility] Comment on above: Vitamin D 25(OH) Sta tus Range Deficiency <20 ng/mL (50nmol/L) Insufficiency 20 - 30 ng/mL (50 - 75 nmol/L) Sufficiency 30 - 100 ng/mL (75 - 250 nmol/L) Toxicity >100 ng/mL (>250 nmol/L) Platelets bldOrdered By: Chun Hampton on 09-05-2022 Platelets (Bld) [#/Vol] 193 10*3/uL 150-450 [facility] Serum or plasma albumin barbara urement (mass/volume)Ordered By: Jaquan Hampton on 09-05-2022 Albumin [Mass/Vol] 3.3 g/dL 3.2-5.0 [facility] Serum or plasma albumin/glob ulin mass ratioOrdered By: Jaquan Hampton on 09-05-2022 Albumin/Globulin [Mass ratio] 1.0 {ratio} 0.9-2.4 [facility] Serum or plasma calcium barbara urement (mass/volume)Ordered By: Jaquan Hampton on 09-05-2022 Calcium [Mass/Vol] 9.1 mg/dL 8.5-10.1 [facility] Serum or plasma cholesterol in HDL measurement (mass/volume)Ordered By: Jaquan Hampton on 09-05-2022 Cholesterol in HDL [Mass/Vol] 43 mg/dL >40 [facility] Comment on above: The drugs N-Acetylcy steine and Metamizole may falsely depress this assay. Reference Range HDL <40 mg/dL Low HDL Cholesterol HDL >or= 60 mg/dL High HDL Cholesterol Serum or plasma cholesterol in VLDL measurement (mass/volume)Ordered By: Jaquan Hampton on 09-05-2022 Cholesterol in VLDL [Mass/Vol] 31 mg/dL 5-40 [facility] Serum or plasma creatinine m easurement (mass/volume)Ordered By: Jaquan Hampton on 09-05-2022 Creatinine [Mass/Vol] 1.04 mg/dL 0.70-1.30 [facility] Comment on above: The validity of the calculated GFR & GFRAA in patients over 70 years has not been determined. Clinical correlation is essential. Serum or plasma folate measu rement (mass/volume)Ordered By: Jaquan Hampton on 09-05-2022 Folate [Mass/Vol] 5.60 ng/mL 3.1-55.4 [facility] Comment on above: Slight Hemolysis, Re sult may be falsely increased. Serum or plasma low density lipoprotein (LDL) cholesterol measurement (mass/volume)Ordered By: Jaquan Hampton on 09-05-2022 Cholesterol in LDL [Mass/Vol] 39 mg/dL 0-130 [facility] Serum or plasma urea nitroge n measurement (mass/volume)Ordered By: Jaquan Hampton on 09-05-2022 Urea nitrogen [Mass/Vol] 26 mg/dL 7-18 [facility] Thin prep Papanicolaou smear with manual screeningOrdered By: Jaquan Hampton on 09-05-2022 Thin prep Papanicolaou smear with manual screening 23 U/L 15-37 [facility] Thin prep Papanicolaou smear with manual screening 8 5-15 [facility] Basophil percentageOrdered B y: Bertha Arndt on 07-25-2022 Cholesterol [Mass/Vol] 108 mg/dL <200 [facility] Comment on above: <200 mg/dL Desirable 200-240 mg/dL Borderline >240 mg/dL High Risk Triglyceride [Mass/Vol] 65 mg/dL <199 [facility] Comment on above: The drugs N-Acetylcy steine and Metamizole may falsely depress this assay.Serum Triglycerides Reference Interval Normal <150 mg/dL Borderline high 150 - 199 mg/dL High 200 - 499 mg/dL Very High > or = 500 mg/dL Laboratory - Chemistry and C hemistry - challengeOrdered By: Bertha Arndt on 07-25-2022 ALT [Catalytic activity/Vol] 46 U/L 16-61 [facility] Serum or plasma cholesterol in HDL measurement (mass/volume)Ordered By: Bertha Arndt on 07-25-2022 Cholesterol in HDL [Mass/Vol] 48 mg/dL >40 [facility] Comment on above: The drugs N-Acetylcy steine and Metamizole may falsely depress this assay. Reference Range HDL <40 mg/dL Low HDL Cholesterol HDL >or= 60 mg/dL High HDL Cholesterol Serum or plasma cholesterol in VLDL measurement (mass/volume)Ordered By: Bertha Arndt on 07-25-2022 Cholesterol in VLDL [Mass/Vol] 13 mg/dL 5-40 [facility] Serum or plasma low density lipoprotein (LDL) cholesterol measurement (mass/volume)Ordered By: Bertha Arndt on 07-25-2022 Cholesterol in LDL [Mass/Vol] 47 mg/dL 0-130 [facility] Thin prep Papanicolaou smear with manual screeningOrdered By: Bertha Arndt on 07-25-2022 Thin prep Papanicolaou smear with manual screening 51 U/L 15-37 [facility] Absolute lymphocyte countOrd ered By: Dr. Shelton on 07-20-2022 Lymphocytes Auto (Unsp spec) [#/Vol] 0.66 10*3/uL 0.83-4.51 [facility] Basophil percentageOrdered B y: Dr. Shelton on 07-20-2022 Basophil percentage 0 SEEN /hpf 0-5 [facility] Basophils/100 WBC (Bld) 0.5 % 0-1 [facility] Chloride [Moles/Vol] 105 mmol/L 98-107 [facility] Eosinophils/100 WBC (Bld) 2.4 % 0-5 [facility] Glucose [Mass/Vol] 116 mg/dL 74-106 [facility] Comment on above: Fasting Glucose resu lt from 100 to 125 mg/dL suggests IMPAIRED HOMEOSTASIS per A.D.A. criteria. Neutrophils (Bld) [#/Vol] 7.2 10*3/uL 2.0-7.7 [facility] Neutrophils/100 WBC (Bld) 74.8 % 47-70 [facility] Potassium [Moles/Vol] 4.2 mmol/L 3.5-5.1 [facility] Sodium [Moles/Vol] 138 mmol/L 136-145 [facility] WBC (Bld) [#/Vol] 9.6 10*3/uL 4.4-11.0 [facility] Bilirubin Test strip Ql (U)O rdered By: Dr. Shelton on 07-20-2022 Bilirubin Ql (U) Negative Negative [facility] Blood erythrocytes count (nu mber/volume)Ordered By: Dr. Shelton on 07-20-2022 RBC (Bld) [#/Vol] 4.87 10*6/uL 4.6-6.2 [facility] Blood hemoglobin measurement (mass/volume)Ordered By: Dr. Shelton on 07-20-2022 Hemoglobin (Bld) [Mass/Vol] 16.2 g/dL 13.0-16.5 [facility] Blood lymphocytes/100 leukoc ytesOrdered By: Dr. Shelton on 07-20-2022 Lymphocytes/100 WBC (Bld) 6.9 % 19-41 [facility] Blood monocytes/100 leukocyt esOrdered By: Dr. Shelton on 07-20-2022 Monocytes/100 WBC (Bld) 14.6 % 0-10 [facility] Blood platelet mean volumeOr dered By: Dr. Shelton on 07-20-2022 Platelet mean volume (Bld) [Entitic vol] 9.9 fL 6.2-12.0 [facility] Determination of erythrocyte mean corpuscular volume (MCV)Ordered By: Dr. Shelton on 07-20-2022 MCV (RBC) [Entitic vol] 97.7 fL 80-94 [facility] Hematocrit Auto (Bld) [Volum e fraction]Ordered By: Dr. Shelton on 07-20-2022 Hematocrit (Bld) [Volume fraction] 47.6 % 40-54 [facility] Ketones Test strip Ql (U)Ord ered By: Dr. Shelton on 07-20-2022 Ketones Ql (U) 5 mg/dl Negative [facility] Laboratory - Chemistry and C hemistry - challengeOrdered By: Dr. Shelton on 07-20-2022 CO2 [Moles/Vol] 25.0 mmol/L 21.0-32.0 [facility] Urea nitrogen/Creatinine [Mass ratio] 21.7 mg/mg 10-20 [facility] Laboratory - Hematology and Cell countsOrdered By: Dr. Shelton on 07-20-2022 Erythrocyte distribution width (RBC) [Entitic vol] 42.5 fL 35.1-43.9 [facility] Erythrocyte distribution width (RBC) [Ratio] 11.8 % 11.6-14.6 [facility] Immature granulocytes/100 WBC (Bld) 0.800 % 0.0-0.9 [facility] Comment on above: IG% - Immature Granu locytes (promyelocytes, myelocytes and metamyelocytes) > 1% indicates that a LEFT SHIFT is Present. MCH (RBC) [Entitic mass] 33.3 pg 27.0-32.0 [facility] Nucleated RBC/100 WBC (Bld) [Ratio] 0 % 0-5 [facility] MCHC Auto (RBC) [Mass/Vol]Or dered By: Dr. Shelton on 07-20-2022 MCHC (RBC) [Mass/Vol] 34.0 g/dL 32-36 [facility] Mucus LM Ql (Urine sed)Order ed By: Dr. Shelton on 07-20-2022 Mucus Ql (Urine sed) 0 SEEN /hpf [facility] Nitrite Test strip Ql (U)Ord ered By: Dr. Shelton on 07-20-2022 Nitrite Ql (U) Negative Negative [facility] No Panel InformationOrdered By: Dr. Shelton on 07-20-2022 Estimated Creatinine Clearance Calc 59.13 ml/min [facility] Estimated GFR (MDRD) Amer 108 mL/min >60 [facility] Comment on above: GFR Calc Estimated GFR (MDRD) Non-Af Amer 89 mL/min >60 [facility] Comment on above: Non- GFR Calc Troponin I High Sensitivity 6 pg/mL 3.0-78.0 [facility] Comment on above: Please Note: [place] t Units and Gender Specific Reference Ranges. For more information see Policy Stat Procedure [place] High Sensitivity Troponin (TNIH) and attachments. Platelets bldOrdered By: Dr. Shelton on 07-20-2022 Platelets (Bld) [#/Vol] 213 10*3/uL 150-450 [facility] Protein Test strip Ql (U)Ord ered By: Dr. Shelton on 07-20-2022 Protein Ql (U) 15 mg/dl Negative [facility] Serum or plasma calcium barbara urement (mass/volume)Ordered By: Dr. Shelton on 07-20-2022 Calcium [Mass/Vol] 9.0 mg/dL 8.5-10.1 [facility] Serum or plasma creatinine m easurement (mass/volume)Ordered By: Dr. Shelton on 07-20-2022 Creatinine [Mass/Vol] 0.88 mg/dL 0.70-1.30 [facility] Comment on above: The validity of the calculated GFR & GFRAA in patients over 70 years has not been determined. Clinical correlation is essential. Serum or plasma urea nitroge n measurement (mass/volume)Ordered By: Dr. Shelton on 07-20-2022 Urea nitrogen [Mass/Vol] 19 mg/dL 7-18 [facility] Squamous epithelial cells de tection in urine sediment by light microscopyOrdered By: Dr. Shelton on 07-20-2022 Epithelial cells.squamous LM Ql (Urine sed) 0 SEEN /hpf 0-5 [facility] Thin prep Papanicolaou smear with manual screeningOrdered By: Dr. Shelton on 07-20-2022 Thin prep Papanicolaou smear with manual screening 8 5-15 [facility] Urine blood detectionOrdered By: Dr. Shelton on 07-20-2022 RBC Ql (U) 25 /ul Negative [facility] RBC Ql (U) 0 SEEN /hpf 0-5 [facility] Urine clarityOrdered By: Dr. Shelton on 07-20-2022 Clarity (U) Clear Clear [facility] Urine color determinationOrd ered By: Dr. Shelton on 07-20-2022 Color (U) Yellow Yellow [facility] Urine glucose detectionOrder ed By: Dr. Shelton on 07-20-2022 Glucose Ql (U) Normal mg/dl Normal [facility] Urine leukocyte esterase det ection by dipstickOrdered By: Dr. Shelton on 07-20-2022 Leukocyte esterase Test strip Ql (U) 25 /ul Negative [facility] Urine pHOrdered By: Dr. Cynthia velásquez on 07-20-2022 pH (U) 6.0 [pH] 5.0 - 8.0 [facility] Urine sediment bacteria coun t by microscopy (number/high power field)Ordered By: Dr. Shelton on 07-20-2022 Bacteria LM.HPF (Urine sed) [#/Area] 0 /[HPF] None Seen [facility] Urine specific gravity measu rementOrdered By: Dr. Shelton on 07-20-2022 Specific gravity (U) [Rel density] 1.015 1.002-1.030 [facility] Urobilinogen Auto test strip Ql (U)Ordered By: Dr. Shelton on 07-20-2022 Urobilinogen Ql (U) 1 mg/dl Normal [facility] Absolute lymphocyte counton 01-22-2022 Lymphocytes Auto (Unsp spec) [#/Vol] 1.03 10*3/uL 0.83-4.51 [facility] Work Phone: Basophil percentageon 2021 Basophils/100 WBC (Bld) 1.0 % 0-1 [facility] Work Phone: Chloride [Moles/Vol] 106 mmol/L 98-107 [facility] Work Phone: Eosinophils/100 WBC (Bld) 8.5 % 0-5 [facility] Work Phone: Glucose [Mass/Vol] 98 mg/dL 74-106 [facility] Work Phone: Neutrophils (Bld) [#/Vol] 4.7 10*3/uL 2.0-7.7 [facility] Work Phone: Neutrophils/100 WBC (Bld) 64.0 % 47-70 [facility] Work Phone: Potassium [Moles/Vol] 4.6 mmol/L 3.5-5.1 [facility]: Sodium [Moles/Vol] 138 mmol/L 136-145 [facility] Work Phone: WBC (Bld) [#/Vol] 7.3 10*3/uL 4.4-11.0 [facility] Work Phone: Blood erythrocytes count (nu mber/volume)on 01-22-2022 RBC (Bld) [#/Vol] 4.79 10*6/uL 4.6-6.2 [facility]: Blood hemoglobin measurement (mass/volume)on 01-22-2022 Hemoglobin (Bld) [Mass/Vol] 16.4 g/dL 13.0-16.5 [facility] Work Phone: Blood lymphocytes/100 leukoc yteson 01-22-2022 Lymphocytes/100 WBC (Bld) 14.1 % 19-41 [facility] Work Phone: Blood monocytes/100 leukocyt eson 01-22-2022 Monocytes/100 WBC (Bld) 12.0 % 0-10 [facility] Work Phone: Blood platelet mean volumeon 01-22-2022 Platelet mean volume (Bld) [Entitic vol] 9.9 fL 6.2-12.0 [facility] Work Phone: Determination of erythrocyte mean corpuscular volume (MCV)on 01-22-2022 MCV (RBC) [Entitic vol] 97.5 fL 80-94 [facility] Work Phone: Hematocrit Auto (Bld) [Volum e fraction]on 01-22-2022 Hematocrit (Bld) [Volume fraction] 46.7 % 40-54 [facility] Work Phone: Laboratory - Chemistry and C hemistry - challengeon 01-22-2022 CO2 [Moles/Vol] 30.0 mmol/L 21.0-32.0 [facility] Work Phone: Urea nitrogen/Creatinine [Mass ratio] 21.8 mg/mg 10-20 [facility] Work Phone: Laboratory - Hematology and Cell countson 01-22-2022 Erythrocyte distribution width (RBC) [Entitic vol] 43.8 fL 35.1-43.9 [facility] Work Phone: Erythrocyte distribution width (RBC) [Ratio] 12.1 % 11.6-14.6 [facility] Work Phone: Immature granulocytes/100 WBC (Bld) 0.400 % 0.0-0.9 [facility] Work Phone: Comment on above: IG% - Immature Granu locytes (promyelocytes, myelocytes and metamyelocytes) > 1% indicates that a LEFT SHIFT is Present. MCH (RBC) [Entitic mass] 34.2 pg 27.0-32.0 [facility] Work Phone: Nucleated RBC/100 WBC (Bld) [Ratio] 0 % 0-5 [facility] Work Phone: MCHC Auto (RBC) [Mass/Vol]on 01-22-2022 MCHC (RBC) [Mass/Vol] 35.1 g/dL 32-36 [facility] Work Phone: No Panel Informationon 01-22 Estimated GFR (MDRD) Amer 91 mL/min >60 [facility] Work Phone: Comment on above: GFR Calc Estimated GFR (MDRD) Non-Af Amer 75 mL/min >60 [facility] Work Phone: Comment on above: Non- GFR Calc Thyroid Stimulating Hormone (TSH) 1.01 uIU/mL 0.358-3.74 [facility] Work Phone: Platelets bldon 01-22-2022 Platelets (Bld) [#/Vol] 180 10*3/uL 150-450 [facility] Work Phone: Serum or plasma calcium barbara urement (mass/volume)on 01-22-2022 Calcium [Mass/Vol] 9.1 mg/dL 8.5-10.1 [facility] Work Phone: Serum or plasma creatinine m easurement (mass/volume)on 01-22-2022 Creatinine [Mass/Vol] 1.01 mg/dL 0.70-1.30 [facility] Work Phone: Comment on above: The validity of the calculated GFR & GFRAA in patients over 70 years has not been determined. Clinical correlation is essential. Serum or plasma urea nitroge n measurement (mass/volume)on 01-22-2022 Urea nitrogen [Mass/Vol] 22 mg/dL 7-18 [facility] Work Phone: Thin prep Papanicolaou smear with manual screeningon 01-22-2022 Thin prep Papanicolaou smear with manual screening 2 5-15 [facility] Work Phone: CNOVon 09-10-2021 CNOV Office Visit (UROLMD) JANE VALENTINO ([id number]) 1940 M DEF Date Time Provider Department 09/10/21 1:00 PM JEISON RIVERS UROGRACE During your visit today, we recorded the following information about you: Weight Height 72.6 kg 1.702 m Jeison Rivers MD 09/10/2021 1:45 PM Signed [facility] UROLOGY ESTABLISHED PATIENT CLINIC NOTE PATIENT INFO: Jane Valentino PCP: Kely Moreno, DO, DO UROLOGY DIAGNOSES: 1. Impotence of [...] Jeison Rivers MD Referring Provider: JEISON RIVERS [[id number]] Allergies As of Date: 09/10/2021 (No Known [...] Encounter Status:Closed by JEISON RIVERS on 09/10/21 [facility]) [facility]ANE VALENTINO ([id number]) 1940 M DEF Date Time Provider Department 07/23/21 JEISON RIVERS During your visit today, we recorded the following information about you: Charisma Brown RN 07/23/2021 10:46 AM Signed ----- Message from Jeison Rivers MD sent at 07/22/2021 9:07 AM EST ----- Please let pt know his testosterone is very good. In fact his free T is higher then normal. He does not need to be started on TRT. Thanks Charisma Brown RN 07/23/2021 10:53 AM Signed Patient made [...] Date: 07/23/2021 (None) Encounter Status:Closed by CHARISMA BROWN RN on 07/23/21 Normal [facility] Testosterone, Tot/Fron 07-13 Testosterone [Mass/Vol] 477 ng/dL Normal 240-950 [facility] Comment on above: Result Comment: (NOT E) ADDITIONAL INFORMATION Testing performed by Liquid Chromatography-Tandem Mass Spectrometry (LC-MS/MS). This test was developed and its performance characteristics determined by [facility] in a manner consistent with CLIA requirements. This test has not been cleared or approved by the U.S. Food and Drug Administration. Performed By: #### T FTEST #### [facility] [address] [place] [address] Testosterone, Free 11.0 ng/dL High 2.88-10.5 [facility] Comment on above: Result Comment: (NOT E) ADDITIONAL INFORMATION Testing performed by [facility]. This test was developed and its performance characteristics determined by [facility] in a manner consistent with CLIA requirements. This test has not been cleared or approved by the U.S. Food and Drug Administration. Performed By: #### T FTEST #### [facility] [address] [place] [address] Erin 07-12-2021 WILBERN Telephone (OLIMPIA) JANE VALENTINO ([id number]) 1940 M DEF Date Time Provider Department 07/12/21 JEISON RIVERS During your visit today, we recorded the following information about you: Charisma Brown RN 07/12/2021 3:01 PM Signed ----- Message from Jeison Rivers MD sent at 07/12/2021 2:00 PM EST ----- Please let pt know that the lab did not run his testosterone level. He will need to get it repeated.Thanks Charisma Brown RN 07/12/2021 3:11 PM Signed Patient made [...] Date: 07/12/2021 (None) Encounter Status:Closed by CHARISMA BROWN RN on 07/12/21 [facility] CNOVon 06-25-2021 CNOV Office Visit (UROLMD) JANE VALENTINO ([id number]) 1940 M DEF Date Time Provider Department 06/25/21 10:30 AM JEISON RIVERS UROGRACE During your visit today, we recorded the following information about you: Weight Height 74.8 kg 1.702 m Jeison Rivers MD 06/25/2021 11:02 AM Signed [facility] UROLOGY [...] symptoms [N40.1, N13.8] Order(s):UA DIP, URINE (POC) [7301267] Order #: [id number]. #:[id number] LUTEI (more content not included)... Normal [facility] LHon 06-25-2021 LH 8.1 mU/mL Normal 1.8-10.8 [facility] Comment on above: Performed By: #### L H, PROL #### [place] [phone] #### TSH #### [address] Prolactinon 06-25-2021 Prolactin 6.0 ng/mL Normal 4.0-15.2 [facility] Comment on above: Performed By: #### L H, PROL #### [place] [phone] #### TSH #### [place] [id number] TSHon 06-25-2021 TSH Qn 1.480 m[IU]/L Normal 0.270-4.200 [facility] Comment on above: Performed By: #### L H, PROL #### [place] [phone] #### TSH #### [address] Testosterone, Tot/Fron 06-25 Testosterone, Free Unable to assay. No specimen received. Normal [facility] Comment on above: Result Comment: Acco unt Credited Performed By: #### T FTEST #### [place] [phone] Testosterone, Total Unable to assay. No specimen received. Normal [facility] Comment on above: Result Comment: Acco unt Credited Performed By: #### T FTEST #### [place] [phone] Vital Signs Date Time Vital Sign Value Performing Clinician Sean farrar 12-16-2024 16:00-0400 Body temperature 98.1 [degF] Dr. Hiren Shelton DO Work Phone: 5(056)860-303222 [place] [address] 12-16-2024 16:00-0400 Diastolic blood pressure 72 mm[Hg] Dr. Hiren Shelton DO Work Phone: 3(871)389-654822 [place] [address] 12-16-2024 16:00-0400 Heart rate 92 /min Dr. Hiren Shelton DO Work Phone: 1(162)064-473422 [place] [address] 12-16-2024 16:00-0400 Inhaled oxygen flow rate 2 L/min Dr. Hiren Shelton DO Work Phone: 0(625)972-163830 [place] [address] 12-16-2024 16:00-0400 Respiratory rate 17 /min Dr. Hiren Shelton DO Work Phone: 2(487)582-148230 [place] [address] 12-16-2024 16:00-0400 SaO2% (BldA) [Mass fraction] 95 % Dr. Hiren Shelton DO Work Phone: 6(178)329-597522 [place] [address] 12-16-2024 16:00-0400 Systolic blood pressure 113 mm[Hg] Dr. Hiren Shelton DO Work Phone: 4(656)755-556922 [place] [address] 12-16-2024 11:29-0400 Body height 172.[address] Hiren Shelton DO Work Phone: 1(602)858-277222 [place] [address] 12-16-2024 11:29-0400 Body mass index (BMI) [Ratio] 28.3 kg/m2 Dr. Hiren Shelton DO Work Phone: 5(980)738-228122 [place] [address] 12-16-2024 11:29-0400 Body weight 84.[address] Hiren Shelton DO Work Phone: 1(031)653-742022 [place] [address] 12-12-2024 15:00-0400 Body temperature 98.2 [degF] Dr. Hiren Shelton DO Work Phone: 6(032)336-263422 [place] [address] 12-12-2024 15:00-0400 Diastolic blood pressure 50 mm[Hg] Dr. Hiren Shelton DO Work Phone: [facility] 12-12-2024 15:00-0400 Heart rate 55 /min Dr. Hiren Shelton DO Work Phone: [facility] 12-12-2024 15:00-0400 Respiratory rate 12 /min Dr. Hiren Shelton DO Work Phone: 1(173)224-256722 [place] [address] 12-12-2024 15:00-0400 SaO2% (BldA) [Mass fraction] 96 % Dr. Hiren Shelton DO Work Phone: 2(710)800-320422 [place] [address] 12-12-2024 15:00-0400 Systolic blood pressure 111 mm[Hg] Dr. Hiren Shelton DO Work Phone: 7(598)896-467422 [place] [address] 12-12-2024 13:47-0400 Body mass index (BMI) [Ratio] 28 kg/m2 Dr. Hiren Shelton DO Work Phone: 6(320)528-390722 [place] [address] 12-12-2024 13:47-0400 Body weight 83.[address] Hiren Shelton DO Work Phone: 3(476)717-451022 [place] [address] 12-12-2024 13:04-0400 Body height 172.[address] Hiren Shelton DO Work Phone: 0(730)267-167522 [place] [address] 10-19-2023 14:52-0400 Body temperature 97.7 [degF] FABRICE FOX MD [facility] 10-19-2023 14:52-0400 Diastolic Blood Pressure Non-Invasive 71 mm[Hg] FABRICE FOX MD [facility] 10-19-2023 14:52-0400 Heart rate 54 /min FABRICE FOX MD [facility] 10-19-2023 14:52-0400 Respiratory rate 18 /min FABRICE FOX MD [facility] 10-19-2023 14:52-0400 Systolic Blood Pressure Non-Invasive 148 mm[Hg] FABRICE FOX MD [facility] 05-29-2023 15:00-0500 Body temperature 98.9 [degF] Dr. Bertha Arndt Work Phone: [facility] 05-29-2023 15:00-0500 Diastolic blood pressure 63 mm[Hg] Dr. Bertha Arndt Work Phone: [facility] 05-29-2023 15:00-0500 Heart rate 58 /min Dr. Bertha Arndt Work Phone: [facility] 05-29-2023 15:00-0500 Respiratory rate 16 /min Dr. Bertha Arndt Work Phone: [facility] 05-29-2023 15:00-0500 SaO2% (BldA) [Mass fraction] 94 % Dr. Bertha Arndt Work Phone: 6(613)780-897158 [place] [address] 05-29-2023 15:00-0500 Systolic blood pressure 104 mm[Hg] Dr. Bertha Arndt Work Phone: [facility] 05-28-2023 20:42-0500 Body height 175.[address] Bertha Arndt Work Phone: 1(722)139-201558 [place] [address] 05-28-2023 20:42-0500 Body mass index (BMI) [Ratio] 26.1 kg/m2 Dr. Bertha Arndt Work Phone: [facility] 05-28-2023 20:42-0500 Body weight [address] Bertha Arndt Work Phone: [facility] 05-28-2023 19:30-0500 Inhaled oxygen flow rate 2 L/min Dr. Bertha Arndt Work Phone: [facility] 05-28-2023 12:00-0500 Diastolic blood pressure 77 mm[Hg] Dr. Bertha Arndt Work Phone: [facility] 05-28-2023 12:00-0500 Heart rate 66 /min Dr. Bertha Arndt Work Phone: [facility] 05-28-2023 12:00-0500 Respiratory rate 18 /min Dr. Bertha Arndt Work Phone: [facility] 05-28-2023 12:00-0500 SaO2% (BldA) [Mass fraction] 98 % Dr. Bertha Arndt Work Phone: [facility] 05-28-2023 12:00-0500 Systolic blood pressure 136 mm[Hg] Dr. Bertha Arndt Work Phone: [facility] 05-28-2023 06:59-0500 Body height 175.[address] Bertha Arndt Work Phone: [facility] 05-28-2023 06:59-0500 Body mass index (BMI) [Ratio] 24.9 kg/m2 Dr. Bertha Arndt Work Phone: [facility] 05-28-2023 06:59-0500 Body temperature 97.1 [degF] Dr. Bertha Arndt Work Phone: [facility] 05-28-2023 06:59-0500 Body weight 76.[address] Bertha Arndt Work Phone: [facility] 04-27-2023 22:00-0500 Diastolic blood pressure 61 mm[Hg] [facility] 04-27-2023 22:00-0500 Systolic blood pressure 124 mm[Hg] [facility] 04-27-2023 20:29-0500 Heart rate 60 /min [facility] 04-27-2023 20:29-0500 Respiratory rate 19 /min [facility] 04-27-2023 20:29-0500 SaO2% (BldA) [Mass fraction] 97 % [facility] 04-27-2023 18:17-0500 Body height 172.72 cm [facility] 04-27-2023 18:17-0500 Body mass index (BMI) [Ratio] 25.2 kg/m2 [facility] 04-27-2023 18:17-0500 Body temperature 96.6 [degF] [facility] 04-27-2023 18:17-0500 Body weight 75.11 kg [facility] 07-20-2022 23:00-0500 Diastolic blood pressure 83 mm[Hg] Dr. Kely Moreno Work Phone: [facility] 07-20-2022 23:00-0500 Heart rate 78 /min Dr. Kely Moreno Work Phone: [facility] 07-20-2022 23:00-0500 Respiratory rate 20 /min Dr. Kely Moreno Work Phone: 2(378)937-448727 [place] [address] 07-20-2022 23:00-0500 SaO2% (BldA) [Mass fraction] 98 % Dr. Kely Moreno Work Phone: 7(564)646-870227 [place] [address] 07-20-2022 23:00-0500 Systolic blood pressure 135 mm[Hg] Dr. Kely Moreno Work Phone: 0(741)757-288627 [place] [address] 07-20-2022 20:55-0500 Body height 172.[address] Kely Moreno Work Phone: 6(361)976-306027 [place] [address] 07-20-2022 20:55-0500 Body mass index (BMI) [Ratio] 21.2 kg/m2 Dr. Kely Moreno Work Phone: 5(938)782-984127 [place] [address] 07-20-2022 20:55-0500 Body temperature 97.1 [degF] Dr. Kely Moreno Work Phone: 2(998)879-404827 [place] [address] 07-20-2022 20:55-0500 Body weight 63.[address] Kely Moreno Work Phone: 9(082)110-300427 [place] [address] 06-18-2022 13:05-0500 Body mass index (BMI) [Ratio] 26.7 kg/m2 Dr. Kely Moreno Work Phone: 6(527)957-391427 [place] [address] 06-18-2022 13:05-0500 Body temperature 97.9 [degF] Dr. Kely Moreno Work Phone: 8(248)431-280027 [place] [address] 06-18-2022 13:05-0500 Body weight 77.[address] Kely Moreno Work Phone: [facility] 06-18-2022 13:05-0500 Diastolic blood pressure 84 mm[Hg] Dr. Kely Moreno Work Phone: [facility] 06-18-2022 13:05-0500 Heart rate 75 /min Dr. Kely Moreno Work Phone: [facility] 06-18-2022 13:05-0500 Respiratory rate 16 /min Dr. Kely Moreno Work Phone: [facility] 06-18-2022 13:05-0500 SaO2% (BldA) [Mass fraction] 100 % Dr. Kely Moreno Work Phone: [facility] 06-18-2022 13:05-0500 Systolic blood pressure 142 mm[Hg] Dr. Kely Moreno Work Phone: [facility] 03-13-2022 13:09-0400 Body height 170.[address] Kely Moreno Work Phone: [facility] Work Phone: 03-13-2022 13:09-0400 Body mass index (BMI) [Ratio] 25.5 kg/m2 Dr. Kely Moreno Work Phone: [facility] Work Phone: 03-13-2022 13:09-0400 Body temperature 98.1 [degF] Dr. Kely Moreno Work Phone: [facility] Work Phone: 03-13-2022 13:09-0400 Body weight 73.[address] Kely Moreno Work Phone: [facility] Work Phone: 03-13-2022 13:09-0400 Diastolic blood pressure 86 mm[Hg] Dr. Kely Moreno Work Phone: [facility] Work Phone: 03-13-2022 13:09-0400 Heart rate 75 /min Dr. Kely Moreno Work Phone: [facility] Work Phone: 03-13-2022 13:09-0400 Respiratory rate 14 /min Dr. Kely Moreno Work Phone: [facility] Work Phone: 03-13-2022 13:09-0400 SaO2% (BldA) [Mass fraction] 99 % Dr. Kely Moreno Work Phone: [facility] Work Phone: 03-13-2022 13:09-0400 Systolic blood pressure 128 mm[Hg] Dr. Kely Moreno Work Phone: [facility] Work Phone: Encounters Encounter Date Encounter Type Care Provider Facility Start: 12-16-2024 Evaluation and management of inpatient Dr. Nithya Sandoval MD -Medical Surgical 3 Work Phone: Start: 12-12-2024 End: 12-12-2024 Emergency department patient visit Dr. Hiren Shelton DO Work Phone: -Emergency Department Work Phone: Start: 10-19-2023 End: 10-19-2023 Emergency department patient visit KELY MORENO DO Facility:A Start: 10-19-2023 End: 10-19-2023 Emergency department patient visit FABRICE FOX MD [facility] Start: 05-29-2023 Non-patient / Non-visit Dr. Merrlil Arndt Work Phone: [facility] Start: 05-28-2023 End: 05-29-2023 Evaluation and management of inpatient Dr. Bertha Arndt Work Phone: [facility]-Medical Surgical 3 Work Phone: Start: 05-28-2023 End: 05-29-[address] Bertha Arndt Work Phone: [facility] Work Phone: Start: 05-28-[address] [facility] Dr[facility] Bertha Arndt Work Phone: [facility]-Surgical Day Care Start: 05-28-[address] Bertha vernon Work Phone: [facility] Work Phone: Start: 05-28-2023 Non-patient / Non-visit Dr. Merrill Arndt Work Phone: [facility] Start: 04-27-2023 End: 04-27-2023 Emergency department patient visit [facility]-Emergency Department Work Phone: Start: 04-11-2023 End: 04-11-2023 ambulatory [facility] Work Phone: Start: 04-11-2023 End: 04-11-2023 Departed Referred [facility] Start: 02-27-2023 End: 02-27-2023 Departed Referred [facility] Start: 09-05-2022 End: 09-05-[address] Kely Moreno Work Phone: [facility] Work Phone: Start: 09-05-2022 End: 09-05-[address] Kely Moreno Work Phone: [facility] Start: 07-25-2022 End: 07-25-[address] Kely Moreno Work Phone: [facility] Work Phone: Start: 07-25-2022 End: 07-25-[address] Kely Moreno Work Phone: [facility] Start: 07-20-2022 End: 07-21-2022 Emergency department patient visit Dr. Kely Moreno Work Phone: [facility]-Emergency Department Start: 06-18-2022 End: 06-18-[address] Kely Moreno Work Phone: [facility] Start: 03-25-2022 Non-patient / Non-visit Dr. Hernandez Work Phone: [facility] Start: 03-25-2022 End: 03-25-[address] Kely Moreno Work Phone: [facility] Work Phone: Start: 03-25-2022 End: 03-25-[address] Kely Moreno Work Phone: [facility]-Cardiovascular Services Start: 03-13-2022 End: 03-13-[address] Kely Moreno Work Phone: [facility] Start: 01-22-2022 End: 01-22-[address] Kely Moreno Work Phone: [facility] Start: 04-18-2021 End: 04-18-2021 Patient encounter procedure LESA MAX MD [facility] Procedures Date Procedure Procedure Detail Performing Clinician Start: 12-16-2024 Computed tomography of abdomen and pelvis with intravenous contrast Dr. Hiren Shelton DO Work Phone: Start: 12-16-2024 CT of chest without contrast Dr. Hiren Shelton DO Work Phone: Start: 12-16-2024 Urnls dip stick/tabl et reagent auto microscopy Dr. Hiren Shelton DO Work Phone: Start: 12-16-2024 X-ray of chest, PA a nd lateral views Dr. Hiren Shelton DO Work Phone: Start: 12-16-2024 CT of head without contrast Dr. Hiren Shelton DO Work Phone: Start: 12-16-2024 Carbon dioxide measu rement, partial pressure Dr. Hiren Shelton DO Work Phone: Start: 12-16-2024 Gases blood o2 satur ation only direct barbara Dr. Hiren Shelton DO Work Phone: Start: 12-16-2024 Measurement of parti al pressure of oxygen in blood Dr. Hiren Shelton DO Work Phone: Start: 12-16-[address] Hiren Shelton DO Work Phone: Start: 12-12-2024 CT of chest without contrast Dr. Hiren Shelton DO Work Phone: Start: 05-28-[address] Bertha patton Work [...] Start: 07-20-2022 Plain chest X-ray Dr. Linda Moreno Work Phone: Start: 07-20-2022 Computed tomography of thoracic spine without contrast Dr. Kely Moreno Work Phone: Start: 07-20-2022 CT cervical spine wi thout contrast Dr. Kely Moreno Work Phone: Start: 07-20-2022 CT of head without contrast Dr. Kely Moreno Work Phone: Start: 07-20-2022 CT of lumbar spine Dr. Kely Moreno Work Phone: Start: 03-23-2021 [facility] FABRICE FOX MD Comment on above: Summary: [...] MAX MD Comment on above: X3 - COELHO TO LATERAL CIRCUMFLEX, MICHAEL TO LEFT ANTERIOR DESCENDING, SAPHENOUS VEIN GRAFT TO THE PDA Start: 06-23-1998 Percutaneous translu siddhartha coronary angioplasty LESA MAX MD Comment on above: LAD Left inguinal hernia (disorder) LESA MAX MD Plan of Treatment Date Care Activity Detail Author Start: 12-16-2024 Admission procedure [facility] Start: 12-16-2024 Hospital admission, emergency, from emergency room, medical nature [facility] Start: 12-16-2024 Bacteria identified in Blood by Culture Blood Culture [facility] Start: 12-16-2024 Bacteria identified in Urine by Culture Urine Culture [facility] Start: 12-16-2024 End: 12-16-2024 [facility] Start: 12-12-2024 Incentive spirometry [facility] Start: 12-12-2024 [facility] Start: 05-29-2023 Patient discharge [facility] Start: 05-28-2023 Application of intermittent pneumatic compression device [facility] Start: 05-28-2023 Following clinical pathway protocol [facility] Start: 05-28-2023 Ambulation without limitation [facility] Start: 05-28-2023 Assessment of risk of venous thromboembolism [facility] Start: 05-28-2023 Incentive spirometry [facility] Start: 05-28-2023 Insertion of catheter into peripheral vein [facility] Start: 05-28-2023 Measuring intake and output [facility] Start: 05-28-2023 Oxygen therapy [facility] Start: 05-28-2023 Preoperative care [facility] Start: 05-28-2023 Providing care according to standard [facility] Start: 05-28-2023 Referral to service [facility] Start: 05-28-2023 [facility] Start: 05-28-2023 Total cholecystectomy and exploration of common bile duct Laparoscopic, Cholecystectomy with IOC (Not Applicable) [facility] Start: 05-28-2023 Cholangiogram Cholangiogram/ O R,Initial [facility] Start: 05-28-2023 Fluoroscopic guidance O.R. Fluoro for C-Arm [facility] Start: 05-28-2023 Verification routine [facility] Start: 05-28-2023 Admission procedure [facility] Start: 05-28-2023 Hospital admission, emergency, from emergency room, medical nature [facility] Patient Education [facility] Work Phone: Patient referral [facility] Work Phone: Urine culture [place] Immunizations Immunization Date Immunization Notes Care Provider Fa cility 03-19-2022 Meme Kolb Bivale nt Booster Dr. Bertha Arndt Work Phone: [facility] 03-19-2022 Influenza High-Dose Quadrivalent Dr. Bertha Arndt Work Phone: [facility] 10-30-2021 Meme (Moderna) Dr. Bertha vernon Work Phone: [facility] 04-24-2021 influenza, injectabl e, quadrivalent, preservative free [facility] 04-24-2021 influenza, seasonal, injectable Dr. Kely Moreno Work Phone: [facility] 04-13-2021 Meme (Moderna) Dr. Bertha vernon Work Phone: [facility] 08-30-2020 Covid (Moderna) Dr. Bertha vernon Work Phone: [facility] 08-03-2020 Covid (Moderna) Dr. Bertha vernon Work Phone: [facility] 02-29-2020 Influenza High-Dose Quadrivalent Dr. Bertha Arndt Work Phone: [facility] 06-17-[address] Kely oMreno Work Phone: [facility] 06-17-[address] Bertha Arndt Work Phone: [facility] 03-01-2019 Influenza, high dose seasonal Dr. Hiren Shelton DO Work Phone: [facility] 03-01-2019 influenza, high dose seasonal, preservative-free Dr. Bertha Arndt Work Phone: [facility] 03-01-2019 influenza, injectabl e, quadrivalent, preservative free [facility] 03-01-2019 influenza, seasonal, injectable Dr. Kely Moreno Work Phone: [facility] 01-18-[address] Bertha Arndt Work Phone: [facility] 03-29-2015 influenza, injectabl e, quadrivalent, preservative free Dr. Bertha Arndt Work Phone: [facility] Payers Date Payer Category Payer Self-pay [id number] 2023 Medicare [id number] 2023 Unknown [id number] 1940 Unknown [id number] Private Health Insurance [id number] Unknown [id number] Social History Date Type Detail Facility Start: 09-02-2019 Ex-smoker (finding) [facility] Start: 1940 Sex Assigned At Male A [facility] Start: 01-22-2022 End: 05-28-2023 Tobacco smoking status NHIS Unknown if ever smoked [facility] Start: 12-12-2024 End: 12-16-2024 Tobacco smoking status NHIS Never smoked tobacco (finding) [facility] Medical Equipment Procedure Code Equipment Code Equipment Original Text Equipment Identifier Dates Total cholecystectomy with exploration of common bile duct Ligation clip, synthetic polymer, non-bioabsorbable ([id number] [facility] Start: 05-28-2023 Goals Date Patient Goal Desired Activity /State Functional Status Date Assessment Result Facility 05-29-2023 Functional status Ambulates;Chair [facility] Work Phone: Mental Status Date Assessment Result Facility 12-16-2024 Cognitive function Voice/Name [facility] Work Phone: 05-29-2023 Cognitive function Level Of Cons ciousness Awake;Alert;Appropriate;Follow s Commands [facility] Work Phone: 05-29-2023 Cognitive function Voice/Name [facility] Work Phone: Clinical Notes 06-25-2021 to 12-16-2024 Note Date & Type Note Facility 12-16-2024 Radiology Diagnostic study note [facility] Imaging Services [address] [place], [place] [address] Abdomen/Pelvis W IV Cont ONLY MR#: [id number] Acct: [id number] Name: JANE VALENTINO Rep #: [id number] : 1940 M 84 From: Ric De Jesus MD PCP: Dr. Kely Moreno DO Status: AD M IN Study:Abdomen/Pelvis W IV Cont ONLY Date of E xam: 12/16/24 Exam# [id number] Ordering Dr: Sammy Lama DO PROCEDURE: ABDOMEN/PELVIS W IV CONT ONLY 12/16/2024 REASON FOR EXAM: ABD PAIN TECHNIQUE: ABDOMEN/PELVIS W IV CONT ONLY Coronal and Sagittal reconstruction series were provided. CONTRAST: Isovue-300 VOLUME: 100 mL One or more dose reduction techniques were used (e.g., Automated exposure control, adjustment of the mA and/or kV according to patient size, use of iterative reconstruction technique. RADIATION DOSE SUMMARY: CTDlvol: 17.8 mGy DLP: 1359.3 mGycm COMPARISON: Prior study dated May 28, 2023. FINDINGS: Lung bases: Small right pleural effusion with bibasilar atelectasis and/or infiltrates worse on the right side coronary artery calcification. Liver: Normal size. No mass. Gallbladder: Surgically absent. Spleen: Normal size. Pancreas: Diffuse fatty atrophy. Adrenals: Unremarkable. Kidneys: 1.5 cm cyst in the upper medial portion of the left kidney. 3 cm cyst in the lateral midportion of the right kidney. Punctate calculus in the lower pole calyx of the right kidney. Bladder: A Francis catheter is seen within the urinary bladder. There is evidenceof bladder wall thickening. Prostatic enlargement. Bowel: Moderate amount of fecal material is seen in the right hemicolon. Scattered sigmoid diverticula. Appendix: Unremarkable Lymph nodes: Unremarkable. Vasculature: Mild diffuse atherosclerotic calcifications are noted. Peritoneum / Retroperitoneum: Bones: Vertebroplasty of the L1 vertebrae. CT/Abdomen/Pelvis W IV Cont ONLY IMPRESSION: Bladder wall thickening. Stable bilateral renal cysts. Sigmoid diverticulosis. Reading Location: [id number] CC: Dr. Kely Moreno DO; Dr. Tommy Lama DO ~ Teacher Education Instructor: Signed [facility] 12-16-2024 Discharge summary [facility] 12-16-2024 Discharge summary Note Date/Time December 16, 2024 2:37pm [facility] [address] [place] [address] Emergency Department Summary 12/16/24 MR#: [id number] Acct: [id number] Name: JANE VALENTINO Rep #:[id number] 15 : 1940 84 From: Tommy Lama DO PCP: Dr. Kely Moreno, DO Status:RE G ER Location: ED HPI History of Present Illness Chief Complaint: Alt LOC Narrative Narrative: Patient is a 84-year-old male with past medical history of dementia, recent fallwith rib fractures on Friday, CAD who presented to the emergency department chief complaint of altered mental status and weakness. Per nursing staff/facility they state that he had more altered mental status than his baseline and appeared very confused and weak therefore they called EMS to have him brought here for further evaluation management. They also noted that he is out of his oxycodone for his rib pain as well. Patient's at bedside noted that she was told that he was more confused than his baseline and they are having him sent here to the emergency department to be further evaluated. [facility] Medical History Cholecystectomy planned Memory deficit Cataracts, both eyes Chronic bronchitis Heart disease Arthritis Seasonal allergies Home Medications ?Medication ?Instructions ?Recorded ?Last Taken ?Type aspirin 81 mg tablet,delayed 81 mg PO QDAY 01/06/18 History release rosuvastatin 20 mg tablet (Crestor) 20 mg PO QDAY #90 tabs 03/29/21 05/27/23 Rx dextromethorphan-guaifenesin 30 1 tab PO BID 07/20/22 Unknown History mg-600 mg tablet extended zwaxhaw59 hr (Mucinex DM) famciclovir 500 mg tablet 500 mg PO BID 07/20/22 Unkno wn History celecoxib 200 mg capsule 200 mg PO DAILY 04/27/2311/12 History cholecalciferol (vitamin D3) 125 125 mcg PO DAILY 11/12 Unknown History mcg (5,000 unit) tablet (Vitamin D3) fexofenadine 180 mg tablet 180 mg PO DAILY 04/27/23 History (Mona Allergy) hydroxyzine pamoate 25 mg capsule 25 mg PO Q8H PRN anx iety 04/27/23 05/28/23 06:20 History quetiapine 50 mg tablet 50 mg PO DAILY 04/27/23 12/11/12 History escitalopram oxalate 10 mg tablet 10 mg PO DAILY 12/12 Unknown History loperamide 2 mg tablet 2 mg PO Q6H PRN loose stool 12/12/24 Unknown History (Anti-Diarrheal (loperamide)) magnesium hydroxide 400 mg/5 mL 30 ml PO DAILY PRN con stipation 12/12/24 Unknown History oral suspension (Milk of Magnesia) quetiapine 25 mg tablet 25 mg PO DAILY 12/12/24 Unkn own History acetaminophen 325 mg tablet 650 mg PO Q4H PRN fever or pain 12/16/24 Unknown History nystatin 100,000 unit/gram topical 1 applic topical Q8 H PRN skin 12/16/24 Unknown History powder (Klayesta) irritation omeprazole 40 mg capsule,delayed 40 mg PO DAILY Unknown History release yikcykxatybnj-OK-qdrhqinkkwqjk 5 30 ml PO Q4H PRN coug h 12/16/24 Unknown History mg-10 mg-325 mg/15 mL oral liquid (Daytime Cold and Flu Relief (PE)) Allergy/AdvReac Type Severity Reaction Status Date / Time No Known Allergies Allergy Verified 12/12/24 13:04 Family History Mother Arthritis Father Arthritis Heart disease Kidney disease Parkinson disease Daughter Heart disease Brother Heart disease Surgical History history of triple bypass surgery Social History Smoking Status: Never smoker alcohol intake: never substance use type: does not use what type of physical activity do you participate in: walking and bicycling ROS ROS ED ROS Narrative Review of systems unobtainable from the patient secondary to his altered mental status therefore acute care caveat applies EXAM Physical Exam Narrative Exam Narrative: General: Patient lying in bed rest comfortably did not appear to be in acute distress Head: Atraumatic, normocephalic Eyes: PERRL bilaterally, EOMI bilateral, no conjunctival injection noted Neck: Soft, supple, trachea midline Cardiovascular: Patient tachycardic with a regular rhythm Respiratory: Clear to auscultation bilaterally Abdomen: Soft, nondistended, nontender to palpation Extremities: +3/5 strength noted in the bilateral upper and lower extremities, radial pulses +2/4 in the bilateral upper extremities Neurological: Patient was able to tell me that he was at the hospital and his name. Patient has overall generalized weakness no focal neurologic deficits noted Skin: Warm, dry, tact no rashes or lesions noted Const Vital Signs: 12/16/24 11:29 12/16/24 11:34 12/16/24 12:36 Temperature 98.3 F 97.8 F Temperature Source Oral Oral Pulse Rate 116 H 99 Respiratory Rate 22 H 18 Blood Pressure 124/86 H 121/82 H Blood Pressure Mean 98 95 Pulse Ox 92 95 Oxygen Delivery Method Room Air Room Air Nasal Cannula Oxygen Flow Rate (L/min) 2 12/16/24 13:00 12/16/24 14:00 Temperature 97.6 F L 97.6 F L Temperature Source Oral Oral Pulse Rate 93 77 Respiratory Rate 17 19 H Blood Pressure 122/79 H 137/89 H Blood Pressure Mean 93 105 Pulse Ox 96 95 Oxygen Delivery Method Nasal Cannula Nasal Cannula Oxygen Flow Rate (L/min) 2 2 MDM MDM MDM Narrative Medical decision making narrative: Patient is a 84-year-old male who presented to the emergency department via EMS from nursing facility with the chief complaint of altered mental status and generalized weakness. On the differential diagnosis includes but not limited tointracranial hemorrhage, pneumonia, pneumothorax, ACS, electrolyte abnormality, UTI. Once the workup is obtained and reviewed he will be reevaluated. Patient will be given 30 cc/kg bolus of IV fluids this was ordered 11:35 AM. Patient CBC was reviewed and showed a leukocytosis of 15,000, hemoglobin 17.1, platelet count 161. Patient INR normal at 1.3, PT of 16.1. Patient's arterial blood gas reviewed showed pH 7.44 with a pCO2 of 37.6. Patient's PO2 was low at58 was placed on 2 L nasal cannula. Patient sodium was 130, potassium normal 4.3, creatinine was 0.94. Patient's troponin was 14. Patient's EKG reviewed showed sinus tachycardia with a rate of 114 bpm. Patient's urinalysis reviewed showed negative nitrites negative leukocyte esterase no evidence of infection. Patient's chest x-ray reviewed by myself and by radiology showed elevation of the hemidiaphragms bilateral increased markings lung bases suggest atelectasis with superimposed mild agree vascular congestion. Given patient's white count ultimately status will add a CT of the chest on. Patient's CT head and brain reviewed no acute findings noted chronic changes noted. Patient CT chest reviewed showed a basilar consolidation worse on the right compared to prior study stable appearance of the right rib fractures. Patient was ordered Rocephin and azithromycin at 1332. Reperfusion assessment was performed at 2:30 PM and patient remains normotensiveno indication for vasopressors. Will discuss case with hospitalist for admission for pneumonia, altered mental status, generalized weakness Patient case was discussed with hospitalist who is recommending CT abdomen pelvis to be added on which was added on. Dr. Sandoval will accept patient for admission notified patient and for members at bedside all course concerns answered at bedside. Lab Data Labs: Laboratory Results - last 24 hr 12/16/24 12/16/24 12/16/24 11:15 11:38 12:30 WBC 15.2 H RBC 4.89 Hgb 17.1 H Hct 48.0 MCV 98.2 H MCH 35.0 H MCHC 35.6 RDW Std Deviation 43.2 RDW Coeff of Solitario 11.9 Plt Count 161 MPV 10.0 Immature Gran % (Auto) 0.900 Neut % (Auto) 87.4 H Lymph % (Auto) 2.2 L [place] % (Auto) 9.2 Eos % (Auto) 0.0 Baso % (Auto) 0.3 Absolute Neuts (auto) 13.3 H Absolute Lymphs (auto) 0.34 L Nucleated RBC % 0 PT 16.1 H INR 1.3 APTT 31.5 Sodium 138 Potassium 4.3 Chloride 103 Carbon Dioxide 21.1 Anion Gap 14 BUN 32 H Creatinine 0.94 Estim Creat Clear Calc 63.00 Est GFR (MDRD) Non-Af 80 BUN/Creatinine Ratio 33.4 H Glucose 169 H Lactic Acid 1.7 Calcium 9.9 Total Bilirubin 1.29 AST 35 ALT 31 Alkaline Phosphatase 83 Troponin T High Sens 14 Total Protein 7.5 Albumin 4.0 Globulin 3.5 Albumin/Globulin Ratio 1.1 Urine Color Yellow Urine Clarity Clear Urine pH 6.0 Ur Specific [place] 1.020 Urine Protein 30 H Urine Glucose (UA) Normal Urine Ketones 5 H Urine Occult Blood 25 H Urine Nitrite Negative Urine Bilirubin Negative Urine Urobilinogen 1 H Ur Leukocyte Esterase Negative Urine RBC 0-5 SEEN Urine WBC 0 SEEN Ur Squamous Epith Cells 0 SEEN Urine Bacteria 0 SEEN Urine Mucus 0 SEEN ABG Data ABG results: ABG 12/16/24 11:46 Specimen Type ART Sample Site R Brach pH 7.44 Bicarbonate Actual 25.4 Total CO2 27 Base Excess 1 O2 Saturation 91 L ABG pCO2 37.6 ABG pO2 58 L O2 Delivery Device Room Air Vent Mode Not entered Radiography Diagnostic Testing: Clinical Impression(s) from Imaging Studies Brain CT 12/16/24 12:10 IMPRESSION: CHRONIC CHANGES. NO ACUTE FINDINGS. Reading Location: [id number] Chest X-Ray 12/16/24 12:15 IMPRESSION: Elevation of the hemidiaphragms bilaterally with increased markings at the lung bases suggestive of atelectasis with superimposed mild degree of vascular congestion. Reading Location: L[facility] Chest CT 12/16/24 12:39 IMPRESSION: Coronary artery calcification (CAC) is is present Bibasilar consolidation worse on the right side as compared to prior study. Stable appearance of the right per fractures. Reading Location: [id number] Discharge Plan Triage Chief Complaint: Alt LOC ED Provider: Tommy Lama Dx/Rx/DC Orders Clinical Impression: Acute hypoxic respiratory failure, Pneumonia, Altered mental status Prescriptions: No Action aspirin 81 mg tablet,delayed release (DR/EC) 81 mg PO QDAY famciclovir 500 mg tablet 500 mg PO BID Mucinex DM 30-600 mg Tablet Extended Release 12 Hr 1 tab PO BID celecoxib 200 mg capsule 200 mg PO DAILY fexofenadine [Mona Allergy] 180 mg tablet 180 mg PO DAILY quetiapine 50 mg tablet 50 mg PO DAILY hydroxyzine pamoate 25 mg capsule 25 mg PO Q8H PRN (Reason: anxiety) cholecalciferol (vitamin D3) [Vitamin D3] 125 mcg (5,000 unit) tablet 125 mcg PO DAILY quetiapine 25 mg tablet 25 mg PO DAILY escitalopram oxalate 10 mg tablet 10 mg PO DAILY loperamide [Anti-Diarrheal (loperamide)] 2 mg tablet 2 mg PO Q6H PRN (Reason: loose stool) magnesium hydroxide [Milk of Magnesia] 400 mg/5 mL suspension 30 ml PO DAILY PRN (Reason: constipation) acetaminophen 325 mg tablet 650 mg PO Q4H PRN (Reason: fever or pain) nystatin [Klayesta] 100,000 unit/gram powder 1 applic topical Q8H PRN (Reason: skin irritation) Daytime Cold-Flu Relief (PE) 5-10-325 mg/15 mL liquid 30 ml PO Q4H PRN (Reason: cough) omeprazole 40 mg capsule,delayed release(DR/EC) 40 mg PO DAILY rosuvastatin [Crestor] 20 mg tablet 20 mg PO QDAY Qty: 90 3RF Primary Care Provider: Kely Moreno Referrals: Kely Moreno DO [Primary Care Provider] - Print Language: Congolese Disposition Disposition: Acute Care Hospital [facility] What to do if you have Problems For any increased pain, shortness of breath, bleeding, nausea or vomiting, chestpain, or any unexpected problems, contact your Primary Care Provider. Call [facility] ([phone]) or report to the closest Emergency Room. Call 911 if necessary. 12/16/24 1437 <Electronically signed by Tommy Lama DO> Cosigner Signature (if applicable): CC: Dr. Kely Moreno DO ~ Signed [facility] Work Phone: [phone] 842-706306-26-2025 Radiology Diagnostic study note [facility] Imaging Services [address], [place] [address] Chest without Contrast MR#: [id number] Acct: [id number] Name: JANE VALENTINO Rep #: [id number] 38 : 1940 M 84 From: Ric De Jesus MD PCP: Dr. Kely Moreno DO Status: RE G ER Study:Chest without Contrast Date of Exam: 12/16/24 Exam# [id number] Ordering Dr: Sammy Lama DO PROCEDURE: CHEST WITHOUT CONTRAST 12/16/2024 REASON FOR EXAM: COUGH, RECENT RIB FXS TECHNIQUE: Chest CT without contrast. Coronal and Sagittal reconstruction series were provided. One or more dose reduction techniques were used (e.g., Automated exposure control, adjustment of the mA and/or kV according to patient size, use of iterative reconstruction technique RADIATION DOSE SUMMARY: CTDlvol: 19 mGy DLP: 904.45 mGycm COMPARISON: Comparison is made with prior study dated December 12, 2024. FINDINGS: Hardware: EKG electrodes are seen. Lymph nodes: No mediastinal lymphadenopathy is present. Heart and Vasculature: Prior CABG. Prior aortic valve replacement. Coronary Artery Calcifications: Present Lungs and Airways: There now is evidence of focal consolidation in the right lower lobe with airspace disease. This was not present on prior study. New consolidation in the left lower lobe. Pleura: No significant effusion Upper Abdomen: Unremarkable Bones: Stable nondisplaced fractures of the right 10th and 11th ribs. Prior vertebroplasty of the L1 vertebrae. CT/Chest without Contrast IMPRESSION: Coronary artery calcification (CAC) is is present Bibasilar consolidation worse on the right side as compared to prior study. Stable appearance of the right per fractures. Reading Location: [id number] CC: Dr. Kely Moreno DO; Dr. Tommy Lama DO ~ Teacher Education Instructor: Signed [facility]06-26-2025 Radiology Diagnostic study note [facility] Imaging Services [address] [place] [id number] Chest PA and Lateral MR#: [id number] Acct: [id number] Name: JANE VALENTINO Rep #: [id number] 15 : 1940 M 84 From: Ric De Jesus MD PCP: Dr. Kely Moreno DO Status: RE G ER Study:Chest PA and Lateral Date of Exam: 12/16/24 Exam# [id number] Ordering Dr: Sammy Lama DO PROCEDURE: CHEST PA AND LATERAL 12/16/2024 REASON FOR EXAM: AMS, WEAK TECHNIQUE: CHEST PA AND LATERAL COMPARISON: Prior chest radiograph dated June 19, 2023 FINDINGS: Hardware: EKG electrodes are seen. Heart: Prior midline sternotomy. Mild cardiomegaly. Mediastinum: Unremarkable Lungs: Elevation of both hemidiaphragms with bibasilar atelectasis superimposed on mild degree of vascular congestion. Bones: There is distention of the colon due to gas and large amount of fecal material. RAD/Chest PA and Lateral IMPRESSION: Elevation of the hemidiaphragms bilaterally with increased markings at the lung bases suggestive ofatelectasis with superimposed mild degree of vascular congestion. Reading Location: [id number] CC: Dr. Kely Moreno DO; Dr. Tommy Lama DO ~ Teacher Education Instructor: Signed [facility]06-26-2025 Radiology Diagnostic study note [facility] Imaging Services [address] [place] [address] Brain/Head without Contrast MR#: [id number] Acct: [id number] Name: JANE VALENTINO Rep #: [id number] 13 : 1940 M 84 From: Ric De Jesus MD PCP: Dr. Kely Moreno DO Status: RE G ER Study:Brain/Head without Contrast Date of Exa m: 12/16/24 Exam# [id number] Ordering Dr: Sammy Lama DO PROCEDURE: BRAIN/HEAD WITHOUT CONTRAST N/A REASON FOR EXAM: AMS Memory deficits. TECHNIQUE: BRAIN/HEAD WITHOUT CONTRAST Coronal and Sagittal reconstruction series were provided. One or more dose reduction techniques were used (e.g., Automated exposure control, adjustment of the mA and/or kV according to patient size, use of iterative reconstruction technique. RADIATION DOSE SUMMARY: CTDlvol: 44.99 mGy DLP: 897.35 mGycm COMPARISON: Prior study dated July 20, 2022. FINDINGS: Brain: Low density in the periventricular white matter suggests mild chronic small vessel ischemic changes. Once again, there is encephalomalacia in the posterior right parieto-occipital lobe. CSF Spaces: Moderate generalized cerebral atrophy. Cerebellar atrophy. Sinuses/Mastoids: Stable 1 cm retention cyst or polyp along the lateral wall of the right sphenoid sinus. Bones: Unremarkable CT/Brain/Head without Contrast IMPRESSION: CHRONIC CHANGES. NO ACUTE FINDINGS. Reading Location: [id number] CC: Dr. Kely Moreno DO; Dr. Tommy Lama DO ~ Teacher Education Instructor: Signed [facility]06-22-2025 Discharge summary [facility] Medical Records Department [address] [place] [address] Emergency Department Summary 12/12/24 MR#: [id number] Acct: [id number] Name: JANE VALENTINO Rep #:[id number] 27 : 1940 84 From: Hiren Can PCP: Dr. Kely Moreno DO Status:RE G ER Location: ED HPI HPI - Fall History of Present Illness Chief Complaint: Fall PFSH PFSH Medical History (Updated 12/12/24 @ 15:[address] Hiren Shelton, ) Cholecystectomy planned Memory deficit Cataracts, both eyes Chronic bronchitis Heart disease Arthritis Seasonal allergies Home Medications ?Medication ?Instructions ?Recorded ?Last Taken ?Type aspirin 81 mg tablet,delayed 81 mg PO QDAY 01/06/18 History release omeprazole 40 mg capsule,delayed 40 mg PO QDAY #90 cap s 01/05/21 05/27/23 Rx release rosuvastatin 20 mg tablet (Crestor) 20 mg PO QDAY #90 tabs 03/29/21 05/27/23 Rx acetaminophen 325 mg capsule 325 mg PO Q6H PRN pain #1 20 caps 07/20/22 Unknown Rx (Tylenol) dextromethorphan-guaifenesin 30 1 tab PO Q12H 07/20/22 Unknown History mg-600 mg tablet extended ocegher64 hr (Mucinex DM) famciclovir 500 mg tablet 500 mg PO BID 07/20/22 Unkno wn History celecoxib 200 mg capsule 200 mg PO Q24H 04/27/2311/12 History cholecalciferol (vitamin D3) 125 125 mcg PO DAILY 11/12 Unknown History mcg (5,000 unit) tablet (Vitamin D3) fexofenadine 180 mg tablet 180 mg PO DAILY 04/27/23 History (Mona Allergy) hydroxyzine pamoate 25 mg capsule 25 mg PO Q8H PRN anx iety 04/27/23 05/28/23 06:20 History ibuprofen 200 mg tablet 200 mg PO Q4H PRN pain 04/27 Unknown History quetiapine 50 mg tablet 50 mg PO QHS 04/27/23 History escitalopram oxalate 10 mg tablet 10 mg PO DAILY 12/12 Unknown History loperamide 2 mg tablet 2 mg PO Q6H PRN loose stool 12/12/24 Unknown History (Anti-Diarrheal (loperamide)) magnesium hydroxide 400 mg/5 mL 30 ml PO DAILY PRN con stipation 12/12/24 Unknown History oral suspension (Milk of Magnesia) oxycodone 5 mg tablet 5 mg PO Q6H PRN pain 3 days #12 12/12/24 Unknown Rx tabs quetiapine 25 mg tablet 25 mg PO QHS 12/12/24 Unknow n History Allergy/AdvReac Type Severity Reaction Status Date / Time No Known Allergies Allergy Verified 12/12/24 13:04 Family History Mother Arthritis Father Arthritis Heart disease Kidney disease Parkinson disease Daughter Heart disease Brother Heart disease Surgical History history of triple bypass surgery Social History Smoking Status: Never smoker alcohol intake: never substance use type: does not use what type of physical activity do you participate in: walking and bicycling EXAM Physical Exam Const Vital Signs: 12/12/24 13:04 12/12/24 13:35 12/12/24 15:00 Temperature 97.8 F 98.2 F Temperature Source Oral Pulse Rate 94 55 L Respiratory Rate 16 12 Blood Pressure 104/65 111/50 L Blood Pressure Mean 78 70 Pulse Ox 97 96 Oxygen Delivery Method Room Air Room Air MDM MDM MDM Narrative Medical decision making narrative: HISTORY OF PRESENT ILLNESS: Chief complaint: Fall 84-year-old male history of memory loss, CAD, large prostate, 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 Patient is unclear what happened. Denies syncope. Patient notes rightposterior rib pain. Denies headache or head trauma. Denies extremity injury, chest pain, shortness of breath or pain in the hips. REVIEW OF SYSTEMS: Pertinent positives: Unwitnessed fall Pertinent negatives: Chest pain, shortness of breath, headache PHYSICAL EXAM: Nursing triage notes reviewed, Vital signs reviewed [...] tenderness, crepitance, or stepoffdeformity Trachea midline Lungs: TTP over right rib margin.. Clear to auscultation, No asymmetric rise and No crepitus, no flail chest Cardiac: Regular rate and rhythm and No murmurs Abdomen: Soft, Nontender and No rebound Pelvis: Pelvis stable to compression : No evidence of genital injury Back: No midline bony tenderness to thoracic/lumbar/sacral spines Neuro: At baseline, intact strength and sensation in bilateral upper and lower extremities. 2+ patellar reflexes bilaterally. Extremities: NO gross Deformities Psych: Normal affect Nursing triage notes reviewed, Vital signs reviewed MEDICAL DECISION MAKING: Chief Complaint: please see HPI External records reviewed: No anticoagulation note Factors affecting care: CAD, dementia Social determinants of health: correction patient History obtained from others: Consults: none [facility] Narrative: Patient was initially hemodynamically stable, afebrile and nontoxic-appearing. Exam with TTP over right posterior rib margin. I considered the following differential diagnosis: Rib fracture, rib contusion, pneumothorax Patient examined no obvious traumatic injury to the head, extremities, abdomen or pelvis. As such Inot obtain images. I obtained CT scan of the chest to further determine if the patient was suffering from a life-threatening etiology. ALL IMAGES (IF OBTAINED) HAVE BEEN PERSONALLY REVIEWED AND INTERPRETED BY MYSELF. CT scan of the chest without contrast showed a 10th rib fracture. No pneumothorax. The patient and/or family, caregivers express understanding. The patient and/orfamily, caregivers agrees with the plan. Shared decision making: I will have a discussion with the patient and or visitors regarding risk/benefits of further testing or admission. They will be made aware of of the risk/benefits inherent in this decision they will be given the opportunity to voice understanding. Total critical care time today provided was at least 0 minutes. This excludes separately billable procedures. Critical care time (if documented) is secondary to the patient having high probability ofclinically significant/life threatening deterioration in the patient's condition which required my urgent intervention. Impression: 1. Acute rib pain 2. Acute rib fracture Dispo: Discharge home This note was generated with Onzo dictation software. It may contain incorrectwords, spelling, and punctuation that were not noted in review of the chart prior to signing. Radiography Diagnostic Testing: Clinical Impression(s) from Imaging Studies Chest CT 12/12/24 13:44 IMPRESSION: Acute fracture deformity of the posterior right 10th rib. Additional chronic findings as described. Reading Location: [id number] Discharge Plan Triage Chief Complaint: Fall ED Provider: Hiren Shelton Dx/Rx/DC Orders Clinical Impression: Contusion of rib Instructions: ED Rib Fracture Prescriptions: New oxycodone 5 mg tablet 5 mg PO Q6H PRN (Reason: pain) 3 Days Qty: 12 0RF No Action aspirin 81 mg tablet,delayed [...] 180 mg tablet 180 mg PO DAILY quetiapine 50 mg tablet 50 mg PO QHS hydroxyzine pamoate 25 mg capsule 25 mg PO Q8H PRN (Reason: anxiety) cholecalciferol (vitamin D3) [Vitamin D3] 125 mcg (5,000 unit) tablet 125 mcg PO DAILY ibuprofen 200 mg tablet 200 mg PO Q4H PRN (Reason: pain) quetiapine 25 mg tablet 25 mg PO QHS escitalopram oxalate 10 mg tablet 10 mg PO DAILY loperamide [Anti-Diarrheal (loperamide)] 2 mg tablet 2 mg PO Q6H PRN (Reason: loose stool) magnesium hydroxide [Milk of Magnesia] 400 mg/5 mL suspension 30 ml PO DAILY PRN (Reason: constipation) omeprazole 40 mg capsule,delayed release(DR/EC) 40 mg PO QDAY Qty: 90 3RF rosuvastatin [Crestor] 20 mg tablet 20 mg PO QDAY Qty: 90 3RF Primary Care Provider: Kely Moreno Referrals: Bertha Arndt MD [Med Staff - Family Nurse] - Activity Restrictions/Additional Instructions: Thank you for trusting us with your care today! Your CT scan showed one fractured/broken rib. Please take Tylenol (2 pills, 650 mg), ibuprofen (2 pills, 400 mg) every 6 hoursas needed for pain and fever control. Please return to the emergency department if your symptoms change or worsen. Please follow with your primary care physician for further outpatient evaluationand management. Print Language: Congolese Disposition Disposition: Home, Self Care What to do if you have Problems For any increased pain, shortness of breath, bleeding, nausea or vomiting, chestpain, or any unexpected problems, contact your Primary Care Provider. Call [facility] ([phone]) or report tothe closest Emergency Room. Call 911 if necessary. 12/12/24 1523 Cosigner Signature (if applicable): CC: Dr. Kely Moreno, ~ Signed [facility]06-22-2025 Radiology Diagnostic study note [facility] Imaging Services [address], [place] [address] Chest without Contrast MR#: [id number] Acct: [id number] Name: JANE VALENTINO Rep #: [id number] : 1940 M 84 From: Dorcas Raygoza MD PCP: Dr. Kely Moreno DO Status: RE G ER Study:Chest without Contrast Date of Exam: 12/12/24 Exam# [id number] Ordering Dr: Sammy Shelton DO PROCEDURE: CHEST WITHOUT CONTRAST 12/12/2024 REASON FOR EXAM: RIGHT POSTERIOR RIB PAIN TECHNIQUE: Chest CT without contrast. Coronal and Sagittal reconstruction series were provided. One or more dose reduction techniques were used (e.g., Automated exposure control, adjustment of the mA and/or kV according to patient size, use of iterative reconstruction technique. RADIATION DOSE SUMMARY: DLP: 750 mGycm COMPARISON: CTA chest abdomen pelvis 04/27/2023. FINDINGS: Hardware: Sternotomy wires and mediastinal clips. Lymph nodes: No axillary, mediastinal or hilar lymphadenopathy. Heart and Vasculature: The heart is normal in size without pericardial effusion. Prior CABG. Calcifications/prior replacement of the aortic valve. The great vessels are normal in caliber. Lungs and Airways: Visualization of the lung parenchyma is slightly limited by motion artifact. Thecentral airways are patent. Bibasilar atelectasis/scarring. No large pulmonary mass. No pleural effusion or pneumothorax. Upper Abdomen: Prior cholecystectomy. Nonobstructing bilateral renal calculi. Bilateral renal cystsand additional hypodensities. Bones: Acute fracture deformity of the posterior right 10th rib. Prior L1 vertebral body cement augmentation. The sternal wires are intact. CT/Chest without Contrast IMPRESSION: Acute fracture deformity of the posterior right 10th rib. Additional chronic findings as described. Reading Location: [facility] CC: Dr. Kely Moreno DO; Dr. Hiren Shelton DO ~ Teacher Education Instructor: Signed [facility]06-22-2025 Discharge summary Author Hiren Shelton [facility] Note Date/Time December 12, 2024 3:23 pm [facility] Medical Records Department [address] [place] [address] Emergency Department Summary 12/12/24 MR#: [id number] Acct: [id number] Name: JANE VALENTINO Rep #:[id number] : 1940 84 From: Hiren Can PCP: Dr. Kely Moreno DO Status:RE G ER Location: ED HPI HPI - Fall History of Present Illness Chief Complaint: Fall PFSH PFSH Medical History (Updated 12/12/24 @ 15:[address] Hiren Shelton DO) Cholecystectomy planned Memory deficit Cataracts, both eyes Chronic bronchitis Heart disease Arthritis Seasonal allergies Home Medications ?Medication ?Instructions ?Recorded ?Last Taken ?Type aspirin 81 mg tablet,delayed 81 mg PO QDAY 01/06/18 History release omeprazole 40 mg capsule,delayed 40 mg PO QDAY #90 cap s 01/05/21 05/27/23 Rx release rosuvastatin 20 mg tablet (Crestor) 20 mg PO QDAY #90 tabs 03/29/21 05/27/23 Rx acetaminophen 325 mg capsule 325 mg PO Q6H PRN pain #1 20 caps 07/20/22 Unknown Rx (Tylenol) dextromethorphan-guaifenesin 30 1 tab PO Q12H 07/20/22 Unknown History mg-600 mg tablet extended [id number] hr (Mucinex DM) famciclovir 500 mg tablet 500 mg PO BID 07/20/22 Unkno wn History celecoxib 200 mg capsule 200 mg PO Q24H 04/27/2311/12 History cholecalciferol (vitamin D3) 125 125 mcg PO DAILY 11/12 Unknown History mcg (5,000 unit) tablet (Vitamin D3) fexofenadine 180 mg tablet 180 mg PO DAILY 04/27/23 History (Mona Allergy) hydroxyzine pamoate 25 mg capsule 25 mg PO Q8H PRN anx iety 04/27/23 05/28/23 06:20 History ibuprofen 200 mg tablet 200 mg PO Q4H PRN pain 04/27 Unknown History quetiapine 50 mg tablet 50 mg PO QHS 04/27/23 History escitalopram oxalate 10 mg tablet 10 mg PO DAILY 12/12 Unknown History loperamide 2 mg tablet 2 mg PO Q6H PRN loose stool 12/12/24 Unknown History (Anti-Diarrheal (loperamide)) magnesium hydroxide 400 mg/5 mL 30 ml PO DAILY PRN con stipation 12/12/24 Unknown History oral suspension (Milk of Magnesia) oxycodone 5 mg tablet 5 mg PO Q6H PRN pain 3 days #12 12/12/24 Unknown Rx tabs quetiapine 25 mg tablet 25 mg PO QHS 12/12/24 Unknow n History Allergy/AdvReac Type Severity Reaction Status Date / Time No Known Allergies Allergy Verified 12/12/24 13:04 Family History Mother Arthritis Father Arthritis Heart disease Kidney disease Parkinson disease Daughter Heart disease Brother Heart disease Surgical History history of triple bypass surgery Social History Smoking Status: Never smoker alcohol intake: never substance use type: does not use what type of physical activity do you participate in: walking and bicycling EXAM Physical Exam Const Vital Signs: 12/12/24 13:04 12/12/24 13:35 12/12/24 15:00 Temperature 97.8 F 98.2 F Temperature Source Oral Pulse Rate 94 55 L Respiratory Rate 16 12 Blood Pressure 104/65 111/50 L Blood Pressure Mean 78 70 Pulse Ox 97 96 Oxygen Delivery Method Room Air Room Air MDM MDM MDM Narrative Medical decision making narrative: HISTORY OF PRESENT ILLNESS: Chief complaint: Fall 84-year-old male history of memory loss, CAD, large prostate, 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 Patient is unclear what happened. Denies syncope. Patient notes right posterior rib pain. Denies headache or head trauma. Denies extremity injury, chest pain, shortness of breath or pain in the hips. REVIEW OF SYSTEMS: Pertinent positives: Unwitnessed fall Pertinent negatives: Chest pain, shortness of breath, headache PHYSICAL EXAM: Nursing triage notes reviewed, Vital signs reviewed [...] tenderness, crepitance, or stepoffdeformity Trachea midline Lungs: TTP over right rib margin.. Clear to auscultation, No asymmetric rise and No crepitus, no flail chest Cardiac: Regular rate and rhythm and No murmurs Abdomen: Soft, Nontender and No rebound Pelvis: Pelvis stable to compression : No evidence of genital injury Back: No midline bony tenderness to thoracic/lumbar/sacral spines Neuro: At baseline, intact strength and sensation in bilateral upper and lower extremities. 2+ patellar reflexes bilaterally. Extremities: NO gross Deformities Psych: Normal affect Nursing triage notes reviewed, Vital signs reviewed MEDICAL DECISION MAKING: Chief Complaint: please see HPI External records reviewed: No anticoagulation note Factors affecting care: CAD, dementia Social determinants of health: correction patient History obtained from others: Consults: none MDM Narrative: Patient was initially hemodynamically stable, afebrile and nontoxic-appearing. Exam with TTP over right posterior rib margin. I considered the following differential diagnosis: Rib fracture, rib contusion, pneumothorax Patient examined no obvious traumatic injury to the head, extremities, abdomen or pelvis. As such I not obtain images. I obtained CT scan of the chest to further determine if the patient was suffering from a life-threatening etiology. ALL IMAGES (IF OBTAINED) HAVE BEEN PERSONALLY REVIEWED AND INTERPRETED BY MYSELF. CT scan of the chest without contrast showed a 10th rib fracture. No pneumothorax. The patient and/or family, caregivers express understanding. The patient and/orfamily, caregivers agrees with the plan. Shared decision making: I will have a discussion with the patient and or visitors regarding risk/benefits of further testing or admission. They will be made aware of of the risk/benefits inherent in this decision they will be given the opportunity to voice understanding. Total critical care time today provided was at least 0 minutes. This excludes separately billable procedures. Critical care time (if documented) is secondary to the patient having high probability of clinically significant/life threatening deterioration in the patient's condition which required my urgent intervention. Impression: 1. Acute rib pain 2. Acute rib fracture Dispo: Discharge home This note was generated with Onzo dictation software. It may contain incorrectwords, spelling, and punctuation that were not noted in review of the chart prior to signing. Radiography Diagnostic Testing: Clinical Impression(s) from Imaging Studies Chest CT 12/12/24 13:44 IMPRESSION: Acute fracture deformity of the posterior right 10th rib. Additional chronic findings as described. Reading Location: [facility] Discharge Plan Triage Chief Complaint: Fall ED Provider: Hiren Shelton Dx/Rx/DC Orders Clinical Impression: Contusion of rib Instructions: ED Rib Fracture Prescriptions: New oxycodone 5 mg tablet 5 mg PO Q6H PRN (Reason: pain) 3 Days Qty: 12 0RF No Action aspirin 81 mg tablet,delayed [...] 180 mg tablet 180 mg PO DAILY quetiapine 50 mg tablet 50 mg PO QHS hydroxyzine pamoate 25 mg capsule 25 mg PO Q8H PRN (Reason: anxiety) cholecalciferol (vitamin D3) [Vitamin D3] 125 mcg (5,000 unit) tablet 125 mcg PO DAILY ibuprofen 200 mg tablet 200 mg PO Q4H PRN (Reason: pain) quetiapine 25 mg tablet 25 mg PO QHS escitalopram oxalate 10 mg tablet 10 mg PO DAILY loperamide [Anti-Diarrheal (loperamide)] 2 mg tablet 2 mg PO Q6H PRN (Reason: loose stool) magnesium hydroxide [Milk of Magnesia] 400 mg/5 mL suspension 30 ml PO DAILY PRN (Reason: constipation) omeprazole 40 mg capsule,delayed release(DR/EC) 40 mg PO QDAY Qty: 90 3RF rosuvastatin [Crestor] 20 mg tablet 20 mg PO QDAY Qty: 90 3RF Primary Care Provider: Kely Moreno Referrals: Bertha Arndt MD [Med Staff - Family Nurse] - Activity Restrictions/Additional Instructions: Thank you for trusting us with your care today! Your CT scan showed one fractured/broken rib. Please take Tylenol (2 pills, 650 mg), ibuprofen (2 pills, 400 mg) every 6 hoursas needed for pain and fever control. Please return to the emergency department if your symptoms change or worsen. Please follow with your primary care physician for further outpatient evaluationand management. Print Language: Congolese Disposition Disposition: Home, Self Care What to do if you have Problems For any increased pain, shortness of breath, bleeding, nausea or vomiting, chestpain, or any unexpected problems, contact your Primary Care Provider. Call [facility] ([phone]) or report to the closest Emergency Room. Call 911 if necessary. 12/12/24 1523 <Electronically signed by Hiren Shelton DO> Cosigner Signature (if applicable): CC: Dr. Kely Moreno, ~ Signed [facility] Work Phone: 1(155) 331-467904-28-2024 Note ORIGINAL EXAMINATION: ONE XRAY VIEW OF [...] Sign Date: 10/19/2023 3:16:19 PM Ordering Provider: [facility]04-28-2024 NoteSINUS RHYTHM BORDERLINE T WAVE ABNORMALITIES Electronic Signature: FABRICE FOX MD 10/19/2023 23:01:41[facility] 12-07-2023 Discharge summary Author Dorothy Bone [facility] May 29, 2023 11:57am Note Date/Time May 29, 2023 1 1:55am [facility] Medical Records Department [address] [place] [address] Instructions for Home/Discharge Instructions 05/29/23 1155 MR#: [id number] Acct: [id number] Name: JANE VALENTINO Rep #:[id number] : [...] be discussed in further detail at your follow- up appointment, if applicable. Discharge Plan Admission Admit [...] similar medications, I would recommend transitioning tothese [id number] medicines as soon as possible instead of continued use ofnarcotic pain medication. Follow up ? You should call [facility] soon after surgery, at [phone] option 1 to make a follow up [...] in before D/C Order can be placed): [facility] 05/29/23 1157<Electronically signed by Dorothy BONILLA PA-C>Dorothy BONILLA PA-C CC: Dr. Bertha Arndt MD ~ Signed [facility] Work Phone: 1(570) 840-303912-07-2023 Procedure [facility] 05-29-2023 Progress note Author Dorothy Bone [facility] May 29, 2023 8:43am Note Date/Time May 29, 2023 8 :34am [facility] Medical Records Department [address] [place] [address] Progress Note - Surgery 05/29/23 0832 MR#: [id number] Acct: [id number] Name: JANE VALENTINO Rep #:[id number] : 1940 83 From: Dorothy BONILLA PA-C PCP: Dr. Bertha Arndt MD Status:ADM THEO Location: [place] [address] Subjective Subjective Patient is evaluated resting comfortably [...] Sl. Cloudy, Urine pH 6.5, Ur Specific [place] 1.010, Urine Protein Negative, Urine Glucose (UA) [...] 77.7 H, Lymph % (Auto) 7.6 L, [place] % (Auto) 11.2 H, Eos % (Auto) [...] Signed: Wilmar Stearns MD at 18:10 EST Reading Location ID and State: [address] [place] [address] Tel , Service support , Physical Exam GI GI Narrative: Abdomen- [...] I will not be discharging patient to [facility] with oxycodone. I am recommending that they alternate between Tylenol and ibuprofen for pain as needed. I have communicated these instructions in the discharge instructions. I will contact nursing around lunch time to obtain a progress report prior to placing a discharge order. Charges/Coding Visit Charges Inpatient E&M: 92271 Subs Hosp L1 (post-op; no charge) 05/29/23 0843 <Electronically signed by Dorothy BONILLA PA-C> Cosigner Signature (if applicable): CC: ~ Signed [facility] Work Phone: 1(126) 463-728812-07-2023 Discharge summary Author Sha Jacome [facility] May 29, 2023 8:30am Note Date/Time May 28, 2023 7 :15am [facility] Medical Records Department [address] [place] [address] Emergency Department Summary 05/28/23 MR#: [id number] Acct: [id number] Name: JANE VALENTINO Rep #:[id number] : 1940 83 From: Sha Can PCP: Dr. Bertha Arndt MD Status:ADM THEO Location: [place] [address] HPI History of Present Illness Chief Complaint: [...] surgeries. No history of colitis or diverticulitis. [facility] Medical History Arthritis Cataracts, both eyes Chronic [...] Unknown] dextromethorphan-guaifenesin 30 mg-600 mg tablet extended faimonp35 hr (Mucinex DM) 1 tab PO Q12H [...] 79.1 H Lymph % (Auto) 4.7 L [place] % (Auto) 11.0 H Eos % (Auto) [...] Sl. Cloudy Urine pH 6.5 Ur Specific [place] 1.010 Urine Protein Negative Urine Glucose (UA) [...] 73 bpm. Management Discussion w/another healthcare provider: Cereal Maker (Surgeon) Discharge Plan Dx/Rx/DC Orders Clinical Impression: Abdominal pain, acute, Acute cholecystitis Disposition Disposition: Acute Care Hospital [facility] What to do if you have Problems For any increased pain, shortness of breath, bleeding, nausea or vomiting, chestpain, or any unexpected problems, contact your Primary Care Provider. Call [facility] ([phone]) or report to the closest Emergency Room. Call 911 if necessary. 05/29/23 0830 <Electronically signed by Sha Jacome DO> Cosigner Signature (if applicable): CC: Dr. Bertha Arndt MD ~ Signed [facility] Work Phone: 1(410) 131-577412-06-2023 History and physical note Author Christen [facility] May 28, 2023 3:17pm Note Date/Time May 28, 2023 1 0:49am [facility] Medical Records Department [address] [place] [address] History & Physical Exam 05/28/23 1042 MR#: [id number] Acct: [id number] Name: JANE VALENTINO Rep #:[id number] : 1940 83 From: Dorothy BONILLA PA-C PCP: Dr. Bertha Arndt MD Status:REG [facility] Location: [facility] HPI - General General Date of Admission: 05/28/23 Date of Service: 05/28/23 Chief Complaint: RUQ abdominal pain HPI Narrative JANE VALENTINO, is a 83 M who presents with a 1 month history of abdominal pain. Patient resides at [facility] for history of dementia for 1 year. Patient's and daughter are present in the room and provide majority of the history. Patient notes he likes to take walks and is very active at [facility]. He notes in the evenings is when he does most of his walking. He states after his walks he would noticed pain in the right upper quadrant. Patient was in the ED at [facility] on 04/27/23 for a renal stone which was passed in the ED. Patient's notes that the patient's abdominal pain has become worse over the last 3 days. Patient is unsure if it relates to food. Per family, the correction did not mention that patient is having pain after eating. Patient notes he has had a lack of appetite within the last 3 days. Patient denies any nausea, vomiting. 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 He was following with a inspector packer at [place]. He has since been discharged and told [...] Remaining liver enzymes are within normal range. [facility] Medical History Arthritis Cataracts, both eyes Chronic [...] Unknown] dextromethorphan-guaifenesin 30 mg-600 mg tablet extended [id number] hr (Mucinex DM) 1 tab PO Q12H [...] Results Lab / Micro Data 05/28/23 07:22 12 07:22 Labs: Laboratory Results - last 24 hr 05/28/23 07:22: WBC 13.3 H, RBC 4.44 L, Hgb 15.1, Hct 44.8, MCV 100.9 H, MCH 34.0 H, MCHC 33.7, RDW Std Deviation 45.5 H, RDW Coeff of Solitario 12.1, Plt Count 151, MPV 10.4, Immature Gran % (Auto) 1.000 H, Neut % (Auto) 79.1 H, Lymph % (Auto) 4.7 L, [place] % (Auto) 11.0 H, Eos % (Auto) [...] Sl. Cloudy, Urine pH 6.5, Ur Specific [place] 1.010, Urine Protein Negative, Urine Glucose (UA) [...] patient's care. Charges/Coding Visit Charges OBSV E&M: 27551 Observ/hosp same date L2 05/28/23 1214 <Electronically [...] questions were answered. Christen Mcbride M.D. Pager: [phone] [facility] [address] [place] [address], [address] [place] [address] Office: [phone] 05/28/231516<Electronically signed by Christen Mcbride MD> Cosigner Signature (if applicable): cc: PEDRO Bone; Dr. Bertha Arndt MD; Dr. Christen Mcbride MD ~* Signed [facility] Work Phone: 1(110) 124-814312-06-2023 History and physical note Author Dorothy Bone [facility] May 28, 2023 12:14pm Note Date/Time May 28, 2023 1 0:49am [facility] Medical Records Department [address] [place] [address] History & Physical Exam 05/28/23 1042 MR#: [id number] Acct: [id number] Name: JANE VALENTINO Rep #:[id number] : 1940 83 From: Dorothy BONILLA PA-C PCP: Dr. Bertha Arndt MD Status:REG ER Location: ED HPI - General General Date of Admission: 05/28/23 Date of Service: 05/28/23 Chief Complaint: RUQ abdominal pain HPI Narrative JANE VALENTINO, is a 83 M who presents with a 1 month history of abdominal pain. Patient resides at [facility] for history of dementia for 1 year. Patient's and daughter are present in the room and provide majority of the history. Patient notes he likes to take walks and is very active at [facility]. He notes in the evenings is when he does most of his walking. He states after his walks he would noticed pain in the right upper quadrant. Patient was in the ED at [facility] on 04/27/23 for a renal stone which was passed in the ED. Patient's notes that the patient's abdominal pain has become worse over the last 3 days. Patient is unsure if it relates to food. Per family, the correction did not mention that patient is having pain after eating. Patient notes he has had a lack of appetite within the last 3 days. Patient denies any nausea, vomiting. 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 He was following with a inspector packer at [place]. He has since been discharged and told [...] Remaining liver enzymes are within normal range. [facility] Medical History Arthritis Cataracts, both eyes Chronic [...] Unknown] dextromethorphan-guaifenesin 30 mg-600 mg tablet extended [id number] hr (Mucinex DM) 1 tab PO Q12H [...] 79.1 H, Lymph % (Auto) 4.7 L, [place] % (Auto) 11.0 H, Eos % (Auto) [...] Sl. Cloudy, Urine pH 6.5, Ur Specific [place] 1.010, Urine Protein Negative, Urine Glucose (UA) [...] patient's care. Charges/Coding Visit Charges OBSV E&M: 45529 Observ/hosp same date L2 05/28/23 1214 <Electronically signed by Dorothy BONILLA PA-C> Cosigner Signature (if applicable): CC: PEDRO Bone; Dr. Bertha Arndt MD~ Signed [facility] [facility] Work Phone: 1(908) 186-184101-28-[address] Shelton [facility] July 20, 2022 11:51pm Note Date/Time July 20, 2022 9 :12pm [facility] Medical Records Department [address] [place] [address] Emergency Department Summary 07/20/22 MR#: [id number] Acct: [id number] Name: JANE VALENTINO Rep #:[id number] 28 : [...] he denies any history of PEor DVT. [facility] Medical History Arthritis Cataracts, both eyes Chronic [...] Unknown] dextromethorphan-guaifenesin 30 mg-600 mg tablet extended [id number] hr (Mucinex DM) 1 tab PO Q12H [...] 74.8 H Lymph % (Auto) 6.9 L [place] % (Auto) 14.6 H Eos % (Auto) [...] Clarity Clear Urine pH 6.0 Ur Specific [place] 1.015 Urine Protein 15 H Urine Glucose [...] 22:32 EST Reading Location ID and State: [facility] / [place] Tel , Service support , Cervical Spine CT 07/20/22 21:36 IMPRESSION: [...] Primary Care Provider: Bertha Arndt Referrals: Kely Moreno DO [Med Staff - Family Nurse] - Disposition Disposition: Home, Self Care What to do if you have Problems For any increased pain, shortness of breath, bleeding, nausea or vomiting, chestpain, or any unexpected problems, contact your Primary Care Provider. Call [facility] ([phone]) or report to the closest Emergency Room. Call 911 if necessary. 07/20/22 0472 <Electronically signed by Hiren Shelton DO> Cosigner Signature (if applicable): CC: Dr. Bertha Arndt MD ~ Signed [facility] Work Phone: [phone]) 206-225603-21-2022 NoteHNO ID: [id number] Author: Jeison Rivers MD Service: ? Author Type: Physician Type: Progress Notes Filed: 09/10/2021 1:45 PM Note Text: [facility] UROLOGY ESTABLISHED PATIENT CLINIC NOTE PATIENT INFO: Jane Valentino PCP: Kely Moreno DO, DO UROLOGY DIAGNOSES: 1. Impotence of [...] pt not interested F/u PRN Jeison Rivers [facility]01-03-2022 NoteHNO ID: [id number] Author: Jeison Rievrs MD Service: ? Author Type: Physician Type: Progress Notes Filed: 06/25/2021 11:02 AM Note Text: [facility] UROLOGY [...] to discuss TRT if needed Jeison Rivers [facility] note Author Nemo Robertson [facility] May 29, 2023 2:48pm Note Date/Time May 29, 2023 2 :49pm [facility] Medical Records Department [address] [place] [address] Counseling Note - Pharmacy 05/29/23 1448 MR#: [id number] Acct: [id number] Name: JANE VALENTINO Rep #:[id number] 17 : 1940 83 From: Nemo Robertson PCP: Dr. Bertha Arndt MD Status:ADM THEO Y Location: [place] [address] Pharmacy MD Med Reconciliation Pharmacy Service has performed discharge [...] 07/20/22 dextromethorphan-guaifenesin 30 mg-600 mg tablet extended hr [...] Signature (if applicable): Date CC: ~ Signed [facility] Work Phone: evaluation + Plan note Future Appointments Appointment Date:04/26/2021 01:00:00 PM Scheduled Provider: Location:[facility]* Diagnosis Onset Date Resolution Status Insomnia noneactive Fatigue noneactive Hypersomnolence noneactive [facility] Work Phone: evaluation note* Diagnosis Onset Date Resolution Status Insomnia noneactive Fatigue noneactive Hypersomnolence noneactive Atherosclerotic coronary vascular disease chronic Chronic bronchitis chronic Heart disease chronic Memory loss of unknown cause chronic Seasonal allergies [facility] Work Phone: evaluation note* Diagnosis Onset Date Resolution Status Atherosclerotic coronary vascular disease chronic Chronic bronchitis chronic Chronic insomnia chronic Memory loss of unknown cause [facility] Work Phone: evaluation noteNo assessment information available [facility] Work Phone: evaluation note* Diagnosis Onset Date Resolution Status Abdominal pain, acute acute Acute cholecystitis acute [facility] Work Phone: evaluation note* Diagnosis Onset Date Resolution Status Admit Date Altered mental status acute Garcia 2024 4:09pm Community acquired pneumonia acute December 16, 2024 4:09pm [facility] Work Phone: Hospital course Narrative No data available for this section [facility] Hospital Discharge instructions No data available for this section [facility] Hospital Discharge instructions Additional Instructions You had a kidney stone 8 mm on the left side that passed into the bladder. Please follow-up with urology. Return for any worsening pain, fever chills nausea or vomiting.[facility] Work Phone: Hospital Discharge instructions Additional Instructions Thank you for trusting us with your care today! Your CT scan showed one fractured/broken rib. Please take Tylenol (2 pills, 650 mg), ibuprofen (2 pills, 400 mg) every 6 hours as needed for pain and fever control. Please return to the emergency department if your symptoms change or worsen. Please follow with your primary care physician for further outpatient evaluation and management.[facility] Work Phone: Progress note No data available for this section [facility] Reason for referral (narrative)No reason for referral information [facility] Work Phone: Summary Purpose Family History Relationship Condition Age at Onset Recorded Date/T gail mother Arthritis Unknown father Arthritis Unknown Cardiac disease Unknown Kidney disorder Unknown Parkinson's disease Unknown daughter Cardiac disease Unknown brother Cardiac disease Unknown Advance Directives Advance Directive Response Recorded Date/ Time Name of Medical Power of Detective Investigator LEONID CHRISTIANSON N July 20, 2022 8:58pm Living Will Yes July 20 8:58pm Power of Detective Investigator Yes July 20, 2022 8:58pm Advance Directive Response Recorded Date/ Time Name of Medical Power of Detective Investigator LEONID CHRISTIANSON N July 20, 2022 9:58pm Living Will Yes July 20 9:58pm Power of Detective Investigator Yes July 20, 2022 9:58pm Advance Directive Response Recorded Date/ Time Living Will Yes July 20 9:58pm Power of Detective Investigator Yes July 20, 2022 9:58pm Advance Directive Response Recorded Date/ Time Name of Medical Power of Detective Investigator LEONID CHRISTIANSON N- . April 27, 2023 6:25pm Living Will Yes April 27 6:25pm Power of Detective Investigator Yes April 27, 2023 6:25pm Advance Directive Response Recorded Date/ Time Name of Medical Power of Detective Investigator LEONID CHRISTIANSON N- . April 27, 2023 6:25pm Name of Medical Power of Detective Investigator , LEONID VALENTINO May 28, 2023 6:59am Living Will Yes May 28 6:59am Power of Detective Investigator Yes May 28, 2023 6:59am Advance Directive Response Recorded Date/ Time Name of Medical Power of Detective Investigator LEONID Butt- . April 27, 2023 6:25pm Name of Medical Power of Detective Investigator Leonid butt May 28, 2023 8:50pm Living Will Yes May 28 8:50pm Power of Detective Investigator Yes May 28, 2023 8:50pm Advance Directive Response Recorded Date/ Time Do you have a Healthcare Power of Detective Investigator? Yes December 12, 2024 1:35pm Advance Directive Response Recorded Date/ Time Do you have a Healthcare Power of Detective Investigator? Yes December 12, 2024 1:35pm Do you have a Healthcare Power of Detective Investigator? Yes December 16, 2024 11:37am Name of Medical Power of Detective Investigator Leonid butt December 16, 2024 11:37am Chief Complaint and Reason for Visit Chief [...] cause Chief Complaint 3 M FU BACK/CHEST LONG TERM LAB WORK Reason for Visit Atherosclerotic kati nary vascular disease Chronic bronchitis Chronic insomnia Memory loss of unknown cause Chief Complaint 3 M FU BACK/CHEST LONG TERM LAB WORK LONG TERM LAB WORK Reason for Visit Atherosclerotic kati nary vascular disease Chronic bronchitis Chronic insomnia Memory loss of unknown cause Chief Complaint LONG TERM LAB WOR K LONG TERM LABWORK Chief Complaint LONG TERM LAB WOR K LONG TERM LABWORK abd pain Chief Complaint LONG TERM LAB WOR K LONG TERM LABWORK abd pain LOWER ABD PAIN LOWER ABD PAIN Reason for Visit Abdominal pain, acut e Acute cholecystitis Chief Complaint LONG TERM LAB WOR K LONG TERM LABWORK abd pain LOWER ABD PAIN ACUTE CHOLECYSTITIS LOWER ABD PAIN Reason for Visit Abdominal pain, acut e Acute cholecystitis Chief Complaint Admit Date fallDecember 12, 2024 1:03 pm Chief Complaint Admit Date fallDecember 12, 2024 1:03 pm ALTERMAN STATUS GENERALIZED WEAKNESS ACU TE December 16, 2024 4:09pm Reason for Visit Admit Date Altered mental status December 16, 2024 4: 09pm Community acquired pneumonia December 16, 2024 4:09pm Additional Source Comments (unrecognized sect ion and content) No Status Records FoundNo Status Records FoundNo Status Records Found INFORMATION SOURCE (unrecogn ized section and content) DATE CREATED AUTHOR 09/13/2021 [facility] DATE CREATED AUTHOR AUTHOR'S ORGANIZ ATION 11/05/2023 [facility] ([place]) DATE CREATED AUTHOR AUTHOR'S ORGANIZ ATION 12/13/2024 [facility] Goals (unrecognized section and content) Goals may be documented in a n alternate section Care Teams (unrecognized sec tion and content) Team Status: Active Member Role Status Dates Dr. Kely Moreno DO Family Provider Active Dr. Bertha Arndt MD Primary Care Provider Active Team Status: Inactive Member Role Status Dates Dr. Kely Moreno DO Primary Care Pr mikeer, Attending Provider, Referring Provider Active Team Status: Active Member Role Status Dates Dr. Kely Moreno DO Primary Care Provider Active Dr. Reynaldo Alan MD Attending Provider Active Team Status: Inactive Member Role Status Dates Dr. Hiren Shelton DO Emergency Provider Active Dr. Bertha Arndt MD Primary Care Provider Active Team Status: Inactive Member Role Status Dates Dr. Hiren Shelton DO Attending Provider, Emergency P romerced Active Dr. Bertha Arndt MD Primary Care [...] Bertha Arndt MD Primary Care Provider Active KARSON Pitts Attending Provider, Referr ing Provider Active Team Status: Inactive Member Role Status Dates Dr. Bertha Arndt MD Primary Care Provider Active KARSON Pitts Attending Provider Active Team Status: Inactive Member [...] Admit Provider, Attending Provider, Referring Provider Active Team Status: Active Member Role Status Dates Dr. Kely Moreno DO Primary Care Provider Active Team Status: Inactive Member Role Status Dates Dr. Hiren Shelton DO Emergency Provider Active Start: December 12, 2024 End: December 12, 2024 Dr. Kely Moreno DO Primary Care Provider Active Start: December 12, 2024 End: December 12, 2024 Team Status: Inactive Member Role Status Dates Dr. Hiren Shelton DO Attending Provider Active Start: December 12, 2024 End: December 12, 2024 Dr. Hiren Shelton DO Emergency Provider Active Start: December 12, 2024 End: December 12, 2024 Dr. Kely Moreno , DO Primary Care Provider Active Start: December 12, 2024 End: December 12, 2024 Team Status: Active Member Role Status Dates Dr. Kely Moreno DO Primary Care Provider Active Start: December 16, 2024 Dr. Tommy Lama DO Emergency Provider Active Start: December 16, 2024 Dr. Nithya Sandoval MD Admit Provider Active Star t: December 16, 2024 Dr. Nithya Sandoval MD Attending Provider Active Start: December 16, 2024 FOR RECORDS PERTAINING TO PATIENTS WHO ARE [...] BE BASED ON THE PRIMARY CLINICAL RECORDS. [employer] provides no warranty or guarantee of the accuracy or completeness of information in this document.
[2024-12-16] MEDS: Senna/Docusate Sodium 1 Tablet 2 TABLET PO (23:20)
[2024-12-16] MEDS: Acyclovir 800 MG Tablet PO (23:20)
[2024-12-16] MEDS: QUEtiapine 25 MG Tablet 50 MG PO (23:21)
[2024-12-16] MEDS: Acetaminophen 325 MG Tablet 650 MG PO (23:42)
[2024-12-17] VITALS (9 sets, daily range): BP systolic 127–138; BP diastolic 63–86; PULSE 58–105; RESP 16–20; TEMP 36.2–37.2; O2SAT 92–100
[2024-12-17] MEDS: Acyclovir 800 MG Tablet PO ×3 (05:49→16:20)
[2024-12-17] MEDS: Acetaminophen 325 MG Tablet 650 MG PO (06:09)
[2024-12-17 06:49] LABS: Absolute Lymphocyte Count 0.79 X10^3/uL (0.83-4.51); Absolute Neutrophil Count 8.8 X10^3/uL (2.0-7.7); Basophil# 0.04 X10^3/uL; Basophil% 0.4 % (0-1); Eosinophil# 0.07 X10^3/uL; Eosinophils% 0.6 % (0-5); Hematocrit 43.7 % (40-54); Hemoglobin 14.9 g/dL (13.0-16.5); Lymphocyte # 0.79 X10^3/ul (0.83-4.51); Lymphocyte % 7.3 % (19-41); Mean Corp Hgb Conc 34.1 g/dL (32-36); Mean Corpuscular Hgb 34.5 pg (27.0-32.0); Mean Corpuscular Volume 101.2 fL (80-94); Monocyte# 1.06 X10^3/uL; Monocyte% 9.8 % (0-10); NRBC Flagged by Analyzer 0 % (0-5); Neutrophil # 8.79 X10^3/uL (2.7-7.7); Neutrophil % 81.2 % (47-70); Platelet Count 146 K/mm3 (150-450); RBC Distribution Width CV 12.1 % (11.6-14.6); RBC Distribution Width SD 45.2 fl (35.1-43.9); Red Blood Count 4.32 M/mm3 (4.6-6.2); White Blood Count 10.8 K/mm3 (4.4-11.0)
[2024-12-17 07:17] LABS: Anion Gap 11 (5-15); BUN 29 mg/dL (4-19); BUN/Creat Ratio 41.1 RATIO (10-20); Calcium,Total 8.8 mg/dL (7.6-11.0); Carbon Dioxide 19.8 mmol/L (21.0-32.0); Chloride 110 mmol/L (98-108); Creatinine, Serum 0.72 mg/dL (0.70-1.20); EST Glomerular Filtration Rate 91 (>60); Glucose 114 mg/dL (70-99); Potassium 4.2 mmol/L (3.3-5.1); Sodium Level 140 mmol/L (133-145)
[2024-12-17] MEDS: Ipratropium/Albuterol Sulfate 3 ML AMPUL.NEB INHALATION ×3 (07:30→18:19)
[2024-12-17] MEDS: guaiFENesin 1,200 MG Tablet 1200 MG PO ×2 (08:57→22:30)
[2024-12-17] MEDS: Enoxaparin 40 MG/0.4 ML Syringe SC (08:57)
[2024-12-17] MEDS: QUEtiapine 25 MG Tablet PO (08:57)
[2024-12-17] MEDS: Senna/Docusate Sodium 1 Tablet 2 TABLET PO ×2 (08:57→22:30)
[2024-12-17] MEDS: Pantoprazole Sodium 40 MG Tablet PO (08:58)
[2024-12-17] MEDS: Aspirin E.C. 81 MG Tablet PO (08:58)
[2024-12-17] MEDS: Atorvastatin Calcium 40 MG Tablet PO (08:58)
[2024-12-17] MEDS: Loratadine 10 MG Tablet PO (08:59)
[2024-12-17] MEDS: Escitalopram Oxalate 10 MG Tablet PO (08:59)
[2024-12-17] MEDS: Ceftriaxone 2 GM in 0.9% Normal Saline (50mL MB+) 50 ML IV (09:02)
[2024-12-17] MEDS: Lidocaine 5% Patch 1 PATCH TOPICAL (09:13)
--- NOTE | 2024-12-17 09:52 | CASEMGMT ---
Discharge Planning Updates faxed to Chayo Arshad @ [facility]. Fax confirmation rec'd. Tiny Ortega DC Planning Asst.
[2024-12-17] MEDS: Azithromycin 500 MG in 0.9% Normal Saline (250mL Bag) 250 ML 255 MG IV (10:20)
--- NOTE | 2024-12-17 10:57 | CASEMGMT ---
Social Work- SW met with pt and pt to discuss discharge planning. SW introduced self and role. Pt reports that pt has help bathing, some help dressing and toileting, and that there are always people around and with him when ambulating at the memory care unit of [facility]. Pt reports that she feels that pt would need transport back to [facility], as it would be too painful to be transported in pt car. EMIGDIO notified that updates can be sent to Antoni THOMAS for review. RALPH remains available to follow. Plan: Antoni THOMAS; memory care [facility]
--- NOTE | 2024-12-17 14:42 | CASEMGMT ---
Discharge Planning Therapy updates faxed to Chayo [facility] with note that pt may return over the weekend. Green sheet and transport form placed on chart. Fax confirmation tom Ortega DC Planning Asst.
--- NOTE | 2024-12-17 17:20 | CASEMGMT ---
Social Work- In case of possible weekend discharge, green sheet and transport on chart for nursing to follow for final discharge arrangements/notifications to SNF, patient/family.? Plan: [facility] THOMAS; memory care [facility]
--- NOTE | 2024-12-17 17:26 | PN.HOSP_ITS ---
Reason for Visit Reason for Visit: Diagnoses Pneumonia, unspecified organism (12/16/24) Altered mental status, unspecified (12/16/24) Subjective Subjective Patient was seen and examined today, I talked with his who was in the room at the time my examination. Patient does not appear to be in any distress, he is on room air at this time Objective Data Objective Data Vital Signs: Vital Signs Temp Pulse Resp BP Pulse Ox O2 Del Method O2 Flow Rate 97.2 F L 86 18 127/75 H 95 Room Air 2 12/17/24 14:05 12/17/24 14:05 12/17/24 14:05 12/17/24 14:05 12/17/24 14:05 12/17/24 14:05 12/17/24 09:28 Oxygen Flow Rate (L/min) 2 Oxygen Delivery Method Room Air Weight: 83.6 kg Body Mass Index (BMI) 28.0 Intake & Output: Intake and Output for Last 24 Hours 12/15/24 12/16/24 12/17/24 23:59 23:59 23:59 Intake Total 3170.8 / 3370.8 1496.67 / 1496.67 Output Total 1125 / 1125 Balance 3170.8 / 2970.8 371.67 / 371.67 Lab / Micro Data 12/17/24 05:20 12/17/24 05:20 Labs: Laboratory Results - last 24 hr 12/17/24 05:20: WBC 10.8, RBC 4.32 L, Hgb 14.9, Hct 43.7, MCV 101.2 H, MCH 34.5 H, MCHC 34.1, RDW Std Deviation 45.2 H, RDW Coeff of Solitario 12.1, Plt Count 146 L, MPV 10.0, Immature Gran % (Auto) 0.700, Neut % (Auto) 81.2 H, Lymph % (Auto) 7.3 L, [place] % (Auto) 9.8, Eos % (Auto) 0.6, Baso % (Auto) 0.4, Absolute Neuts (auto) 8.8 H, Absolute Lymphs (auto) 0.79 L, Nucleated RBC % 0, Sodium 140, Potassium 4.2, Chloride 110 H, Carbon Dioxide 19.8 L, Anion Gap 11, BUN 29 H, Creatinine 0.72, Estim Creat Clear Calc 73.70, Est GFR (MDRD) Non-Af 91, BUN/Creatinine Ratio 41.1 H, Glucose 114 H, Calcium 8.8 Micro: Microbiology 12/16/24 17:30 Mucosa - Nose Coronavirus COVID-19 PCR - Final 12/16/24 17:30 Mucosa - Nasopharyngeal Respiratory Panel (PCR) - Final 12/16/24 17:05 Urine Catheter - Francis Legionella Antigen - Final 12/16/24 17:05 Urine Catheter - Francis Streptococcus pneumoniae Antigen (M - Final Physical Exam Const alert and no apparent distress Constitutional Narrative: Patient is confused, he does not carry on a conversation with this examiner General Appearance: cooperative, well kempt and well developed Orientation / Consciousness: awake HEENT normocephalic, head/scalp atraumatic and moist oral mucous membranes Eyes PERRL, EOMs intact bilaterally and conjunctivae normal Neck supple, no JVD, thyroid normal and no carotid bruits General: trachea midline Resp normal respiratory effort, no retractions, no use of accessory muscles and clear to auscultation bilaterally Auscultation: Negative for rales, rhonchi or wheezes Cardio regular rate, regular rhythm, S1 normal heart sound, S2 normal heart sound, no murmurs, no rub and no gallops GI normal to inspection, nondistended, normoactive bowel sounds, soft to palpation, non-tender and non-distended Extremity no clubbing, cyanosis or edema Skin no rashes or lesions noted General Skin Exam: no breakdown Neuro CN's II-XII intact bilaterally, moves all extremities and no focal motor deficits Neuro Narrative: Patient is confused, he does not carry on a conversation Sensorium / Orientation: awake and alert Psych Psych Narrative: Patient appears confused Assessment & Plan Assessment/Plan (1) Community acquired pneumonia: PLAN: Plan 1. Community-acquired pneumonia-patient will remain on aerosol treatments and Rocephin and Zithromax #2 dementia-complicates care, management, recovery, and prognosis, I am not sure the patient has metabolic encephalopathy currently as I am unaware of his baseline and he lives in the memory care unit at assisted living #3 acute fracture of the right 10th and 11th ribs-supportive care including analgesics #4 hyperlipidemia-patient is on a statin Patient is on Famvir as an outpatient for prevention of cold sores, I will take him off acyclovir while he is in the hospital I did talk with the memory unit at [facility] and they stated that the patient's mental status has been declining and he has become more confused while there. Total clinical time spent by myself addressing the patient's medical issues, reviewing all of his data, and collaborating with patient's care team: 35 minutes Charges/Coding Visit Charges Inpatient E&M: 61377 Subs Hosp L2
[2024-12-17] MEDS: Acetaminophen 500 MG Tablet 1000 MG PO (22:29)
[2024-12-17] MEDS: QUEtiapine 25 MG Tablet 50 MG PO (22:32)
[2024-12-17] MEDS: 0.9% Saline Lock 10 ML Syringe IV (22:32)
[2024-12-18] VITALS: O2SAT 93
[2024-12-18 02:40] VITALS: BP 131/79; PULSE 89; RESP 16; TEMP 36.9; O2SAT 94
[2024-12-18 02:46] VITALS: O2SAT 94
[2024-12-18] MEDS: Acetaminophen 500 MG Tablet 1000 MG PO (05:28)
[2024-12-18 06:56] VITALS: PULSE 76; RESP 18; O2SAT 95
[2024-12-18] MEDS: Ipratropium/Albuterol Sulfate 3 ML AMPUL.NEB INHALATION (06:56)
[2024-12-18] MEDS: Escitalopram Oxalate 10 MG Tablet PO (08:09)
[2024-12-18] MEDS: Ceftriaxone 2 GM in 0.9% Normal Saline (50mL MB+) 50 ML IV (08:09)
[2024-12-18] MEDS: Lidocaine 5% Patch 1 PATCH TOPICAL (08:10)
[2024-12-18] MEDS: Aspirin E.C. 81 MG Tablet PO (08:10)
[2024-12-18] MEDS: Enoxaparin 40 MG/0.4 ML Syringe SC (08:12)
[2024-12-18] MEDS: guaiFENesin 1,200 MG Tablet 1200 MG PO (08:12)
[2024-12-18] MEDS: Senna/Docusate Sodium 1 Tablet 2 TABLET PO (08:12)
[2024-12-18] MEDS: Atorvastatin Calcium 40 MG Tablet PO (08:12)
[2024-12-18] MEDS: QUEtiapine 25 MG Tablet PO (08:13)
[2024-12-18] MEDS: Pantoprazole Sodium 40 MG Tablet PO (08:17)
--- NOTE | 2024-12-18 08:35 | RAD_ITS ---
PROCEDURE: CHEST 1 VIEW (PORTABLE) 12/18/2024 REASON FOR EXAM: PNEUMONIA TECHNIQUE: Frontal view of the chest. COMPARISON: CT from 12/16/2024 FINDINGS: Mild pulmonary vascular congestion. Bibasilar consolidations better appreciated on concurrent CT chest. Trace left base effusion. No significant right base effusion. No pneumothorax. Cardiac silhouette is within normal limits. Median sternotomy wires. RAD/Chest 1 View (Portable) IMPRESSION: Mild pulmonary vascular congestion. Bibasilar consolidations better appreciate d on concurrent CT chest. Trace left base effusion. No significant right base effusion. Reading Location: [id number]
[2024-12-18 09:00] VITALS: BP 125/69; PULSE 88; RESP 18; TEMP 36.8; O2SAT 93
[2024-12-18] MEDS: Azithromycin 500 MG in 0.9% Normal Saline (250mL Bag) 250 ML 255 MG IV (09:26)
[2024-12-18] MEDS: Furosemide 40 MG/4 ML Vial IV (09:26)
--- NOTE | 2024-12-18 10:21 | DCINST_ITS ---
Discharge Instructions Diet Discharge Diet: No restrictions DC O2, CPAP, BIPAP needs Home O2 Discharge instructions: No Dressing / Incision Discharge Activity: Return to Normal Activity Weight Bearing Status: Full weight bearing Follow Up Care Test Results: Test results from this visit will be discussed in further detail at your follow- up appointment, if applicable. Discharge Plan Admission Admit Date/Time: 12/16/24 16:09 Primary Reason for Your Visit: Pneumonia Attending Provider: Sushant Neal Primary Care Provider: River Moreno Consulting Providers: Nithya Sandoval Discharge Orders/Prescriptions Prescriptions: New furosemide [Lasix] 40 mg tablet 40 mg PO DAILY Qty: 30 0RF potassium chloride [Klor-Con 10] 10 mEq tablet extended release 20 meq PO DAILY Qty: 60 0RF cefdinir 300 mg capsule 300 mg PO BID Qty: 10 0RF Continued aspirin 81 mg tablet,delayed release (DR/EC) 81 mg PO QDAY famciclovir 500 mg tablet 500 mg PO BID Mucinex DM 30-600 mg Tablet Extended Release 12 Hr 1 tab PO BID celecoxib 200 mg capsule 200 mg PO DAILY fexofenadine [Mona Allergy] 180 mg tablet 180 mg PO DAILY quetiapine 50 mg tablet 50 mg PO DAILY hydroxyzine pamoate 25 mg capsule 25 mg PO Q8H PRN (Reason: anxiety) cholecalciferol (vitamin D3) [Vitamin D3] 125 mcg (5,000 unit) tablet 125 mcg PO DAILY quetiapine 25 mg tablet 25 mg PO DAILY escitalopram oxalate 10 mg tablet 10 mg PO DAILY loperamide [Anti-Diarrheal (loperamide)] 2 mg tablet 2 mg PO Q6H PRN (Reason: loose stool) magnesium hydroxide [Milk of Magnesia] 400 mg/5 mL suspension 30 ml PO DAILY PRN (Reason: constipation) acetaminophen 325 mg tablet 650 mg PO Q4H PRN (Reason: fever or pain) nystatin [Klayesta] 100,000 unit/gram powder 1 applic topical Q8H PRN (Reason: skin irritation) Daytime Cold-Flu Relief (PE) 5-10-325 mg/15 mL liquid 30 ml PO Q4H PRN (Reason: cough) omeprazole 40 mg capsule,delayed release(DR/EC) 40 mg PO DAILY rosuvastatin [Crestor] 20 mg tablet 20 mg PO QDAY Qty: 90 3RF Referrals / Follow Up: River Moreno DO [Primary Care Provider] - Disposition Disposition (needs filled in before D/C Order can be placed): Assisted Living
--- NOTE | 2024-12-18 10:31 | PCM.DC.SUM ---
Providers Date of Admission: 12/16/24 Date of Discharge: 12/18/24 Primary Care Physician: Dr. River Moreno, DO Reason For Visit: ALTERMAN STATUS GENERALIZED WEAKNESS ACUTE Diagnosis Discharge Diagnosis (1) Community acquired pneumonia: Status: Inactive Code(s): J18.9 - Pneumonia, unspecified organism Plan 1. Community-acquired pneumonia-patient will remain on aerosol treatments and Rocephin and Zithromax #2 dementia-complicates care, management, recovery, and prognosis, I am not sure the patient has metabolic encephalopathy currently as I am unaware of his baseline and he lives in the memory care unit at [facility] #3 acute fracture of the right 10th and 11th ribs-supportive care including analgesics #4 hyperlipidemia-patient is on a statin Patient is on Famvir as an outpatient for prevention of cold sores, I will take him off acyclovir while he is in the hospital I did talk with the memory unit at [facility] and they stated that the patient's mental status has been declining and he has become more confused while there. Total clinical time spent by myself addressing the patient's medical issues, reviewing all of his data, and collaborating with patient's care team: 35 minutes Medications at Discharge Home Medications aspirin 81 mg tablet,delayed release 81 mg PO QDAY 01/06/18 rosuvastatin 20 mg tablet (Crestor) 20 mg PO QDAY #90 tabs 03/29/21 dextromethorphan-guaifenesin 30 mg-600 mg tablet extended [id number] hr (Mucinex DM) 1 tab PO BID 07/20/22 famciclovir 500 mg tablet 500 mg PO BID 07/20/22 celecoxib 200 mg capsule 200 mg PO DAILY 04/27/23 cholecalciferol (vitamin D3) 125 mcg (5,000 unit) tablet (Vitamin D3) 125 mcg PO DAILY 04/27/23 fexofenadine 180 mg tablet (Mona Allergy) 180 mg PO DAILY 04/27/23 hydroxyzine pamoate 25 mg capsule 25 mg PO Q8H PRN anxiety 04/27/23 quetiapine 50 mg tablet 50 mg PO DAILY 04/27/23 escitalopram oxalate 10 mg tablet 10 mg PO DAILY 12/12/24 loperamide 2 mg tablet (Anti-Diarrheal (loperamide)) 2 mg PO Q6H PRN loose stool 12/12/24 magnesium hydroxide 400 mg/5 mL oral suspension (Milk of Magnesia) 30 ml PO DAILY PRN constipation 12/12/24 quetiapine 25 mg tablet 25 mg PO DAILY 12/12/24 acetaminophen 325 mg tablet 650 mg PO Q4H PRN fever or pain 12/16/24 nystatin 100,000 unit/gram topical powder (Klayesta) 1 applic topical Q8H PRN skin irritation 12/16/24 omeprazole 40 mg capsule,delayed release 40 mg PO DAILY 12/16/24 ahaqbqtraqsks-EH-zpbuhpazndhlv 5 mg-10 mg-325 mg/15 mL oral liquid (Daytime Cold and Flu Relief (PE)) 30 ml PO Q4H PRN cough 12/16/24 cefdinir 300 mg capsule 300 mg PO BID #10 caps 12/18/24 furosemide 40 mg tablet (Lasix) 40 mg PO DAILY #30 tabs 12/18/24 potassium chloride 10 mEq tablet,extended release (Klor-Con) 20 meq (2 x 10 mEq) PO DAILY #60 tabs 12/18/24 Hospital Course Operations None Procedures None Summary of Care Provided Minutes Spent on Discharge: 31 Hospital Course: This 84-year-old white male was seen in the emergency room at [facility] after being brought in from assisted living memory unit due to concerns of declining mental status and ability of the patient to perform ADLs. Patient had recently had a fall with 2 rib fractures detected. Workup in the emergency room revealed his white blood cell count to be 15.2, hemoglobin was 17.1, chemistry profile was remarkable for a BUN of 32. CT of the brain showed chronic changes with no acute findings, chest x-ray showed elevation of the hemidiaphragms bilaterally with increased markings at the lung bases suggestive of atelectasis with mild degree of vascular congestion. Chest CT showed bibasilar consolidations worse on the right side is compared with his prior study. Patient was felt to have community-acquired pneumonia, he was admitted to [place] [id number] and placed on IV antibiotics. I contacted his assisted living facility and talked with a nurse that worked on the memory unit, he stated that the patient's mental status has been declining and the of the patient has a hard time accepting this. I did not feel the patient had encephalopathy but there was a definite cognitive impairment due to his dementia. On 12/18/2024, patient was seen and examined:alert and no apparent distress Constitutional Narrative: Patient is confused, he does not carry on a conversation with this examiner General Appearance: cooperative, well kempt and well developed Orientation / Consciousness: awake HEENT normocephalic, head/scalp atraumatic and moist oral mucous membranes Eyes PERRL, EOMs intact bilaterally and conjunctivae normal Neck supple, no JVD, thyroid normal and no carotid bruits General: trachea midline Resp normal respiratory effort, no retractions, no use of accessory muscles and clear to auscultation bilaterally Auscultation: Negative for rales, rhonchi or wheezes Cardio regular rate, regular rhythm, S1 normal heart sound, S2 normal heart sound, no murmurs, no rub and no gallops GI normal to inspection, nondistended, normoactive bowel sounds, soft to palpation, non-tender and non-distended Extremity no clubbing, cyanosis or edema Skin no rashes or lesions noted General Skin Exam: no breakdown Neuro CN's II-XII intact bilaterally, moves all extremities and no focal motor deficits Neuro Narrative: Patient is confused, he does not carry on a conversation Sensorium / Orientation: awake and alert Psych Psych Narrative: Patient appears confused Patient was discharged back to [facility] memory unit in stable condition on 12/18/2024. Weight / BMI Weight Weight: 83.6 kg Body Mass Index (BMI) 28.0 ABG / Lab / Microbiology Data 12/17/24 05:20 12/17/24 05:20 Microbiology: Microbiology 12/16/24 11:46 Blood Culture (Wb) - Right Hand Blood Culture - Preliminary No growth in 48 hours. 12/16/24 11:38 Blood Culture (Wb) - Left Wrist Blood Culture - Preliminary No growth in 48 hours. 12/16/24 12:30 Urine Catheter - Catheter Urine Culture - Final Culture exhibits no growth. 12/16/24 17:30 Mucosa - Nose Coronavirus COVID-19 PCR - Final 12/16/24 17:30 Mucosa - Nasopharyngeal Respiratory Panel (PCR) - Final 12/16/24 17:05 Urine Catheter - Francis Legionella Antigen - Final 12/16/24 17:05 Urine Catheter - Francis Streptococcus pneumoniae Antigen (M - Final Radiography Diagnostic Testing: Radiology Impression Chest X-Ray 12/18/24 08:35 IMPRESSION: Mild pulmonary vascular congestion. Bibasilar consolidations better appreciated on concurrent CT chest. Trace left base effusion. No significant right base effusion. Reading Location: [id number]/C Instructions Discharge Diet: No restrictions Weight Bearing Status: Full weight bearing DC O2, CPAP, BIPAP Needs Home O2 Discharge instructions: No Meaningful Use Info Meaningful Use Meaningful Use Diagnoses (Choose all that apply): None applicable Ischemic Stroke Statin Dosing Therapy Reference: STATIN DOSE THERAPY REFERENCE: * Patients > 75 years receive moderate or high dose statin therapy. * Patients 75 years or YOUNGER should receive HIGH intensity statin dose unless contraindicated. You will be required to document reason for non-treatment if statin daily dose does not meet guidelines. HIGH DOSE STATIN THERAPY DAILY Atorvastatin > than or = to 40 mg Rosuvastatin > than or = to 20 mg Amlodipine + Atorvastatin > than or = to 2.5/40 mg Ezetimibe + Simvastatin 10/80 mg Simvastatin 80mg Discharge Plan Admission Admit Date/Time: 12/16/24 16:09 Primary Reason for Your Visit: Pneumonia Attending Provider: Sushant Neal Primary Care Provider: River Moreno Consulting Providers: Nithya Sandoval Discharge Orders/Prescriptions Prescriptions: New furosemide [Lasix] 40 mg tablet 40 mg PO DAILY Qty: 30 0RF potassium chloride [Klor-Con 10] 10 mEq tablet extended release 20 meq PO DAILY Qty: 60 0RF cefdinir 300 mg capsule 300 mg PO BID Qty: 10 0RF Continued aspirin 81 mg tablet,delayed release (DR/EC) 81 mg PO QDAY famciclovir 500 mg tablet 500 mg PO BID Mucinex DM 30-600 mg Tablet Extended Release 12 Hr 1 tab PO BID celecoxib 200 mg capsule 200 mg PO DAILY fexofenadine [Mona Allergy] 180 mg tablet 180 mg PO DAILY quetiapine 50 mg tablet 50 mg PO DAILY hydroxyzine pamoate 25 mg capsule 25 mg PO Q8H PRN (Reason: anxiety) cholecalciferol (vitamin D3) [Vitamin D3] 125 mcg (5,000 unit) tablet 125 mcg PO DAILY quetiapine 25 mg tablet 25 mg PO DAILY escitalopram oxalate 10 mg tablet 10 mg PO DAILY loperamide [Anti-Diarrheal (loperamide)] 2 mg tablet 2 mg PO Q6H PRN (Reason: loose stool) magnesium hydroxide [Milk of Magnesia] 400 mg/5 mL suspension 30 ml PO DAILY PRN (Reason: constipation) acetaminophen 325 mg tablet 650 mg PO Q4H PRN (Reason: fever or pain) nystatin [Klayesta] 100,000 unit/gram powder 1 applic topical Q8H PRN (Reason: skin irritation) Daytime Cold-Flu Relief (PE) 5-10-325 mg/15 mL liquid 30 ml PO Q4H PRN (Reason: cough) omeprazole 40 mg capsule,delayed release(DR/EC) 40 mg PO DAILY rosuvastatin [Crestor] 20 mg tablet 20 mg PO QDAY Qty: 90 3RF Referrals / Follow Up: River Moreno DO [Primary Care Provider] - Disposition Disposition (needs filled in before D/C Order can be placed): Assisted Living Charges/Coding Visit Charges Inpatient E&M: 74105 Disch Hosp >30min
[2024-12-18 15:00] VITALS: BP 132/72; PULSE 76; RESP 16; TEMP 37; O2SAT 95
== END 2024-12-18 16:06 | disposition home or self-care (01) | DRG 194 ==
LOC: ED 14:44 → MS3 16:13
PROVIDERS: Admitting Provider Internal Medicine; Emergency Provider Emergency Medicine; PCP Family Medicine; Visit Provider Internal Medicine
DX: J18.9 Pneumonia, unspecified organism (principal); S22.41XA Multiple fractures of ribs, right side, initial encounter for closed fracture; F03.90 Unspecified dementia, unspecified severity, without behavioral disturbance, psychotic disturbance, mood disturbance, and anxiety; F32.A Depression, unspecified; E78.5 Hyperlipidemia, unspecified; K21.9 Gastro-esophageal reflux disease without esophagitis; I25.10 Atherosclerotic heart disease of native coronary artery without angina pectoris; W19.XXXA Unspecified fall, initial encounter; F41.9 Anxiety disorder, unspecified; Z79.1 Long term (current) use of non-steroidal anti-inflammatories (NSAID); Z95.5 Presence of coronary angioplasty implant and graft; Z79.82 Long term (current) use of aspirin; Z79.899 Other long term (current) drug therapy
CPT/HCPCS: 36415; 36600; 51702; 70450; 71045; 71046; 71250; 74177; 80048; 80053; 81001; 82803; 82962; 83605; 84484; 85025; 85610; 85730; 87040; 87086; 87449; 87633; 87635; 92523; 93005; 94640; 94668; 94762; 97116; 97129; 97130; 97162; 97166; 97530; 97535; 97802; 99285; Q9967; A4216; J0696; J1938